=== PATIENT | female | born 1945 | race Caucasian/White ===

== ENCOUNTER → 2017-11-09 09:56 | Outpatient (CLI) | payer MEDICARE, OTHER, SELFPAY ==
[2017-11-09 10:23] LABS: Hematocrit 35.6 % (37-47); Hemoglobin 11.6 g/dl (12.0-15.0)
[2017-11-09 10:42] LABS: AST(SGOT) 20 U/L (15-37); Alanine Aminotransfer ALT/SGPT 20 U/L (13-56); Albumin, Serum 3.5 g/dL (3.2-5.0); Alkaline Phosphatase 76 U/L (45-117); Bilirubin, Direct 0.18 mg/dL (0.00-0.30); Cholesterol 160 mg/dL (200); Globulin 3.3 g/dL (2.2-4.2); High Density Lipoprotein 78 mg/dL; Protein, Total 6.8 g/dL (6.4-8.2); Triglycerides 134 mg/dL; Very Low Density Lipoprotein 27 mg/dL (5-40)
== END ==
PROVIDERS: Family Provider Family Medicine; PCP Family Medicine; Visit Provider Nurse Practitioner Family
DX: E78.00 Pure hypercholesterolemia, unspecified (principal); K52.9 Noninfective gastroenteritis and colitis, unspecified
CPT/HCPCS: 36415; 80061; 80076; 85014; 85018

== ENCOUNTER → 2018-05-07 11:03 | Outpatient (CLI) | payer MEDICARE, OTHER, SELFPAY ==
[2018-05-07 12:04] LABS: AST(SGOT) 15 U/L (15-37); Alanine Aminotransfer ALT/SGPT 20 U/L (13-56); Albumin, Serum 3.5 g/dL (3.2-5.0); Alkaline Phosphatase 75 U/L (45-117); Bilirubin, Direct 0.17 mg/dL (0.00-0.30); Cholesterol 165 mg/dL (200); Globulin 3.1 g/dL (2.2-4.2); High Density Lipoprotein 78 mg/dL; Protein, Total 6.6 g/dL (6.4-8.2); Triglycerides 85 mg/dL; Very Low Density Lipoprotein 17 mg/dL (5-40)
== END ==
PROVIDERS: Family Provider Family Medicine; PCP Family Medicine; Visit Provider Nurse Practitioner Family
DX: E78.5 Hyperlipidemia, unspecified (principal)
CPT/HCPCS: 36415; 80061; 80076

== ENCOUNTER → 2019-03-07 | Outpatient (CLI) | payer MEDICARE, OTHER, SELFPAY ==
[2018-11-05 11:21] VITALS: BMI 20.2
--- NOTE | 2019-03-07 12:10 | US_ITS ---
STUDY: RENAL ULTRASOUND - COMPLETE REASON FOR EXAM: Female, 73 years old. UTIs TECHNIQUE: Ultrasound evaluation of the kidneys was performed with real-time and static payne-scale imaging. COMPARISON: None. FINDINGS: RIGHT KIDNEY: Normal location of the right kidney, which is normal in size. The right kidney measures 10.5 x 4.8 x 3.8 cm. There is a normal cortex of the right kidney. The renal cortex measures 1.2 cm. There is no right renal mass or cyst. There are no right renal calculi. There is no right hydronephrosis. DISTAL RIGHT URETER: There is non-visualization of the distal right ureter. There is no demonstrated right ureterovesical junction calculus. There is a visualized right ureteral jet. LEFT KIDNEY: Normal location of the left kidney, which is normal in size. The left kidney measures 9.8 x 4.8 x 5.1 cm. There is a normal cortex of the left kidney. The renal cortex measures 1.2 cm. There is no left renal mass or cyst. There are no left renal calculi. There is no left hydronephrosis. DISTAL LEFT URETER: There is non-visualization of the distal left ureter. There is no demonstrated left ureterovesical junction calculus. There is a visualized left ureteral jet. AORTA: There is no elongation or tortuosity of the abdominal aorta. I.V.C.: The IVC is patent. BLADDER: The distended urinary bladder has a volume of 334.1 ml. The empty urinary bladder has a volume of 58.82 ml. There is a normal wall thickness of the distended urinary bladder. There is no demonstrated mass within the urinary bladder. There are no demonstrated bladder calculi. US/Kidney and Bladder IMPRESSION: Sonographically normal kidneys Bladder distends normally but there is a post void residual in the bladder above what is considered normal. This places the patient risk for urinary reflux and UTIs Electronically Signed: Magdy Luciano MD at 13:39 EDT , Service support ,
== END | disposition home or self-care (01) ==
LOC: US 12:09
PROVIDERS: Family Provider Family Medicine; PCP Family Medicine; Referring Provider Urology; Visit Provider Urology
DX: N39.0 Urinary tract infection, site not specified (principal)
CPT/HCPCS: 76770

== ENCOUNTER → 2020-10-14 08:16 | Outpatient (CLI) | payer MEDICARE, OTHER, SELFPAY ==
[2020-02-28 13:04] VITALS: BMI 20.6
[2020-10-14 09:52] LABS: AST(SGOT) 16 U/L (15-37); Alanine Aminotransfer ALT/SGPT 18 U/L (13-56); Albumin, Serum 3.7 g/dL (3.2-5.0); Alkaline Phosphatase 91 U/L (45-117); Bilirubin, Direct 0.18 mg/dL (0.00-0.30); Cholesterol 175 mg/dL (200); Globulin 3.2 g/dL (2.2-4.2); High Density Lipoprotein 63 mg/dL; Protein, Total 6.9 g/dL (6.4-8.2); Triglycerides 161 mg/dL; Very Low Density Lipoprotein 32 mg/dL (5-40)
== END ==
PROVIDERS: PCP Family Medicine; Visit Provider Internal Medicine Cardiovascular Disease
DX: E78.00 Pure hypercholesterolemia, unspecified (principal)
CPT/HCPCS: 36415; 80061; 80076

== ENCOUNTER → 2021-03-16 15:02 | Outpatient (CLI) | payer MEDICARE, OTHER, SELFPAY ==
[2020-10-19 15:17] VITALS: BMI 19.8
[2021-03-16 17:51] LABS: Absolute Neutrophil Count 4.9 X10^3/uL (2.0-7.7); Basophil# 0.04 X10^3/uL; Basophil% 0.6 % (0-1); Eosinophil# 0.03 X10^3/uL; Eosinophils% 0.4 % (0-5); Hematocrit 36.7 % (37-47); Hemoglobin 12.1 g/dL (12.0-15.0); Lymphocyte % 19.3 % (19-41); Mean Corpuscular Hgb 31.5 pg (27.0-32.0); Mean Corpuscular Volume 95.6 fL (81-99); Mean Platelet Vol. 10.9 fl (6.2-12.0); Monocyte# 0.46 X10^3/uL; Monocyte% 6.8 % (0-10); NRBC Flagged by Analyzer 0 % (0-5); Neutrophil # 4.88 X10^3/uL (2.7-7.7); Neutrophil % 72.6 % (47-70); Platelet Count 185 K/mm3 (150-450); RBC Distribution Width CV 12.7 % (11.6-14.6); RBC Distribution Width SD 44.8 fl (35.1-43.9); Red Blood Count 3.84 M/mm3 (4.2-5.4); White Blood Count 6.7 K/mm3 (4.4-11.0)
[2021-03-16 18:09] LABS: CRP < 2.90 mg/L (0.0-3.0)
[2021-03-18 14:09] LABS: Endomysial Antibody IgA Negative (Negative)
[2021-03-18 16:41] LABS: Immunoglobulin A 88 mg/dL (64-422); t-Transglutaminase IgA <2 U/mL (0-3)
== END ==
PROVIDERS: PCP Family Medicine; Referring Provider Internal Medicine Gastroenterology; Visit Provider Internal Medicine Gastroenterology
DX: R19.7 Diarrhea, unspecified (principal)
CPT/HCPCS: 36415; 82784; 83516; 85025; 86140; 86255

== ENCOUNTER → 2021-03-23 11:42 | Outpatient (CLI) | payer MEDICARE, OTHER, SELFPAY ==
[2020-10-19 15:17] VITALS: BMI 19.8
--- NOTE | 2021-03-23 10:31 | FLU_PTH ---
PATIENT: GRICELDA KRUGER LOC: [facility] U#:[id number] AGE/SX: 80/F ROOM: RE03/23/[address]: Dr. Demario Felix MD : 1945 BED: DIS: SPEC #: [id number] RECD: 03/23/21 11:28 STATUS: MARGOTH SHANICE #: [id number] WM: 03/23/21 10:[address]: Demario Felix DEPT: CYTOLOGY RECD BY: Naa Esparza ENTERED: 03/23/21 13:59 SP TYPE: Fluid OTHR DR: Dr. Jerod Au MD Tissues: A - Thyroid gland, NOS Procedures: Special Stain Group II Surgery Specimen Level IV Cytospin Fluid HEADER OPERATION: Fine needle aspiration thyroid PRE-OP DIAGNOSIS: Thyroid nodule TISSUE SUBMITTED: Thyroid nodule biopsy DIAGNOSIS CYTOLOGY Fine needle aspiration, thyroid nodule (cytospin and cell block): Consistent with benign follicular nodule with cystic change. AM:jaron 03/24/2021 COMMENT The specimen is adequate for evaluation. CYTOLOGY STUDY Slides are reviewed. CYTOLOGY GROSS Received is 35 ml of light clear pink fluid with particles labeled with the patient's name and and designated per the requisition as thyroid nodule. Submitted for cytology preparation including cell block. / jaron 03/23/2021 TC:5 CPT: 98107, 07830
== END ==
PROVIDERS: PCP Family Medicine; Visit Provider Otolaryngology
DX: E04.1 Nontoxic single thyroid nodule (principal)
CPT/HCPCS: 88108; 88305; 88313

== ENCOUNTER → 2021-04-05 15:20 | Outpatient (CLI) | payer MEDICARE, OTHER, SELFPAY ==
[2021-04-05 18:08] LABS: Thyroid Stim Hormone (TSH) 0.13 uIU/mL (0.358-3.74)
[2021-04-06 12:24] LABS: Free T3 2.4 pg/mL (2.18-3.98); T4 Free Direct 0.89 ng/dL (0.76-1.46)
== END ==
PROVIDERS: PCP Family Medicine; Referring Provider Otolaryngology; Visit Provider Otolaryngology
DX: E04.2 Nontoxic multinodular goiter (principal); E05.90 Thyrotoxicosis, unspecified without thyrotoxic crisis or storm
CPT/HCPCS: 36415; 84439; 84443; 84481

== ENCOUNTER → 2021-04-06 11:53 | Outpatient (CLI) | payer MEDICARE, OTHER, SELFPAY ==
[2021-04-09 13:52] LABS: Thyroglobulin Antibody < 1.0 IU/mL (0.0-0.9); Thyroid Peroxidase AB 8 IU/mL (0-34)
== END ==
PROVIDERS: PCP Family Medicine; Referring Provider Otolaryngology; Visit Provider Otolaryngology
DX: E05.90 Thyrotoxicosis, unspecified without thyrotoxic crisis or storm (principal)
CPT/HCPCS: 36415; 86376; 86800

== ENCOUNTER → 2021-04-22 09:34 | Outpatient (CLI) | payer MEDICARE, OTHER, SELFPAY ==
[2021-04-22 10:47] LABS: AST(SGOT) 10 U/L (15-37); Alanine Aminotransfer ALT/SGPT 19 U/L (13-56); Albumin, Serum 3.2 g/dL (3.2-5.0); Alkaline Phosphatase 64 U/L (45-117); Bilirubin, Direct 0.19 mg/dL (0.00-0.30); Cholesterol 176 mg/dL (200); High Density Lipoprotein 83 mg/dL; Protein, Total 6.2 g/dL (6.4-8.2); Triglycerides 156 mg/dL; Very Low Density Lipoprotein 31 mg/dL (5-40)
== END ==
PROVIDERS: PCP Family Medicine; Referring Provider Internal Medicine Cardiovascular Disease; Visit Provider Internal Medicine Cardiovascular Disease
DX: E78.00 Pure hypercholesterolemia, unspecified (principal)
CPT/HCPCS: 36415; 80061; 80076

== ENCOUNTER → 2021-04-28 09:02 | Outpatient (CLI) | payer MEDICARE, OTHER, SELFPAY ==
--- NOTE | 2021-04-28 09:05 | NM_ITS ---
CLINICAL: 75-year-old female with reported history of clinical thyrotoxicosis an abnormal in vitro thyroid function studies. I-123 THYROID UPTAKE and SCAN COMPARISON: None available FINDINGS: The patient was administered a 313 uCi I-123 capsule by mouth. The 4-hour I-123 radioactive iodine thyroidal uptake was calculated to be 8.1 % (normal 5 to 25 %). The 24-hour I-123 radioactive iodine thyroidal uptake was calculated to be 22.4 % (normal 5 to 40 %). The I-123 thyroid scan demonstrates heterogeneous radiopharmaceutical concentration throughout the visualized right lobe and decreased uptake manifest in the superior-midpole of the left lobe thyroid colloid. NM/Thyroid Uptake Single or Mult IMPRESSION: 1. NORMAL 4- and 24-hour I-123 radioactive iodine thyroidal uptakes. 2. The I-123 thyroid scan in conjunction with the calculated normal IODINE uptake values and clinical presentation of thyrotoxicosis may represent the presence of the recovery phase of subacute thyroiditis or potentially a low-grade right lobe toxic adenoma with incomplete suppression of the left lobe thyroid colloid. Electronically Signed: Paramjit Ojeda DO at 22:35 EDT Tel , Service support ,
== END ==
PROVIDERS: PCP Family Medicine; Referring Provider Otolaryngology; Visit Provider Otolaryngology
DX: E05.90 Thyrotoxicosis, unspecified without thyrotoxic crisis or storm (principal)
CPT/HCPCS: 78012; A9516

== ENCOUNTER → 2021-05-07 13:41 | Outpatient (CLI) | payer MEDICARE, OTHER, SELFPAY ==
--- NOTE | 2021-05-07 13:43 | ECHOD_ITS ---
Reason For Study: CM Procedure This was a 2D Doppler, Color Flow transthoracic echocardiogram. Myocardial strain analysis was performed in this exam to aid in the assessment of cardiac function. The exam was of adequate technical quality. Exam performed in department. Left Ventricle Normal LV size. Segmental dysfunction with preserved ejection fraction (see wall motion). The estimated ejection fraction is 60 %. The global longitudinal strain = -16% (borderline). Septal motion consistent with IVCD. Diastolic function is indeterminate. Mid-inferoseptal : Hypokinetic. Mid-anteroseptal : Hypokinetic. Right Ventricle Normal RV size. Normal systolic function. Atria The left atrium is mildly enlarged. Normal right atrium. No doppler evidence for ASD. Mitral Valve There is mild to moderate mitral annular calcification. Extension of the mitral annular calcification onto the base of the posterior mitral valve leaflet. Mild (1+) mitral valve insufficiency. Tricuspid Valve Normal tricuspid valve. Mild tricuspid valve insufficiency. Right ventricular systolic pressure estimated to be 22 mmHg. Aortic Valve Trisinus/trileaflet aortic valve. Mild diffuse aortic valve thickening. Pulmonic Valve The pulmonic valve is not well visualized. Trivial pulmonic valve insufficiency. Great Vessels Normal sized aortic root. Pericardium/Pleural No pericardial effusion. MMode/2D Measurements & Calculations LVIDd: 4.3 cm IVSd: 1.0 cm Ao root diam: 2.6 cm LVIDs: 2.8 cm LVPWd: 0.98 cm RVDd: 3.8 cm FS: 33.9 % LAV(MOD-bp): 32.8 ml LVAd ap4: 17.8 cm2 SV(MOD-sp4): 25.0 ml LAV(MOD-bp) Indexed: 20.9 ml/m2 LVLd ap4: 6.4 cm LAV(MOD-sp2): 36.7 ml EDV(MOD-sp4): 40.3 ml LAV(MOD-sp4): 29.7 ml EDV(sp4-el): 41.8 ml LVAs ap4: 9.9 cm2 LVLs ap4: 5.4 cm ESV(MOD-sp4): 15.3 ml ESV(sp4-el): 15.5 ml EF(MOD-sp4): 62.2 % EF(sp4-el): 62.9 % SV(sp4-el): 26.3 ml LA A4 area: 13.4 cm2 LA dimension(2D): 3.4 cm RA A4 area: 13.0 cm2 Doppler Measurements & Calculations MV E max damien: 67.2 cm/sec Lat Peak E' Damien: 5.6 cm/sec Med Peak E' Damien: 4.3 cm/sec MV A max damien: 109.5 cm/sec E/E' lat: 12.1 E/E' med: 15.8 MV E/A: 0.61 Ao V2 max: 122.9 cm/sec LV V1 max: 100.0 cm/sec PA V2 max: 88.6 cm/sec Ao max P.0 mmHg LV V1 max P.0 mmHg Ao V2 mean: 87.8 cm/sec Ao mean P.3 mmHg Ao V2 VTI: 24.7 cm TR max damien: 220.0 cm/sec TR max P.4 mmHg ECHO/Echo Complete Interpretation Summary Segmental dysfunction with preserved ejection fraction (see wall motion). The estimated ejection fraction is 60 %. The global longitudinal strain = -16% (borderline). Septal motion consistent with IVCD. The left atrium is mildly enlarged. There is mild to moderate mitral annular calcification. Extension of the mitral annular calcification onto the base of the posterior mi tral valve leaflet. Mild (1+) mitral valve insufficiency. Mild tricuspid valve insufficiency. Mild diffuse aortic valve thickening. Trivial pulmonic valve insufficiency. Right ventricular systolic pressure estimated to be 22 mmHg. Diastolic function is indeterminate. Ordering Physician: Kwame Nava Referring Physician: Jerod Au Performed By: Rhea Mcneil, GAMAL, RVT
== END ==
PROVIDERS: PCP Family Medicine; Referring Provider Internal Medicine Cardiovascular Disease; Visit Provider Internal Medicine Cardiovascular Disease
DX: Z79.899 Other long term (current) drug therapy (principal)
CPT/HCPCS: 93306

== ENCOUNTER 2021-06-11 09:57 | Observation (INO) | payer MEDICARE, OTHER, SELFPAY ==
--- NOTE | 2021-06-08 10:29 | EKG12_ITS ---
Test Reason : PREOP Blood Pressure : / mmHG Vent. Rate : 059 BPM Atrial Rate : 059 BPM P-R Int : 154 ms QRS Dur : 144 ms QT Int : 478 ms P-R-T Axes : 038 -43 105 degrees QTc Int : 473 ms Sinus bradycardia Left axis deviation Left bundle branch block Abnormal ECG Confirmed by FRANCE SOLORIO, VIRGIL ([id number]), supervising editor trailer JOSE MIGUEL MUÑOZ ([id number]) on 06/09/2021 9:29:28 AM Referred By: Demario Felix Confirmed By:VIRGIL HOUGH MD
[2021-06-08 12:18] LABS: Absolute Lymphocyte Count 1.98 X10^3/uL (0.83-4.51); Basophil# 0.04 X10^3/uL; Basophil% 0.6 % (0-1); Eosinophil# 0.06 X10^3/uL; Eosinophils% 0.9 % (0-5); Hematocrit 38.1 % (37-47); Hemoglobin 12.8 g/dL (12.0-15.0); Lymphocyte # 1.98 X10^3/ul (0.83-4.51); Lymphocyte % 29.7 % (19-41); Mean Corp Hgb Conc 33.6 g/dL (32-36); Mean Corpuscular Hgb 32.2 pg (27.0-32.0); Mean Platelet Vol. 9.9 fl (6.2-12.0); Monocyte# 0.61 X10^3/uL; Monocyte% 9.1 % (0-10); NRBC Flagged by Analyzer 0 % (0-5); Neutrophil # 3.96 X10^3/uL (2.7-7.7); Neutrophil % 59.4 % (47-70); Platelet Count 192 K/mm3 (150-450); RBC Distribution Width CV 12.9 % (11.6-14.6); RBC Distribution Width SD 45.7 fl (35.1-43.9); Red Blood Count 3.97 M/mm3 (4.2-5.4); White Blood Count 6.7 K/mm3 (4.4-11.0)
[2021-06-08 12:25] LABS: Partial Thromboplast Time 28.3 Seconds (24.1-36.2)
[2021-06-08 12:43] LABS: Anion Gap 8 (5-15); BUN 15 mg/dL (7-18); BUN/Creat Ratio 22.8 RATIO (10-20); Calcium,Total 9.5 mg/dL (8.5-10.1); Chloride 105 mmol/L (98-107); Creatinine, Serum 0.66 mg/dL (0.55-1.02); EST Glomerular Filtration Rate 92 mL/min (>60); Est Glom Filt Rate - Afr Amer 112 mL/min (>60); Glucose 89 mg/dL (74-106); Potassium 3.3 mmol/L (3.5-5.1); Sodium Level 143 mmol/L (136-145)
[2021-06-11] VITALS (13 sets, daily range): BP systolic 132–180; BP diastolic 64–91; PULSE 64–79; RESP 12–18; TEMP 35.8–36.9; O2SAT 94–100; BMI 20.5
--- NOTE | 2021-06-11 | THYROID_PTH ---
PATIENT: GRICELDA KRUGER LOC: [facility] U#:[id number] AGE/SX: 75/F ROOM: [facility] RE06/11/[address]: Dr. Demario Fleix MD : 1945 BED: 1 DIS: 06/12/2021 SPEC #: [id number] RECD: 06/11/21 09:16 STATUS: MARGOTH SHANICE #: [id number] WM: 06/11/21 00:[address]: Demario Felix DEPT: SURGICAL PATHOLOGY RECD BY: Kristine Corado ENTERED: 06/11/21 09:41 SP TYPE: THYROID OTHR DR: Dr. 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 SJ:jaron 06/11/2021 MICROSCOPIC DIAGNOSIS Right thyroid lobe, lobectomy: Multinodular goiter. Unremarkable parathyroid tissue. One benign perithyroidal lymph node. See comment. ANDIE:jaron 06/14/2021 COMMENT The largest nodule shows extensive cystic changes. Please make reference to previous specimen ([id number]) fine needle aspiration, thyroid nodule with diagnosis of ?consistent with benign follicular nodule with cystic change.? MICROSCOPIC DESCRIPTION Slides are reviewed. GROSS DESCRIPTION Received fresh for frozen section consultation/diagnosis labeled with the patient's name is a specimen designated right thyroid lobe. The specimen consists of a thyroid lobectomy specimen weighing 9 gm and measuring 5.5 x 2.5 x 1.5 cm. The specimen is inked as follows: anterior surface - black, posterior surface - blue. No external parathyroid tissue is identified. The specimen is serially sectioned and reveal a colloid nodule with extensive cystic changes in the middle to lower portion of the thyroid lobe measuring 3 x 2 x 1.5 cm. Smaller colloid nodules are also noted. A section of the largest nodule is submitted for frozen section diagnosis. The entire specimen is submitted in six cassettes as follows: 1 - frozen section, 2-6 - rest of the specimen (2 containing the most superior and 6 containing the most inferior portion). / SJ:jaron 06/11/21 TC:5 CPT: 33862, 49770
[2021-06-11] MEDS: Lactated Ringers 1,000 ML 100 ML IV ×3 (06:43→18:16)
[2021-06-11] MEDS: Lidocaine 1% /Epi 1:100 (20ml) 20 ML Vial (07:50)
--- NOTE | 2021-06-11 09:50 | PCM.OPRPT ---
Problems Associated Problem List Diagnoses (1) Multinodular goiter: (2) Toxic goiter with no crisis: (3) Hyperthyroidism: Report of Operation Date of Procedure: 06/11/21 Pre-Operative Diagnosis: Hyperthyroidism with toxin nodule Post-Operative Diagnosis: Same Surgery/Procedure Performed:: Right hemithyroidectomy Description of Surgical Findings:: Kassie is a 75-year-old female with persistent hyperthyroidism in the setting of multinodular goiter. Nuclear medicine scanning showed the largest nodule was a dominant nodule with increased uptake which is suspected as the primary cause of her hyperthyroidism and hemithyroidectomy for full evaluation and possible posterior was offered and she was agreeable to proceed. The risks, alternatives, potential complications, and benefits were discussed at length and any questions answered to the patient and/or caregiver's satisfaction. Witnessed informed consent was obtained in the office, and the patient and/or caregiver was agreeable to proceed. Procedure went as follows: The patient was identified in the preoperative holding and brought to the operating room, placed under general anesthesia and intubated with a neuromonitoring tube. The grounding electrodes were then placed on the chest and confirmed to be operational in accordance with the food server's directions to allow for recurrent laryngeal nerve monitoring. The neck was then prepped and draped in usual sterile fashion and the planned skin incision was marked 2 finger breadths above the sternal notch with a marking pen. The incisional line was then injected with 1% lidocaine with 100,000 epinephrine for a total of 6 mL. After allowing for vasoconstriction, a 15 blade scalpel was used to make an incision 6 cm in length through the skin and subcutaneous tissues and platysma. A subplatysmal flap was then elevated superiorly and inferiorly to allow for placement of a small retractor. The strap muscles were then divided in the midline and beginning on the right side the thyroid lobe dissected in a sub-capsular fashion. The inferior, middle, and superior thyroid vessels were individually clamped and ligated with a combination of 3-0 silk sutures and vascular clips. The parathyroid glands were identified along the inferior vascular pedicle and preserved. The recurrent laryngeal nerve was also identified and followed to its nerve entry point and the thyroid gland dissected free of its attachments to the trachea at Broyle's ligament. This was then transected at the isthmus and sent for pathologic evaluation. No significant bleeding was encountered and #7 flat drains were then placed into each tracheoesophageal groove and brought out through a separate stab incision in the neck and secured with 3-0 silk suture. The strap muscles were then re-approximated in the midline with a running 3-0 Vicryl suture followed by interrupted 3-0 Vicryl sutures to close the platysma and subcutaneous tissues. A 5-0 Monocryl was then used to close the skin followed by Steri-Strips completing the procedure. The patient was then returned to anesthesia, revived and extubated having tolerated the procedure well. Surgeon: Demario Felix Type of Anesthesia: General Anesthesiologist: Demario Rdz Specimen's removed: right hemithyroid Drains: 1 #7 flat KG Estimated Blood Loss (mL): 0 mL Fluids Replaced: 400 mL Grafts/Implants Used: none Complications none Admit VTE Documentation VTE Present on Admission: No VTE Mechan Device Prophylaxis: SCD's VTE Pharm Prophylaxis ordered?: No
[2021-06-11] MEDS: Acetaminophen 325 MG Tablet 650 MG PO ×2 (12:32→18:28)
[2021-06-11] MEDS: Calcium Carbonate 500 MG Tablet 1000 MG PO ×2 (14:31→20:38)
--- NOTE | 2021-06-11 16:10 | CASEMGMT ---
RN CM NOTE: RN CM to room. Introduced self and role of RN CM. Pt resting in bed. Awake/alert/oriented. Pt states she lives w/her and is independent. She denies having any discharge/home-going concerns/needs or questions. Her PCP is Dr Au. She also sees: Dr Felix--surg, Dr Nava--cardiology, Dr Miller-GI, and Mirki-side seam machine operator. Pharmacy is [facility] in [place]. Jorje DELANEYN RN CM
[2021-06-11] MEDS: Pantoprazole Sodium 20 MG Tablet PO (20:38)
[2021-06-11] MEDS: Carvedilol 12.5 MG Tablet PO (20:39)
[2021-06-11] MEDS: levETIRAcetam 500 MG Tablet PO (20:39)
[2021-06-11] MEDS: Sertraline 50 MG Tablet PO (22:20)
[2021-06-11] MEDS: Atorvastatin Calcium 10 MG Tablet PO (22:20)
[2021-06-11] MEDS: clonazePAM 0.5 MG Tablet 0.75 MG PO (22:21)
[2021-06-12 02:46] VITALS: BP 145/52; PULSE 61; RESP 16; TEMP 37.1; O2SAT 92
[2021-06-12] MEDS: Acetaminophen 325 MG Tablet 650 MG PO (02:52)
--- NOTE | 2021-06-12 05:32 | PCS.PANDOC ---
PANDEMIC DOCUMENTATION INITIATED: Date: 03/29/2021 Time: 190
[2021-06-12 06:21] VITALS: BP 131/58; PULSE 59; RESP 16; TEMP 37.2; O2SAT 96
[2021-06-12] MEDS: Carvedilol 12.5 MG Tablet PO (06:26)
[2021-06-12] MEDS: Calcium Carbonate 500 MG Tablet 1000 MG PO (06:26)
[2021-06-12] MEDS: levETIRAcetam 500 MG Tablet PO (06:26)
--- NOTE | 2021-06-12 09:26 | PCM.PN.SRG ---
Subjective Subjective The patient reports that she is done well overnight with no significant pain other than some mild pulling at the drain site. She denies any hoarseness or difficulty breathing. She denies any chills sweats or malaise. Objective Data Objective Data Patient is well-appearing at the bedside. Neck incision is clean dry and intact without erythema. Drain output was less than 10 mL and serosanguineous in nature without purulence. Voicing is normal. Vital Signs: Vital Signs Temp Pulse Resp BP Pulse Ox 99.0 F 59 L 16 131/58 H 96 06/12/21 06:21 06/12/21 06:21 06/12/21 06:21 06/12/21 06:21 06/12/21 06:21 Oxygen Flow Rate (L/min) 2 Oxygen Delivery Method Room Air Weight: 54.1 kg Body Mass Index (BMI) 20.5 Intake & Output: Intake and Output for Last 24 Hours 06/10/21 06/11/21 06/12/21 23:59 23:59 23:59 Intake Total 2113.34 / 2613.34 600 / 600 Output Total 190 / 190 Balance 1923.34 / 2423.34 590 / 590 Lab / Micro Data Result Diagrams: 06/08/21 10:44 06/08/21 10:44 Physical Exam Const alert and oriented x3 General Appearance: cooperative and comfortable HEENT normocephalic and head/scalp atraumatic Eyes PERRL and EOMs intact bilaterally Neck supple Neck Narrative: Incision is clean dry and intact Lymph Lymphatic: no lymphadenopathy noted Cardio regular rate and regular rhythm Skin no rashes or lesions noted and skin turgor normal Neuro oriented x3 Assessment & Plan Assessment/Plan (1) Toxic goiter with no crisis: PLAN: Patient is doing well status post right hemithyroidectomy for dominant toxic nodular goiter. Her drain was removed at the bedside. She is noted to have a temperature of 99 today but no signs of infection at the wound site and she denies any symptoms suggestive of infection. I advised her to check her temperature at home and notify me if this trends upward or if she has any signs of infection such as increasing pain redness or discharge. She is agreeable to do so. She is otherwise well and drain output is minimal this is removed at the bedside they feel she is appropriate for discharge to home at this time. (2) Multinodular goiter:
[2021-06-12] MEDS: Multivitamins,Therapeutic Tablet 1 TABLET PO (09:30)
[2021-06-12] MEDS: Acetaminophen 500 MG Tablet 1000 MG PO (09:30)
[2021-06-12] MEDS: Pantoprazole Sodium 20 MG Tablet PO (09:30)
[2021-06-12 09:31] VITALS: BP 94/58; PULSE 63; RESP 16; TEMP 36.6; O2SAT 98
--- NOTE | 2021-06-12 09:31 | PCM.DC ---
Discharge Instructions Diet Discharge Diet: No restrictions Activity Discharge Activity: Return to Normal Activity May shower in (days): 1 Dressing / Incision Call your doctor if your incision/area has: Sudden Increased Bleeding, Increased Pain/ Swelling, Increased Redness, Foul Smelling Discharge and Swelling at the incision site Call your doctor if you observe: Fever of 101 or Higher and Uncontrolled pain Suture Line Care: Avoid Pulling/Pushing Follow Up Care Please Follow Up With: Demario Felix MD When: 1 week Test Results: Test results from this visit will be discussed in further detail at your follow-up appointment, if applicable. Discharge Plan Admission Admit Date/Time: 06/11/21 09:57 Primary Reason for Your Visit: Toxin nodular goiter Attending Provider: Demario Felix Primary Care Provider: Jerod Au Discharge Orders/Prescriptions Prescriptions: Continued clonazepam 0.5 mg tablet 0.75 mg PO QHS RF: 0 rosuvastatin 5 mg tablet 5 mg PO QDAY RF: 0 levetiracetam 500 mg tablet 500 mg PO BID RF: 0 esomeprazole magnesium 20 mg capsule,delayed release(DR/EC) 20 mg PO BID RF: 0 multivitamin tablet 1 tab PO DAILY RF: 0 clobetasol 0.05 % cream 1 applic TOPICAL QWEEK RF: 0 flnneaeuji-bzjmppvgzbjzm-glql 50-325-40 mg tablet 1 tab PO Q6H PRN (Reason: MIGRAINES) RF: 0 calcium carbonate [Calcium 500] 500 mg calcium (1,250 mg) tablet,chewable 1,000 mg PO TID RF: 0 Azo Cranberry 250 mg tablet,chewable 250 mg PO TID RF: 0 sertraline 25 mg tablet 50 mg PO QHS RF: 0 estradiol 0.01 % (0.1 mg/gram) cream 0.1 g VAGINAL MOWEFR RF: 0 glucosamine-chondroitin [Osteo Bi-Flex] 250-200 mg tablet 2 tab PO DAILY RF: 0 acetaminophen [Tylenol Extra Strength] 500 mg tablet 1,000 mg PO DAILY RF: 0 budesonide 3 mg capsule,delayed,extend.release 3 mg PO DAILY PRN (Reason: COLITIS) RF: 0 carvedilol 12.5 mg tablet 12.5 mg PO BID Qty: 180 RF: 4 Other Ambulatory Orders: 12 Lead EKG (Routine) Timeframe: [id number] Location: None Selected Ordered By: Dr. Demario Felix Referrals / Follow Up: Jerod Au MD [Primary Care Provider] - Disposition Disposition (needs filled in before D/C Order can be placed): Home, Self Care
[2021-06-12 09:50] VITALS: RESP 18
[2021-06-12 10:57] VITALS: BP 110/70; PULSE 60; RESP 18; TEMP 37.2; O2SAT 99
== END 2021-06-12 11:02 | disposition home or self-care (01) ==
LOC: SDC 11:23 → MS3 11:23
PROVIDERS: Anesthesiology; Admitting Provider Otolaryngology; PCP Family Medicine; Referring Provider Otolaryngology; Visit Provider Otolaryngology
PROC: (CPT 60220; principal; 2021-06-11 07:10)
DX: E04.2 Nontoxic multinodular goiter (principal); E05.20 Thyrotoxicosis with toxic multinodular goiter without thyrotoxic crisis or storm; I42.0 Dilated cardiomyopathy; E78.00 Pure hypercholesterolemia, unspecified; Z79.899 Other long term (current) drug therapy; M19.90 Unspecified osteoarthritis, unspecified site; F32.A Depression, unspecified; K21.9 Gastro-esophageal reflux disease without esophagitis; I44.7 Left bundle-branch block, unspecified; R00.1 Bradycardia, unspecified; R94.31 Abnormal electrocardiogram [ECG] [EKG]; G25.81 Restless legs syndrome; R56.9 Unspecified convulsions; Z86.011 Personal history of benign neoplasm of the brain; Z85.3 Personal history of malignant neoplasm of breast
CPT/HCPCS: 00320; 60220; 36415; 80048; 85025; 85730; 88307; 88331; 93005; 96360; 96361; 99218; J7120; G0378; J2405

== ENCOUNTER 2021-09-06 14:45 | Outpatient (CLI) | payer MEDICARE, OTHER, SELFPAY ==
[2021-09-06 18:25] LABS: Hematocrit 35.7 % (37-47); Hemoglobin 12.4 g/dL (12.0-15.0); Mean Corp Hgb Conc 34.7 g/dL (32-36); Mean Corpuscular Hgb 32.6 pg (27.0-32.0); Mean Corpuscular Volume 93.9 fL (81-99); Mean Platelet Vol. 10.6 fl (6.2-12.0); Platelet Count 205 K/mm3 (150-450); RBC Distribution Width CV 12.3 % (11.6-14.6); RBC Distribution Width SD 42.5 fl (35.1-43.9); White Blood Count 6.4 K/mm3 (4.4-11.0)
[2021-09-06 18:35] LABS: CRP < 2.90 mg/L (0.0-3.0); Erythrocyte Sedimentation Rate 5 mm/hr (0-30)
== END 2021-09-06 23:59 | disposition short-term general hospital (02) ==
LOC: MTLAB 14:47
PROVIDERS: PCP Family Medicine; Referring Provider Internal Medicine Gastroenterology; Visit Provider Internal Medicine Gastroenterology
DX: K51.90 Ulcerative colitis, unspecified, without complications (principal); R19.7 Diarrhea, unspecified
CPT/HCPCS: 36415; 85027; 85652; 86140

== ENCOUNTER 2021-09-07 09:30 | Outpatient (CLI) | payer MEDICARE, OTHER, SELFPAY ==
[2021-09-09 21:47] LABS: Calprotectin, Stool 102 ug/g (0-120)
== END 2021-09-07 23:59 | disposition short-term general hospital (02) ==
LOC: MTLAB 09:31
PROVIDERS: PCP Family Medicine; Referring Provider Internal Medicine Gastroenterology; Visit Provider Internal Medicine Gastroenterology
DX: K51.90 Ulcerative colitis, unspecified, without complications (principal); R19.7 Diarrhea, unspecified
CPT/HCPCS: 83993

== ENCOUNTER 2021-11-09 14:18 | Outpatient (CLI) | payer MEDICARE, OTHER, SELFPAY | END 2021-11-09 23:59 | disposition home or self-care (01) | LOC: MTLAB 14:19 | PROVIDERS: PCP Family Medicine; Referring Provider Internal Medicine Gastroenterology; Visit Provider Internal Medicine Gastroenterology | DX: K51.90 Ulcerative colitis, unspecified, without complications (principal) | CPT/HCPCS: 36415 ==

== ENCOUNTER 2021-11-17 13:55 | Outpatient (CLI) | payer MEDICARE, OTHER, SELFPAY ==
[2021-11-23 12:51] LABS: Calprotectin, Stool 190 ug/g (0-120)
== END 2021-11-17 23:59 | disposition home or self-care (01) ==
LOC: MTLAB 13:57
PROVIDERS: PCP Family Medicine; Referring Provider Internal Medicine Gastroenterology; Visit Provider Internal Medicine Gastroenterology
DX: K52.9 Noninfective gastroenteritis and colitis, unspecified (principal)
CPT/HCPCS: 83993

== ENCOUNTER 2021-11-25 08:36 | Outpatient (CLI) | payer MEDICARE, OTHER, SELFPAY ==
[2021-11-25 09:46] LABS: AST(SGOT) 16 U/L (15-37); Alanine Aminotransfer ALT/SGPT 23 U/L (13-56); Albumin, Serum 3.7 g/dL (3.2-5.0); Alkaline Phosphatase 60 U/L (45-117); Bilirubin, Direct 0.17 mg/dL (0.00-0.30); Cholesterol 189 mg/dL (200); Globulin 2.8 g/dL (2.2-4.2); High Density Lipoprotein 78 mg/dL; Protein, Total 6.5 g/dL (6.4-8.2); Triglycerides 176 mg/dL; Very Low Density Lipoprotein 35 mg/dL (5-40)
== END 2021-11-25 23:59 | disposition home or self-care (01) ==
LOC: LAB 08:37
PROVIDERS: PCP Family Medicine; Referring Provider Internal Medicine Cardiovascular Disease; Visit Provider Internal Medicine Cardiovascular Disease
DX: E78.00 Pure hypercholesterolemia, unspecified (principal)
CPT/HCPCS: 36415; 80061; 80076

== ENCOUNTER → 2022-07-11 | Outpatient (CLI) | payer MEDICARE, OTHER, SELFPAY ==
[2022-07-13 20:14] LABS: Calprotectin, Stool 235 ug/g (0-120)
== END | disposition home or self-care (01) ==
PROVIDERS: PCP Family Medicine; Referring Provider Internal Medicine Gastroenterology; Visit Provider Internal Medicine Gastroenterology
DX: K52.831 Collagenous colitis (principal); R19.7 Diarrhea, unspecified
CPT/HCPCS: 83993

== ENCOUNTER → 2022-07-29 | Outpatient (CLI) | payer MEDICARE, OTHER, SELFPAY ==
[2022-07-29 17:46] LABS: Hematocrit 36.9 % (37-47); Hemoglobin 12.5 g/dL (12.0-15.0); Mean Corp Hgb Conc 33.9 g/dL (32-36); Mean Corpuscular Hgb 32.7 pg (27.0-32.0); Mean Corpuscular Volume 96.6 fL (81-99); Platelet Count 251 K/mm3 (150-450); RBC Distribution Width CV 12.9 % (11.6-14.6); RBC Distribution Width SD 45.9 fl (35.1-43.9); Red Blood Count 3.82 M/mm3 (4.2-5.4); White Blood Count 6.1 K/mm3 (4.4-11.0)
[2022-07-29 18:08] LABS: ALB/GLOB Ratio 1.1 RATIO (0.9-2.4); AST(SGOT) 19 U/L (15-37); Alanine Aminotransfer ALT/SGPT 24 U/L (13-56); Albumin, Serum 3.6 g/dL (3.2-5.0); Alkaline Phosphatase 63 U/L (45-117); Anion Gap 6 (5-15); BUN 12 mg/dL (7-18); BUN/Creat Ratio 17.5 RATIO (10-20); Calcium,Total 8.7 mg/dL (8.5-10.1); Chloride 108 mmol/L (98-107); Creatinine, Serum 0.69 mg/dL (0.55-1.02); EST Glomerular Filtration Rate 88 mL/min (>60); Est Glom Filt Rate - Afr Amer 106 mL/min (>60); Globulin 3.2 g/dL (2.2-4.2); Glucose 81 mg/dL (74-106); Potassium 3.1 mmol/L (3.5-5.1); Protein, Total 6.8 g/dL (6.4-8.2); Sodium Level 142 mmol/L (136-145)
== END | disposition home or self-care (01) ==
LOC: MTLAB 15:25
PROVIDERS: PCP Family Medicine; Referring Provider Internal Medicine Gastroenterology; Visit Provider Internal Medicine Gastroenterology
DX: K52.9 Noninfective gastroenteritis and colitis, unspecified (principal)
CPT/HCPCS: 36415; 80053; 85027

== ENCOUNTER → 2022-09-12 | Outpatient (CLI) | payer MEDICARE, OTHER, SELFPAY | END | disposition home or self-care (01) | PROVIDERS: PCP Family Medicine; Referring Provider Internal Medicine Gastroenterology; Visit Provider Internal Medicine Gastroenterology | DX: K51.90 Ulcerative colitis, unspecified, without complications (principal) | CPT/HCPCS: 36415 ==

== ENCOUNTER → 2023-02-22 | Outpatient (CLI) | payer MEDICARE, OTHER, SELFPAY ==
[2023-02-22 12:42] LABS: Absolute Lymphocyte Count 1.67 X10^3/uL (0.83-4.51); Absolute Neutrophil Count 2.9 X10^3/uL (2.0-7.7); Basophil# 0.03 X10^3/uL; Basophil% 0.6 % (0-1); Eosinophil# 0.02 X10^3/uL; Eosinophils% 0.4 % (0-5); Hematocrit 35.3 % (37-47); Hemoglobin 11.9 g/dL (12.0-15.0); Lymphocyte # 1.67 X10^3/ul (0.83-4.51); Lymphocyte % 32.9 % (19-41); Mean Corp Hgb Conc 33.7 g/dL (32-36); Mean Corpuscular Hgb 32.2 pg (27.0-32.0); Mean Corpuscular Volume 95.4 fL (81-99); Mean Platelet Vol. 10.8 fl (6.2-12.0); Monocyte# 0.42 X10^3/uL; Monocyte% 8.3 % (0-10); NRBC Flagged by Analyzer 0 % (0-5); Neutrophil # 2.89 X10^3/uL (2.7-7.7); Neutrophil % 56.8 % (47-70); Platelet Count 184 K/mm3 (150-450); RBC Distribution Width CV 11.9 % (11.6-14.6); RBC Distribution Width SD 41.4 fl (35.1-43.9); White Blood Count 5.1 K/mm3 (4.4-11.0)
[2023-02-22 13:37] LABS: ALB/GLOB Ratio 0.9 RATIO (0.9-2.4); AST(SGOT) 21 U/L (15-37); Alanine Aminotransfer ALT/SGPT 13 U/L (13-56); Albumin, Serum 3.2 g/dL (3.2-5.0); Alkaline Phosphatase 68 U/L (45-117); Anion Gap 7 (5-15); BUN 13 mg/dL (7-18); BUN/Creat Ratio 16.1 RATIO (10-20); Calcium,Total 8.6 mg/dL (8.5-10.1); Chloride 110 mmol/L (98-107); Creatinine, Serum 0.81 mg/dL (0.55-1.02); EST Glomerular Filtration Rate 73 mL/min (>60); Est Glom Filt Rate - Afr Amer 88 mL/min (>60); Globulin 3.6 g/dL (2.2-4.2); Glucose 117 mg/dL (74-106); Potassium 3.1 mmol/L (3.5-5.1); Protein, Total 6.8 g/dL (6.4-8.2); Sodium Level 141 mmol/L (136-145)
== END | disposition home or self-care (01) ==
LOC: MTLAB 10:47
PROVIDERS: PCP Family Medicine; Referring Provider Internal Medicine Gastroenterology; Visit Provider Internal Medicine Gastroenterology
DX: K51.80 Other ulcerative colitis without complications (principal)
CPT/HCPCS: 36415; 80053; 85025; 86140

== ENCOUNTER → 2023-03-16 | Outpatient (CLI) | payer MEDICARE, OTHER, SELFPAY ==
--- NOTE | 2023-03-16 16:21 | US_ITS ---
INDICATION: AUB EXAMINATION: Ultrasound US Pelvis Non-OB Complete TECHNIQUE: Transabdominal and transvaginal pelvic ultrasound was performed. Grayscale, spectral waveform, and color flow Doppler evaluation of the adnexa. COMPARISON: FINDINGS: UTERUS: Anteverted. The uterus measures 8.0 x 4.8 x 3.8 cm. There is no uterine mass. The endometrial stripe measures 8 mm in AP diameter which is within normal limits. Nabothian cysts. RIGHT OVARY: Nonvisualization. LEFT OVARY: Nonvisualization. FREE FLUID: Trace. US/Pelvic (Non ) IMPRESSION: Trace pelvic fluid. Nabothian cysts. Electronically Signed: Alan Smith DO at 20:23 EDT Reading Location ID and State: [facility] / [place] Tel [phone], Service support ,
== END | disposition home or self-care (01) ==
LOC: US 16:19
PROVIDERS: PCP Family Medicine; Referring Provider Urology; Visit Provider Urology
DX: N93.9 Abnormal uterine and vaginal bleeding, unspecified (principal)
CPT/HCPCS: 76856

== ENCOUNTER → 2023-04-11 | Outpatient (CLI) | payer MEDICARE, OTHER, SELFPAY ==
--- NOTE | 2023-04-11 14:10 | EMB_PTH ---
PATIENT: GRICELDA KRUGER LOC: [facility] U#:[id number] AGE/SX: 77/F ROOM: RE04/11/[address]: DIDIER Del Angel : 1945 BED: DIS: 04/11/2023 SPEC #: [id number] RECD: 04/11/23 15:53 STATUS: MARGOTH REIliana #: [id number] WM: 04/11/23 14:[address]: Marzena Salazar NP DEPT: SURGICAL PATHOLOGY RECD BY: Naa Esparza ENTERED: 04/12/23 10:50 SP TYPE: ENDOM BX/C NORMAN DR: Dr. Jerod Au MD Tissues: Endometrium, NOS Procedures: Surgery Specimen Level IV HEADER OPERATION: Endometrial biopsy PRE-OP DIAGNOSIS: Abnormal uterine bleeding TISSUE SUBMITTED: Endometrial tissue MICROSCOPIC DIAGNOSIS Endometrial biopsy: Strips of benign endometrial epithelium and superficial fragments of benign endometrial tissue and mucous. SJ:jaron 04/13/2023 MICROSCOPIC DESCRIPTION Slides are reviewed. GROSS DESCRIPTION Received is one container labeled with the patient's name and not further designated. The specimen consists of multiple irregular fragments of crenshaw-pink soft tissue that in aggregate measure 2.0 x 0.5 x 0.1 cm. The specimen is totally submitted in one cassette. / SJ:jaron 04/12/2023 TC:4 CPT: 20922
== END | disposition home or self-care (01) ==
PROVIDERS: PCP Family Medicine; Referring Provider Nurse Practitioner Women's Health; Visit Provider Nurse Practitioner Women's Health
DX: N93.9 Abnormal uterine and vaginal bleeding, unspecified (principal)
CPT/HCPCS: 88305

== ENCOUNTER → 2024-07-04 | Outpatient (CLI) | payer MEDICARE, OTHER, SELFPAY ==
--- NOTE | 2024-07-04 13:05 | US_ITS ---
STUDY: RENAL ULTRASOUND - COMPLETE REASON FOR EXAM: Female, 79 years old. UTI/MICROHEMATURIA TECHNIQUE: Ultrasound evaluation of the kidneys was performed with real-time and static payne-scale imaging. COMPARISON: None. FINDINGS: RIGHT KIDNEY: Normal location of the right kidney, which is normal in size. The right kidney measures 10.3 cm x 5.5 cm x 4.5 cm. There is a normal cortex of the right kidney. The renal cortex measures 0.8 cm. There is a 1.5 cm x 1.3 cm x 1.2 cm cyst in the inferior pole of the right kidney. There are no right renal calculi. There is mild hydronephrosis of the right kidney. DISTAL RIGHT URETER: There is non-visualization of the distal right ureter. There is no demonstrated right ureterovesical junction calculus. There is a visualized right ureteral jet. LEFT KIDNEY: Normal location of the left kidney, which is normal in size. The left kidney measures 10 cm x 4.6 cm x 5.6 cm. There is a normal cortex of the left kidney. The renal cortex measures 0.8 cm. There is a 1.3 cm x 1.1 cm x 1 cm cyst in the inferior pole. There are no left renal calculi. There is an extra-renal pelvis of the left kidney. There is no distention of the renal calyces. DISTAL LEFT URETER: There is non-visualization of the distal left ureter. There is no demonstrated left ureterovesical junction calculus. There is a visualized left ureteral jet. BLADDER: The distended urinary bladder has a volume of 398 ml. The empty urinary bladder has a volume of 238 ml. There is a normal wall thickness of the distended urinary bladder. There is no demonstrated mass within the urinary bladder. There are no demonstrated bladder calculi. US/Kidney and Bladder IMPRESSION: Small bilateral renal cysts. Moderate postvoid residual. Electronically Signed: Doroteo Corrales MD at 14:26 EST ,
== END | disposition home or self-care (01) ==
LOC: US 13:04
PROVIDERS: PCP Family Medicine; Referring Provider Urology; Visit Provider Urology
DX: N39.0 Urinary tract infection, site not specified (principal); R31.29 Other microscopic hematuria
CPT/HCPCS: 76770

== ENCOUNTER → 2024-08-13 | Outpatient (CLI) | payer MEDICARE, OTHER, SELFPAY ==
--- NOTE | 2024-08-13 12:54 | ECHOD_ITS ---
Reason For Study: CARDIOMYOPATHY Procedure This was a 2D Doppler, Color Flow transthoracic echocardiogram. Myocardial strain analysis was performed in this exam to aid in the assessment of cardiac function. Exam performed in department. Left Ventricle Normal LV size. Mild left ventricular concentric hypertrophy. Estimated LVEF 45 to 50%. Inferior and anterior septal hypokinesis. Stage I diastolic dysfunction. The global longitudinal strain = -12.7% (abnormal). Right Ventricle Normal right ventricle. Atria The left atrium is mildly enlarged. Normal right atrium. Mitral Valve Mild mitral annular calcification. Moderate to severe mitral valve regurgitation. Tricuspid Valve Mild tricuspid valve insufficiency. Normal pulmonary artery pressure. Aortic Valve Trisinus/trileaflet aortic valve. Pulmonic Valve Trivial pulmonic valve insufficiency. Great Vessels Normal sized aortic root. Pericardium/Pleural No pericardial effusion. MMode/2D Measurements & Calculations LVIDd: 4.4 cm IVSd: 1.5 cm LVOT diam: 1.8 cm LVIDs: 3.3 cm LVPWd: 1.1 cm LVOT area: 2.6 cm2 RVDd: 3.4 cm FS: 25.5 % asc Aorta Diam: 3.1 cm LAV(MOD-bp): 49.5 ml LVAd ap4: 19.7 cm2 LAV(MOD-bp) Indexed: 31.1 ml/m2 LVLd ap4: 6.6 cm LAV(MOD-sp2): 48.5 ml EDV(MOD-sp4): 48.2 ml LAV(MOD-sp4): 50.7 ml EDV(sp4-el): 49.7 ml LVAs ap4: 13.5 cm2 LVLs ap4: 6.4 cm ESV(MOD-sp4): 23.6 ml ESV(sp4-el): 24.4 ml EF(MOD-sp4): 51.0 % EF(sp4-el): 50.8 % LVAd ap2: 22.4 cm2 SV(MOD-sp4): 24.6 ml SV(MOD-sp2): 27.7 ml LVLd ap2: 7.2 cm SI(MOD-sp4): 15.4 ml/m2 SI(MOD-sp2): 17.4 ml/m2 EDV(MOD-sp2): 55.1 ml EDV(sp2-el): 58.9 ml LVAs ap2: 15.0 cm2 LVLs ap2: 6.7 cm ESV(MOD-sp2): 27.4 ml ESV(sp2-el): 28.7 ml EF(MOD-sp2): 50.3 % SV(sp4-el): 25.2 ml Ao sinus diam: 3.[address] Junction: 2.6 cm LA dimension(2D): 3.4 cm LA A4 area: 18.0 cm2 RA A4 area: 14.0 cm2 TAPSE: 1.9 cm Time Measurements MV dec time: 0.17 sec Doppler Measurements & Calculations MV E max damien: 102.1 cm/sec Lat Peak E' Damien: 6.3 cm/sec Med Peak E' Damien: 4.6 cm/sec MV A max damien: 129.9 cm/sec E/E' lat: 16.2 E/E' med: 22.1 MV E/A: 0.79 MV dec slope: 609.0 cm/sec2 Ao V2 max: 110.1 cm/sec LV V1 max: 87.0 cm/sec Ao max P.9 mmHg LV V1 max P.0 mmHg Ao V2 mean: 76.7 cm/sec LV V1 mean P.9 mmHg Ao mean P.7 mmHg LV V1 mean: 65.3 cm/sec Ao V2 VTI: 26.3 cm LV V1 VTI: 17.7 cm AV (velocity ratio): 0.67 ABBY(I,D): 1.8 cm2 ABBY(V,D): 2.1 cm2 SV(LVOT): 46.9 ml PA V2 max: 77.5 cm/sec TR max damien: 260.8 cm/sec TR max P.2 mmHg ECHO/Echo Complete Interpretation Summary Normal LV size. Mild left ventricular concentric hypertrophy. Estimated LVEF 45 to 50%. Inferior and anterior septal hypokinesis. Stage I diastolic dysfunction. The global longitudinal strain = -12.7% (abnormal). Mild mitral annular calcification. Moderate to severe mitral valve regurgitation. Mild tricuspid valve insufficiency. Ordering Physician: Pam Whipple Referring Physician: Pam Whipple MD Performed By: Kenna Stuart RDCS
== END | disposition home or self-care (01) ==
LOC: CVS 12:53
PROVIDERS: PCP Family Medicine; Referring Provider Internal Medicine Cardiovascular Disease; Visit Provider Internal Medicine Cardiovascular Disease
DX: I42.8 Other cardiomyopathies (principal)
CPT/HCPCS: 93306

== ENCOUNTER → 2024-08-30 | Outpatient (CLI) | payer MEDICARE, OTHER, SELFPAY ==
[2024-08-30 15:58] LABS: Anion Gap 6 (5-15); BUN 11 mg/dL (7-18); BUN/Creat Ratio 17.3 RATIO (10-20); Calcium,Total 9.2 mg/dL (8.5-10.1); Chloride 110 mmol/L (98-107); Creatinine, Serum 0.64 mg/dL (0.55-1.02); EST Glomerular Filtration Rate 96 mL/min (>60); Est Glom Filt Rate - Afr Amer 116 mL/min (>60); Glucose 96 mg/dL (74-106); Potassium 3.7 mmol/L (3.5-5.1); Sodium Level 142 mmol/L (136-145)
== END | disposition home or self-care (01) ==
PROVIDERS: PCP Family Medicine; Referring Provider Physician Assistant Medical; Visit Provider Physician Assistant Medical
DX: I42.8 Other cardiomyopathies (principal)
CPT/HCPCS: 36415; 80048

== ENCOUNTER → 2025-01-04 | Outpatient (CLI) | payer MEDICARE, OTHER, SELFPAY ==
[2025-01-04 10:44] LABS: Cholesterol 204 mg/dL (<=200); High Density Lipoprotein 80 mg/dL; Low Density Lipoprotein Calc. 90 mg/dL; Triglycerides 169 mg/dL; Very Low Density Lipoprotein 34 mg/dL (5-40); cholesterol:hdl ratio screen 2.54
[2025-01-04 10:45] LABS: AST(SGOT) 21 U/L (<=31); Alanine Aminotransfer ALT/SGPT 14 U/L (<=34); Albumin, Serum 4.1 g/dL (3.4-4.8); Alkaline Phosphatase 47 U/L (35-104); Anion Gap 10 (5-15); BUN 15 mg/dL (4-19); BUN/Creat Ratio 17.9 RATIO (10-20); Calcium,Total 9.6 mg/dL (7.6-11.0); Carbon Dioxide 25.9 mmol/L (21.0-32.0); Chloride 107 mmol/L (98-108); Creatinine, Serum 0.84 mg/dL (0.70-1.20); EST Glomerular Filtration Rate 70 (>60); Glucose 89 mg/dL (70-99); Potassium 3.8 mmol/L (3.3-5.1); Protein, Total 6.1 g/dL (5.9-8.4); Sodium Level 142 mmol/L (133-145); Total Bilirubin 0.96 mg/dL (0.00-1.30)
== END | disposition home or self-care (01) ==
LOC: LAB 09:49
PROVIDERS: PCP Family Medicine; Referring Provider Internal Medicine Cardiovascular Disease; Visit Provider Internal Medicine Cardiovascular Disease
DX: I10 Essential (primary) hypertension (principal); I42.8 Other cardiomyopathies; I42.0 Dilated cardiomyopathy; E78.00 Pure hypercholesterolemia, unspecified
CPT/HCPCS: 36415; 80053; 80061

== ENCOUNTER → 2025-01-21 | Outpatient (CLI) | payer MEDICARE, OTHER, SELFPAY ==
[2025-01-21 13:13] LABS: Anion Gap 10 (5-15); BUN 16 mg/dL (4-19); BUN/Creat Ratio 16.2 RATIO (10-20); Calcium,Total 9.3 mg/dL (7.6-11.0); Chloride 107 mmol/L (98-108); Creatinine, Serum 0.97 mg/dL (0.70-1.20); EST Glomerular Filtration Rate 59 (>60); Glucose 86 mg/dL (70-99); Potassium 3.8 mmol/L (3.3-5.1); Sodium Level 141 mmol/L (133-145)
== END | disposition home or self-care (01) ==
LOC: LAB 11:48
PROVIDERS: PCP Family Medicine; Referring Provider Internal Medicine Cardiovascular Disease; Visit Provider Internal Medicine Cardiovascular Disease
DX: I10 Essential (primary) hypertension (principal)
CPT/HCPCS: 36415; 80048

== ENCOUNTER → 2025-02-25 | Outpatient (CLI) | payer MEDICARE, OTHER, SELFPAY ==
--- OUTSIDE RECORDS SUMMARY | 2025-02-25 06:39 | XMS RPT_ITS | CCD ---
Author Organization [facility] Care Team Providers Care Street Supervisor Name Role Phone RUTH AU MD Primary Care Physician Savita PT, Alesia Unavailable Unavailable Dr. Ruth Au Primary Care Provider Dr. Ruth Au Referring Provider Dr. Kwame Nava Attending Provider Ruth Au MD Primary Care Provider [phone] Kwame Nava MD Unavailable [phone] [address] [place], [place] Unavailable Unavailab chelsea Bhardwaj MD, Ubaldo Decker Unavailable RUTH AU Referring Unavailable RUTH AU Primary Care Unavailable PILLAINAYAEARL, CLEMENT P Attending Unavail able RUTH AU Primary Care Unavailable DESIRE JIMENEZ Referring Unavailable DESIRE JIMENEZ Attending Unavailable RUTH AU Primary Care Unavailable PILLAINAYAGAM, CLEMENT P Referring Unavail able PILLAINQUINTIN, CLEMENT P Attending Unavail able JOSE OCAMPO Attending Unavailable Dr. Ruth Au Primary Care Provider [phone] Dr. Ruth Au Referring Provider Dr. Kwame Nava Attending Provider [phone] Dr. Ruth Au Primary Care Provider [phone] Cindy Barney Attending Provider Unavailable Dr. Ruth Au Referring Provider Dr. Pam Whipple Attending Provider Dr. Ruth Au Primary Care Provider Dr. Ruth Au Referring Provider Marie PASTOR, DIDIER Ivan Attending Provider [phone] RUTH AU MD Attending Unavailable RUTH AU MD Primary Care Unavailable RUTH AU MD Attending Unavailable RUTH AU MD Primary Care Unavailable RUTH AU MD Attending Unavailable RUTH AU MD Primary Care Unavailable NYA ROBLES Attending UnavailRUTH Aguiar MD Primary Care Unavailable MOLLY CALVO DO Attending Unavailable RUTH AU MD Primary Care Unavailable RUTH AU MD Attending Unavailable RUTH AU MD Primary Care Unavailable RUTH AU MD Attending Unavailable RUTH AU MD Primary Care Unavailable DR MEHRDAD SANTILLAN DO Attending Unavailable RUTH AU MD Primary Care Unavailable BANDAR LOMELI MD Attending Unavailable RUTH AU MD Primary Care Unavailable RUTH AU MD Attending Unavailable RUTH AU MD Primary Care Unavailable CARMEN CANDELARIO DO Attending Unavailable RUTH AU MD Primary Care Unavailable Roe SOLORIO, Dr. Newsome Primary Care Provider [phone] Dr. Pam Whipple MD Attending Provider Dr. Pam Whipple MD Referring Provider Dr. Ruth Au MD Referring Provider NELI TIM Attending UnavailRUTH Wooten MD Primary Care Unavailable ELLA DALEY Attending Unavail able RUTH AU MD Primary Care Unavailable RUTH AU MD Primary Care Unavailable ALESIA CHEW Attending Unavailable RUTH AU MD Attending Unavailable RUTH AU MD Primary Care Unavailable RUTH AU MD Attending Unavailable RUTH AU MD Primary Care Unavailable RUTH AU MD Attending Unavailable RUTH AU MD Primary Care Unavailable ASIF BUI, AIDA Attending RUTH Singleton MD Primary Care Unavailable ASIF BUI, AIDA Attending RUTH Singleton MD Primary Care Unavailable RUTH AU MD Primary Care Unavailable RUTH AU MD Attending Unavailable RUTH AU MD Primary Care Unavailable RUTH AU MD Attending Unavailable Angela Gold Attending Unavailable Angela Gold Referring Unavailable Ruth Au Primary Care Unavailable Ruth Au Primary Care Unavailable Sarabjit, Pam Attending Unavailable Ruth Au Referring Unavailable Sarabjit, Pam Referring Unavailable Ruth Au Primary Care Unavailable Sarabjit, Pam Attending Unavailable Holly LORA, Cindy Armenta Attending Unavail able Cindy Knight Referring Unavail able Ruth Au Primary Care Unavailable Au Ruth Primary Care Unavailable Au, Ruth Referring Unavailable Sarabjit, Pam Attending Unavailable Ruth Au Primary Care Unavailable Sarabjit, Pam Attending Unavailable Sarabjit, Pam Referring Unavailable Sarabjit, Pam Attending Unavailable Ruth Au Primary Care Unavailable Sarabjit, Pam Referring Unavailable Sarabjit, Pam Attending Unavailable Ruth Au Primary Care Unavailable Sarabjit, Pam Attending Unavailable Ruth Au Primary Care Unavailable Sarabjit, Pam Referring Unavailable Allergies Allergy Classification Reported Allergen(s) Allergy Type Date of Onset Reaction(s) Facility (20 sources) Adhesive Tape Allergy to substance [facility] Work Phone: (20 sources) Codeine; Translations: [codeine] Drug Allergy 021 Prochlorperazine (product) [facility] Work Phone: (20 sources) NITROFURANTOIN, MACROCRYSTALS / Nitrofurantoin, Monohydrate; Translations: [nitrofurantoin] Drug Allergy unknown [facility] Work Phone: (20 sources) Prochlorperazine; Translations: [prochlorperazine] Drug Allergy 021 Hyper [facility] Work Phone: (20 sources) Sulfamethoxazole / Trimethoprim; Translations: [sulfamethoxazole-t rimethoprim] Drug Allergy 013 Dyspepsia [facility] Work Phone: (11 sources) Nitrofurantoin Drug Allergy unknown [facility] (11 sources) Simvastatin Drug Allergy Intolerance, Myalgias [facility] (11 sources) Sulfamethoxazole Drug Allergy unknown [facility] (11 sources) Trimethoprim Drug Allergy unknown [facility] (1 source) metroNIDAZOLE Drug Allergy [facility] (1 source) Codeine And Related Propensity to adverse reactions to drug Rash [facility] (1 source) Prochlorperazine Edisylate Propensity to adverse reactions to drug Anxiety [facility] (1 source) *Adhesive Tape Propensity to adverse reactions Rash [facility] (1 source) Codeine Drug Allergy [facility] (1 source) Nitrofurantoin Drug Allergy [facility] (1 source) Prochlorperazine Drug Allergy [facility] (1 source) Simvastatin Drug Allergy [facility] (1 source) Sulfamethoxazole Drug Allergy [facility] (1 source) Trimethoprim Drug Allergy [facility] Medications Current Medications Medication Drug Class(es) Dates Sig (Normalized) Sig (Original) acetaminophen 500 mg oral tablet (20 sources) Start: 04-29-2021 take 2 tablets by mouth once daily Acetaminophen (Tylenol Extra Strength) 500 mg tablet Active 1000 mg PO DAILY April 29, 2021 12:00am Start: 06-10-2019 Tylenol Extra Strength 500 mg oral tablet Dose : 1,000 mg = 2 tab(s), Oral, q4h, PRN as needed for fever, # 24 tab(s), 0 Refill(s) Start Date: 06/10/19 Status: Ordered Quantity: 24.0 Unit: tab(s) Repeat number: 1 acetaminophen 325 mg / butalbital 50 mg / caffeine 40 mg oral tablet (20 sources) Barbiturate, Central Nervous System Stimulant, Methylxanthine Start: 12-07-2020 take 1 tablet by mouth every four hours as needed APAP/butalbital/caffeine 325-50-40 mg oral tablet (Fioricet) Dose = 1 tab(s), Oral, q4h, PRN as needed, # 30 tab(s), 0 Refill(s) Start Date: 12/07/20 Status: Ordered Start: 11-05-2018 End: 07-12-2023 Gmmmzbegwe-Hiijatugnyucl-Gsw f 50-325-40 mg tablet Discontinued 1 {tbl} PO EVERY 6 HOURS as needed for MIGRAINES November 05, 2018 12:00am July 12, 2023 3:31pm Start: 11-05-2018 take 1 tablet by eugene th every six hours Nrnjaeoule-Dykicegxpgmhh-Uurs Active 1 TABLET PO EVERY 6 HOURS November 05, 2018 12:00am Start: 03-17-2015 take 1 capsule by mo uth every four hours as needed for headache acetaminophen/butalbital/caffeine 300 mg -50 mg-40 mg oral capsule Dose = 1 cap(s), Oral, q4h, PRN for headache, 0 Refill(s) Start Date: 03/17/15 Status: Ordered Repeat number: 1 acetaminophen 325 mg / HYDROcodone bitartrate 5 mg oral tablet (1 source) Opioid Agonist Start: 05-13-2023 End: 05-15-2023 take 1 tablet by mouth every six hours as needed for pain [place] 325- 5 mg oral tablet Dose = 1 tab(s), Oral, q6hr, PRN as needed for pain, X 2 day(s), # 8 tab(s), 0 Refill(s), Proximal humeral fracture, 56.5 Start Date: 05/13/23 Stop Date: 05/15/23 Status: Ordered amoxicillin 875 mg / clavulanate 125 mg oral tablet (5 sources) Penicillin-class Antibacterial Start: 07-12-2024 End: 07-22-2024 take 1 tablet by mouth every twelve hours amoxicillin-clav ulanate 875 mg-125 mg oral tablet 1 tab(s), Oral, q12h, X 10 day(s), # 20 tab(s), 0 Refill(s), 07/22/24 2:07:00 PM EST, Pharmacy: [facility] #[id number], UTI (urinary tract infection) Urinary frequency, 160.8, cm, 07/12/24 13:28:00 EST, Height, 57.4, kg, 07/12/24 13:28:00 EST, Dosing Weight Start Date: 07/12/24 Stop Date: 07/22/24 Status: Ordered Start: 04-11-2024 End: 04-21-2024 take 1 tablet by mouth every twelve hours amoxicillin-clavulanate 875 mg-125 mg or al tablet 1 tab(s), Oral, q12h, X 10 day(s), # 20 tab(s), 0 Refill(s), 04/21/24 10:35:00 AM EDT, Pharmacy: [facility] #[id number], Wound, open, leg Cellulitis of leg, 160.8, cm, 04/11/24 10:03:00 EDT, Height, 55.5, kg, 04/11/24 10:03:00 EDT, Dosing Weight Start Date: 04/11/24 Stop Date: 04/21/24 Status: Ordered Start: 02-08-2024 End: 02-15-2024 take 1 tablet by mouth every twelve hours amoxicillin-clavulanate 875 mg-125 mg or al tablet 1 tab(s), Oral, q12h, X 7 day(s), # 14 tab(s), 0 Refill(s), 02/15/24 8:46:00 AM EDT, [facility]: [facility] #[id number], 160.8, cm, 02/05/24 16:40:00 EDT, Height, 53, kg, 02/05/24 16:40:00 EDT, Dosing Weight Start Date: 02/08/24 Stop Date: 02/15/24 Status: Ordered Start: 05-09-2023 End: 05-16-2023 take 1 tablet by mouth every twelve hours amoxicillin-clavulanate 875 mg-125 mg or al tablet 1 tab(s), Oral, q12h, X 7 day(s), # 14 tab(s), 0 Refill(s), 05/16/23 2:50:00 PM EDT, [facility]acy: [facility] #[id number], Left-sided face pain, 162.5, cm, 05/09/23 14:24:00 EDT, Height, 56.5, kg, 05/09/23 14:24:00 EDT, Dosing Weight Start Date: 05/09/23 Stop Date: 05/16/23 Status: Ordered Start: 10-14-2022 End: 10-21-2022 take 1 tablet by mouth every twelve hours amoxicillin-clavulanate 875 mg-125 mg or al tablet 1 tab(s), Oral, q12h, X 7 day(s), # 14 tab(s), 0 Refill(s), 10/21/22 11:26:00 EST, [facility]acy: [facility] #[id number], 162.5, cm, 10/12/22 15:41:00 EST, Height, 58 Start Date: 10/14/22 Stop Date: 10/21/22 Status: Ordered Aspirin (3 sources) Platelet Aggregation Inhibitor, Nonsteroidal Anti-inflammatory Drug Start: 03-17-2015 aspirin 81 mg ora l delayed release tablet Dose : 81 mg = 1 tab(s), Oral, Daily, 0 Refill(s) Start Date: 03/17/15 Status: Ordered take 1 tablet by mouth once miguel angel y aspirin 81 MG Chew Tab take 81 mg by mouth daily. 0 Active budesonide 3 mg delayed release oral capsule (20 sources) Corticosteroid Start: 09-14-2023 take 3 capsules by mouth once daily Budesonide 3 mg capsule,delayed,extend.release Active 9 mg PO daily July 02, 2024 1:00am Start: 03-31-2021 End: 07-12-2023 take 1 capsule by mouth once daily Budesonide 3 mg capsule,delayed,extend.release Discontinued 3 mg PO DAILY April 11, 2023 12:00am July 12, 2023 3:31pm Start: 11-05-2018 End: 10-19-2020 take 3 capsules by mouth once daily as needed Budesonide 3 mg capsule,delayed,extend.release Discontinued 9 mg PO DAILY as needed November 05, 2018 12:00am October 19, 2020 4:20pm Start: 11-05-2018 End: 10-19-2020 take 9 mg by mouth once daily Budesonide Discontinued 9 MG PO DAILY [facility] 2018 12:00am October 19, 2020 4:20pm budesonide 3 mg oral delayed release capsule (2 sources) Start: 03-31-2021 take 3 capsules by mouth once daily in the morning budesonide 3 mg oral delayed release capsule See Instructions, take 3 capsules by mouth every morning if needed, # 90 cap(s), 0 Refill(s), [facility]acy: [facility] 161.9, cm, 02/26/21 11:11:00 EDT, Height, kg, 02/26/21 11:11:00 EDT, Dosing Weight Start Date: 03/31/21 Status: Ordered Lobslwudqn-DKRJ-Dvxvp ine (FIORICET PO) (1 source) Butalbital-APAP- Caffeine (FIORICET PO) Indications: Cerebral edema , Cerebral venous infarction, acute , Brain compression , Cardiomyopathy , Meningioma Take 1-2 tablets by mouth as needed for Pain. 0 Active calcium carbonate 1000 mg chewable tablet (20 sources) Start: 07-02-2024 take 1 tablet by mouth three times daily Calcium Carbonate (Tums Ultra) 400 mg calcium (1,000 mg) tablet,chewable Active 400 mg PO THREE TIMES A DAY July 02, 2024 1:00am Start: 02-28-2020 End: 01-29-2024 Calcium Carbonate (Calcium 5 00) 500 mg calcium (1,250 mg) tablet,chewable Discontinued 1000 mg PO THREE TIMES A DAY February 28, 2020 12:00am January 29, 2024 1:23pm Start: 08-30-2017 Tums Ultra 100 0 mg oral tablet, chewable Dose : 1,000 mg = 1 tab(s), Chewed, TID, PRN as needed for dyspepsia, # 35 tab(s) Start Date: 08/30/17 Status: Ordered Quantity: 35.0 Unit: tab(s) Repeat number: 1 cephalexin 500 mg oral capsule (2 sources) Cephalosporin Antibacterial Start: 05-11-2022 End: 05-18-2022 cephalexin 500 mg oral capsule Dose : 500 mg = 1 cap(s), Oral, QID, X 7 day(s), # 28 cap(s), 0 Refill(s), 05/18/22 16:24:00 EDT, [facility]: [facility] #[id number], 161, cm, 05/11/22 15:50:00 EDT, Height, 56.1 Start Date: 05/11/22 Stop Date: 05/18/22 Status: Ordered Start: 12-23-2021 End: 12-30-2021 cephalexin 500 mg oral capsu le Dose : 500 mg = 1 cap(s), Oral, QID, X 7 day(s), # 28 cap(s), 0 Refill(s), 12/30/21 8:58:00 EDT, [facility] 160.3, cm, 12/20/21 15:35:00 EDT, Height, 53.3 Start Date: 12/23/21 Stop Date: 12/30/21 Status: Ordered cholecalciferol 0.05 mg oral tablet (20 sources) Vitamin D Start: 01-07-2025 take 1 tablet by mouth once daily Cholecalciferol (Vitamin D3) 50 mcg (2,000 unit) tablet Active 50 ug PO daily January 07, 2025 12:00am Start: 11-05-2018 End: 11-13-2019 take 1 capsule by mouth once daily Cholecalciferol (Vitamin D3) 400 unit capsule Discontinued 400 U PO DAILY November 05, 2018 12:00am November 13, 2019 1:09pm Start: 11-02-2017 End: 11-05-2018 take 1 tablet by mouth once daily Cholecalciferol (Vitamin D3) 1,000 unit tablet Discontinued 1000 U PO daily November 02, 2017 12:00am November 05, 2018 11:27am Vitamin D3 1000 UNITS Tab take 400 Units by mouth daily. 0 Active sugar-free cholestyramine resin 4000 mg powder for oral suspension (20 sources) Bile Acid Sequestrant Start: 05-09-2023 Prevalite 4 g/5.5 g oral powder for reconstitution Dose : 4 gram(s) =, take 4 grams orally as directed daily --DO NOT TAKE WITH OTHER MEDICATIONS Start Date: 05/09/23 Status: Ordered Repeat number: 1 Start: 05-09-2023 Prevalite 4 g/ 5.5 g oral powder for reconstitution Dose : 4 gram(s) =, take 4 grams orally as directed daily --DO NOT TAKE WITH OTHER MEDICATIONS Start Date: 05/09/23 Status: Ordered Start: 04-11-2023 End: 07-12-2023 Cholestyramine-Aspartame (Pr evalite) 4 gram powder Active 1 NMA PO DAILY July 12, 2023 3:30pm Chondroitin Sulfates / Glucosamine (20 sources) Start: 06-23-2023 Osteo Bi-Flex 250 mg-200 mg oral tablet See Instructions, 0 Refill(s) Start Date: 06/23/23 Status: Ordered Repeat number: 1 Start: 06-23-2023 Osteo Bi-Flex 250 mg-200 mg oral tablet See Instructions, 0 Refill(s) Start Date: 06/23/23 Status: Ordered Start: 04-29-2021 Glucosamine-Ch ondroitin (Osteo Bi-Flex) 250-200 mg tablet Active 2 {tbl} PO DAILY April 29, 2021 12:00am ciprofloxacin 750 mg oral tablet (5 sources) Quinolone Antimicrobial Start: 12-31-2024 End: 01-14-2025 ciprofloxacin 750 mg oral tablet Dose : 750 mg = 1 tab(s), Oral, q12h, X 14 day(s), # 28 tab(s), 0 Refill(s), 01/14/25 4:37:00 PM EDT, Pharmacy: [facility] #[id number], Back pain Dysuria, 162.5, cm, 12/31/24 15:58:00 EDT, Height, 56.2, kg, 12/31/24 15:58:00 EDT, Dosing Weight Start Date: 12/31/24 Stop Date: 01/14/25 Status: Ordered Quantity: 28.0 Unit: tab(s) Repeat number: 1 Indications: Dysuria; Dorsalgia, unspecified; Start: 05-15-2024 End: 05-22-2024 ciprofloxacin 500 mg oral ta blet Dose : 500 mg = 1 tab(s), Oral, q12h, X 7 day(s), # 14 tab(s), 0 Refill(s), 05/22/24 10:03:00 AM EDT, Pharmacy: [facility] #[id number], Hematuria, 160.8, cm, 05/15/24 9:32:00 EDT, Height, 57.2, kg, 05/15/24 9:32:00 EDT, Dosing Weight Start Date: 05/15/24 Stop Date: 05/22/24 Status: Ordered Start: 10-26-2023 End: 11-05-2023 Cipro 500 mg oral tablet Dos e : 500 mg = 1 tab(s), Oral, q12h, X 10 day(s), # 20 tab(s), 0 Refill(s), 11/05/23 8:12:00 AM EDT, Pharmacy: [facility] #[id number], UTI (urinary tract infection) UTI symptoms, 161, cm, 10/26/23 7:33:00 EDT, Height, 54.2, kg, 10/26/23 7:33:00 EDT, Dosing Weight Start Date: 10/26/23 Stop Date: 11/05/23 Status: Ordered Start: 10-12-2022 End: 10-19-2022 Cipro 500 mg oral tablet Dos e : 500 mg = 1 tab(s), Oral, q12h, X 7 day(s), # 14 tab(s), 0 Refill(s), 10/19/22 16:18:00 EST, Pharmacy: [facility] #[id number], UTI (urinary tract infection) Edema, 162.5, cm, 10/12/22 15:41:00 EST, Height, 58, kg, 10/12/22 15:41:00 EST, Dosing Weight Start Date: 10/12/22 Stop Date: 10/19/22 Status: Ordered Start: 05-30-2022 End: 06-06-2022 Cipro 250 mg oral tablet Dos e : 250 mg = 1 tab(s), Oral, q12h, X 7 day(s), # 14 tab(s), 0 Refill(s), 06/06/22 10:06:00 EDT, Pharmacy: [facility] #[id number], 173, cm, 05/30/22 9:38:00 EDT, Height, 57.6 Start Date: 05/30/22 Stop Date: 06/06/22 Status: Ordered clobetasol propionate 0.5 mg/ml topical cream (20 sources) Corticosteroid Start: 11-05-2018 Clobetasol 0.0 5 % cream Active 1 NMA TOPICAL EVERY WEEK November 05, 2018 12:00am Start: 03-17-2015 clobetasol 0.0 5% topical cream Apply 1 kory, Topical, every other week, 0 Refill(s) Start Date: 03/17/15 Status: Ordered Repeat number: 1 Start: 03-17-2015 clobetasol 0.0 5% topical cream Apply 1 kory, Topical, every other week, 0 Refill(s) Start Date: 03/17/15 Status: Ordered clobetasol 0.05 % EX CREA once a week. Uses once or twice a week on vulva PRN 0 Active clonazePAM 0.5 mg oral tablet (20 sources) Benzodiazepine Start: 07-12-2023 take 2 tablets by mouth at bedtime Clonazepam 0.5 mg tablet Active 1 mg PO AT BEDTIME July 12, 2023 3:28pm Start: 03-16-2022 End: 03-05-2025 take 1 tablet by mouth at bedtime Clonazepam 0.5 mg tablet Discontinued 0.5 mg PO AT BEDTIME June 13, 2022 2:49pm July 12, 2023 3:31pm Start: 10-08-2021 End: 01-06-2022 clonazePAM 0.5 mg oral table t Dose : 1 mg = 2 tab(s), Oral, qHS, # 180 tab(s), 0 Refill(s), Pharmacy: [id number] Restless leg Anxiety, 163, cm, 10/08/21 13:54:00 EST, Height, 54.2, kg, 10/08/21 13:54:00 EST, Dosing Weight Start Date: 10/08/21 Stop Date: 01/06/22 Status: Ordered Start: 06-18-2021 End: 09-16-2021 clonazePAM 0.5 mg oral table t Dose : 1 mg = 2 tab(s), Oral, qHS, # 180 tab(s), 0 Refill(s), [facility] Restless leg Anxiety, 161.9, cm, 02/26/21 11:11:00 EDT, Height, 53, kg, 02/26/21 11:11:00 EDT, Dosing Weight Start Date: 06/18/21 Stop Date: 09/16/21 Status: Ordered Start: 11-02-2017 End: 06-13-2022 take 0.75 mg by mouth at bedtime Clonazepam 0.5 mg tablet Discontinued 0.75 mg PO AT BEDTIME November 02, 2017 12:00am June 13, 2022 2:53pm Start: 11-02-2017 End: 06-13-2022 take 0.75 mg by mouth at bedtime Clonazepam Discontinued 0.75 MG PO AT BEDTIME November 02, 2017 12:00am June 13, 2022 2:53pm colesevelam hydrochloride 625 mg oral tablet (1 source) Bile Acid Sequestrant Start: 12-20-2021 End: 01-19-2022 Welchol 625 mg oral tablet Dose : 1,875 mg = 3 tab(s), Oral, BID, with meals, # 180 tab(s), 0 Refill(s), Pharmacy: [facility] 160.3, cm, 12/20/21 15:35:00 EDT, Height Start Date: 12/20/21 Stop Date: 01/19/22 Status: Ordered Cranberry Fruit Concentrate (20 sources) Non-Standardized Food Allergenic Extract, Non-Standardized Plant Allergenic Extract Start: 01-29-2024 take 1 tablet by mouth twice daily Cranberry Fruit Concentrate (Azo Cranberry) 250 mg tablet,chewable Active 250 mg PO TWICE A DAY January 29, 2024 1:22pm Start: 09-24-2021 cranberry oral capsule See Instructions, 0 Refill(s) Start Date: 09/24/21 Status: Ordered Repeat number: 1 Start: 09-24-2021 cranberry oral capsule See Instructions, 0 Refill(s) Start Date: 09/24/21 Status: Ordered Start: 09-24-2021 cranberry oral capsule 0 Refill(s) Start Date: 09/24/21 Status: Ordered Start: 11-13-2019 take 1 tablet by eugene th three times daily Cranberry Fruit Concentrate (Azo Cranberry) 250 mg tablet,chewable Active 250 MG PO THREE TIMES A DAY November 13, 2019 1:11pm Start: 11-13-2019 End: 01-29-2024 take 1 tablet by mouth three times daily Cranberry Fruit Concentrate (Azo Cranberry) 250 mg tablet,chewable Discontinued 250 mg PO THREE TIMES A DAY November 13, 2019 12:00am January 29, 2024 1:23pm Start: 11-13-2019 take 1 tablet by eugene th three times daily Cranberry Fruit Concentrate (Azo Cranberry) 250 mg tablet,chewable Active 250 MG PO THREE TIMES A DAY November 13, 2019 12:00am Start: 11-13-2019 take 1 tablet by eugene th three times daily Cranberry Fruit Concentrate (Azo Cranberry) 250 mg tablet,chewable Active 250 MG PO THREE TIMES A DAY November 12, 2019 11:00pm dapagliflozin 10 mg oral tablet (2 sources) Sodium-Glucose Cotransporter 2 Inhibitor Start: 01-07-2025 take 1 tablet by mouth once daily Dapagliflozin Propanediol (Farxiga) 10 mg tablet Active 10 mg PO daily 90 January 07, 2025 12:00am esomeprazole 20 mg delayed release oral capsule (20 sources) Proton Pump Inhibitor Start: 02-28-2020 take 1 capsule by mouth twice daily Esomeprazole Magnesium 20 mg capsule,delayed release(DR/EC) Active 20 mg PO TWICE A DAY February 28, 2020 1:09pm Start: 11-05-2018 End: 02-28-2020 take 1 capsule by mouth once daily Esomeprazole Magnesium 20 mg capsule,delayed release(DR/EC) Discontinued 20 mg PO DAILY November 05, 2018 11:26am February 28, 2020 1:10pm Start: 12-12-2017 take 1 dose by mouth twice daily NexIUM Dose : 20 mg =, Oral, BID, 0 Refill(s) Start Date: 12/12/17 Status: Ordered Repeat number: 1 Start: 12-12-2017 NexIUM Oral, q Day, 0 Refill(s) Start Date: 12/12/17 Status: Ordered Start: 11-02-2017 End: 11-05-2018 take 1 capsule by mouth twice daily Esomeprazole Magnesium 20 mg capsule,delayed release(DR/EC) Discontinued 20 mg PO TWICE A DAY November 02, 2017 12:00am November 05, 2018 11:29am esomeprazole (NE XIUM) [address] 20 mg 2 times daily. 0 Active estradiol 0.1 mg/ml vaginal cream (20 sources) Estrogen Start: 08-12-2024 estradiol 0.1 mg/g vaginal cream INSERT 1 GRAM VAGINALLY 3 TIMES A WEEK AT BEDTIME Start Date: 08/12/24 Status: Ordered Repeat number: 1 Start: 05-11-2022 estradiol 0.1 mg/g vaginal cream 0 Refill(s) Start Date: 05/11/22 Status: Ordered Repeat number: 1 Start: 10-19-2020 Estradiol 0.01 % (0.1 mg/gram) cream Active 0.1 g VAGINAL MOWEFR October 19, 2020 1:00am estradiol 0.1 MG /GM cream Insert 1 g vaginally twice a week. 0 Active Famotidine-Ca Carb-Mag Hydrox (TUMS DUAL ACTION PO) (1 source) Famotidine-Ca Ca rb-Mag Hydrox (TUMS DUAL ACTION PO) take by mouth 3 times daily as needed. 0 Active Remicade (14 sources) Tumor Necrosis Factor Victor Manuel Start: 05-11-2022 Remicade mg/kg =, Intravenous, 0 Refill(s) Start Date: 05/11/22 Status: Ordered Start: 05-11-2022 Remicade Dose : 5 mg/kg =, Intravenous, q8wk, as an infusion, # 4 EA, 0 Refill(s) Start Date: 05/11/22 Status: Ordered levETIRAcetam 500 mg oral ta blet (20 sources) Start: 12-05-2024 End: 11-30-2025 Keppra 500 mg oral tablet Do se : 500 mg = 1 tab(s), Oral, BID, # 180 tab(s), 3 Refill(s), Pharmacy: [facility] #[id number], 162.5, cm, 12/05/24 13:01:00 EDT, Height, kg, 12/05/24 13:01:00 EDT, Dosing Weight Start Date: 12/05/24 Stop Date: 11/30/25 Status: Ordered Quantity: 180.0 Unit: tab(s) Repeat number: 4 Start: 06-14-2024 Keppra 500 mg oral tablet Dose : 500 mg = 1 tab(s), Oral, BID, # 180 tab(s), 0 Refill(s), Pharmacy: [facility] #[id number], 160.8, cm, 05/15/24 9:32:00 EDT, Height, kg, 05/15/24 9:32:00 EDT, Dosing Weight Start Date: 06/14/24 Status: Ordered Start: 03-14-2024 Keppra 500 mg oral tablet Dose : 500 mg = 1 tab(s), Oral, BID, # 180 tab(s), 0 Refill(s), Pharmacy: [facility] #[id number], 160.8, cm, 02/05/24 16:40:00 EDT, Height, kg, 02/05/24 16:40:00 EDT, Dosing Weight Start Date: 03/14/24 Status: Ordered Start: 08-30-2017 Keppra 500 mg oral tablet Dose : 500 mg = 1 tab(s), Oral, BID, # 180 tab(s), 0 Refill(s), Pharmacy: [facility] #[id number], 161, cm, 11/22/23 14:56:00 EDT, Height, kg, 11/22/23 14:56:00 EDT, Dosing Weight Start Date: 12/13/23 Status: Ordered levothyroxine sodium 0.05 mg oral tablet (20 sources) l-Thyroxine Start: 12-05-2024 levothyroxine 50 mcg (0.05 mg) oral tablet Dose : 50 mcg = 1 tab(s), Oral, qDay, # 90 tab(s), 3 Refill(s), [id number], 162.5, cm, 12/05/24 13:01:00 EDT, Height, kg, 12/05/24 13:01:00 EDT, Dosing Weight Start Date: 12/05/24 Status: Ordered Quantity: 90.0 Unit: tab(s) Repeat number: 4 Start: 07-12-2024 levothyroxine 75 mcg (0.075 mg) oral tablet Dose : 75 mcg = 1 tab(s), Oral, qDay, # 90 tab(s), 3 Refill(s), Pharmacy: [facility] #[id number], 160.8, cm, 07/12/24 13:28:00 EST, Height, kg, 07/12/24 13:28:00 EST, Dosing Weight Start Date: 07/12/24 Status: Ordered Start: 06-14-2024 levothyroxine 50 mcg (0.05 mg) oral tablet Dose : 50 mcg = 1 tab(s), Oral, qDay, # 90 tab(s), 0 Refill(s), Pharmacy: [facility] #[id number], 160.8, cm, 05/15/24 9:32:00 EDT, Height, kg, 05/15/24 9:32:00 EDT, Dosing Weight Start Date: 06/14/24 Status: Ordered Start: 12-19-2023 levothyroxine 50 mcg (0.05 mg) oral tablet Dose : 50 mcg = 1 tab(s), Oral, qDay, # 90 tab(s), 1 Refill(s), [facility][id number], 161, cm, 11/22/23 14:56:00 EDT, Height, kg, 11/22/23 14:56:00 EDT, Dosing Weight Start Date: 12/19/23 Status: Ordered Start: 06-13-2023 levothyroxine 50 mcg (0.05 mg) oral tablet Dose : 50 mcg = 1 tab(s), Oral, qDay, # 90 tab(s), 1 Refill(s), [facility] #[id number], 162.5, cm, 05/09/23 14:24:00 EDT, Height, kg, 05/09/23 14:24:00 EDT, Dosing Weight Start Date: 06/13/23 Status: Ordered Start: 12-21-2022 levothyroxine 50 mcg (0.05 mg) oral tablet Dose : 50 mcg = 1 tab(s), Oral, qDay, # 90 tab(s), 1 Refill(s), [facility]: [facility] #[id number], 162.5, cm, 12/21/22 13:56:00 EDT, Height, kg, 12/21/22 13:56:00 EDT, Dosing Weight Start Date: 12/21/22 Status: Ordered Start: 09-20-2022 levothyroxine 50 mcg (0.05 mg) oral tablet Dose : 50 mcg = 1 tab(s), Oral, qDay, # 90 tab(s), 1 Refill(s), [facility]: [facility] #[id number], 162.5, cm, 09/20/22 13:29:00 EST, Height, kg, 09/20/22 13:29:00 EST, Dosing Weight Start Date: 09/20/22 Status: Ordered Start: 03-29-2022 levothyroxine 50 mcg (0.05 mg) oral tablet Dose : 50 mcg = 1 tab(s), Oral, qDay, # 90 tab(s), 1 Refill(s), [facility]: [facility] #[id number], 163.5, cm, 12/31/21 14:46:00 EDT, Height, kg, 12/31/21 14:46:00 EDT, Dosing Weight Start Date: 03/29/22 Status: Ordered Start: 12-02-2021 take 1 tablet by eugene th once daily Levothyroxine 50 mcg tablet Active 50 ug PO DAILY December 02, 2021 12:00am Start: 09-24-2021 levothyroxine 50 mcg (0.05 mg) oral tablet Dose : 50 mcg = 1 tab(s), Oral, qDay, 0 Refill(s) Start Date: 09/24/21 Status: Ordered Start: 08-03-2021 take 1 tablet by eugene th once daily levothyroxine 25 mcg (0.025 mg) oral tablet take 1 tablet by mouth once daily Start Date: 08/03/21 Status: Ordered loperamide hydrochloride 2 mg oral capsule (19 sources) Opioid Agonist Start: 04-11-2023 take 1 capsule by mouth every six hours as needed Loperamide (Anti-Diarrheal (Loperamide)) 2 mg capsule Active 2 mg PO EVERY 6 HOURS as needed April 11, 2023 12:00am Start: 12-21-2022 take 1 mg by mouth e very four hours loperamide 2 mg oral tablet mg = tab(s), Oral, q4h, 0 Refill(s) Start Date: 12/21/22 Status: Ordered Repeat number: 1 losartan potassium 25 mg oral tablet (2 sources) Angiotensin 2 Receptor Victor Manuel Start: 01-07-2025 take 1 tablet by mouth once daily Losartan 25 mg tablet Active 25 mg PO daily 90 January 07, 2025 12:00am magnesium gluconate 250 mg oral tablet (5 sources) Start: 06-23-2023 take 1 tablet by mouth once daily magnesium gluconate 250 mg oral tablet 250 mg Dose = 1 tab(s), Oral, qDay, 0 Refill(s) Start Date: 06/23/23 Status: Ordered magnesium oxide 250 mg oral tablet (2 sources) Start: 12-15-2021 End: 12-29-2021 Magnesium 250 mg tablet Dose : 500 mg = 2 tab(s), Oral, qDay, X 14 day(s), # 28 tab(s), 0 Refill(s), 12/29/21 14:34:00 EDT, Pharmacy: [facility] 163, cm, 10/08/21 13:54:00 EST, Height Start Date: 12/15/21 Stop Date: 12/29/21 Status: Ordered mesalamine 1.2 g oral delayed release tablet (1 source) Start: 09-24-2021 mesalamine 1.2 g oral delayed release tablet Dose : 2.4 gram(s) = 2 tab(s), Oral, qDay, 0 Refill(s) Start Date: 09/24/21 Status: Ordered Misc Natural Products (OSTEO BI-FLEX JOINT SHIELD PO) (1 source) take 2 tablets by mouth once daily Misc Natural Products (OSTEO BI-FLEX JOINT SHIELD PO) Take 2 tablets by mouth daily. 0 Active Multiple Vitamin (MULTIVITAMIN) Tab (1 source) Start: 12-24-2013 take 1 tablet by mouth once daily Multiple Vitamin (MULTIVITAMIN) Tab take 1 Tab by mouth daily. 30 Tab 1 12/24/2013 Active Multivitamin preparation (20 sources) Start: 11-05-2018 take 1 tablet by mouth once daily Multivitamin Active 1 TABLET PO DAILY November 05, 2018 11:26am Start: 11-05-2018 take 1 tablet by eugene th once daily Multivitamin Active 1 TABLET PO DAILY November 05, 2018 12:00am Start: 11-05-2018 take 1 tablet by eugene th once daily Multivitamin Active 1 TABLET PO DAILY November 04, 2018 11:00pm Start: 03-17-2015 take 1 tablet by eugene th once daily Multivitamin Dose = 1 tab(s), Oral, Daily, 0 Refill(s) Start Date: 03/17/15 Status: Ordered Repeat number: 1 Start: 03-17-2015 take 1 tablet by eugene th once daily Multivitamin Dose = 1 tab(s), Oral, Daily, 0 Refill(s) Start Date: 03/17/15 Status: Ordered Multivitamin tablet (3 sources) Start: 11-05-2018 Multivitamin t ablet Active 1 {tbl} PO DAILY November 05, 2018 12:00am ondansetron 4 mg oral tablet (1 source) Serotonin-3 Receptor Antagonist Start: 05-13-2023 End: 05-18-2023 Zofran 4 mg oral tablet Dose : 4 mg = 1 tab(s), Oral, q6h, X 5 day(s), # 8 tab(s), 0 Refill(s), 05/18/23 10:36:00 PM EDT Start Date: 05/13/23 Stop Date: 05/18/23 Status: Ordered Osteo Bi-Flex Advanced oral tablet (20 sources) Start: 09-24-2021 Osteo Bi-Flex Advanced oral tablet 0 Refill(s) Start Date: 09/24/21 Status: Ordered pantoprazole 40 mg delayed release oral tablet (1 source) Proton Pump Inhibitor Start: 05-09-2023 take 1 tablet by mouth once daily pantoprazole 40 mg oral enteric coated tablet take 1 tablet by mouth daily as directed Start Date: 05/09/23 Status: Ordered potassium chloride 1.33 meq oral tablet (20 sources) Start: 12-21-2022 potassium chlo ride 99 mg oral tablet Dose : 198 mg = 2 tab(s), Oral, qDay, Take with food, # 100 tab(s), 0 Refill(s) Start Date: 12/21/22 Status: Ordered Quantity: 100.0 Unit: tab(s) Repeat number: 1 Start: 05-11-2022 Potassium Chlo ride (Jkg-Hstl-Mnr M20) 20 mEq oral tablet, extended release 0 Refill(s) Start Date: 05/11/22 Status: Ordered Start: 12-14-2021 End: 12-24-2021 Potassium Chloride (Eqv-Klor -Con M20) 20 mEq oral tablet, extended release Dose : 40 mEq = 2 tab(s), Oral, BID, # 40 tab(s), 0 Refill(s), [facility]acy: [facility], 163, cm, 10/08/21 13:54:00 EST, Height Start Date: 12/14/21 Stop Date: 12/24/21 Status: Ordered rosuvastatin calcium 5 mg oral tablet (20 sources) HMG-CoA Reductase Inhibitor Start: 11-02-2017 take 1 tablet by mouth once daily Rosuvastatin 5 mg tablet Active 5 mg PO daily November 02, 2017 12:00am spironolactone 25 mg oral tablet (5 sources) Aldosterone Antagonist Start: 08-16-2024 take 1 tablet by mouth once daily Spironolactone 25 mg tablet Active 25 mg PO DAILY August 16, 2024 1:00am Vitamin D with Minerals oral tablet (2 sources) Start: 08-12-2024 take 1 tablet by mouth once daily Vitamin D with Minerals oral tablet Dose = 1 tab(s), Oral, qDay, # 30 tab(s), 0 Refill(s) Start Date: 08/12/24 Status: Ordered Quantity: 30.0 Unit: tab(s) Repeat number: 1 Vitamin D3 25 mcg (1000 intl units) oral capsule (2 sources) Start: 07-31-2024 Vitamin D3 25 mcg (1000 intl units) oral capsule Dose : 25 mcg = 1 cap(s), Oral, Daily, 0 Refill(s) Start Date: 07/31/24 Status: Ordered Repeat number: 1 Completed/Discontinued Medications Medication Drug Class(es) Dates Sig (Normalized) Sig (Original) amLODIPine 2.5 mg oral tablet (20 sources) Dihydropyridine Calcium Channel Victor Manuel Start: 12-05-2022 End: 07-12-2023 take 1 tablet by mouth once daily Amlodipine 2.5 mg tablet Discontinued 2.5 mg PO DAILY December 05, 2022 12:00am July 12, 2023 3:31pm Start: 10-12-2022 End: 02-09-2023 take 0.5 tablet by mouth once daily amLODIPine 5 mg oral tablet 0.5 tab, Oral, qDay, # 30 tab(s), 3 Refill(s), other reason (Rx) Start Date: 10/12/22 Stop Date: 02/09/23 Status: Ordered Start: 06-13-2022 End: 12-05-2022 take 1 tablet by mouth once daily Amlodipine 10 mg tablet Discontinued 10 mg PO DAILY June 13, 2022 12:00am December 05, 2022 2:06pm Start: 12-02-2021 End: 06-13-2022 take 1 tablet by mouth once daily Amlodipine 5 mg tablet Discontinued 5 mg PO DAILY December 02, 2021 12:00am June 13, 2022 2:51pm Start: 10-08-2021 amLODIPine 10 mg oral tablet Dose : 10 mg = 1 tab(s), Oral, qDay, # 90 tab(s), 2 Refill(s), [facility]: [facility] 163, cm, 10/08/21 13:54:00 EST, Height, kg, 10/08/21 13:54:00 EST, Dosing Weight Start Date: 10/08/21 Status: Ordered Start: 09-24-2021 amLODIPine 5 m g oral tablet Dose : 5 mg = 1 tab(s), Oral, qDay, # 30 tab(s), 11 Refill(s), Pharmacy: [address] 162, cm, 09/24/21 9:06:00 EST, Height, kg, 09/24/21 9:06:00 EST, Dosing Weight Start Date: 09/24/21 Status: Ordered carvedilol 12.5 mg oral tablet (20 sources) alpha-Adrenergic Victor Manuel, beta-Adrenergic Victor Manuel Start: 02-26-2021 End: 12-05-2024 take 1 tablet by mouth twice daily Carvedilol 12.5 mg tablet Discontinued 12.5 mg PO TWICE A DAY 180 September 11, 2023 6:16pm December 05, 2024 9:38am Start: 10-19-2020 End: 04-29-2021 Carvedilol 12.5 mg tablet Discontinued 18.75 mg PO TWICE A DAY October 19, 2020 4:18pm April 29, 2021 1:26pm Start: 10-19-2020 End: 04-29-2021 take 18.75 mg by mouth twice daily Carvedilol Discontinued 18.75 MG PO TWICE A DAY October 19, 2020 4:18pm April 29, 2021 1:26pm Start: 07-02-2020 End: 10-19-2020 take 1 tablet by mouth twice daily Carvedilol 12.5 mg tablet Discontinued 12.5 mg PO TWICE A DAY 180 July 02, 2020 12:52pm October 19, 2020 4:21pm Start: 11-06-2017 End: 07-02-2020 Carvedilol 25 mg tablet Disc ontinued 12.5 mg PO TWICE A DAY 90 July 16, 2019 3:14pm July 02, 2020 12:52pm Start: 11-06-2017 End: 07-02-2020 take 12.5 mg by mouth twice daily Carvedilol Discontinued 12.5 MG PO TWICE A DAY July 16, 2019 3:14pm July 02, 2020 12:52pm Start: 11-02-2017 End: 11-06-2017 take 1 tablet by mouth twice daily Carvedilol 25 mg tablet Discontinued 0 PO TWICE A DAY November 02, 2017 12:00am November 06, 2017 12:54pm 25MG, 1/2 Tablet PO BID Start: 07-29-2015 take 2 tablets by mo [facility] every twelve hours carveDILOL 12.5 MG Tab Indications: S/P resection of meningioma , Nontraumatic brain injury, without loss of consciousness, subsequent encounter , Meningioma take 2 tablets by mouth every 12 hours. 60 tablet 0 07/29/2015 Active estrogens, conjugated (longterm) 0.625 mg/ml vaginal cream (20 sources) Estrogen Start: 11-13-2019 End: 10-19-2020 Conjugated Estrogens (Premarin) 0.625 mg/gram cream Discontinued 0.625 mg VAGINAL TWICE A WEEK November 13, 2019 12:00am October 19, 2020 4:20pm off 5 days; repeat cycle Start: 06-10-2019 Premarin See I nstructions, vaginal cream twice weekly, 0 Refill(s) Start Date: 06/10/19 Status: Ordered Repeat number: 1 Start: 06-10-2019 Premarin See I nstructions, vaginal cream twice weekly, 0 Refill(s) Start Date: 06/10/19 Status: Ordered ibuprofen 200 mg oral tablet (12 sources) Nonsteroidal Anti-inflammatory Drug Start: 11-05-2018 End: 10-19-2020 take 1 tablet by mouth three to four times daily as needed Ibuprofen (Advil) 200 mg tablet Discontinued 200 mg PO 3 to 4 times per day as needed November 05, 2018 12:00am October 19, 2020 4:21pm take 600 mg by mouth every six hours as needed ibuprofen 100 MG/5ML oral suspension irene e 600 mg by mouth every 6 hours as needed. 0 Active Magnesium (3 sources) Start: 07-12-2023 End: 01-29-2024 take 1 tablet by mouth once daily Magnesium 250 mg tablet Discontinued 250 mg PO DAILY July 12, 2023 1:00am January 29, 2024 1:23pm mesalamine 1200 mg delayed release oral tablet (20 sources) Aminosalicylate Start: 12-02-2021 End: 06-13-2022 take 2 tablets by mouth once daily Mesalamine 1.2 gram tablet,delayed release (DR/EC) Discontinued 2.4 g PO DAILY December 02, 2021 12:00am June 13, 2022 2:52pm Start: 12-02-2021 End: 06-13-2022 take 2.4 g by mouth once daily Mesalamine Discontinued 2.4 GM PO DAILY December 02, 2021 12:00am June 13, 2022 2:52pm Start: 09-24-2021 mesalamine 1.2 g oral delayed release tablet Dose : 2.4 gram(s) = 2 tab(s), Oral, qDay, 0 Refill(s) Start Date: 09/24/21 Status: Ordered Rosebush-3 Fatty Acids (Fish Oil Concentrate) 1,000 mg capsule (11 sources) Start: 11-05-2018 End: 11-13-2019 take 1 capsule by mouth twice daily Rosebush-3 Fatty Acids (Fish Oil Concentrate) 1,000 mg capsule Discontinued 1000 MG PO TWICE A DAY November 05, 2018 11:28am November 13, 2019 1:09pm Start: 11-05-2018 End: 11-13-2019 take 1 capsule by mouth twice daily Rosebush-3 Fatty Acids (Fish Oil Concentrate) 1,000 mg capsule Discontinued 1000 mg PO TWICE A DAY November 05, 2018 12:00am November 13, 2019 1:09pm Start: 11-05-2018 End: 11-13-2019 take 1 capsule by mouth twice daily Rosebush-3 Fatty Acids (Fish Oil Concentrate) 1,000 mg capsule Discontinued 1000 MG PO TWICE A DAY November 05, 2018 12:00am November 13, 2019 1:09pm Start: 11-05-2018 End: 11-13-2019 take 1 capsule by mouth twice daily Rosebush-3 Fatty Acids (Fish Oil Concentrate) 1,000 mg capsule Discontinued 1000 MG PO TWICE A DAY November 04, 2018 11:00pm November 13, 2019 12:09pm potassium gluconate 2.5 meq oral tablet (13 sources) Start: 01-29-2024 End: 08-16-2024 take 1 tablet by mouth once daily Potassium Gluconate 595 mg (99 mg) tablet Discontinued 595 mg PO DAILY January 29, 2024 1:21pm August 16, 2024 5:11pm Start: 06-13-2022 End: 01-29-2024 take 1 tablet by mouth once daily Potassium Gluconate 595 mg (99 mg) tablet Discontinued 1190 mg PO DAILY June 13, 2022 12:00am January 29, 2024 1:23pm Start: 06-02-2022 potassium gluc miley 595 mg (99 mg K+) oral tablet Dose : 595 mg = 1 tab(s), Oral, qDayM, 0 Refill(s) Start Date: 06/02/22 Status: Ordered sertraline 50 mg oral tablet (20 sources) Serotonin Reuptake Inhibitor Start: 12-02-2021 End: 06-13-2022 take 1 tablet by mouth once daily Sertraline 50 mg tablet Discontinued 50 mg PO DAILY December 02, 2021 12:00am June 13, 2022 2:52pm Start: 03-19-2021 End: 09-15-2021 sertraline 50 mg oral tablet Dose : 50 mg = 1 tab(s), Oral, qDay, # 90 tab(s), 3 Refill(s), [facility], 162.4, cm, 08/03/21 9:09:00 EST, Height, kg, 08/03/21 9:09:00 EST, Dosing Weight Start Date: 09/14/21 Status: Ordered Start: 10-19-2020 End: 12-02-2021 take 2 tablets by mouth at bedtime Sertraline 25 mg tablet Discontinued 50 mg PO AT BEDTIME October 19, 2020 4:19pm December 02, 2021 3:04pm Start: 10-19-2020 End: 12-02-2021 take 50 mg by mouth at bedtime Sertraline Discontinued 50 MG PO AT BEDTIME October 19, 2020 4:19pm December 02, 2021 3:04pm Start: 11-13-2019 End: 10-19-2020 take 1 tablet by mouth at bedtime Sertraline 25 mg tablet Discontinued 25 mg PO AT BEDTIME November 13, 2019 12:00am October 19, 2020 4:21pm Start: 06-01-2015 End: 11-05-2018 take 1 tablet by mouth once daily Sertraline 25 mg tablet Discontinued 25 mg PO daily November 02, 2017 12:00am November 05, 2018 11:27am Problems Active Problems Problem Classification Problem Date Documented Date Episodic/Chronic Acute cerebrovascular disease (20 sources) Hemorrhagic cerebral infarction; Translations: [Cerebral hemorrhage] Onset: 4 06-10-2019 Chronic Anxiety disorders (20 sources) Anxiety; Translations: [Anxiety disorder, unspecified] Onset: 4 03-17-2015 Chronic Cancer of breast (5 sources) Malignant tumor of breast ; Translations: [Malignant neoplasm of unspecified site of unspecified female breast] 04-11-2023 Chronic Comment on above: With Adriamycinbilat eral mastectomy, chemo. 1991 Cardiac dysrhythmias (20 sources) Cardiac arrhythmia 06-10-2019 Chronic Cataract (20 sources) Cataract 03-17-2015 Chronic Comment on above: R> L Conduction disorders (20 sources) Left bundle branch block; Translations: [Left bundle-branch block, unspecified] Onset: 4 03-20-2015 Chronic Comment on above: Cath 2009 states EF of 50%.Normal coronaries.Mild hypokinesis of apex and inferior apex. Medical note from [facility] stress test from 2008 showed left BBB ,moderate sized apical septal scar.Echo 2008 minimal to mild TR. Deficiency and other anemia (20 sources) Anemia 03-20-2015 Episodic Disorders of lipid metabolism (20 sources) Hypercholesterolemia; Translations: [Hyperlipidemia] Onset: 3 03-17-2015 Chronic E Codes: Fall (1 source) Fall; Translations: [Unspecified fall, subsequent encounter] Episodic Epilepsy; convulsions (16 sources) Epilepsy; Translations: [Epilepsy, unspecified, not intractable, without status epilepticus] 06-10-2019 Chronic Epilepsy; convulsions (20 sources) Seizure disorder; Translations: [Seizure] Onset: 1 12-12-2017 Episodic Esophageal disorders (20 sources) Acid reflux; Translations: [Gastroesophageal reflux disease] 03-17-2015 Chronic Essential hypertension (20 sources) Hypertensive disorder; Translations: [Essential (primary) hypertension] Onset: 3 03-17-2015 Chronic Fluid and electrolyte disorders (20 sources) Hyponatremia; Translations: [Hypo-osmolality and hyponatremia] Onset: 4 Resolved: 5 12-25-2014 Episodic Fracture of upper limb (20 sources) Closed fracture of upper end of humerus; Translations: [Unspecified fracture of upper end of unspecified humerus, initial encounter for closed fracture] Onset: 3 Episodic Genitourinary symptoms and ill-defined conditions (20 sources) Urgent desire to urinate; Translations: [Blood in urine] Onset: 4 03-17-2015 Episodic Headache; including migraine (20 sources) Headache 03-17-2015 Episodic Heart valve disorders (8 sources) Mitral valve regurgitation; Translations: [Nonrheumatic mitral (valve) insufficiency] Onset: 5 01-07-2025 Chronic Joint disorders and dislocations; trauma-related (20 sources) Dislocation of temporomandibular joint 03-17-2015 Episodic Menopausal disorders (9 sources) Postmenopausal bleeding; Translations: [Postmenopausal bleeding] Onset: 4 04-11-2023 Chronic Comment on above: Lining 8mm. EMB pend ing Mood disorders (20 sources) Recurrent major depression in full remission 06-10-2019 Chronic Mycoses (14 sources) Candidiasis of vagina 09-28-2023 Episodic Noninfectious gastroenteritis (20 sources) Collagenous colitis 12-23-2021 Chronic Noninfectious gastroenteritis (20 sources) Colitis; Translations: [Noninfective gastroenteritis and colitis, unspecified] Onset: 5 12-31-2021 Episodic Nutritional deficiencies (5 sources) Vitamin D deficiency 07-12-2024 Chronic Open wounds of extremities (11 sources) Open wound of lower limb; Translations: [Unspecified open wound, unspecified lower leg, initial encounter] Onset: 4 04-11-2024 Episodic Osteoarthritis (20 sources) Arthritis 03-17-2015 Chronic Other acquired deformities (20 sources) Acquired scoliosis 03-17-2015 Chronic Other aftercare (11 sources) Long-term current use of drug therapy; Translations: [Other rnp (current) drug therapy] 05-07-2018 Episodic Other and unspecified benign neoplasm (20 sources) Benign neoplasm of meninges 03-20-2015 Chronic Comment on above: Had surgery at [facility] Other and unspecified benign neoplasm (1 source) Neoplasm of meninges; Translations: [Benign neoplasm of meninges, unspecified] Onset: 4 10-17-2021 Chronic Other and unspecified benign neoplasm (2 sources) Benign neoplasm of meninges, unspecified; Translations: [Benign neoplasm of meninges, unspecified] Onset: 2 Chronic Other connective tissue disease (3 sources) Swelling of lower limb 08-12-2024 Episodic Other female genital disorders (3 sources) Vaginal discharge 08-12-2024 Episodic Other hereditary and degenerative nervous system conditions (20 sources) Restless legs 03-17-2015 Chronic Other nervous system disorders (1 source) Encephalomalacia; Translations: [Other specified disorders of brain] Onset: 4 01-20-2020 Chronic Other nutritional; endocrine; and metabolic disorders (20 sources) Hypomagnesemia; Translations: [Hypomagnesemia] 06-02-2022 Chronic Other nutritional; endocrine; and metabolic disorders (2 sources) Hypomagnesemia; Translations: [Hypomagnesemia] Onset: 3 Chronic Other screening for suspected conditions (not mental disorders or infectious disease) (1 source) Cardiovascular finding; Translations: [Abnormal findings on diagnostic imaging of other specified body structures] 01-10-2025 Chronic Other screening for suspected conditions (not mental disorders or infectious disease) (11 sources) Decreased thyroid stimulating hormone level; Translations: [Other specified abnormal findings of blood chemistry] 04-29-2021 Episodic Other skin disorders (6 sources) Lichen sclerosus et atrophicus; Translations: [Circumscribed scleroderma] Onset: 3 05-22-2013 Chronic Other skin disorders (20 sources) Alopecia 06-10-2019 Episodic Other upper respiratory disease (20 sources) Seasonal allergy 03-17-2015 Chronic Andreia-; endo-; and myocarditis; cardiomyopathy (except that caused by tuberculosis or sexually transmitted disease) (20 sources) Dilated cardiomyopathy; Translations: [Dilated cardiomyopathy] Onset: 5 Chronic Prolapse of female genital organs (20 sources) Cystocele; Translations: [Prolapse of female genital organs] Onset: 3 03-17-2015 Chronic Regional enteritis and ulcerative colitis (20 sources) Ulcerative colitis; Translations: [Ulcerative colitis, unspecified, without complications] 06-10-2019 Chronic Residual codes; unclassified (20 sources) Insomnia 03-17-2015 Episodic Residual codes; unclassified (20 sources) Edema 10-12-2022 Episodic Residual codes; unclassified (20 sources) Edema of extremity 09-20-2022 Episodic Residual codes; unclassified (1 source) Localized edema; Translations: [Localized edema] Episodic Residual codes; unclassified (14 sources) Peripheral edema 10-21-2023 Episodic Skin and subcutaneous tissue infections (11 sources) Cellulitis of lower limb; Translations: [Cellulitis of unspecified part of limb] Onset: 4 04-11-2024 Episodic Spondylosis; intervertebral disc disorders; other back problems (20 sources) Degeneration of intervertebral disc 03-17-2015 Chronic Spondylosis; intervertebral disc disorders; other back problems (20 sources) Backache 03-17-2015 Episodic Thyroid disorders (20 sources) Multinodular goiter; Translations: [Nontoxic multinodular goiter] Onset: 3 06-02-2022 Chronic Unclassified (20 sources) Eye glasses, device (physical object) 03-17-2015 Past or Other Problems Problem Classification Problem Date Documented Da te Episodic/Chronic Deficiency and other anemia (2 sources) Anemia, unspecified; Translations: [Anemia, unspecified] Onset: 06-23-2023 Episodic Malaise and fatigue (1 source) Lethargy; Translations: [Other fatigue] Onset: 11-27-2013 Resolved: 12-25-2014 12-25-2014 Episodic Other diseases of bladder and urethra (1 source) Urethral caruncle; Translations: [Urethral caruncle] Onset: 05-22-2013 05-22-2013 Episodic Other female genital disorders (2 sources) Other specified noninflammatory disorders of vagina; Translations: [Other specified noninflammatory disorders of vagina] Onset: 08-12-2024 Episodic Other gastrointestinal disorders (1 source) Dysphagia; Translations: [Dysphagia, unspecified] Onset: 12-03-2013 Resolved: 12-25-2014 12-25-2014 Episodic Other nervous system disorders (1 source) Cerebral edema; Translations: [Cerebral edema] Onset: 11-23-2013 Resolved: 12-25-2014 12-25-2014 Chronic Other nervous system disorders (1 source) Compression of brain; Translations: [Compression of brain] Onset: 11-23-2013 Resolved: 12-25-2014 12-25-2014 Chronic Urinary tract infections (20 sources) Urinary tract infectious disease; Translations: [Urinary tract infection, site not specified] Onset: 05-22-2013 Resolved: 12-25-2013 12-25-2013 Episodic Results Test Name Value Interpretation Reference Range Facility Anion gap in Serum or Plasma Ordered By: Pam Whipple on 01-21-2025 Anion gap [Moles/Vol] 10 mmol/L 12-[address] [facility] BUN/creatinine ratioOrdered By: Pam Whipple on 01-21-2025 Urea nitrogen/Creatinine [Mass ratio] 16.2 mg/mg - [facility] Basic Metabolic Profile (BMP )on 01-21-2025 BUN/CRE 16.2 RATIO Normal 06-[address] [facility] Comment on above: Performed By: #### L 500.2500 #### [facility] [address] [place], [address] Calcium [Mass/Vol] 9.3 mg/dL Normal 7.6-11.0 [facility] Comment on above: Performed By: #### L 500.2500 #### [facility] [address] [place], [address] Chloride [Moles/Vol] 107 mmol/L Normal 98-108 [facility] Comment on above: Performed By: #### L 500.2500 #### [facility] [address] [place], [address] CO2 [Moles/Vol] 24.0 mmol/L Normal 21.0-32.[address] [facility] Comment on above: Performed By: #### L 500.2500 #### [facility] [address] [place], [address] Creatinine [Mass/Vol] 0.97 mg/dL Normal 0.70-1.[address] [facility] Comment on above: Performed By: #### L 500.2500 #### [facility] [address] [place], [address] GAP 10 Normal 12-[address] [facility] Comment on above: Performed By: #### L 500.2500 #### [facility] [address] [place], [address] GFR/1.73 sq M.predicted among non-blacks MDRD (S/P/Bld) [Vol rate/Area] 59 mL/min/{1.73_m2} Low >[address] [facility] Comment on above: Result Comment: mL/m in/1.73m2 CKD-EPI Creatinine Equation (2020) Performed By: #### L 500.2500 #### [facility] [address] [place], [address] Glucose [Mass/Vol] 86 mg/dL Normal 70-99 [facility] Comment on above: Performed By: #### L 500.2500 #### [facility] [address] [place], [address] Potassium [Moles/Vol] 3.8 mmol/L Normal 3.3-5.[address] [facility] Comment on above: Performed By: #### L 500.2500 #### [facility] [address] [place], [address] Sodium [Moles/Vol] 141 mmol/L Normal 133-145 [facility] Comment on above: Performed By: #### L 500.2500 #### [facility] [address] [place], [address] Urea nitrogen [Mass/Vol] 16 mg/dL Normal 4-[address] [facility] Comment on above: Performed By: #### L 500.2500 #### [facility] [address] [place], [address] Carbon dioxide, total [Moles /volume] in Central venous bloodOrdered By: Pam Whipple on 01-21-2025 CO2 [Moles/Vol] 24.0 mmol/L 21.0-32.[address] [facility] Chloride assayOrdered By: Markie Whipple on 01-21-2025 Chloride [Moles/Vol] 107 mmol/L 98-108 [facility] Glomerular filtration rate ( GFR) estimation/1.73 sq m using serum, plasma, or whole bOrdered By: Pam Whipple on 01-21-2025 GFR/1.73 sq M.predicted among non-blacks MDRD (S/P/Bld) [Vol rate/Area] 59 mL/min/{1.73_m2} Low >[address] [facility] Comment on above: mL/min/1.73m2 CKD-EP I Creatinine Equation (2020) Potassium measurement (mass/ volume)Ordered By: Pam Whipple on 01-21-2025 Potassium (Unsp spec) [Mass/Vol] 3.8 mmol/L 3.3-5.[address] [facility] Serum creatinine measurement (mass/volume)Ordered By: Pam Whipple on 01-21-2025 Creatinine [Mass/Vol] 0.97 mg/dL 0.70-1.[address] [facility] Serum glucose measurement (m ass/volume)Ordered By: Pam Whipple on 01-21-2025 Glucose [Mass/Vol] 86 mg/dL 70-99 [facility] Serum or plasma calcium omid urement (mass/volume)Ordered By: Pam Whipple on 01-21-2025 Calcium [Mass/Vol] 9.3 mg/dL 7.6-11.0 [facility] Serum or plasma urea nitroge n measurement (mass/volume)Ordered By: Pam Whipple on 01-21-2025 Urea nitrogen [Mass/Vol] 16 mg/dL 4-[address] [facility] Sodium levelOrdered By: Chaz Whipple on 01-21-2025 Sodium [Moles/Vol] 141 mmol/L 133-145 [facility] Cardiology Visit Reporton Cardiology Visit Report [facility] [place] [address] OFFICE VISIT Date of Service: 01/07/25 MR#: [id number] Acct: [id number] Name: GRICELDA KRUGER Rep #: [id number] : 1945 Provider: Dr. Pam Whipple MD Age/Sex: 79/F [place] [facility] [place]: Signed HPI HPI History of Present Illness Details: This lady with past history significant for nonischemic cardiomyopathy was noted to have her EF 45 to 50% on her recent echocardiogram. Moderate to severe mitral valve regurgitation was noted. Clinically she is doing good. Denies any chest pains or shortness of breath. Denies orthopnea or PND. No ankle edema. No palpitations. Intake Vital Signs 07/02/24 08:40 01/07/25 08:36 Height 5 ft 5 in 5 ft 5 in Weight: 124 lb BMI 20.6 BP 125/68 H Blood Pressure Location Lt brachial Position Sitting Respiration 18 Pulse 60 Pulse Source NIBP Intake Visit Reasons: 6 M FU Paver Layer Required: No Accompanied by: Is patient in pain?: No Allergies nitrofurantoin (From Macrobid) Allergy (Unknown, Verified 01/07/25 13:00) unknown sulfamethoxazole (From Bactrim) Allergy (Unknown, Verified 01/07/25 13:00) unknown trimethoprim (From Bactrim) Allergy (Unknown, Verified 01/07/25 13:00) unknown codeine Adverse Reaction (Severe, Verified 01/07/25 13:00) Rash prochlorperazine (From Compazine) Adverse Reaction (Severe, Verified 01/07/25 13:00) Hyper simvastatin (From Zocor) Adverse Reaction (Severe, Verified 01/07/25 13:00) Intolerance, Myalgias Medications ???Medication ???Instructions ???Recorded ???Confirmed ???Type levetiracetam 500 mg tablet 500 mg PO BID 11/02/17 01/07/25 Hi story rosuvastatin 5 mg tablet 5 mg PO QDAY 11/02/17 01/07/25 His tory clobetasol 0.05 % topical cream 1 applic topical QWEEK 11/05/18 History multivitamin 1 tab PO DAILY 11/05/18 01/07/25 H istory esomeprazole magnesium 20 mg 20 mg PO BID 02/28/20 01/07/25 His tory capsule,delayed release estradiol 0.01% (0.1 mg/gram) 0.1 g vaginal MOWEFR 10/19/2012/13 History vaginal cream acetaminophen 500 mg tablet 1,000 mg PO DAILY 04/29/21 5 History (Tylenol Extra Strength) glucosamine-chondroitin 250 mg-200 2 tab PO DAILY 04/29/21 01/07/25 History mg tablet (Osteo Bi-Flex) levothyroxine 50 mcg tablet 50 mcg PO DAILY 12/02/21 01/07/25 History loperamide 2 mg capsule 2 mg PO Q6H PRN 04/11/23 01/07/25 History (Anti-Diarrheal (loperamide)) cholestyramine-aspartame 4 gram 1 ea PO DAILY 07/12/23 01/07/25 Hi story oral powder (Prevalite) clonazepam 0.5 mg tablet 1 mg PO QHS 07/12/23 01/07/25 Hist ory cranberry fruit concentrate 250 mg 250 mg PO BID 01/29/24 01/07/25 History chewable tablet (Azo Cranberry) budesonide 3 mg 9 mg PO QDAY 07/02/24 01/07/25 His tory capsule,delayed,extended release calcium carbonate (Tums Ultra) 400 mg PO TID 07/02/24 01/07/25 Hi story spironolactone 25 mg tablet 25 mg PO DAILY #90 tabs 08/16/24 0 01/07/25 Rx carvedilol 12.5 mg tablet 12.5 mg PO BID #180 tabs 12/05/24 01/07/25 Rx cholecalciferol (vitamin D3) 50 50 mcg PO QDAY 01/07/25 01/07/25 H istory mcg (2,000 unit) tablet Ejection fraction %: 45 Have you fallen in the past year?: Yes (October, , no major injuries) PFSH Medical History Acquired adolescent scoliosis Arthritis Back pain Bladder disease Breast cancer Cancer Cardiology follow-up encounter Cold sore Colitis COVID Depression Dilated cardiomyopathy Dyslipidemia Fatigue Fracture of right upper limb Gastric reflux High cholesterol History of echocardiogram History of hiatal hernia History of irregular heartbeat History of stress test Hx of fracture of wrist Hyperlipidemia Hypertension Intraparenchymal hematoma of brain Left bundle branch block Low TSH level Meningioma Multinodular goiter Non-ischemic cardiomyopathy Non-smoker Other halfway (current) drug therapy Postmenopausal bleeding Pure hypercholesterolemia Restless legs Seizure Thyroid disease Wears glasses Surgical History Benign meningioma of brain History of cardiac catheterization History of esophagogastroduodenoscopy (EGD) History of tonsillectomy and adenoidectomy Hx of breast implants, bilateral Hx of colonoscopy Hx of left cataract extraction Hx of mastectomy Hx of repair of ear bone Hx of right cataract extraction Status post partial thyroidectomy ( 06/11/21) Family History Father CAD (coronary artery disease) COPD (chronic obstructive pulmonary disease) Cancer lung cancer Mother Cancer b (more content not included)... Normal [facility] Anion gap in Serum or Plasma Ordered By: Pam Whipple on 01-04-2025 Anion gap [Moles/Vol] 10 mmol/L 5- [facility] BUN/creatinine ratioOrdered By: Pam Whipple on 01-04-2025 Urea nitrogen/Creatinine [Mass ratio] 17.9 mg/mg 10- [facility] Bilirubin, totalOrdered By: Pam Whipple on 01-04-2025 Bilirubin [Mass/Vol] 0.96 mg/dL Normal 0.00-1.30 [facility] Comment on above: Performed By: #### L 500.4050, L500.4100 #### [facility] [address] [place], [place], [id number] Calculated very low density lipoprotein (VLDL) cholesterol measurementOrdered By: Pam Whipple on 01-04-2025 Calculated very low density lipoprotein (VLDL) cholesterol measurement 34 mg/dL - [facility] Carbon dioxide, total [Moles /volume] in Central venous bloodOrdered By: Pam Whipple on 01-04-2025 CO2 [Moles/Vol] 25.9 mmol/L Normal 21.0-32.[address] [facility] Comment on above: Performed By: #### L 500.4050, L500.4100 #### [facility] [address] [place], [place], [id number] Chloride assayOrdered By: Markie Whipple on 01-04-2025 Chloride [Moles/Vol] 107 mmol/L Normal 98-108 [facility] Comment on above: Performed By: #### L 500.4050, L500.4100 #### [facility] [address] [place], [address] Comprehensive Metabolic Prof ilon 01-04-2025 ALK PHOS 47 U/L Normal 35-[address] [facility] Comment on above: Performed By: #### L 500.4050, L500.4100 #### [facility] [address] [place], [address] BUN/CRE 17.9 RATIO Normal 10-[address] [facility] Comment on above: Performed By: #### L 500.4050, L500.4100 #### [facility] [address] [place], [address] GAP 10 Normal 5-[address] [facility] Comment on above: Performed By: #### L 500.4050, L500.4100 #### [facility] [address] [place], [address] Potassium [Moles/Vol] 3.8 mmol/L Normal 3.3-5.[address] [facility] Comment on above: Result Comment: Hemo lysis present, Results??could be affected. ?? Performed By: #### L 500.4050, L500.4100 #### [facility] [address] [place], [address] T PROT 6.1 g/dL Normal 5.9-8.[address] [facility] Comment on above: Performed By: #### L 500.4050, L500.4100 #### [facility] [address] [place], [address] Comprehensive Metabolic Prof ilOrdered By: Pam Whipple on 01-04-2025 AST [Catalytic activity/Vol] 21 U/L Normal <=[address] [facility] Comment on above: Hemolysis present, R esults could be affected. Result Comment: Hemo lysis present, Results??could be affected. ?? Performed By: #### L 500.4050, L500.4100 #### [facility] [address] [place], [address] Glomerular filtration rate ( GFR) estimation/1.73 sq m using serum, plasma, or whole bOrdered By: Pam Whipple on 01-04-2025 GFR/1.73 sq M.predicted among non-blacks MDRD (S/P/Bld) [Vol rate/Area] 70 mL/min/{1.73_m2} Normal >[address] [facility] Comment on above: mL/min/1.73m2 CKD-EP I Creatinine Equation (2020) Result Comment: mL/m in/1.73m2 CKD-EPI Creatinine Equation (2020) Performed By: #### L 500.4050, L500.4100 #### [facility] [address] [place], [address] LDL calc ser/plasOrdered By: Pam Whipple on 01-04-2025 Cholesterol in LDL [Mass/Vol] 90 mg/dL Normal [facility] Comment on above: Myxwjzleec=795-493 m g/dL & Higher Dyne=929 mg/dL or greater Result Comment: Bord gfysxe=228-964 mg/dL Higher Uvyk=009 mg/dL or greater Performed By: #### L 500.4050, L500.4100 #### [facility] [address] [place], [address] Lipid Profileon 01-04-2025 CHOL:HDL 2.[address] [facility] Comment on above: Performed By: #### L 500.4050, L500.4100 #### [facility] [address] [place], [address] Cholesterol in VLDL [Mass/Vol] 34 mg/dL Normal 5-[address] [facility] Comment on above: Performed By: #### L 500.4050, L500.4100 #### [facility] [address] [place], [address] Potassium measurement (mass/ volume)Ordered By: Pam Whipple on 01-04-2025 Potassium (Unsp spec) [Mass/Vol] 3.8 mmol/L 3.3-5.[address] [facility] Comment on above: Hemolysis present, R esults could be affected. Screening total cholesterol/ high density lipoprotein (HDL) cholesterol ratioOrdered By: Pam Whipple on 01-04-2025 Cholesterol.total/Ch olesterol in HDL [Mass ratio] 2.54 {ratio} [facility] Serum creatinine measurement (mass/volume)Ordered By: Pam Whipple on 01-04-2025 Creatinine [Mass/Vol] 0.84 mg/dL Normal 0.70-1.[address] [facility] Comment on above: Performed By: #### L 500.4050, L500.4100 #### [facility] [address] [place], [address] Serum globulin measurementOr dered By: Pam Whipple on 01-04-2025 Globulin (S) [Mass/Vol] 2.0 g/dL Low 2.2-4.[address] [facility] Comment on above: Performed By: #### L 500.4050, L500.4100 #### [facility] [address] [place], [address] Serum glucose measurement (m ass/volume)Ordered By: Pam Whipple on 01-04-2025 Glucose [Mass/Vol] 89 mg/dL Normal 70-99 [facility] Comment on above: Performed By: #### L 500.4050, L500.4100 #### [facility] [address] [place], [address] Serum or plasma alanine garnica otransferase (ALT) measurementOrdered By: Pam Whipple on 01-04-2025 ALT [Catalytic activity/Vol] 14 U/L Normal <=[address] [facility] Comment on above: Performed By: #### L 500.4050, L500.4100 #### [facility] [address] [place], [address] Serum or plasma albumin omid urement (mass/volume)Ordered By: Pam Whipple on 01-04-2025 Albumin [Mass/Vol] 4.1 g/dL Normal 3.4-4.8 [facility] Comment on above: Performed By: #### L 500.4050, L500.4100 #### [facility] [address] [place], [place], [id number] Serum or plasma albumin/glob ulin mass ratioOrdered By: Pam Whipple on 01-04-2025 Albumin/Globulin [Mass ratio] 2.0 {ratio} Normal 0.9-2.[address] [facility] Comment on above: Performed By: #### L 500.4050, L500.4100 #### [facility] [address] [place], [address] Serum or plasma alkaline amalia sphatase measurementOrdered By: Pam Whipple on 01-04-2025 ALP [Catalytic activity/Vol] 47 U/L 35-[address] [facility] Serum or plasma calcium omid urement (mass/volume)Ordered By: Pam Whipple on 01-04-2025 Calcium [Mass/Vol] 9.6 mg/dL Normal 7.6-11.0 [facility] Comment on above: Performed By: #### L 500.4050, L500.4100 #### [facility] [address] [facility] [id number] Serum or plasma cholesterol in HDL measurement (mass/volume)Ordered By: Pam Whipple on 01-04-2025 Cholesterol in HDL [Mass/Vol] 80 mg/dL Normal [facility] Comment on above: National Cholesterol Education Program (NCEP) guidelines:<40 mg/dL: Low HDL-cholesterol (major risk factor for CHD)>= 60 mg/dL: High HDL-cholesterol (negative risk factor for CHD)HDL-cholesterol is affected by a number of factors, e.g. smoking, exercise, hormones, sex and age. Result Comment: Emily onal Cholesterol Education Program (NCEP) guidelines: <40 mg/dL: Low HDL-cholesterol (major risk factor for CHD) >= 60 mg/dL: High HDL-cholesterol (negative risk factor for CHD) HDL-cholesterol is affected by a number of factors, e.g. smoking, exercise, hormones, sex and age. Performed By: #### L 500.4050, L500.4100 #### [facility] [address] [place], [address] Serum or plasma cholesterol measurement (mass/volume)Ordered By: Pam Whipple on 01-04-2025 Cholesterol [Mass/Vol] 204 mg/dL High <=[address] [facility] Comment on above: Cholesterol level, D esirable <200 mg/dLBorderline high cholesterol 200-239 mg/dLHigh cholesterol >=240 mg/dLRecommendations of the NCEP Adult Treatment Panel for the following risk-cutoff thresholds for the [place] Citizen population. Result Comment: Chol esterol level, Desirable <200 mg/dL Borderline high cholesterol 200-239 mg/dL High cholesterol >=240 mg/dL Recommendations of the NCEP Adult Treatment Panel for the following risk-cutoff thresholds for the [place] Citizen population. Performed By: #### L 500.4050, L500.4100 #### [facility] [address] [place], [address] Serum or plasma urea nitroge n measurement (mass/volume)Ordered By: Pam Whipple on 01-04-2025 Urea nitrogen [Mass/Vol] 15 mg/dL Normal 4-[address] [facility] Comment on above: Performed By: #### L 500.4050, L500.4100 #### [facility] [address] [place], [address] Sodium levelOrdered By: Chaz Whipple on 01-04-2025 Sodium [Moles/Vol] 142 mmol/L Normal 133-145 [facility] Comment on above: Performed By: #### L 500.4050, L500.4100 #### [facility] [address] [place], [address] Total proteinOrdered By: Jv Whipple on 01-04-2025 Protein [Mass/Vol] 6.1 g/dL 5.9-8.4 [facility] Triglycerides measurementOrd ered By: Pam Sarabjit on 01-04-2025 Triglyceride [Mass/Vol] 169 mg/dL Normal [facility] Comment on above: The drugs N-Acetylcy steine and Metamizole may falsely depress this assay. Normal range: <150 mg/dLBorderline High: 150-199 mg/dLHigh: 200-499 mg/dLVery High: >500 mg/dL Result Comment: The drugs N-Acetylcysteine and Metamizole may falsely depress this assay. Normal range: <150 mg/dL Borderline High: 150-199 mg/dL High: 200-499 mg/dL Very High: >500 mg/dL Performed By: #### L 500.4050, L500.4100 #### [facility] [address] [place], [place], [id number] CEFAZOLIN:SUSC:PT:ISOLATE:OR DQN:MICon 01-01-2025 ceFAZolin RANDOLPH [Susc] >100,000 cfu/ml Kle bsiella pneumoniae [facility] Work Phone: ceFAZolin RANDOLPH [Susc]on 01-01 Klebsiella pneumoniae Klebsiella pneumoniae [facility] Work Phone: No Panel Informationon 12-04 Culture Urine >100,000 cfu/ml Mixe d growth consistent with normal urogenital artur. [facility] Work Phone: .Auto Diffon 11-27-2024 Basophil, Absolute 0.0 10 3/mcL Normal 0.0-0.3 [facility] Comment on above: Performed By: #### G FR, FT4, LIPID, VIDH, CMP, FT3, FERR, TSH #### [facility] [address] [place], [place] [address] Basophils/100 WBC (Bld) 0.5 % Normal 0.0-2.5 [facility] Comment on above: Performed By: #### G FR, FT4, LIPID, VIDH, CMP, FT3, FERR, TSH #### [address] [address] Eosinophil, Absolute 0.0 10 3/mcL Normal 0.0-0.7 [facility] Comment on above: Performed By: #### G FR, FT4, LIPID, VIDH, CMP, FT3, FERR, TSH #### [address] [address] Eosinophils/100 WBC (Bld) 0.4 % Normal 0.0-6.0 [facility] Comment on above: Performed By: #### G FR, FT4, LIPID, VIDH, CMP, FT3, FERR, TSH #### [address] [address] Lymphocyte, Absolute 2.1 10 3/mcL Normal 0.9-4.3 [facility] Comment on above: Performed By: #### G FR, FT4, LIPID, VIDH, CMP, FT3, FERR, TSH #### [address] [address] Lymphocytes/100 WBC (Bld) 27.3 % Normal 20.0-40.0 [facility] Comment on above: Performed By: #### G FR, FT4, LIPID, VIDH, CMP, FT3, FERR, TSH #### [address] [address] Monocyte, Absolute 0.7 10 3/mcL Normal 0.1-1.4 [facility] Comment on above: Performed By: #### G FR, FT4, LIPID, VIDH, CMP, FT3, FERR, TSH #### [address] [address] Monocytes/100 WBC (Bld) 9.1 % Normal 2.0-13.0 [facility] Comment on above: Performed By: #### G FR, FT4, LIPID, VIDH, CMP, FT3, FERR, TSH #### [address] [address] Neutrophils/100 WBC (Bld) 62.7 % Normal 50.0-75.0 [facility] Comment on above: Performed By: #### G FR, FT4, LIPID, VIDH, CMP, FT3, FERR, TSH #### [place] [address] [place], [place] [address] .GFRon 11-27-2024 Estimated Glomerular Filtration Rate 87 ml/min/1.73sqm Normal [facility] Comment on above: Result Comment: Stages of Chronic Kidney Disease (CKD) Stage Description eGFR(ml/min/1.73 sq.m.) CKD 1 Normal kidney function or >=90 normal kindney function with possible kidney damage (ex. Proteinuria) CKD 2 Kidney damage with mild loss 60-89 of kidney function CKD 3a Mild to moderate loss of kidney 45-59 function CKD 3b Moderate to severe loss of 30-44 of kindey function CKD 4 Severe loss of kidney function 15-29 CKD 5 Kidney failure <15 Note: (go live 2024) the eGFR calculation was updated to the 2020 CKD-EPI creatinine equation without a race factor to calculate the eGFR results. Performed By: #### G FR, FT4, LIPID, VIDH, CMP, FT3, FERR, TSH #### [address] [place], [place] [address] .NEUABSon 11-27-2024 Neutrophil, Absolute 4.8 10 3/mcL Normal 2.3-8.1 [facility] Comment on above: Performed By: #### G FR, FT4, LIPID, VIDH, CMP, FT3, FERR, TSH #### [place] [place], [place] [address] A1Con 11-27-2024 Glucose [Mass/Vol] 111 mg/dL Normal [facility] Comment on above: Result Comment: Linnette mated Average Glucose calculated by equation ((28.7xA1C)-46.7) Estimated average glucose (eAG) is a calculated value from Hemoglobin A1C and is visitor services representative of the average blood glucose level in the last 2-3 month period. Normal range: less than 114 mg/dL Performed By: #### G FR, FT4, LIPID, VIDH, CMP, FT3, FERR, TSH #### [place] [id number] HbA1c (Bld) [Mass fraction] 5.5 % Normal 4.3-6.4 [facility] Comment on above: Performed By: #### G FR, FT4, LIPID, VIDH, CMP, FT3, FERR, TSH #### [place] [address] CBCon 11-27-2024 Erythrocyte distribution width (RBC) [Ratio] 14.2 % Normal 11.5-15.5 [facility] Comment on above: Performed By: #### G FR, FT4, LIPID, VIDH, CMP, FT3, FERR, TSH #### [place] [address] Hematocrit (Bld) [Volume fraction] 38.5 % Normal 34.0-46.0 [facility] Comment on above: Performed By: #### G FR, FT4, LIPID, VIDH, CMP, FT3, FERR, TSH #### [place] [address] Hgb 13.1 G/dL Normal 12.0-16.0 [facility] Comment on above: Performed By: #### G FR, FT4, LIPID, VIDH, CMP, FT3, FERR, TSH #### [place] [address] MCH (RBC) [Entitic mass] 32.6 pg Normal 27.0-33.0 [facility] Comment on above: Performed By: #### G FR, FT4, LIPID, VIDH, CMP, FT3, FERR, TSH #### [place] [address] MCHC 34.1 G/dL Normal 32.0-36.0 [facility] Comment on above: Performed By: #### G FR, FT4, LIPID, VIDH, CMP, FT3, FERR, TSH #### [place] [address] MCV (RBC) [Entitic vol] 95.7 fL Normal 80.0-99.0 [facility] Comment on above: Performed By: #### G FR, FT4, LIPID, VIDH, CMP, FT3, FERR, TSH #### [address] [address] Platelet 186 10 3/mcL Normal 150-450 [facility] Comment on above: Performed By: #### G FR, FT4, LIPID, VIDH, CMP, FT3, FERR, TSH #### [address] [address] Platelet mean volume (Bld) [Entitic vol] 8.8 fL Normal 6.6-10.5 [facility] Comment on above: Performed By: #### G FR, FT4, LIPID, VIDH, CMP, FT3, FERR, TSH #### [address] [address] RBC 4.02 10 6/mcL Low 4.10-5.30 [facility] Comment on above: Performed By: #### G FR, FT4, LIPID, VIDH, CMP, FT3, FERR, TSH #### [address] [address] WBC 7.7 10 3/mcL Normal 4.5-10.8 [facility] Comment on above: Performed By: #### G FR, FT4, LIPID, VIDH, CMP, FT3, FERR, TSH #### [address] [address] CMPon 11-27-2024 Albumin Level 3.5 G/dL Normal 3.4-4.8 [facility] Comment on above: Performed By: #### G FR, FT4, LIPID, VIDH, CMP, FT3, FERR, TSH #### [address] [address] Albumin/Globulin [Mass ratio] 1.2 {ratio} Normal 1.1-2.5 [facility] Comment on above: Performed By: #### G FR, FT4, LIPID, VIDH, CMP, FT3, FERR, TSH #### [address] [address] ALP [Catalytic activity/Vol] 68 U/L Normal 40-135 [facility] Comment on above: Performed By: #### G FR, FT4, LIPID, VIDH, CMP, FT3, FERR, TSH #### [address] [address] ALT [Catalytic activity/Vol] 20 U/L Normal 14-59 [facility] Comment on above: Performed By: #### G FR, FT4, LIPID, VIDH, CMP, FT3, FERR, TSH #### [address] [address] AST [Catalytic activity/Vol] 18 U/L Normal 10-40 [facility] Comment on above: Performed By: #### G FR, FT4, LIPID, VIDH, CMP, FT3, FERR, TSH #### [address] [address] Bili Total 1.8 mg/dL High 0.2-1.0 [facility] Comment on above: Result Comment: Use of this assay is not recommended for patients undergoing treatment with eltrombopag due to the potential for falsely elevated results. Performed By: #### G FR, FT4, LIPID, VIDH, CMP, FT3, FERR, TSH #### [address] [address] BUN/Creatinine Ratio 20 ratio Normal 7-27 [facility] Comment on above: Performed By: #### G FR, FT4, LIPID, VIDH, CMP, FT3, FERR, TSH #### [address] [address] Calcium [Mass/Vol] 9.2 mg/dL Normal 8.4-10.2 [facility] Comment on above: Performed By: #### G FR, FT4, LIPID, VIDH, CMP, FT3, FERR, TSH #### [address] [address] Chloride [Moles/Vol] 106 mmol/L Normal 98-107 [facility] Comment on above: Performed By: #### G FR, FT4, LIPID, VIDH, CMP, FT3, FERR, TSH #### [place] [address] CO2 [Moles/Vol] 33 mmol/L High 23-31 [facility] Comment on above: Performed By: #### G FR, FT4, LIPID, VIDH, CMP, FT3, FERR, TSH #### [place] [address] Creatinine [Mass/Vol] 0.69 mg/dL Normal 0.55-1.02 [facility] Comment on above: Result Comment: Test ing performed on Siemens Dimension EXL analyzer using a modified kinetic Kailey technique. Performed By: #### G FR, FT4, LIPID, VIDH, CMP, FT3, FERR, TSH #### [place] [address] Electrolyte Balance 5.0 mEq/L Normal 4.0-15.0 [facility] Comment on above: Performed By: #### G FR, FT4, LIPID, VIDH, CMP, FT3, FERR, TSH #### [place] [address] Globulin 2.8 G/dL Normal 1.5-3.8 [facility] Comment on above: Performed By: #### G FR, FT4, LIPID, VIDH, CMP, FT3, FERR, TSH #### [place] [address] Glucose [Mass/Vol] 92 mg/dL Normal 83-110 [facility] Comment on above: Performed By: #### G FR, FT4, LIPID, VIDH, CMP, FT3, FERR, TSH #### [place] [address] Potassium [Moles/Vol] 3.6 mmol/L Normal 3.5-5.1 [facility] Comment on above: Performed By: #### G FR, FT4, LIPID, VIDH, CMP, FT3, FERR, TSH #### [address] [address] Sodium [Moles/Vol] 144 mmol/L Normal 136-145 [facility] Comment on above: Performed By: #### G FR, FT4, LIPID, VIDH, CMP, FT3, FERR, TSH #### [address] [address] Total Protein 6.3 G/dL Low 6.4-8.2 [facility] Comment on above: Performed By: #### G FR, FT4, LIPID, VIDH, CMP, FT3, FERR, TSH #### [address] [address] Urea nitrogen [Mass/Vol] 14 mg/dL Normal 7-18 [facility] Comment on above: Performed By: #### G FR, FT4, LIPID, VIDH, CMP, FT3, FERR, TSH #### [address] [address] FT4on 11-27-2024 Free T4 [Mass/Vol] 1.23 ng/dL Normal 0.76-1.46 [facility] Comment on above: Performed By: #### G FR, FT4, LIPID, VIDH, CMP, FT3, FERR, TSH #### [address] [address] LIPIDon 11-27-2024 Cholesterol [Mass/Vol] 156 mg/dL Normal 0-200 [facility] Comment on above: Result Comment: Chol esterol Reference Interval: Less than 200 Desirable 200-239 Borderline high risk 240 and above High risk Performed By: #### G FR, FT4, LIPID, VIDH, CMP, FT3, FERR, TSH #### [address] [address] Cholesterol in HDL [Mass/Vol] 81 mg/dL High 40-60 [facility] Comment on above: Performed By: #### G FR, FT4, LIPID, VIDH, CMP, FT3, FERR, TSH #### [address] [address] Cholesterol in LDL [Mass/Vol] 49 mg/dL Normal 0-130 [facility] Comment on above: Performed By: #### G FR, FT4, LIPID, VIDH, CMP, FT3, FERR, TSH #### [place] [address] [place], [place] [address] Triglyceride [Mass/Vol] 131 mg/dL Normal 0-150 [facility] Comment on above: Result Comment: Trig lyceride Reference Interval: Less than 150 Normal 150-199 Borderline high risk 200-499 High risk 500 or higher Very high risk Performed By: #### G FR, FT4, LIPID, VIDH, CMP, FT3, FERR, TSH #### [place] [address] [place], [place] [address] TSHon 11-27-2024 TSH Qn 0.18 m[IU]/L Low 0.36-3.74 [facility] Comment on above: Performed By: #### G FR, FT4, LIPID, VIDH, CMP, FT3, FERR, TSH #### [place] [address] [place], [place] [address] Basic Metabolic Profile (BMP )on 08-30-2024 BUN/CRE 17.3 RATIO Normal 10-[address] [facility] Comment on above: Performed By: #### L 500.2500 #### [facility] [address] [place], [address] CA,Total 9.2 mg/dL Normal 8.5-10.[address] [facility] Comment on above: Performed By: #### L 500.2500 #### [facility] [address] [place], [address] Chloride [Moles/Vol] 110 mmol/L High 98-107 [facility] Comment on above: Performed By: #### L 500.2500 #### [facility] [address] [place] [place], [address] CO2 [Moles/Vol] 25.0 mmol/L Normal 21.0-32.[address] [facility] Comment on above: Performed By: #### L 500.2500 #### [facility] [address] [place], [address] Creatinine [Mass/Vol] 0.64 mg/dL Normal 0.55-1.[address] [facility] Comment on above: Result Comment: The validity of the calculated GFR GFRAA in patients over 70 years has not been determined. Clinical correlation is essential. Performed By: #### L 500.2500 #### [facility] [address] [place], [address] EST GFR - AA 116 mL/min Normal >[address] [facility] Comment on above: Result Comment: Afri can [place] Citizen GFR Calc Performed By: #### L 500.2500 #### [facility] [address] [place], [address] GAP 6 Normal 5-[address] [facility] Comment on above: Performed By: #### L 500.2500 #### [facility] [address] [place], [address] GFR/1.73 sq M.predicted among non-blacks MDRD (S/P/Bld) [Vol rate/Area] 96 mL/min/{1.73_m2} Normal >[address] [facility] Comment on above: Result Comment: Non- GFR Calc Performed By: #### L 500.2500 #### [facility] [address] [place], [address] Glucose [Mass/Vol] 96 mg/dL Normal 74-106 [facility] Comment on above: Performed By: #### L 500.2500 #### [facility] [address] [place], [address] Potassium [Moles/Vol] 3.7 mmol/L Normal 3.5-5.[address] [facility] Comment on above: Performed By: #### L 500.2500 #### [facility] [address] [place], [address] Sodium [Moles/Vol] 142 mmol/L Normal 136-145 [facility] Comment on above: Performed By: #### L 500.2500 #### [facility] [address] [place], [address] Urea nitrogen [Mass/Vol] 11 mg/dL Normal 7-[address] [facility] Comment on above: Performed By: #### L 500.2500 #### [facility] [address] [place], [address] Echo Completeon 08-13-2024 Echo Complete [facility] [address] [place] [address] Echo Complete 08/13/24 1303 MR#: [id number] Acct: [id number] Name: GRICELDA KRUGER Rep #: [id number] : 1945 79 From: Pam Whipple MD Attending Dr: Dr. Pam Whipple MD [facility]: Pam Whipple MD Date: 08/13/24 Location: [facility] Sex: F C Admitted: Reason For Study: CARDIOMYOPATHY Procedure This was a 2D Doppler, Color Flow transthoracic echocardiogram. Myocardial strain analysis was performed in this exam to aid in the assessment of cardiac function. Exam performed in department. Left Ventricle Normal LV size. Mild left ventricular concentric hypertrophy. Estimated LVEF 45 to 50%. Inferior and anterior septal hypokinesis. Stage I diastolic dysfunction. The global longitudinal strain = -12.7% (abnormal). Right Ventricle Normal right ventricle. Atria The left atrium is mildly enlarged. Normal right atrium. Mitral Valve Mild mitral annular calcification. Moderate to severe mitral valve regurgitation. Tricuspid Valve Mild tricuspid valve insufficiency. Normal pulmonary artery pressure. Aortic Valve Trisinus/trileaflet aortic valve. Pulmonic Valve Trivial pulmonic valve insufficiency. Great Vessels Normal sized aortic root. Pericardium/Pleural No pericardial effusion. MMode/2D Measurements Calculations LVIDd: 4.4 cm IVSd: 1.5 cm LVOT diam: 1.8 cm LVIDs: 3.3 cm LVPWd: 1.1 cm LVOT area: 2.6 cm2 RVDd: 3.4 cm FS: 25.5 % asc Aorta Diam: 3.1 cm LAV(MOD-bp): 49.5 ml LVAd ap4: 19.7 cm2 LAV(MOD-bp) Indexed: 31.1 ml/m2 LVLd ap4: 6.6 cm LAV(MOD-sp2): 48.5 ml EDV(MOD-sp4): 48.2 ml LAV(MOD-sp4): 50.7 ml EDV(sp4-el): 49.7 ml LVAs ap4: 13.5 cm2 LVLs ap4: 6.4 cm ESV(MOD-sp4): 23.6 ml ESV(sp4-el): 24.4 ml EF(MOD-sp4): 51.0 % EF(sp4-el): 50.8 % LVAd ap2: 22.4 cm2 SV(MOD-sp4): 24.6 ml SV(MOD-sp2): 27.7 ml LVLd ap2: 7.2 cm SI(MOD-sp4): 15.4 ml/m2 SI(MOD-sp2): 17.4 ml/m2 EDV(MOD-sp2): 55.1 ml EDV(sp2-el): 58.9 ml LVAs ap2: 15.0 cm2 LVLs ap2: 6.7 cm ESV(MOD-sp2): 27.4 ml ESV(sp2-el): 28.7 ml EF(MOD-sp2): 50.3 % SV(sp4-el): 25.2 ml Ao sinus diam: 3.[address] Junction: 2.6 cm LA dimension(2D): 3.4 cm LA A4 area: 18.0 cm2 RA A4 area: 14.0 cm2 TAPSE: 1.9 cm Time Measurements MV dec time: 0.17 sec Doppler Measurements Calculations MV E max kory: 102.1 cm/sec Lat Peak E' Kory: 6.3 cm/sec Med Peak E' Kory: 4.6 cm/sec MV A max kory: 129.9 cm/sec E/E' lat: 16.2 E/E' med: 22.1 MV E/A: 0.79 MV dec slope: 609.0 cm/sec2 Ao V2 max: 110.1 cm/sec LV V1 max: 87.0 cm/sec Ao max P.9 mmHg LV V1 max P.0 mmHg Ao V2 mean: 76.7 cm/sec LV V1 mean P.9 mmHg Ao mean P.7 mmHg LV V1 mean: 65.3 cm/sec Ao V2 VTI: 26.3 cm LV V1 VTI: 17.7 cm AV (velocity ratio): 0.67 ABBY(I,D): 1.8 cm2 ABBY(V,D): 2.1 cm2 SV(LVOT): 46.9 ml PA V2 max: 77.5 cm/sec TR max kory: 260.8 cm/sec TR max P.2 mmHg ECHO/Echo Complete Interpretation Summary Normal LV size. Mild left ventricular concentric hypertrophy. Estimated LVEF 45 to 50%. Inferior and anterior septal hypokinesis. Stage I diastolic dysfunction. The global longitudinal strain = -12.7% (abnormal). Mild mitral annular calcification. Moderate to severe mitral valve regurgitation. Mild tricuspid valve insufficiency. Ordering Physician: Pam Whipple Referring Physician: Pam Whipple MD Performed By: Kenna Stuart RDCS 08/16/24 1258 Date Pam Whipple MD CC: Dr. Pam Whipple MD; Dr. Ruth Au MD Date Dictated: 08/13/24 1303 Date Transcribed: 08/16/24 1258 Treasury Manager: Signed Normal [facility] No Panel InformationOrdered By: Mary Dorsey on 08-12-2024 Affirm Pathogens DNA Direct Probe Gardnerella vaginalis DNA Probe Negative Trichomonas vaginalis DNA Probe Negative Marisa species DNA Probe Negative [facility] No Panel Informationon 08-12 Culture Urine <10,000 cfu/ml. No Significant growth. Sensitivity not indicated. [facility] Work Phone: Culture Wound Aerobe Normal Vaginal Ami a: Present Neisseria gonorrhoeae: Negative [facility] Work Phone: GS 1+ Epithelial cells Rare Yeast [facility] Work Phone: No Panel Informationon 07-31 Culture Urine >100,000 cfu/ml Mult iple bacterial morphotypes present. Probable Contamination. Suggest recollection if clinically indicated. [facility] Work Phone: AMOXICILLIN+CLAVULANATE:SUSC :PT:ISOLATE:ORDQN:MICon 07-12-2024 Amoxicillin+Clavulan ate RANDOLPH [Susc] >100,000 cfu/ml Klebsiella variicola [facility] Work Phone: Amoxicillin+Clavulanate RANDOLPH [Susc]on 07-12-2024 Klebsiella variicola Klebsiella variicola [facility] Work Phone: Kidney and Bladderon 024 Kidney and Bladder [facility] Imaging Services [address] [place] [address] Kidney and Bladder MR#: [id number] Acct: [id number] Name: GRICELDA KRUGER Rep #: [id number] : 1945 F 79 From: Doroteo meyer MD PCP: Dr. Ruth Au MD Status: [facility] Study: Kidney and Bladder Date of Exam: 07/04/24 Exam# [id number] Ordering Dr: Angela Gold MD :[id number] STUDY: RENAL ULTRASOUND - COMPLETE REASON FOR EXAM: Female, 79 years old. UTI/MICROHEMATURIA TECHNIQUE: Ultrasound evaluation of the kidneys was performed with real-time and static payne-scale imaging. COMPARISON: None. FINDINGS: RIGHT KIDNEY: Normal location of the right kidney, which is normal in size. The right kidney measures 10.3 cm x 5.5 cm x 4.5 cm. There is a normal cortex of the right kidney. The renal cortex measures 0.8 cm. There is a 1.5 cm x 1.3 cm x 1.2 cm cyst in the inferior pole of the right kidney. There are no right renal calculi. There is mild hydronephrosis of the right kidney. DISTAL RIGHT URETER: There is non-visualization of the distal right ureter. There is no demonstrated right ureterovesical junction calculus. There is a visualized right ureteral jet. LEFT KIDNEY: Normal location of the left kidney, which is normal in size. The left kidney measures 10 cm x 4.6 cm x 5.6 cm. There is a normal cortex of the left kidney. The renal cortex measures 0.8 cm. There is a 1.3 cm x 1.1 cm x 1 cm cyst in the inferior pole. There are no left renal calculi. There is an extra-renal pelvis of the left kidney. There is no distention of the renal calyces. DISTAL LEFT URETER: There is non-visualization of the distal left ureter. There is no demonstrated left ureterovesical junction calculus. There is a visualized left ureteral jet. BLADDER: The distended urinary bladder has a volume of 398 ml. The empty urinary bladder has a volume of 238 ml. There is a normal wall thickness of the distended urinary bladder. There is no demonstrated mass within the urinary bladder. There are no demonstrated bladder calculi. US/Kidney and Bladder IMPRESSION: Small bilateral renal cysts. Moderate postvoid residual. Electronically Signed: Doroteo Corrales MD at 14:26 EST Reading Location ID and State: [facility] / [place] , Service support , CC: Dr. Angela Gold MD; Dr. Ruth Au MD Treasury Manager: Signed Normal [facility] Cardiology Visit Reporton Cardiology Visit Report [facility] [place] [facility] [address] [place] [address] OFFICE VISIT Date of Service: 07/02/24 MR#: [id number] Acct: [id number] Name: GRICELDA KRUGER Rep #: [id number] : 1945 Provider: Dr. Pam Whipple MD Age/Sex: 79/F Location: [facility] Status: Signed HPI HPI History of Present Illness Details: This lady has history of nonischemic cardiomyopathy, her EF having since recovered, dyslipidemia, hypertension and colitis. She is here for regular follow-up visit. Denies any complaints. No chest pains or shortness of breath. No palpitations. No orthopnea or PND. No ankle edema. Intake Vital Signs 01/29/24 13:12 07/02/24 08:40 Height 5 ft 5 in 5 ft 5 in Weight: 118 lb 124 lb BMI 19.6 20.6 BP 150/84 H 134/75 H Blood Pressure Location Lt brachial Lt brachial Position Sitting Sitting Respiration 16 18 Pulse 66 73 Pulse Source Monitor NIBP Intake Visit Reasons: 6 M Paver Layer Required: No Accompanied by: Is patient in pain?: No Allergies nitrofurantoin (From Macrobid) Allergy (Unknown, Verified 07/02/24 14:37) unknown sulfamethoxazole (From Bactrim) Allergy (Unknown, Verified 07/02/24 14:37) unknown trimethoprim (From Bactrim) Allergy (Unknown, Verified 07/02/24 14:37) unknown codeine Adverse Reaction (Severe, Verified 07/02/24 14:37) Rash prochlorperazine (From Compazine) Adverse Reaction (Severe, Verified 07/02/24 14:37) Hyper simvastatin (From Zocor) Adverse Reaction (Severe, Verified 07/02/24 14:37) Intolerance, Myalgias Medications ???Medication ???Instructions ???Recorded ???Confirmed ???Type levetiracetam 500 mg tablet 500 mg PO BID 11/02/17 07/02/24 History rosuvastatin 5 mg tablet 5 mg PO QDAY 11/02/17 07/02/24 History clobetasol 0.05 % topical cream 1 applic topical QWEEK 11/05/18 07/02/24 History multivitamin 1 tab PO DAILY 11/05/18 07/02/24 History esomeprazole magnesium 20 mg 20 mg PO BID 02/28/20 07/02/24 History capsule,delayed release estradiol 0.01% (0.1 mg/gram) 0.1 g vaginal MOWEFR 10/19/20 07/02/24 History vaginal cream acetaminophen 500 mg tablet 1,000 mg PO DAILY 04/29/21 07/02/24 History (Tylenol Extra Strength) glucosamine-chondroitin 250 mg-200 2 tab PO DAILY 04/29/21 07/02/24 History mg tablet (Osteo Bi-Flex) levothyroxine 50 mcg tablet 50 mcg PO DAILY 12/02/21 07/02/24 History loperamide 2 mg capsule 2 mg PO Q6H PRN 04/11/23 07/02/24 History (Anti-Diarrheal (loperamide)) cholestyramine-aspartame 4 gram 1 ea PO DAILY 07/12/23 07/02/24 History oral powder (Prevalite) clonazepam 0.5 mg tablet 1 mg PO QHS 07/12/23 07/02/24 History carvedilol 12.5 mg tablet 12.5 mg PO BID #180 tabs 09/11/23 07/02/24 Rx cranberry fruit concentrate 250 mg 250 mg PO BID 01/29/24 07/02/24 History chewable tablet (Azo Cranberry) potassium gluconate 595 mg (99 mg) 595 mg PO DAILY 01/29/24 07/02/24 History tablet budesonide 3 mg 9 mg PO QDAY 07/02/24 07/02/24 History capsule,delayed,extended release calcium carbonate (Tums Ultra) 400 mg PO TID 07/02/24 07/02/24 History Ejection fraction %: 60 Have you fallen in the past year?: Yes (last year; Fx to RUE) [facility] Medical History Acquired adolescent scoliosis Arthritis Back pain Bladder disease Breast cancer Cancer Cardiology follow-up encounter Cold sore Colitis COVID Depression Dilated cardiomyopathy Dyslipidemia Fatigue Fracture of right upper limb Gastric reflux High cholesterol History of echocardiogram History of hiatal hernia History of irregular heartbeat History of stress test Hx of fracture of wrist Hyperlipidemia Hypertension Intraparenchymal hematoma of brain Left bundle branch block Low TSH level Meningioma Multinodular goiter Non-ischemic cardiomyopathy Non-smoker Other rnp (current) drug therapy Postmenopausal bleeding Pure hypercholesterolemia Restless legs Seizure Thyroid disease Wears glasses Surgical History Benign meningioma of brain History of cardiac catheterization History of esophagogastroduodenoscopy (EGD) History of tonsillectomy and adenoidectomy Hx of breast implants, bilateral Hx of colonoscopy Hx of left cataract extraction Hx of mastectomy Hx of repair of ear bone Hx of right cataract extraction Status post partial thyroidectomy ( 06/11/21) Family History Father CAD (coronary artery disease) COPD (chronic obstructive pulmonary disease) Cancer lung cancer Mother Cancer brain cancer, uterine cancer Sister , age 46 Myocardial infarction Diabetes Other Heart disease Social History (Reviewed 1 (more content not included)... Normal [facility] .Auto Diffon 06-28-2024 Basophil, Absolute 0.0 10 3/mcL Normal 0.0-0.2 [facility] Comment on above: Performed By: #### A DIFF, ANEU, CBC #### [address] [address] Basophils/100 WBC (Bld) 0.7 % Normal 0.0-2.5 [facility] Comment on above: Performed By: #### A DIFF, ANEU, CBC #### [address] [address] Eosinophil, Absolute 0.0 10 3/mcL Normal 0.0-0.7 [facility] Comment on above: Performed By: #### A DIFF, ANEU, CBC #### [address] [address] Eosinophils/100 WBC (Bld) 0.4 % Normal 0.0-7.0 [facility] Comment on above: Performed By: #### A DIFF, ANEU, CBC #### [address] [place], [place] [address] Lymphocyte, Absolute 1.3 10 3/mcL Normal 0.9-4.3 [facility] Comment on above: Performed By: #### A DIFF, ANEU, CBC #### [address] [address] Lymphocytes/100 WBC (Bld) 18.6 % Low 20.0-40.0 [facility] Comment on above: Performed By: #### A DIFF, ANEU, CBC #### [address] [address] Monocyte, Absolute 0.5 10 3/mcL Normal 0.1-1.4 [facility] Comment on above: Performed By: #### A DIFF, ANEU, CBC #### [address] [address] Monocytes/100 WBC (Bld) 7.0 % Normal 2.0-13.0 [facility] Comment on above: Performed By: #### A DIFF, ANEU, CBC #### [address] [address] Neutrophils/100 WBC (Bld) 73.3 % Normal 50.0-75.0 [facility] Comment on above: Performed By: #### A DIFF, ANEU, CBC #### [address] [address] .GFRon 06-28-2024 GFR Non- 81 ml/min/1.73sqm Normal [facility] Comment on above: Result Comment: GFR Population mean for , Non- Americans Ages 20-29 = 116 mL/min/1.73 sq.m. Ages 30-39 = 107 mL/min/1.73 sq.m. Ages 40-49 = 99 mL/min/1.73 sq.m. Ages 50-59 = 93 mL/min/1.73 sq.m. Ages 60-69 = 85 mL/min/1.73 sq.m. Ages 70+ = 75 mL/min/1.73 sq.m. Chronic Kidney Disease: Less than 60 mL/min/1.73 square meters End Stage Renal Disease: Less than 15 mL/min/1.73 square meters Performed By: #### G FR, FT4, LIPID, VIDH, CMP, FT3, FERR, TSH #### [address] [place], [place] [address] GFR 98 ml/min/1.73sqm Normal [facility] Comment on above: Result Comment: GFR Population mean for , Non- Americans Ages 20-29 = 116 mL/min/1.73 sq.m. Ages 30-39 = 107 mL/min/1.73 sq.m. Ages 40-49 = 99 mL/min/1.73 sq.m. Ages 50-59 = 93 mL/min/1.73 sq.m. Ages 60-69 = 85 mL/min/1.73 sq.m. Ages 70+ = 75 mL/min/1.73 sq.m. Chronic Kidney Disease: Less than 60 mL/min/1.73 square meters End Stage Renal Disease: Less than 15 mL/min/1.73 square meters Performed By: #### G FR, FT4, LIPID, VIDH, CMP, FT3, FERR, TSH #### [address] [address] .NEUABSon 06-28-2024 Neutrophil, Absolute 5.2 10 3/mcL Normal 2.3-8.1 [facility] Comment on above: Performed By: #### G FR, FT4, LIPID, VIDH, CMP, FT3, FERR, TSH #### [address] [address] .Urinalysis Microscopic (AO) on 06-28-2024 UA Bacteria 4+ /hpf Abnormal [facility] Comment on above: Performed By: #### G FR, FT4, LIPID, VIDH, CMP, FT3, FERR, TSH #### [address] [address] UA RBC None Seen Normal None Seen [facility] Comment on above: Performed By: #### G FR, FT4, LIPID, VIDH, CMP, FT3, FERR, TSH #### [address] [address] UA Squam Epithelial LOADED Abnormal None Seen [facility] Comment on above: Performed By: #### G FR, FT4, LIPID, VIDH, CMP, FT3, FERR, TSH #### [place] [address] UA WBC 0-5 Abnormal None Seen [facility] Comment on above: Performed By: #### G FR, FT4, LIPID, VIDH, CMP, FT3, FERR, TSH #### [place] [address] CBCon 06-28-2024 Erythrocyte distribution width (RBC) [Ratio] 13.1 % Normal 11.5-15.5 [facility] Comment on above: Performed By: #### A DIFF, ANEU, CBC #### [place] [address] Hematocrit (Bld) [Volume fraction] 39.9 % Normal 34.0-46.0 [facility] Comment on above: Performed By: #### A DIFF, ANEU, CBC #### [place] [address] Hgb 13.3 G/dL Normal 12.0-16.0 [facility] Comment on above: Performed By: #### A DIFF, ANEU, CBC #### [address] [address] MCH (RBC) [Entitic mass] 32.7 pg Normal 27.0-33.0 [facility] Comment on above: Performed By: #### A DIFF, ANEU, CBC #### [place] [address] MCHC 33.4 G/dL Normal 32.0-36.0 [facility] Comment on above: Performed By: #### A DIFF, ANEU, CBC #### [address] [address] MCV (RBC) [Entitic vol] 97.8 fL Normal 80.0-99.0 [facility] Comment on above: Performed By: #### A DIFF, ANEU, CBC #### [address] [address] Platelet 190 10 3/mcL Normal 150-450 [facility] Comment on above: Performed By: #### A DIFF ANEU, CBC #### [address] [address] Platelet mean volume (Bld) [Entitic vol] 8.3 fL Normal 6.6-10.5 [facility] Comment on above: Performed By: #### A DIFF ANEU, CBC #### [address] [address] RBC 4.08 10 6/mcL Low 4.10-5.30 [facility] Comment on above: Performed By: #### A DIFF ANEU, CBC #### [address] [address] WBC 7.1 10 3/mcL Normal 4.5-10.8 [facility] Comment on above: Performed By: #### A DIFF, ANEU, CBC #### [address] [address] CMPon 06-28-2024 Albumin Level 3.7 G/dL Normal 3.4-4.8 [facility] Comment on above: Performed By: #### G FR, FT4, LIPID, VIDH, CMP, FT3, FERR, TSH #### [address] [address] Albumin/Globulin [Mass ratio] 1.5 {ratio} Normal 1.1-2.5 [facility] Comment on above: Performed By: #### G FR, FT4, LIPID, VIDH, CMP, FT3, FERR, TSH #### [address] [address] ALP [Catalytic activity/Vol] 72 U/L Normal 40-135 [facility] Comment on above: Performed By: #### G FR, FT4, LIPID, VIDH, CMP, FT3, FERR, TSH #### [address] [address] ALT [Catalytic activity/Vol] 25 U/L Normal 14-59 [facility] Comment on above: Performed By: #### G FR, FT4, LIPID, VIDH, CMP, FT3, FERR, TSH #### [address] [address] AST [Catalytic activity/Vol] 14 U/L Normal 10-40 [facility] Comment on above: Performed By: #### G FR, FT4, LIPID, VIDH, CMP, FT3, FERR, TSH #### [address] [address] Bili Total 1.1 mg/dL High 0.2-1.0 [facility] Comment on above: Result Comment: Use of this assay is not recommended for patients undergoing treatment with eltrombopag due to the potential for falsely elevated results. Performed By: #### G FR, FT4, LIPID, VIDH, CMP, FT3, FERR, TSH #### [address] [address] BUN/Creatinine Ratio 17 ratio Normal 7-27 [facility] Comment on above: Performed By: #### G FR, FT4, LIPID, VIDH, CMP, FT3, FERR, TSH #### [address] [address] Calcium [Mass/Vol] 9.1 mg/dL Normal 8.4-10.2 [facility] Comment on above: Performed By: #### G FR, FT4, LIPID, VIDH, CMP, FT3, FERR, TSH #### [address] [address] Chloride [Moles/Vol] 104 mmol/L Normal 98-107 [facility] Comment on above: Performed By: #### G FR, FT4, LIPID, VIDH, CMP, FT3, FERR, TSH #### [address] [address] CO2 [Moles/Vol] 32 mmol/L High 23-31 [facility] Comment on above: Performed By: #### G FR, FT4, LIPID, VIDH, CMP, FT3, FERR, TSH #### [address] [address] Creatinine [Mass/Vol] 0.70 mg/dL Normal 0.55-1.02 [facility] Comment on above: Result Comment: Test ing performed on Siemens Dimension EXL analyzer using a modified kinetic Kailey technique. Performed By: #### G FR, FT4, LIPID, VIDH, CMP, FT3, FERR, TSH #### [address] [address] Electrolyte Balance 9.0 mEq/L Normal 4.0-15.0 [facility] Comment on above: Performed By: #### G FR, FT4, LIPID, VIDH, CMP, FT3, FERR, TSH #### [address] [address] Globulin 2.5 G/dL Normal [facility] Comment on above: Performed By: #### G FR, FT4, LIPID, VIDH, CMP, FT3, FERR, TSH #### [address] [address] Glucose [Mass/Vol] 88 mg/dL Normal 83-110 [facility] Comment on above: Performed By: #### G FR, FT4, LIPID, VIDH, CMP, FT3, FERR, TSH #### [address] [address] Potassium [Moles/Vol] 3.4 mmol/L Low 3.5-5.1 [facility] Comment on above: Performed By: #### G FR, FT4, LIPID, VIDH, CMP, FT3, FERR, TSH #### [address] [address] Sodium [Moles/Vol] 145 mmol/L Normal 136-145 [facility] Comment on above: Performed By: #### G FR, FT4, LIPID, VIDH, CMP, FT3, FERR, TSH #### [place] [address] Total Protein 6.2 G/dL Low 6.4-8.2 [facility] Comment on above: Performed By: #### G FR, FT4, LIPID, VIDH, CMP, FT3, FERR, TSH #### [place] [address] Urea nitrogen [Mass/Vol] 12 mg/dL Normal 7-18 [facility] Comment on above: Performed By: #### G FR, FT4, LIPID, VIDH, CMP, FT3, FERR, TSH #### [place] [address] Ester 06-28-2024 Ferritin [Mass/Vol] 64.0 ng/mL Normal 8.0-252.0 [facility] Comment on above: Performed By: #### G FR, FT4, LIPID, VIDH, CMP, FT3, FERR, TSH #### [place] [address] FT3on 06-28-2024 Free T3 [Mass/Vol] 1.89 pg/mL Low 2.30-4.00 [facility] Comment on above: Performed By: #### G FR, FT4, LIPID, VIDH, CMP, FT3, FERR, TSH #### [place] [address] FT4on 06-28-2024 Free T4 [Mass/Vol] 1.13 ng/dL Normal 0.76-1.46 [facility] Comment on above: Performed By: #### G FR, FT4, LIPID, VIDH, CMP, FT3, FERR, TSH #### [place] [address] LABORATORYOrdered By: Liana Lo on 06-28-2024 Appearance (U) Slightly Cloudy *ABN* (06/28/24 10:28 AM) Invalid Interpretation Code Clear AO Auto Urine SS Bacteria LM.HPF (Urine sed) [#/Area] 4 /[HPF] Invalid Interpretation Code AO Auto Urine SS Bilirubin Ql (U) Negative (06/28/24 10:28 AM) Normal Negative AO Auto Urine SS Color (U) Yellow (06/28/24 10:28 AM) Normal AO Auto Urine SS Glucose Test strip (U) [Mass/Vol] Negative Normal Negative AO Auto Urine SS Hemoglobin Auto test strip (U) [Mass/Vol] Negative (06/28/24 10:28 AM) Normal Negative AO Auto Urine SS Ketones Ql (U) Negative Normal Negative AO Auto Urine SS UA Leuk Est Negative (06/28/24 10:28 AM) Normal Negative AO Auto Urine SS UA Nitrite Positive *ABN* (06/28/24 10:28 AM) Invalid Interpretation Code Negative AO Auto Urine SS UA pH 6.5 (06/28/24 10:28 AM) Normal 5.0 - 8.0 AO Auto Urine SS UA Protein Negative Normal Negative AO Auto Urine SS UA RBC None Seen /HPF Normal None Seen AO Auto Urine SS UA Spec Grav 1.020 (06/28/24 10:28 AM) Normal 1.015-1.02 5 AO Auto Urine SS UA Specimen Type Not Given (06/28/24 10:28 AM) Normal AO Auto Urine SS UA Squam Epithelial LOADED /HPF Invalid Interpretation Code None Seen AO Auto Urine SS UA Urobilinogen 0.2 E.U./dL Normal 0.2-1.0 AO Auto Urine SS WBC LM.HPF (Urine sed) [#/Area] 0-5 /HPF Invalid Interpretation Code None Seen AO Auto Urine SS LABORATORYOrdered By: SYSTEM SYSTEM on 06-28-2024 Basophils (Bld) [#/Vol] 0.0 103/mcL Normal 0.0 - 0.2 10^3/mcL AO Workflow SS Basophils/100 WBC (Bld) 0.7 % Normal 0.0 - 2.5 % AO Workflow SS Eosinophil, Absolute 0.0 103/mcL Normal 0.0 - 0 .7 10^3/mcL AO Workflow SS Eosinophils/100 WBC (Bld) 0.4 % Normal 0.0 - 7.0 % AO Workflow SS Erythrocyte distribution width (RBC) [Ratio] 13.1 % Normal 11.5 - 15.5 % AO Workflow SS Hematocrit (Bld) [Volume fraction] 39.9 % Normal 34.0 - 46.0 % AO Workflow SS Hemoglobin (Bld) [Mass/Vol] 13.3 G/dL Normal 12.0 - 16.0 G/dL AO Workflow SS Lymphocytes (Bld) [#/Vol] 1.3 103/mcL Normal 0.9 - 4.3 10^3/mcL AO Workflow SS Lymphocytes/100 WBC (Bld) 18.6 % Low 20.0 - 40.0 % AO Workflow SS MCH (RBC) [Entitic mass] 32.7 pg Normal 27.0 - 33.0 pg AO Workflow SS MCHC 33.4 G/dL Normal 32.0 - 36.0 G/dL AO Workflow SS MCV (RBC) [Entitic vol] 97.8 fL Normal 80.0 - 99.0 fL AO Workflow SS Monocytes (Bld) [#/Vol] 0.5 103/mcL Normal 0.1 - 1.4 10^3/mcL AO Workflow SS Monocytes/100 WBC (Bld) 7.0 % Normal 2.0 - 13.0 % AO Workflow SS Neutrophils (Bld) [#/Vol] 5.2 103/mcL Normal 2.3 - 8.1 10^3/mcL AO Workflow SS Neutrophils/100 WBC (Bld) 73.3 % Normal 50.0 - 75.0 % AO Workflow SS Platelet mean volume (Bld) [Entitic vol] 8.3 fL Normal 6.6 - 10.5 fL AO Workflow SS Platelets (Bld) [#/Vol] 190 103/mcL Normal 150 - 450 10^3/mcL AO Workflow SS RBC (Bld) [#/Vol] 4.08 106/mcL Low 4.10 - 5.30 10^6/mcL AO Workflow SS WBC (Bld) [#/Vol] 7.1 103/mcL Normal 4.5 - 10.8 10^3/mcL AO Workflow SS 25-hydroxyvitamin D3 [Mass/Vol] 24.5 ng/mL Invalid Interpretation Code AO ADM SS Comment on above: Interpretive Data: I nterpretive Values Based on Total 25(OH) Vitamin D: Deficient <20 ng/mL Insufficient 20 - <30 ng/mL Sufficient 30-100 ng/mL Albumin BCP dye [Mass/Vol] 3.7 G/dL Normal 3.4 - 4.8 G/dL AO ADM SS Albumin/Globulin [Mass ratio] 1.5 {ratio} Normal 1.1 - 2.5 ratio AO ADM SS ALP [Catalytic activity/Vol] 72 U/L Normal 40 - 135 U/L AO ADM SS ALT With P-5'-P [Catalytic activity/Vol] 25 U/L Normal 14 - 59 U/L AO ADM SS AST With P-5'-P [Catalytic activity/Vol] 14 U/L Normal 10 - 40 U/L AO ADM SS Bilirubin [Mass/Vol] 1.1 mg/dL High 0.2 - 1 .0 mg/dL AO ADM SS Comment on above: Interpretive Data: U se of this assay is not recommended for patients undergoing treatment with eltrombopag due to the potential for falsely elevated results. Calcium [Mass/Vol] 9.1 mg/dL Normal 8.4 - 10. 2 mg/dL AO ADM SS Chloride [Moles/Vol] 104 mmol/L Normal 98 - 10 7 mmol/L AO ADM SS CO2 [Moles/Vol] 32 mmol/L High 23 - 31 mmol/L AO ADM SS Creatinine [Mass/Vol] 0.70 mg/dL Normal 0.55 - 1.02 mg/dL AO ADM SS Comment on above: Interpretive Data: T esting performed on Siemens Dimension EXL analyzer using a modified kinetic Kailey technique. Electrolyte Balance 9.0 mEq/L Normal 4.0 - 15 .0 mEq/L AO ADM SS Ferritin [Mass/Vol] 64.0 ng/mL Normal 8.0 - 252.0 ng/mL AO ADM SS Free T3 [Mass/Vol] 1.89 pg/mL Low 2.30 - 4.00 pg/mL AO ADM SS Free T4 [Mass/Vol] 1.13 ng/dL Normal 0.76 - 1.46 ng/dL AO ADM SS GFR/1.73 sq M.predicted among blacks MDRD (S/P/Bld) [Vol rate/Area] 98 ml/min/1.73sqm Invalid Interpretation Code AO Chemistry S Comment on above: Interpretive Data: GFR Population mean for , Non- Americans Ages 20-29 = 116 mL/min/1.73 sq.m. Ages 30-39 = 107 mL/min/1.73 sq.m. Ages 40-49 = 99 mL/min/1.73 sq.m. Ages 50-59 = 93 mL/min/1.73 sq.m. Ages 60-69 = 85 mL/min/1.73 sq.m. Ages 70+ = 75 mL/min/1.73 sq.m. Chronic Kidney Disease: Less than 60 mL/min/1.73 square meters End Stage Renal Disease: Less than 15 mL/min/1.73 square meters GFR/1.73 sq M.predicted among non-blacks MDRD (S/P/Bld) [Vol rate/Area] 81 ml/min/1.73sqm Invalid Interpretation Code AO Chemistry S Comment on above: Interpretive Data: GFR Population mean for , Non- Americans Ages 20-29 = 116 mL/min/1.73 sq.m. Ages 30-39 = 107 mL/min/1.73 sq.m. Ages 40-49 = 99 mL/min/1.73 sq.m. Ages 50-59 = 93 mL/min/1.73 sq.m. Ages 60-69 = 85 mL/min/1.73 sq.m. Ages 70+ = 75 mL/min/1.73 sq.m. Chronic Kidney Disease: Less than 60 mL/min/1.73 square meters End Stage Renal Disease: Less than 15 mL/min/1.73 square meters Globulin 2.5 G/dL Invalid Interpretation Code AO ADM SS Glucose [Mass/Vol] 88 mg/dL Normal 83 - 110 mg/dL AO ADM SS Potassium [Moles/Vol] 3.4 mmol/L Low 3.5 - 5.1 mmol/L AO ADM SS Protein [Mass/Vol] 6.2 G/dL Low 6.4 - 8.2 G/dL AO ADM SS Sodium [Moles/Vol] 145 mmol/L Normal 136 - 145 mmol/L AO ADM SS TSH Qn 1.97 m[IU]/L Normal 0.36 - 3.74 mcIU/mL AO ADM SS Urea nitrogen [Mass/Vol] 12 mg/dL Normal 7 - 18 mg/dL AO ADM SS Urea nitrogen/Creatinine [Mass ratio] 17 ratio Normal 7 - 27 ratio AO ADM SS LABORATORYOrdered By: Marcos Desir on 06-28-2024 Cholesterol [Mass/Vol] 188 mg/dL Normal 0 - 200 mg/dL AO ADM SS Comment on above: Interpretive Data: C holesterol Reference Interval: Less than 200 Desirable 200-239 Borderline high risk 240 and above High risk Cholesterol in HDL [Mass/Vol] 89 mg/dL High 40 - 60 mg/dL AO ADM SS Cholesterol in LDL [Mass/Vol] 65 mg/dL Normal 0 - 130 mg/dL AO ADM SS Triglyceride [Mass/Vol] 169 mg/dL High 0 - 150 mg/dL AO ADM SS Comment on above: Interpretive Data: T riglyceride Reference Interval: Less than 150 Normal 150-199 Borderline high risk 200-499 High risk 500 or higher Very high risk LIPIDon 06-28-2024 Cholesterol [Mass/Vol] 188 mg/dL Normal 0-200 [facility] Comment on above: Result Comment: Chol esterol Reference Interval: Less than 200 Desirable 200-239 Borderline high risk 240 and above High risk Performed By: #### G FR, FT4, LIPID, VIDH, CMP, FT3, FERR, TSH #### [address] [address] Cholesterol in HDL [Mass/Vol] 89 mg/dL High 40-60 [facility] Comment on above: Performed By: #### G FR, FT4, LIPID, VIDH, CMP, FT3, FERR, TSH #### [address] [address] Cholesterol in LDL [Mass/Vol] 65 mg/dL Normal 0-130 [facility] Comment on above: Performed By: #### G FR, FT4, LIPID, VIDH, CMP, FT3, FERR, TSH #### [address] [address] Triglyceride [Mass/Vol] 169 mg/dL High 0-150 [facility] Comment on above: Result Comment: Trig lyceride Reference Interval: Less than 150 Normal 150-199 Borderline high risk 200-499 High risk 500 or higher Very high risk Performed By: #### G FR, FT4, LIPID, VIDH, CMP, FT3, FERR, TSH #### [address] [address] TSHon 06-28-2024 TSH Qn 1.97 m[IU]/L Normal 0.36-3.74 [facility] Comment on above: Performed By: #### G FR, FT4, LIPID, VIDH, CMP, FT3, FERR, TSH #### [place] [address] UAon 06-28-2024 Color (U) Yellow Normal [facility] Comment on above: Performed By: #### G FR, FT4, LIPID, VIDH, CMP, FT3, FERR, TSH #### [place] [address] Glucose (U) [Mass/Vol] Negative Normal Negative [facility] Comment on above: Performed By: #### G FR, FT4, LIPID, VIDH, CMP, FT3, FERR, TSH #### [place] [address] Ketones Ql (U) Negative Normal Negative [facility] Comment on above: Performed By: #### G FR, FT4, LIPID, VIDH, CMP, FT3, FERR, TSH #### [place] [address] UA Appear Slightly Cloudy Abnormal Clear [facility] Comment on above: Performed By: #### G FR, FT4, LIPID, VIDH, CMP, FT3, FERR, TSH #### [place] [address] UA Blood Negative Normal Negative [facility] Comment on above: Performed By: #### G FR, FT4, LIPID, VIDH, CMP, FT3, FERR, TSH #### [address] [address] UA Leuk Est Negative Normal Negative [facility] Comment on above: Performed By: #### G FR, FT4, LIPID, VIDH, CMP, FT3, FERR, TSH #### [place] [address] UA Nitrite Positive Abnormal Negative [facility] Comment on above: Performed By: #### G FR, FT4, LIPID, VIDH, CMP, FT3, FERR, TSH #### [place] [address] UA pH 6.5 Normal 5.0 - 8.0 [facility] Comment on above: Performed By: #### G FR, FT4, LIPID, VIDH, CMP, FT3, FERR, TSH #### [place] [address] UA Protein Negative Normal Negative [facility] Comment on above: Performed By: #### G FR, FT4, LIPID, VIDH, CMP, FT3, FERR, TSH #### [place] [address] UA Spec Grav 1.020 Normal 1.015-1.02 5 [facility] Comment on above: Performed By: #### G FR, FT4, LIPID, VIDH, CMP, FT3, FERR, TSH #### [place] [address] UA Specimen Type Not Given Normal [facility] Comment on above: Performed By: #### G FR, FT4, LIPID, VIDH, CMP, FT3, FERR, TSH #### [place] [address] UA Urobilinogen 0.2 E.U./dL Normal 0.2-1.0 [facility] Comment on above: Performed By: #### G FR, FT4, LIPID, VIDH, CMP, FT3, FERR, TSH #### [place] [address] Urobilinogen (U) [Mass/Vol] Negative Normal Negative [facility] Comment on above: Performed By: #### G FR, FT4, LIPID, VIDH, CMP, FT3, FERR, TSH #### [place] [address] VIDHon 06-28-2024 Vit. D 25-Hydroxy 24.5 ng/mL Normal [facility] Comment on above: Result Comment: Inte rpretive Values Based on Total 25(OH) Vitamin D: Deficient <20 ng/mL Insufficient 20 - <30 ng/mL Sufficient 30-100 ng/mL Performed By: #### G FR, FT4, LIPID, VIDH, CMP, FT3, FERR, TSH #### [place] [id number] [place], [place] [address] .Urinalysis Microscopic (AO) on 05-24-2024 UA RBC 0-5 Abnormal None Seen [facility] Comment on above: Performed By: #### G FR, FT4, LIPID, VIDH, CMP, FT3, FERR, TSH #### [place] [id number] [place] [address] UA Squam Epithelial 0-5 Abnormal None Seen [facility] Comment on above: Performed By: #### G FR, FT4, LIPID, VIDH, CMP, FT3, FERR, TSH #### [place] [address] [place] [address] UA WBC 0-5 Abnormal None Seen [facility] Comment on above: Performed By: #### G FR, FT4, LIPID, VIDH, CMP, FT3, FERR, TSH #### [address] [address] LABORATORYOrdered By: Crista Vasquez on 05-24-2024 Appearance (U) Clear (05/24/24 1:40 PM) Normal Clear AO Auto Urine SS Bilirubin Ql (U) Negative (05/24/24 1:40 PM) Normal Negative AO Auto Urine SS Color (U) Yellow (05/24/24 1:40 PM) Normal AO Auto Urine SS Glucose Test strip (U) [Mass/Vol] Negative Normal Negative AO Auto Urine SS Hemoglobin Auto test strip (U) [Mass/Vol] Trace *ABN* (05/24/24 1:40 PM) Invalid Interpretation Code Negative AO Auto Urine SS Ketones Ql (U) Negative Normal Negative AO Auto Urine SS UA Leuk Est Negative (05/24/24 1:40 PM) Normal Negative AO Auto Urine SS UA Nitrite Negative (05/24/24 1:40 PM) Normal Negative AO Auto Urine SS UA pH 6.5 (05/24/24 1:40 PM) Normal 5.0 - 8.0 AO Auto Urine SS UA Protein Negative Normal Negative AO Auto Urine SS UA RBC 0-5 /HPF Invalid Interpretation Code None Seen AO Auto Urine SS UA Spec Grav 1.020 (05/24/24 1:40 PM) Normal 1.015-1.02 5 AO Auto Urine SS UA Specimen Type Clean Catch (05/24/24 1:40 PM) Normal AO Auto Urine SS UA Squam Epithelial 0-5 /HPF Invalid Interpretation Code None Seen AO Auto Urine SS UA Urobilinogen 0.2 E.U./dL Normal 0.2-1.0 AO Auto Urine SS WBC LM.HPF (Urine sed) [#/Area] 0-5 /HPF Invalid Interpretation Code None Seen AO Auto Urine SS UAon 05-24-2024 Color (U) Yellow Normal [facility] Comment on above: Performed By: #### G FR, FT4, LIPID, VIDH, CMP, FT3, FERR, TSH #### [address] [address] Glucose (U) [Mass/Vol] Negative Normal Negative [facility] Comment on above: Performed By: #### G FR, FT4, LIPID, VIDH, CMP, FT3, FERR, TSH #### [address] [address] Ketones Ql (U) Negative Normal Negative [facility] Comment on above: Performed By: #### G FR, FT4, LIPID, VIDH, CMP, FT3, FERR, TSH #### [address] [address] UA Appear Clear Normal Clear [facility] Comment on above: Performed By: #### G FR, FT4, LIPID, VIDH, CMP, FT3, FERR, TSH #### [address] [address] UA Blood Trace Abnormal Negative [facility] Comment on above: Performed By: #### G FR, FT4, LIPID, VIDH, CMP, FT3, FERR, TSH #### [address] [address] UA Leuk Est Negative Normal Negative [facility] Comment on above: Performed By: #### G FR, FT4, LIPID, VIDH, CMP, FT3, FERR, TSH #### [place] [address] UA Nitrite Negative Normal Negative [facility] Comment on above: Performed By: #### G FR, FT4, LIPID, VIDH, CMP, FT3, FERR, TSH #### [place] [address] UA pH 6.5 Normal 5.0 - 8.0 [facility] Comment on above: Performed By: #### G FR, FT4, LIPID, VIDH, CMP, FT3, FERR, TSH #### [place] [address] UA Protein Negative Normal Negative [facility] Comment on above: Performed By: #### G FR, FT4, LIPID, VIDH, CMP, FT3, FERR, TSH #### [place] [address] UA Spec Grav 1.020 Normal 1.015-1.[address] [place] [address] Comment on above: Performed By: #### G FR, FT4, LIPID, VIDH, CMP, FT3, FERR, TSH #### [place] [address] UA Specimen Type Clean Catch Normal [facility] Comment on above: Performed By: #### G FR, FT4, LIPID, VIDH, CMP, FT3, FERR, TSH #### [place] [address] UA Urobilinogen 0.2 E.U./dL Normal 0.2-1.0 [facility] Comment on above: Performed By: #### G FR, FT4, LIPID, VIDH, CMP, FT3, FERR, TSH #### [place] [address] Urobilinogen (U) [Mass/Vol] Negative Normal Negative [facility] Comment on above: Performed By: #### G FR, FT4, LIPID, VIDH, CMP, FT3, FERR, TSH #### [place] [id number] No Panel Informationon 05-15 Culture Urine <10,000 cfu/ml. No Significant growth. Sensitivity not indicated. [facility] Work Phone: No Panel Informationon 04-11 Culture Wound Aerobe No growth at 48 hours. [facility] Work Phone: GS No organisms seen. [facility] Work Phone: RIFAMPIN:SUSC:PT:ISOLATE:ORD QN:MICon 02-06-2024 rifAMPin RANDOLPH [Susc] 50,000 - 100,000 cfu /ml Enterococcus faecalis [facility] Work Phone: rifAMPin RANDOLPH [Susc]on 2023 Enterococcus faecalis Enterococcus faecalis [facility] Work Phone: .Auto Diffon 01-12-2024 Basophil, Absolute 0.0 10 3/mcL Normal 0.0-0.2 [facility] ([place]) Comment on above: Performed By: #### T SH, ANEU, ADIFF, CBC, MG, VIDH, FT3, FT4 #### [address] [address] Basophils/100 WBC (Bld) 0.7 % Normal 0.0-2.5 [facility] ([place]) Comment on above: Performed By: #### T SH, ANEU, ADIFF, CBC, MG, VIDH, FT3, FT4 #### [address] [address] Eosinophil, Absolute 0.0 10 3/mcL Normal 0.0-0.4 [facility] ([place]) Comment on above: Performed By: #### T SH, ANEU, ADIFF, CBC, MG, VIDH, FT3, FT4 #### [address] [address] Eosinophils/100 WBC (Bld) 0.1 % Normal 0.0-7.0 [facility] ([place]) Comment on above: Performed By: #### T SH, ANEU, ADIFF, CBC, MG, VIDH, FT3, FT4 #### [address] [address] Lymphocyte, Absolute 2.0 10 3/mcL Normal 0.8-3.9 [facility] ([place]) Comment on above: Performed By: #### T SH, ANEU, ADIFF, CBC, MG, VIDH, FT3, FT4 #### [address] [address] Lymphocytes/100 WBC (Bld) 34.7 % Normal 10.0-50.0 [facility] ([place]) Comment on above: Performed By: #### T SH, ANEU, ADIFF, CBC, MG, VIDH, FT3, FT4 #### [address] [address] Monocyte, Absolute 0.4 10 3/mcL Normal 0.2-1.0 [facility] ([place]) Comment on above: Performed By: #### T SH, ANEU, ADIFF, CBC, MG, VIDH, FT3, FT4 #### [address] [address] Monocytes/100 WBC (Bld) 7.1 % Normal 1.7-13.0 [facility] ([place]) Comment on above: Performed By: #### T SH, ANEU, ADIFF, CBC, MG, VIDH, FT3, FT4 #### [address] [address] Neutrophils/100 WBC (Bld) 57.4 % Normal 37.0-80.0 [facility] ([place]) Comment on above: Performed By: #### T SH, ANEU, ADIFF, CBC, MG, VIDH, FT3, FT4 #### [address] [address] .NEUABSon 01-12-2024 Neutrophil, Absolute 3.3 10 3/mcL Normal 2.9-6.2 [facility] ([place]) Comment on above: Performed By: #### T SH, ANEU, ADIFF, CBC, MG, VIDH, FT3, FT4 #### [address] [address] CBCon 01-12-2024 Erythrocyte distribution width (RBC) [Ratio] 12.8 % Normal 11.5-14.5 [facility] ([place]) Comment on above: Performed By: #### T SH, ANEU, ADIFF, CBC, MG, VIDH, FT3, FT4 #### [address] [address] Hematocrit (Bld) [Volume fraction] 36.7 % Low 37.0-47.0 [facility] ([place]) Comment on above: Performed By: #### T SH, ANEU, ADIFF, CBC, MG, VIDH, FT3, FT4 #### [address] [address] Hgb 12.6 G/dL Normal 12.0-16.0 [facility] ([place]) Comment on above: Performed By: #### T SH, ANEU, ADIFF, CBC, MG, VIDH, FT3, FT4 #### [address] [address] MCH (RBC) [Entitic mass] 32.9 pg High 27.0-31.2 [facility] ([place]) Comment on above: Performed By: #### T SH, ANEU, ADIFF, CBC, MG, VIDH, FT3, FT4 #### [address] [address] MCHC 34.3 G/dL Normal 33.0-37.0 [facility] ([place]) Comment on above: Performed By: #### T SH, ANEU, ADIFF, CBC, MG, VIDH, FT3, FT4 #### [address] [address] MCV (RBC) [Entitic vol] 96.1 fL High 80.0-94.0 [facility] ([place]) Comment on above: Performed By: #### T SH, ANEU, ADIFF, CBC, MG, VIDH, FT3, FT4 #### [address] [address] Platelet 194 10 3/mcL Normal 130-400 [facility] ([place]) Comment on above: Performed By: #### T SH, ANEU, ADIFF, CBC, MG, VIDH, FT3, FT4 #### [address] [address] Platelet mean volume (Bld) [Entitic vol] 8.9 fL Normal 7.4-10.4 [facility] ([place]) Comment on above: Performed By: #### T SH, ANEU, ADIFF, CBC, MG, VIDH, FT3, FT4 #### [place] [address] RBC 3.82 10 6/mcL Low 4.20-5.40 [facility] ([place]) Comment on above: Performed By: #### T SH, ANEU, ADIFF, CBC, MG, VIDH, FT3, FT4 #### [place] [address] WBC 5.7 10 3/mcL Normal 4.6-10.8 [facility] ([place]) Comment on above: Performed By: #### T SH, ANEU, ADIFF, CBC, MG, VIDH, FT3, FT4 #### [place] [address] FT3on 01-12-2024 Free T3 [Mass/Vol] 2.72 pg/mL Normal 2.30-4.00 [facility] ([place]) Comment on above: Performed By: #### T SH, ANEU, ADIFF, CBC, MG, VIDH, FT3, FT4 #### [place] [address] FT4on 01-12-2024 Free T4 [Mass/Vol] 1.03 ng/dL Normal 0.76-1.46 [facility] ([place]) Comment on above: Performed By: #### T SH, ANEU, ADIFF, CBC, MG, VIDH, FT3, FT4 #### [place] [address] LABORATORYOrdered By: SYSTEM SYSTEM on 01-12-2024 25-hydroxyvitamin D3 [Mass/Vol] 37.9 ng/mL Invalid Interpretation Code AO ADM SS Comment on above: Interpretive Data: I nterpretive Values Based on Total 25(OH) Vitamin D: Deficient <20 ng/mL Insufficient 20 - <30 ng/mL Sufficient 30-100 ng/mL Basophil, Absolute 0.0 103/mcL Normal 0.0 - 0.2 10^3/mcL AO Workflow SS Basophils/100 WBC (Bld) 0.7 % Normal 0.0 - 2.5 % AO Workflow SS Eosinophil, Absolute 0.0 103/mcL Normal 0.0 - 0 .4 10^3/mcL AO Workflow SS Eosinophils/100 WBC (Bld) 0.1 % Normal 0.0 - 7.0 % AO Workflow SS Erythrocyte distribution width (RBC) [Ratio] 12.8 % Normal 11.5 - 14.5 % AO Workflow SS Free T3 [Mass/Vol] 2.72 pg/mL Normal 2.30 - 4.00 pg/mL AO ADM SS Free T4 [Mass/Vol] 1.03 ng/dL Normal 0.76 - 1.46 ng/dL AO ADM SS Hematocrit (Bld) [Volume fraction] 36.7 % Low 37.0 - 47.0 % AO Workflow SS Hemoglobin (Bld) [Mass/Vol] 12.6 G/dL Normal 12.0 - 16.0 G/dL AO Workflow SS Lymphocyte, Absolute 2.0 103/mcL Normal 0.8 - 3 .9 10^3/mcL AO Workflow SS Lymphocytes/100 WBC (Bld) 34.7 % Normal 10.0 - 50.0 % AO Workflow SS Magnesium [Mass/Vol] 1.6 mg/dL Low 1.8 - 2 .4 mg/dL AO ADM SS MCH (RBC) [Entitic mass] 32.9 pg High 27.0 - 31.2 pg AO Workflow SS MCHC 34.3 G/dL Normal 33.0 - 37.0 G/dL AO Workflow SS MCV (RBC) [Entitic vol] 96.1 fL High 80.0 - 94.0 fL AO Workflow SS Monocyte, Absolute 0.4 103/mcL Normal 0.2 - 1.0 10^3/mcL AO Workflow SS Monocytes/100 WBC (Bld) 7.1 % Normal 1.7 - 13.0 % AO Workflow SS Neutrophil, Absolute 3.3 103/mcL Normal 2.9 - 6 .2 10^3/mcL AO Workflow SS Neutrophils/100 WBC (Bld) 57.4 % Normal 37.0 - 80.0 % AO Workflow SS Platelet mean volume (Bld) [Entitic vol] 8.9 fL Normal 7.4 - 10.4 fL AO Workflow SS Platelets (Bld) [#/Vol] 194 103/mcL Normal 130 - 400 10^3/mcL AO Workflow SS RBC (Bld) [#/Vol] 3.82 106/mcL Low 4.20 - 5.40 10^6/mcL AO Workflow SS TSH Qn 1.89 m[IU]/L Normal 0.36 - 3.74 mcIU/mL AO ADM SS WBC (Bld) [#/Vol] 5.7 103/mcL Normal 4.6 - 10.8 10^3/mcL AO Workflow SS MGon 01-12-2024 Magnesium [Mass/Vol] 1.6 mg/dL Low 1.8-2.4 [facility] ([place]) Comment on above: Performed By: #### T SH, ANEU, ADIFF, CBC, MG, VIDH, FT3, FT4 #### [place] [address] TSHon 01-12-2024 TSH Qn 1.89 m[IU]/L Normal 0.36-3.74 [facility] ([place]) Comment on above: Performed By: #### T SH, ANEU, ADIFF, CBC, MG, VIDH, FT3, FT4 #### [place] [address] VIDHon 01-12-2024 Vit. D 25-Hydroxy 37.9 ng/mL Normal [facility] ([place]) Comment on above: Result Comment: Inte rpretive Values Based on Total 25(OH) Vitamin D: Deficient <20 ng/mL Insufficient 20 - <30 ng/mL Sufficient 30-100 ng/mL Performed By: #### T SH, ANEU, ADIFF, CBC, MG, VIDH, FT3, FT4 #### [place] [address] .GFRon 01-05-2024 GFR Non- 78 ml/min/1.73sqm Normal [facility] ([place]) Comment on above: Result Comment: GFR Population mean for , Non- Americans Ages 20-29 = 116 mL/min/1.73 sq.m. Ages 30-39 = 107 mL/min/1.73 sq.m. Ages 40-49 = 99 mL/min/1.73 sq.m. Ages 50-59 = 93 mL/min/1.73 sq.m. Ages 60-69 = 85 mL/min/1.73 sq.m. Ages 70+ = 75 mL/min/1.73 sq.m. Chronic Kidney Disease: Less than 60 mL/min/1.73 square meters End Stage Renal Disease: Less than 15 mL/min/1.73 square meters Performed By: #### T SH, ANEU, ADIFF, CBC, MG, VIDH, FT3, FT4 #### [address] [address] GFR 94 ml/min/1.73sqm Normal [facility] ([place]) Comment on above: Result Comment: GFR Population mean for , Non- Americans Ages 20-29 = 116 mL/min/1.73 sq.m. Ages 30-39 = 107 mL/min/1.73 sq.m. Ages 40-49 = 99 mL/min/1.73 sq.m. Ages 50-59 = 93 mL/min/1.73 sq.m. Ages 60-69 = 85 mL/min/1.73 sq.m. Ages 70+ = 75 mL/min/1.73 sq.m. Chronic Kidney Disease: Less than 60 mL/min/1.73 square meters End Stage Renal Disease: Less than 15 mL/min/1.73 square meters Performed By: #### T SH, ANEU, ADIFF, CBC, MG, VIDH, FT3, FT4 #### [address] [address] A1Con 01-05-2024 HbA1c (Bld) [Mass fraction] 5.4 % Normal 4.3-6.4 [facility] ([place]) Comment on above: Performed By: #### T SH, ANEU, ADIFF, CBC, MG, VIDH, FT3, FT4 #### [address] [address] CMPon 01-05-2024 Albumin Level 3.3 G/dL Low 3.4-4.8 [facility] ([place]) Comment on above: Performed By: #### T SH, ANEU, ADIFF, CBC, MG, VIDH, FT3, FT4 #### [address] [address] Albumin/Globulin [Mass ratio] 1.3 {ratio} Normal 1.1-2.5 [facility] ([place]) Comment on above: Performed By: #### T SH, ANEU, ADIFF, CBC, MG, VIDH, FT3, FT4 #### [address] [address] ALP [Catalytic activity/Vol] 73 U/L Normal 40-135 [facility] ([place]) Comment on above: Performed By: #### T SH, ANEU, ADIFF, CBC, MG, VIDH, FT3, FT4 #### [address] [address] ALT [Catalytic activity/Vol] 17 U/L Normal 14-59 [facility] ([place]) Comment on above: Performed By: #### T SH, ANEU, ADIFF, CBC, MG, VIDH, FT3, FT4 #### [address] [address] AST [Catalytic activity/Vol] 19 U/L Normal 10-40 [facility] ([place]) Comment on above: Performed By: #### T SH, ANEU, ADIFF, CBC, MG, VIDH, FT3, FT4 #### [address] [address] Bili Total 0.9 mg/dL Normal 0.2-1.0 [facility] ([place]) Comment on above: Result Comment: Use of this assay is not recommended for patients undergoing treatment with eltrombopag due to the potential for falsely elevated results. Performed By: #### T SH, ANEU, ADIFF, CBC, MG, VIDH, FT3, FT4 #### [address] [address] BUN/Creatinine Ratio 18 ratio Normal 7-27 [facility] ([place]) Comment on above: Performed By: #### T SH, ANEU, ADIFF, CBC, MG, VIDH, FT3, FT4 #### [address] [address] Calcium [Mass/Vol] 8.6 mg/dL Normal 8.4-10.2 [facility] ([place]) Comment on above: Performed By: #### T SH, ANEU, ADIFF, CBC, MG, VIDH, FT3, FT4 #### [address] [address] Chloride [Moles/Vol] 107 mmol/L Normal 98-107 [facility] ([place]) Comment on above: Performed By: #### T SH, ANEU, ADIFF, CBC, MG, VIDH, FT3, FT4 #### [address] [address] CO2 [Moles/Vol] 29 mmol/L Normal 23-31 [facility] ([place]) Comment on above: Performed By: #### T SH, ANEU, ADIFF, CBC, MG, VIDH, FT3, FT4 #### [address] [address] Creatinine [Mass/Vol] 0.72 mg/dL Normal 0.55-1.02 [facility] ([place]) Comment on above: Performed By: #### T SH, ANEU, ADIFF, CBC, MG, VIDH, FT3, FT4 #### [address] [address] Electrolyte Balance 8.0 mEq/L Normal 4.0-15.0 [facility] ([place]) Comment on above: Performed By: #### T SH, ANEU, ADIFF, CBC, MG, VIDH, FT3, FT4 #### [address] [address] Globulin 2.6 G/dL Normal [facility] ([place]) Comment on above: Performed By: #### T SH, ANEU, ADIFF, CBC, MG, VIDH, FT3, FT4 #### [address] [address] Glucose [Mass/Vol] 83 mg/dL Normal 83-110 [facility] ([place]) Comment on above: Performed By: #### T SH, ANEU, ADIFF, CBC, MG, VIDH, FT3, FT4 #### [address] [address] Potassium [Moles/Vol] 4.3 mmol/L Normal 3.5-5.1 [facility] ([place]) Comment on above: Performed By: #### T SH, ANEU, ADIFF, CBC, MG, VIDH, FT3, FT4 #### [address] [address] Sodium [Moles/Vol] 144 mmol/L Normal 136-145 [facility] ([place]) Comment on above: Performed By: #### T SH, ANEU, ADIFF, CBC, MG, VIDH, FT3, FT4 #### [address] [address] Total Protein 5.9 G/dL Low 6.4-8.2 [facility] ([place]) Comment on above: Performed By: #### T SH, ANEU, ADIFF, CBC, MG, VIDH, FT3, FT4 #### [address] [address] Urea nitrogen [Mass/Vol] 13 mg/dL Normal 7-18 [facility] ([place]) Comment on above: Performed By: #### T SH, ANEU, ADIFF, CBC, MG, VIDH, FT3, FT4 #### [address] [address] LABORATORYOrdered By: SYSTEM SYSTEM on 01-05-2024 Albumin BCP dye [Mass/Vol] 3.3 G/dL Low 3.4 - 4.8 G/dL AO ADM SS Albumin/Globulin [Mass ratio] 1.3 {ratio} Normal 1.1 - 2.5 ratio AO ADM SS ALP [Catalytic activity/Vol] 73 U/L Normal 40 - 135 U/L AO ADM SS ALT With P-5'-P [Catalytic activity/Vol] 17 U/L Normal 14 - 59 U/L AO ADM SS AST With P-5'-P [Catalytic activity/Vol] 19 U/L Normal 10 - 40 U/L AO ADM SS Bilirubin [Mass/Vol] 0.9 mg/dL Normal 0.2 - 1 .0 mg/dL AO ADM SS Comment on above: Interpretive Data: U se of this assay is not recommended for patients undergoing treatment with eltrombopag due to the potential for falsely elevated results. Calcium [Mass/Vol] 8.6 mg/dL Normal 8.4 - 10. 2 mg/dL AO ADM SS Chloride [Moles/Vol] 107 mmol/L Normal 98 - 10 7 mmol/L AO ADM SS CO2 [Moles/Vol] 29 mmol/L Normal 23 - 31 mmol/L AO ADM SS Creatinine [Mass/Vol] 0.72 mg/dL Normal 0.55 - 1.02 mg/dL AO ADM SS Electrolyte Balance 8.0 mEq/L Normal 4.0 - 15 .0 mEq/L AO ADM SS GFR/1.73 sq M.predicted among blacks MDRD (S/P/Bld) [Vol rate/Area] 94 ml/min/1.73sqm Invalid Interpretation Code AO Chemistry S Comment on above: Interpretive Data: GFR Population mean for , Non- Americans Ages 20-29 = 116 mL/min/1.73 sq.m. Ages 30-39 = 107 mL/min/1.73 sq.m. Ages 40-49 = 99 mL/min/1.73 sq.m. Ages 50-59 = 93 mL/min/1.73 sq.m. Ages 60-69 = 85 mL/min/1.73 sq.m. Ages 70+ = 75 mL/min/1.73 sq.m. Chronic Kidney Disease: Less than 60 mL/min/1.73 square meters End Stage Renal Disease: Less than 15 mL/min/1.73 square meters GFR/1.73 sq M.predicted among non-blacks MDRD (S/P/Bld) [Vol rate/Area] 78 ml/min/1.73sqm Invalid Interpretation Code AO Chemistry S Comment on above: Interpretive Data: GFR Population mean for , Non- Americans Ages 20-29 = 116 mL/min/1.73 sq.m. Ages 30-39 = 107 mL/min/1.73 sq.m. Ages 40-49 = 99 mL/min/1.73 sq.m. Ages 50-59 = 93 mL/min/1.73 sq.m. Ages 60-69 = 85 mL/min/1.73 sq.m. Ages 70+ = 75 mL/min/1.73 sq.m. Chronic Kidney Disease: Less than 60 mL/min/1.73 square meters End Stage Renal Disease: Less than 15 mL/min/1.73 square meters Globulin 2.6 G/dL Invalid Interpretation Code AO ADM SS Glucose [Mass/Vol] 83 mg/dL Normal 83 - 110 mg/dL AO ADM SS HbA1c (Bld) [Mass fraction] 5.4 % Normal 4.3 - 6.4 % AO ADM SS Potassium [Moles/Vol] 4.3 mmol/L Normal 3.5 - 5.1 mmol/L AO ADM SS Protein [Mass/Vol] 5.9 G/dL Low 6.4 - 8.2 G/dL AO ADM SS Sodium [Moles/Vol] 144 mmol/L Normal 136 - 145 mmol/L AO ADM SS Urea nitrogen [Mass/Vol] 13 mg/dL Normal 7 - 18 mg/dL AO ADM SS Urea nitrogen/Creatinine [Mass ratio] 18 ratio Normal 7 - 27 ratio AO ADM SS LABORATORYOrdered By: Mg Gunderson on 01-05-2024 Cholesterol [Mass/Vol] 157 mg/dL Normal 0 - 200 mg/dL AO ADM SS Comment on above: Interpretive Data: C holesterol Reference Interval: Less than 200 Desirable 200-239 Borderline high risk 240 and above High risk Cholesterol in HDL [Mass/Vol] 64 mg/dL High 40 - 60 mg/dL AO ADM SS Cholesterol in LDL [Mass/Vol] 72 mg/dL Normal 0 - 130 mg/dL AO ADM SS Triglyceride [Mass/Vol] 104 mg/dL Normal 0 - 150 mg/dL AO ADM SS Comment on above: Interpretive Data: T riglyceride Reference Interval: Less than 150 Normal 150-199 Borderline high risk 200-499 High risk 500 or higher Very high risk LIPIDon 01-05-2024 Cholesterol [Mass/Vol] 157 mg/dL Normal 0-200 [facility] ([place]) Comment on above: Result Comment: Chol esterol Reference Interval: Less than 200 Desirable 200-239 Borderline high risk 240 and above High risk Performed By: #### T SH, ANEU, ADIFF, CBC, MG, VIDH, FT3, FT4 #### [address] [address] Cholesterol in HDL [Mass/Vol] 64 mg/dL High 40-60 [facility] ([place]) Comment on above: Performed By: #### T SH, ANEU, ADIFF, CBC, MG, VIDH, FT3, FT4 #### [place] [address] [place], [place] [address] Cholesterol in LDL [Mass/Vol] 72 mg/dL Normal 0-130 [facility] ([place]) Comment on above: Performed By: #### T SH, ANEU, ADIFF, CBC, MG, VIDH, FT3, FT4 #### [place] [address] [place], [place] [address] Triglyceride [Mass/Vol] 104 mg/dL Normal 0-150 [facility] ([place]) Comment on above: Result Comment: Trig lyceride Reference Interval: Less than 150 Normal 150-199 Borderline high risk 200-499 High risk 500 or higher Very high risk Performed By: #### T SH, ANEU, ADIFF, CBC, MG, VIDH, FT3, FT4 #### [address] [address] No Panel Informationon 11-22 Culture Urine <10,000 cfu/ml. No Significant growth. Sensitivity not indicated. [facility] Work Phone: Final Surgical Pathology Rep iheu 10-30-2023 Final Surgical Pathology Report . Pathology Reports Accession: Collected Date/Time: Received Date/Time: Pathologist: [id number] 10/25/2023 15:45 EDT 10/27/2023 09:00 EDT JAMES COY MD Final Surgical Pathology Report DIAGNOSIS: ENDOMETRIAL BIOPSY: - SUPERFICIAL FRAGMENTS OF ATROPHIC ENDOMETRIUM - NEGATIVE FOR HYPERPLASIA OR MALIGNANCY CLINICAL INFORMATION: ABNORMAL BLEEDING Procedure: ENDOMETRIAL BX Preoperative diagnosis: ABNORMAL BLEEDING Postoperative diagnosis: ABNORMAL BLEEDING SPECIMEN: A ENDOMETRIUM GROSS DESCRIPTION: All parts labelled with patient name and [id number] Received in formalin labeled undesignated are multiple crenshaw-pink hemorrhagic and mucinous tissue fragments aggregating 0.3 x 0.1 cm. TS-1 Ysabel Norris, Grossing Mapper/ Dr. Marco Zaldivar, Pathologist Dictated by Ysabel Norris MICROSCOPIC DESCRIPTION: The microscopic examination is performed, except in the case of Gross Only. Electronically Signed by Pathology Report verified by [facility] JAMES COY Sign out Date: 10/30/2023 10:58 Performing Lab: [facility], [address] [place] [address] Pathology Dept Disclaimer If ancillary studies were utilized, the following Laboratory Developed Test (LDT) disclaimer will apply: Under CLIA requirements, [facility] Pathology Laboratory is qualified to perform high complexity testing. For all ancillary stains, positive and negative controls stain appropriately. Performance characteristics of immunohistochemical and chromogenic in-situ hybridization tests have been determined by [facility] Pathology Laboratory. These tests are used for clinical purposes, They should not be regarded as investigational or for research. Normal [facility] ([place]) .GFRon 06-15-2023 GFR 88 ml/min/1.73sqm Normal [facility] ([place]) Comment on above: Result Comment: GFR Population mean for , Non- Americans Ages 20-29 = 116 mL/min/1.73 sq.m. Ages 30-39 = 107 mL/min/1.73 sq.m. Ages 40-49 = 99 mL/min/1.73 sq.m. Ages 50-59 = 93 mL/min/1.73 sq.m. Ages 60-69 = 85 mL/min/1.73 sq.m. Ages 70+ = 75 mL/min/1.73 sq.m. Chronic Kidney Disease: Less than 60 mL/min/1.73 square meters End Stage Renal Disease: Less than 15 mL/min/1.73 square meters Performed By: #### T SH, ANEU, ADIFF, CBC, MG, VIDH, FT3, FT4 #### [address] [address] GFR Non- 72 ml/min/1.73sqm Normal [facility] ([place]) Comment on above: Result Comment: GFR Population mean for , Non- Americans Ages 20-29 = 116 mL/min/1.73 sq.m. Ages 30-39 = 107 mL/min/1.73 sq.m. Ages 40-49 = 99 mL/min/1.73 sq.m. Ages 50-59 = 93 mL/min/1.73 sq.m. Ages 60-69 = 85 mL/min/1.73 sq.m. Ages 70+ = 75 mL/min/1.73 sq.m. Chronic Kidney Disease: Less than 60 mL/min/1.73 square meters End Stage Renal Disease: Less than 15 mL/min/1.73 square meters Performed By: #### T SH, ANEU, ADIFF, CBC, MG, VIDH, FT3, FT4 #### [address] [address] CMPon 06-15-2023 Albumin Level 3.6 G/dL Normal 3.4-4.8 [facility] ([place]) Comment on above: Performed By: #### T SH, ANEU, ADIFF, CBC, MG, VIDH, FT3, FT4 #### [address] [address] Albumin/Globulin [Mass ratio] 1.3 {ratio} Normal 1.1-2.5 [facility] ([place]) Comment on above: Performed By: #### T SH, ANEU, ADIFF, CBC, MG, VIDH, FT3, FT4 #### [address] [address] ALP [Catalytic activity/Vol] 79 U/L Normal 40-135 [facility] ([place]) Comment on above: Performed By: #### T SH, ANEU, ADIFF, CBC, MG, VIDH, FT3, FT4 #### [address] [address] ALT [Catalytic activity/Vol] 12 U/L Low 14-59 [facility] ([place]) Comment on above: Performed By: #### T SH, ANEU, ADIFF, CBC, MG, VIDH, FT3, FT4 #### [address] [address] AST [Catalytic activity/Vol] 9 U/L Low 10-40 [facility] ([place]) Comment on above: Performed By: #### T SH, ANEU, ADIFF, CBC, MG, VIDH, FT3, FT4 #### [address] [address] Bili Total 0.9 mg/dL Normal 0.2-1.0 [facility] ([place]) Comment on above: Result Comment: Use of this assay is not recommended for patients undergoing treatment with eltrombopag due to the potential for falsely elevated results. Performed By: #### T SH, ANEU, ADIFF, CBC, MG, VIDH, FT3, FT4 #### [address] [address] BUN/Creatinine Ratio 17 ratio Normal 7-27 [facility] ([place]) Comment on above: Performed By: #### T SH, ANEU, ADIFF, CBC, MG, VIDH, FT3, FT4 #### [address] [address] Calcium [Mass/Vol] 9.2 mg/dL Normal 8.4-10.2 [facility] ([place]) Comment on above: Performed By: #### T SH, ANEU, ADIFF, CBC, MG, VIDH, FT3, FT4 #### [address] [address] Chloride [Moles/Vol] 105 mmol/L Normal 98-107 [facility] ([place]) Comment on above: Performed By: #### T SH, ANEU, ADIFF, CBC, MG, VIDH, FT3, FT4 #### [address] [address] CO2 [Moles/Vol] 26 mmol/L Normal 23-31 [facility] ([place]) Comment on above: Performed By: #### T SH, ANEU, ADIFF, CBC, MG, VIDH, FT3, FT4 #### [address] [address] Creatinine [Mass/Vol] 0.77 mg/dL Normal 0.55-1.02 [facility] ([place]) Comment on above: Performed By: #### T SH, ANEU, ADIFF, CBC, MG, VIDH, FT3, FT4 #### [address] [address] Electrolyte Balance 13.0 mEq/L Normal 4.0-15.0 [facility] ([place]) Comment on above: Performed By: #### T SH, ANEU, ADIFF, CBC, MG, VIDH, FT3, FT4 #### [address] [address] Globulin 2.8 G/dL Normal [facility] ([place]) Comment on above: Performed By: #### T SH, ANEU, ADIFF, CBC, MG, VIDH, FT3, FT4 #### [address] [address] Glucose [Mass/Vol] 93 mg/dL Normal 83-110 [facility] ([place]) Comment on above: Performed By: #### T SH, ANEU, ADIFF, CBC, MG, VIDH, FT3, FT4 #### [address] [address] Potassium [Moles/Vol] 4.0 mmol/L Normal 3.5-5.1 [facility]) Comment on above: Performed By: #### T SH, ANEU, ADIFF, CBC, MG, VIDH, FT3, FT4 #### [address] [address] Sodium [Moles/Vol] 144 mmol/L Normal 136-145 [facility] ([place]) Comment on above: Performed By: #### T SH, ANEU, ADIFF, CBC, MG, VIDH, FT3, FT4 #### [address] [address] Total Protein 6.4 G/dL Normal 6.4-8.2 [facility] ([place]) Comment on above: Performed By: #### T SH, ANEU, ADIFF, CBC, MG, VIDH, FT3, FT4 #### [address] [address] Urea nitrogen [Mass/Vol] 13 mg/dL Normal 7-18 [facility] ([place]) Comment on above: Performed By: #### T SH, ANEU, ADIFF, CBC, MG, VIDH, FT3, FT4 #### [address] [address] FT4on 06-15-2023 Free T4 [Mass/Vol] 0.94 ng/dL Normal 0.76-1.46 [facility] ([place]) Comment on above: Performed By: #### T SH, ANEU, ADIFF, CBC, MG, VIDH, FT3, FT4 #### [address] [address] LIPIDon 06-15-2023 Cholesterol [Mass/Vol] 156 mg/dL Normal 0-200 [facility] ([place]) Comment on above: Result Comment: Chol esterol Reference Interval: Less than 200 Desirable 200-239 Borderline high risk 240 and above High risk Performed By: #### T SH, ANEU, ADIFF, CBC, MG, VIDH, FT3, FT4 #### [address] [address] Cholesterol in HDL [Mass/Vol] 64 mg/dL High 40-60 [facility] ([place]) Comment on above: Performed By: #### T SH, ANEU, ADIFF, CBC, MG, VIDH, FT3, FT4 #### [address] [address] Cholesterol in LDL [Mass/Vol] 55 mg/dL Normal 0-130 [facility] ([place]) Comment on above: Performed By: #### T SH, ANEU, ADIFF, CBC, MG, VIDH, FT3, FT4 #### [address] [address] Triglyceride [Mass/Vol] 187 mg/dL High 0-150 [facility] ([place]) Comment on above: Result Comment: Trig lyceride Reference Interval: Less than 150 Normal 150-199 Borderline high risk 200-499 High risk 500 or higher Very high risk Performed By: #### T SH, ANEU, ADIFF, CBC, MG, VIDH, FT3, FT4 #### [address] [address] MGon 06-15-2023 Magnesium [Mass/Vol] 1.5 mg/dL Low 1.8-2.4 [facility] ([place]) Comment on above: Performed By: #### T SH, ANEU, ADIFF, CBC, MG, VIDH, FT3, FT4 #### [address] [address] TSHon 06-15-2023 TSH Qn 4.83 m[IU]/L High 0.36-3.74 [facility] ([place]) Comment on above: Performed By: #### T SH, ANEU, ADIFF, CBC, MG, VIDH, FT3, FT4 #### [address] [address] XR HIP RIGHT W/PELVIS 4 VIEW Son 05-13-2023 XR HIP RIGHT W/PELVIS 4 VIEWS ORIGINAL EXAMINATION: ONE XRAY VIEW OF THE PELVIS AND TWO XRAY VIEWS RIGHT HIP 05/13/2023 9:08 pm COMPARISON: None. HISTORY: ORDERING SYSTEM PROVIDED HISTORY: Reason for Exam: fall FINDINGS: No fracture or dislocation. Degenerative changes of the lumbosacral spine and bilateral hips. IMPRESSION: No fracture or dislocation. Interpreted by: Irving Butler Preliminary Report By: Irving Butler Electronically signed By Irving Butler Dictated Date: 05/13/2023 9:15:45 PM Prelim Date: 05/13/2023 9:17:28 PM Sign Date: 05/13/2023 9:17:28 PM Ordering Provider: CARMEN Alvarez [facility] ([place]) XR HUMERUS MINIMUM 2 [facility]WS [facility] XR HUMERUS MINIMUM 2 VIEWS RIGHT ORIGINAL EXAMINATION: TWO XRAY VIEWS OF THE RIGHT HUMERUS 05/13/2023 9:08 pm COMPARISON: X-ray shoulder same date HISTORY: ORDERING SYSTEM PROVIDED HISTORY: Reason for Exam: fall FINDINGS: There is a mildly displaced impacted comminuted of the humeral surgical neck. There is about 7 mm of medial displacement the distal fracture fragment. No dislocation. There are surgical clips which project over the right axilla. The visualized right lung is clear. IMPRESSION: Acute traumatic fracture of the right humeral neck. I have personally reviewed the images of this examination and agree with the resident's findings and interpretation. Interpreted by: Irving Butler Preliminary Report By: Evelyn Kim Electronically signed By Irving Butler Dictated Date: 05/13/2023 9:09:36 PM Prelim Date: 05/13/2023 9:12:17 PM Sign Date: 05/13/2023 9:14:05 PM Ordering Provider: CARMEN CANDELARIO [facility] ([place]) XR SHOULDER MINIMUM 2 VIEWS RIGHTon 05-13-2023 XR SHOULDER MINIMUM 2 VIEWS RIGHT ORIGINAL EXAMINATION: 3 XRAY VIEWS OF THE RIGHT SHOULDER 05/13/2023 9:07 pm COMPARISON: X-ray right humerus same date HISTORY: ORDERING SYSTEM PROVIDED HISTORY: Reason for Exam: fall FINDINGS: Acute traumatic mildly displaced angulated impacted fracture of the right humeral neck. No dislocation. The visualized lungs are clear. The patient is status post vertebral augmentation. Large hiatal hernia. IMPRESSION: Acute traumatic fracture of the right humeral neck. I have personally reviewed the images of this examination and agree with the resident's findings and interpretation. Interpreted by: Irving Butler Preliminary Report By: Evelyn Kim Electronically signed By Irving Butler Dictated Date: 05/13/2023 9:12:25 PM Prelim Date: 05/13/2023 9:13:42 PM Sign Date: 05/13/2023 9:15:26 PM Ordering Provider: CARMEN CANDELARIO [facility] ([place]) Absolute lymphocyte countOrd ered By: Jose Tabor on 02-22-2023 Lymphocytes Auto (Unsp spec) [#/Vol] 1.67 10*3/uL 0.83-4.[address] [facility] Basophil percentageOrdered B y: Jose Tabor on 02-22-2023 Basophils/100 WBC (Bld) 0.6 % 0-[address] [facility] Bilirubin [Mass/Vol] 0.70 mg/dL 0.20-1.00 [facility] Comment on above: For patients on eltr ombopag therapy, use of Dimension [place] TBIL is not recommended. Chloride [Moles/Vol] 110 mmol/L 98-107 [facility] Eosinophils/100 WBC (Bld) 0.4 % 0-[address] [facility] Glucose [Mass/Vol] 117 mg/dL 74-106 [facility] Comment on above: Fasting Glucose resu lt from 100 to 125 mg/dL suggests IMPAIRED HOMEOSTASIS per A.D.A. criteria. Neutrophils (Bld) [#/Vol] 2.9 10*3/uL 2.0-7.[address] [facility] Neutrophils/100 WBC (Bld) 56.8 % 47-[address] [facility] Potassium [Moles/Vol] 3.1 mmol/L 3.5-5.[address] [facility] Comment on above: Slight Hemolysis, Re sult may be falsely increased. Protein [Mass/Vol] 6.8 g/dL 6.4-8.2 [facility] Sodium [Moles/Vol] 141 mmol/L 136-145 [facility] WBC (Bld) [#/Vol] 5.1 10*3/uL 4.4-11.0 [facility] Blood erythrocytes count (nu mber/volume)Ordered By: Jose Tabor on 02-22-2023 RBC (Bld) [#/Vol] 3.70 10*6/uL 4.2-5.4 [facility] Blood hemoglobin measurement (mass/volume)Ordered By: Jose Tabor on 02-22-2023 Hemoglobin (Bld) [Mass/Vol] 11.9 g/dL 12.0-15.[address] [facility] Blood lymphocytes/100 leukoc ytesOrdered By: Jose Tabor on 02-22-2023 Lymphocytes/100 WBC (Bld) 32.9 % 19-[address] [facility] Blood monocytes/100 leukocyt esOrdered By: Jose Tabor on 02-22-2023 Monocytes/100 WBC (Bld) 8.3 % 0-[address] [facility] Blood platelet mean volumeOr dered By: Jose Tabor on 02-22-2023 Platelet mean volume (Bld) [Entitic vol] 10.8 fL 6.2-12.[address] [facility] Determination of erythrocyte mean corpuscular volume (MCV)Ordered By: Jose Tabor on 02-22-2023 MCV (RBC) [Entitic vol] 95.4 fL 81-[address] [facility] Hematocrit Auto (Bld) [Volum e fraction]Ordered By: Jose Tabor on 02-22-2023 Hematocrit (Bld) [Volume fraction] 35.3 % 37-[address] [facility] Laboratory - Chemistry and C hemistry - challengeOrdered By: Jose Tabor on 02-22-2023 ALP [Catalytic activity/Vol] 68 U/L 45-[address] [facility] ALT [Catalytic activity/Vol] 13 U/L 13-[address] [facility] CO2 [Moles/Vol] 24.0 mmol/L 21.0-32.[address] [facility] Globulin (S) [Mass/Vol] 3.6 g/dL 2.2-4.[address] [facility] Urea nitrogen/Creatinine [Mass ratio] 16.1 mg/mg 10-[address] [facility] Laboratory - Hematology and Cell countsOrdered By: Jose Tabor on 02-22-2023 Erythrocyte distribution width (RBC) [Entitic vol] 41.4 fL 35.1-43.[address] [facility] Erythrocyte distribution width (RBC) [Ratio] 11.9 % 11.6-14.[address] [facility] Immature granulocytes/100 WBC (Bld) 1.000 % 0.0-0.[address] [facility] Comment on above: IG% - Immature Granu locytes (promyelocytes, myelocytes and metamyelocytes) > 1% indicates that a LEFT SHIFT is Present. MCH (RBC) [Entitic mass] 32.2 pg 27.0-32.[address] [facility] Nucleated RBC/100 WBC (Bld) [Ratio] 0 % 0-[address] [facility] MCHC Auto (RBC) [Mass/Vol]Or dered By: Jose Tabor on 02-22-2023 MCHC (RBC) [Mass/Vol] 33.7 g/dL 32-[address] [facility] No Panel InformationOrdered By: Jose Tabor on 02-22-2023 Miscellaneous Test See comment [facility] Comment on above: Scanned image report available in EMR Estimated GFR (MDRD) Amer 88 mL/min >[address] [facility] Comment on above: GFR Calc Estimated GFR (MDRD) Non-Af Amer 73 mL/min >[address] [facility] Comment on above: Non- GFR Calc Platelets bldOrdered By: David Tabor on 02-22-2023 Platelets (Bld) [#/Vol] 184 10*3/uL 150-[address] [facility] Serum or plasma C reactive p rotein measurement (mass/volume)Ordered By: Jose Tabor on 02-22-2023 CRP [Mass/Vol] 3.60 mg/L 0.0-3.[address] [facility] Comment on above: C-Reactive Protein ( CRP) provides useful information for thediagnosis, therapy and monitoring of inflammatory processesand associated diseases. For the evaluation of Relative Riskfor Cardiovascular Disease, a High Sensitivity CRP (HSCRP)should be ordered. Serum or plasma albumin omid urement (mass/volume)Ordered By: Jose Tabor on 02-22-2023 Albumin [Mass/Vol] 3.2 g/dL 3.2-5.0 [facility] Serum or plasma albumin/glob ulin mass ratioOrdered By: Jose Tabor on 02-22-2023 Albumin/Globulin [Mass ratio] 0.9 {ratio} 0.9-2.[address] [facility] Serum or plasma calcium omid urement (mass/volume)Ordered By: Jose Tabor on 02-22-2023 Calcium [Mass/Vol] 8.6 mg/dL 8.5-10.1 [facility] Serum or plasma creatinine m easurement (mass/volume)Ordered By: Jose Tabor on 02-22-2023 Creatinine [Mass/Vol] 0.81 mg/dL 0.55-1.[address] [facility] Comment on above: The validity of the calculated GFR & GFRAA in patients over 70 years has not been determined. Clinical correlation is essential. Serum or plasma urea nitroge n measurement (mass/volume)Ordered By: Jose Tabor on 02-22-2023 Urea nitrogen [Mass/Vol] 13 mg/dL 7-[address] [facility] Thin prep Papanicolaou smear with manual screeningOrdered By: Jose Tabor on 02-22-2023 Thin prep Papanicolaou smear with manual screening 21 U/L 15-[address] [facility] Comment on above: Slight Hemolysis, Re sult may be falsely increased. Thin prep Papanicolaou smear with manual screening 7 - [facility] LABORATORYOrdered By: Marcos Arambula on 12-21-2022 Albumin DL <= 20 mg/L (U) [Mass/Vol] 281 mcg/dL Invalid Interpretation Code AO ADM SS Albumin/Creatinine DL <= 20 mg/L (U) [Mass ratio] 10 mcg/mg Invalid Interpretation Code 0 - 30 mcg/mg AO ADM SS Creatinine (U) [Mass/Vol] 28.6 mg/dL Invalid Interpretation Code 28.0 - 117.0 mg/dL AO ADM SS No Panel Informationon 12-21 Culture Urine 10,000 - 50,000 cfu/ ml Mixed growth consistent with normal urogenital artur. [facility] Work Phone: LABORATORYOrdered By: Prong SYSTEM on 12-14-2022 Albumin BCP dye [Mass/Vol] 3.5 G/dL Invalid Interpretation Code 3.4 - 4.8 G/dL AO ADM SS Albumin/Globulin [Mass ratio] 1.2 {ratio} Invalid Interpretation Code 1.1 - 2.5 ratio AO ADM SS ALP [Catalytic activity/Vol] 72 U/L Invalid Interpretation Code 40 - 135 U/L AO ADM SS ALT With P-5'-P [Catalytic activity/Vol] 19 U/L Invalid Interpretation Code 14 - 59 U/L AO ADM SS AST With P-5'-P [Catalytic activity/Vol] 21 U/L Invalid Interpretation Code 10 - 40 U/L AO ADM SS Bilirubin [Mass/Vol] 0.9 mg/dL Invalid Interpretation Code 0.2 - 1.0 mg/dL AO ADM SS Calcium [Mass/Vol] 8.7 mg/dL Invalid Interpretation Code 8.4 - 10.2 mg/dL AO ADM SS Chloride [Moles/Vol] 107 mmol/L Invalid Interpretation Code 98 - 107 mmol/L AO ADM SS CO2 [Moles/Vol] 29 mmol/L Invalid Interpretation Code 23 - 31 mmol/L AO ADM SS Creatinine [Mass/Vol] 0.68 mg/dL Invalid Interpretation Code 0.55 - 1.02 mg/dL AO ADM SS Electrolyte Balance 7.0 mEq/L Invalid Interpretation Code 4.0 - 15.0 mEq/L AO ADM SS Free T4 [Mass/Vol] 0.89 ng/dL Invalid Interpretation Code 0.76 - 1.46 ng/dL AO ADM SS GFR/1.73 sq M.predicted among blacks MDRD (S/P/Bld) [Vol rate/Area] 101 ml/min/1.73sqm Invalid Interpretation Code AO Chemistry S GFR/1.73 sq M.predicted among non-blacks MDRD (S/P/Bld) [Vol rate/Area] 83 ml/min/1.73sqm Invalid Interpretation Code AO Chemistry S Globulin 2.9 G/dL Invalid Interpretation Code AO ADM SS Glucose [Mass/Vol] 81 mg/dL Invalid Interpretation Code 83 - 110 mg/dL AO ADM SS Magnesium [Mass/Vol] 1.4 mg/dL Invalid Interpretation Code 1.8 - 2.4 mg/dL AO ADM SS Potassium [Moles/Vol] 3.5 mmol/L Invalid Interpretation Code 3.5 - 5.1 mmol/L AO ADM SS Protein [Mass/Vol] 6.4 G/dL Invalid Interpretation Code 6.4 - 8.2 G/dL AO ADM SS Sodium [Moles/Vol] 143 mmol/L Invalid Interpretation Code 136 - 145 mmol/L AO ADM SS Urea nitrogen [Mass/Vol] 11 mg/dL Invalid Interpretation Code 7 - 18 mg/dL AO ADM SS Urea nitrogen/Creatinine [Mass ratio] 16 ratio Invalid Interpretation Code 7 - 27 ratio AO ADM SS LABORATORYOrdered By: Rose Lundy on 12-14-2022 Basophil, Absolute 0.1 103/mcL Invalid Interpretation Code 0.0 - 0.2 10^3/mcL AO Workflow SS Basophils/100 WBC (Bld) 1.3 % Invalid Interpretation Code 0.0 - 2.5 % AO Workflow SS Eosinophil, Absolute 0.1 103/mcL Invalid Interpretation Code 0.0 - 0.4 10^3/mcL AO Workflow SS Eosinophils/100 WBC (Bld) 1.2 % Invalid Interpretation Code 0.0 - 7.0 % AO Workflow SS Erythrocyte distribution width (RBC) [Ratio] 13.3 % Invalid Interpretation Code 11.5 - 14.5 % AO Workflow SS Hematocrit (Bld) [Volume fraction] 35.4 % Invalid Interpretation Code 37.0 - 47.0 % AO Workflow SS Hemoglobin (Bld) [Mass/Vol] 12.1 G/dL Invalid Interpretation Code 12.0 - 16.0 G/dL AO Workflow SS Lymphocyte, Absolute 1.7 103/mcL Invalid Interpretation Code 0.8 - 3.9 10^3/mcL AO Workflow SS Lymphocytes/100 WBC (Bld) 34.9 % Invalid Interpretation Code 10.0 - 50.0 % AO Workflow SS MCH (RBC) [Entitic mass] 31.8 pg Invalid Interpretation Code 27.0 - 31.2 pg AO Workflow SS MCHC 34.1 G/dL Invalid Interpretation Code 33.0 - 37.0 G/dL AO Workflow SS MCV (RBC) [Entitic vol] 93.3 fL Invalid Interpretation Code 80.0 - 94.0 fL AO Workflow SS Monocyte, Absolute 0.6 103/mcL Invalid Interpretation Code 0.2 - 1.0 10^3/mcL AO Workflow SS Monocytes/100 WBC (Bld) 12.0 % Invalid Interpretation Code 1.7 - 13.0 % AO Workflow SS Neutrophil, Absolute 2.4 103/mcL Invalid Interpretation Code 2.9 - 6.2 10^3/mcL AO Workflow SS Neutrophils/100 WBC (Bld) 50.6 % Invalid Interpretation Code 37.0 - 80.0 % AO Workflow SS Platelet mean volume (Bld) [Entitic vol] 8.7 fL Invalid Interpretation Code 7.4 - 10.4 fL AO Workflow SS Platelets (Bld) [#/Vol] 188 103/mcL Invalid Interpretation Code 130 - 400 10^3/mcL AO Workflow SS RBC (Bld) [#/Vol] 3.79 106/mcL Invalid Interpretation Code 4.20 - 5.40 10^6/mcL AO Workflow SS WBC (Bld) [#/Vol] 4.8 103/mcL Invalid Interpretation Code 4.6 - 10.8 10^3/mcL AO Workflow SS LABORATORYOrdered By: Priyanka Dyson on 12-14-2022 Cholesterol [Mass/Vol] 186 mg/dL Invalid Interpretation Code 0 - 200 mg/dL AO ADM SS Cholesterol in HDL [Mass/Vol] 63 mg/dL Invalid Interpretation Code 40 - 60 mg/dL AO ADM SS Cholesterol in LDL [Mass/Vol] 86 mg/dL Invalid Interpretation Code 0 - 130 mg/dL AO ADM SS Triglyceride [Mass/Vol] 183 mg/dL Invalid Interpretation Code 0 - 150 mg/dL AO ADM SS No Panel Informationon 11-28 Culture Urine 50,000 - 100,000 cfu /ml Gram Positive Rods Sensitivity testing is not recommended for one of the following reasons: 1. Established susceptibility patterns are available or 2. Interpretative criteria are not available. [facility] Work Phone: DAPTOMYCIN:SUSC:PT:ISOLATE:O RDQN:MICon 10-12-2022 DAPTOmycin RANDOLPH [Susc] >100,000 cfu/ml Enterococcus faecium [facility] Work Phone: DAPTOmycin RANDOLPH [Susc]on Enterococcus faecium Enterococcus faecium [facility] Work Phone: Basophil percentageOrdered B y: Dr. Tabor on 07-29-2022 Bilirubin [Mass/Vol] 0.80 mg/dL 0.20-1.00 [facility] Comment on above: For patients on eltr ombopag therapy, use of Dimension [place] TBIL is not recommended. Chloride [Moles/Vol] 108 mmol/L 98-107 [facility] Glucose [Mass/Vol] 81 mg/dL 74-106 [facility] Potassium [Moles/Vol] 3.1 mmol/L 3.5-5.[address] [facility] Protein [Mass/Vol] 6.8 g/dL 6.4-8.2 [facility] Sodium [Moles/Vol] 142 mmol/L 136-145 [facility] WBC (Bld) [#/Vol] 6.1 10*3/uL 4.4-11.0 [facility] Blood erythrocytes count (nu mber/volume)Ordered By: Dr. Tabor on 07-29-2022 RBC (Bld) [#/Vol] 3.82 10*6/uL 4.2-5.4 [facility] Blood hemoglobin measurement (mass/volume)Ordered By: Dr. Tabor on 07-29-2022 Hemoglobin (Bld) [Mass/Vol] 12.5 g/dL 12.0-15.[address] [facility] Blood platelet mean volumeOr dered By: Dr. Tabor on 07-29-2022 Platelet mean volume (Bld) [Entitic vol] 10.0 fL 6.2-12.[address] [facility] Determination of erythrocyte mean corpuscular volume (MCV)Ordered By: Dr. Tabor on 07-29-2022 MCV (RBC) [Entitic vol] 96.6 fL 81-[address] [facility] Hematocrit Auto (Bld) [Volum e fraction]Ordered By: Dr. Tabor on 07-29-2022 Hematocrit (Bld) [Volume fraction] 36.9 % 37-[address] [facility] Laboratory - Chemistry and C hemistry - challengeOrdered By: Dr. Tabor on 07-29-2022 ALP [Catalytic activity/Vol] 63 U/L 45-[address] [facility] ALT [Catalytic activity/Vol] 24 U/L 13-[address] [facility] CO2 [Moles/Vol] 28.0 mmol/L 21.0-32.[address] [facility] Globulin (S) [Mass/Vol] 3.2 g/dL 2.2-4.[address] [facility] Urea nitrogen/Creatinine [Mass ratio] 17.5 mg/mg 10-[address] [facility] Laboratory - Hematology and Cell countsOrdered By: Dr. Tabor on 07-29-2022 Erythrocyte distribution width (RBC) [Entitic vol] 45.9 fL 35.1-43.[address] [facility] Erythrocyte distribution width (RBC) [Ratio] 12.9 % 11.6-14.[address] [facility] MCH (RBC) [Entitic mass] 32.7 pg 27.0-32.[address] [facility] MCHC Auto (RBC) [Mass/Vol]Or dered By: Dr. Tabor on 07-29-2022 MCHC (RBC) [Mass/Vol] 33.9 g/dL 32-[address] [facility] No Panel InformationOrdered By: Dr. Tabor on 07-29-2022 Estimated GFR (MDRD) Amer 106 mL/min >[address] [facility] Comment on above: GFR Calc Estimated GFR (MDRD) Non-Af Amer 88 mL/min >[address] [facility] Comment on above: Non- GFR Calc Platelets bldOrdered By: Dr. Tabor on 07-29-2022 Platelets (Bld) [#/Vol] 251 10*3/uL 150-[address] [facility] Serum or plasma albumin omid urement (mass/volume)Ordered By: Dr. Tabor on 07-29-2022 Albumin [Mass/Vol] 3.6 g/dL 3.2-5.0 [facility] Serum or plasma albumin/glob ulin mass ratioOrdered By: Dr. Tabor on 07-29-2022 Albumin/Globulin [Mass ratio] 1.1 {ratio} 0.9-2.[address] [facility] Serum or plasma calcium omid urement (mass/volume)Ordered By: Dr. Tabor on 07-29-2022 Calcium [Mass/Vol] 8.7 mg/dL 8.5-10.1 [facility] Serum or plasma creatinine m easurement (mass/volume)Ordered By: Dr. Tabor on 07-29-2022 Creatinine [Mass/Vol] 0.69 mg/dL 0.55-1.[address] [facility] Comment on above: The validity of the calculated GFR & GFRAA in patients over 70 years has not been determined. Clinical correlation is essential. Serum or plasma urea nitroge n measurement (mass/volume)Ordered By: Dr. Tabor on 07-29-2022 Urea nitrogen [Mass/Vol] 12 mg/dL 7-[address] [facility] Thin prep Papanicolaou smear with manual screeningOrdered By: Dr. Tabor on 07-29-2022 Thin prep Papanicolaou smear with manual screening 19 U/L 15-[address] [facility] Thin prep Papanicolaou smear with manual screening 6 5-[address] [facility] No Panel InformationOrdered By: Dr. Tabor on 07-11-2022 Stool Calprotectin 235 ug/g 0-120 [facility] Comment on above: Concentration Interp retation Follow-Up<16 - 50 ug/g Normal None>50 -120 ug/g Borderline Re-evaluate in 4-6 weeks >120 ug/g Abnormal Repeat as clinically indicatedPerformed at: - [facility] [address] [id number] Director: Rodrigo Mota MD, Phone: [phone] LABORATORYOrdered By: Priyanka Dyson on 06-07-2022 Albumin BCP dye [Mass/Vol] 3.7 G/dL Invalid Interpretation Code 3.4 - 4.8 G/dL AO ADM SS Albumin/Globulin [Mass ratio] 1.4 {ratio} Invalid Interpretation Code 1.1 - 2.5 ratio AO ADM SS ALP [Catalytic activity/Vol] 55 U/L Invalid Interpretation Code 40 - 135 U/L AO ADM SS ALT With P-5'-P [Catalytic activity/Vol] 20 U/L Invalid Interpretation Code 14 - 59 U/L AO ADM SS AST With P-5'-P [Catalytic activity/Vol] 13 U/L Invalid Interpretation Code 10 - 40 U/L AO ADM SS Bilirubin [Mass/Vol] 1.0 mg/dL Invalid Interpretation Code 0.2 - 1.0 mg/dL AO ADM SS Calcium [Mass/Vol] 8.9 mg/dL Invalid Interpretation Code 8.4 - 10.2 mg/dL AO ADM SS Chloride [Moles/Vol] 105 mmol/L Invalid Interpretation Code 98 - 107 mmol/L AO ADM SS CO2 [Moles/Vol] 32 mmol/L Invalid Interpretation Code 23 - 31 mmol/L AO ADM SS Creatinine [Mass/Vol] 0.73 mg/dL Invalid Interpretation Code 0.55 - 1.02 mg/dL AO ADM SS Electrolyte Balance 8.0 mEq/L Invalid Interpretation Code 4.0 - 15.0 mEq/L AO ADM SS Free T3 [Mass/Vol] 1.55 pg/mL Invalid Interpretation Code 2.30 - 4.00 pg/mL AO ADM SS Free T4 [Mass/Vol] 1.09 ng/dL Invalid Interpretation Code 0.76 - 1.46 ng/dL AO ADM SS Globulin 2.6 G/dL Invalid Interpretation Code AO ADM SS Glucose [Mass/Vol] 88 mg/dL Invalid Interpretation Code 83 - 110 mg/dL AO ADM SS Magnesium [Mass/Vol] 1.4 mg/dL Invalid Interpretation Code 1.8 - 2.4 mg/dL AO ADM SS Potassium [Moles/Vol] 3.5 mmol/L Invalid Interpretation Code 3.5 - 5.1 mmol/L AO ADM SS Protein [Mass/Vol] 6.3 G/dL Invalid Interpretation Code 6.4 - 8.2 G/dL AO ADM SS Sodium [Moles/Vol] 145 mmol/L Invalid Interpretation Code 136 - 145 mmol/L AO ADM SS TSH Qn 1.34 m[IU]/L Invalid Interpretation Code 0.36 - 3.74 mcIU/mL AO ADM SS Urea nitrogen [Mass/Vol] 11 mg/dL Invalid Interpretation Code 7 - 18 mg/dL AO ADM SS Urea nitrogen/Creatinine [Mass ratio] 15 ratio Invalid Interpretation Code 7 - 27 ratio AO ADM SS LABORATORYOrdered By: SYSTEM SYSTEM on 06-07-2022 GFR 93 ml/min/1.73sqm Invalid Interpretation Code AO Chemistry S GFR Non- 77 ml/min/1.73sqm Invalid Interpretation Code AO Chemistry S No Panel Informationon 05-30 Culture Urine <10,000 cfu/ml. No Significant growth. Sensitivity not indicated. [facility] Work Phone: LABORATORYOrdered By: Griselda Mckinney on 05-28-2022 Albumin BCP dye [Mass/Vol] 3.7 G/dL Invalid Interpretation Code 3.4 - 4.8 G/dL AO ADM SS Albumin/Globulin [Mass ratio] 1.5 {ratio} Invalid Interpretation Code 1.1 - 2.5 ratio AO ADM SS ALP [Catalytic activity/Vol] 65 U/L Invalid Interpretation Code 40 - 135 U/L AO ADM SS ALT With P-5'-P [Catalytic activity/Vol] 23 U/L Invalid Interpretation Code 14 - 59 U/L AO ADM SS AST With P-5'-P [Catalytic activity/Vol] 13 U/L Invalid Interpretation Code 10 - 40 U/L AO ADM SS Bilirubin [Mass/Vol] 1.2 mg/dL Invalid Interpretation Code 0.2 - 1.0 mg/dL AO ADM SS Calcium [Mass/Vol] 8.9 mg/dL Invalid Interpretation Code 8.4 - 10.2 mg/dL AO ADM SS Chloride [Moles/Vol] 106 mmol/L Invalid Interpretation Code 98 - 107 mmol/L AO ADM SS Cholesterol [Mass/Vol] 215 mg/dL Invalid Interpretation Code 0 - 200 mg/dL AO ADM SS Cholesterol in HDL [Mass/Vol] 96 mg/dL Invalid Interpretation Code 40 - 60 mg/dL AO ADM SS Cholesterol in LDL [Mass/Vol] 86 mg/dL Invalid Interpretation Code 0 - 130 mg/dL AO ADM SS CO2 [Moles/Vol] 32 mmol/L Invalid Interpretation Code 23 - 31 mmol/L AO ADM SS Creatinine [Mass/Vol] 0.79 mg/dL Invalid Interpretation Code 0.55 - 1.02 mg/dL AO ADM SS Electrolyte Balance 8.0 mEq/L Invalid Interpretation Code 4.0 - 15.0 mEq/L AO ADM SS Globulin 2.5 G/dL Invalid Interpretation Code AO ADM SS Glucose [Mass/Vol] 93 mg/dL Invalid Interpretation Code 83 - 110 mg/dL AO ADM SS Potassium [Moles/Vol] 3.2 mmol/L Invalid Interpretation Code 3.5 - 5.1 mmol/L AO ADM SS Protein [Mass/Vol] 6.2 G/dL Invalid Interpretation Code 6.4 - 8.2 G/dL AO ADM SS Sodium [Moles/Vol] 146 mmol/L Invalid Interpretation Code 136 - 145 mmol/L AO ADM SS Triglyceride [Mass/Vol] 164 mg/dL Invalid Interpretation Code 0 - 150 mg/dL AO ADM SS Urea nitrogen [Mass/Vol] 12 mg/dL Invalid Interpretation Code 7 - 18 mg/dL AO ADM SS Urea nitrogen/Creatinine [Mass ratio] 15 ratio Invalid Interpretation Code 7 - 27 ratio AO ADM SS LABORATORYOrdered By: SYSTEM SYSTEM on 05-28-2022 GFR 85 ml/min/1.73sqm Invalid Interpretation Code AO Chemistry S GFR Non- 70 ml/min/1.73sqm Invalid Interpretation Code AO Chemistry S CEFEPIME:SUSC:PT:ISOLATE:ORD QN:MICon 05-11-2022 Cefepime RANDOLPH [Susc] >100,000 cfu/ml Kleb siella pneumoniae [facility] Work Phone: Cefepime RANDOLPH [Susc]on 2021 Klebsiella pneumoniae Klebsiella pneumoniae [facility] Work Phone: MRI BRAIN WITH AND WITHOUT C [facility] 04-30-2022 MRI BRAIN WITH AND WITHOUT CONTRAST EXAM: MRI BRAIN WITH AND WITHOUT CONTRAST, 04/25/2022 12:46 PM COMPARISON: MRI brain with and without contrast dated 01/13/2021 CLINICAL INDICATIONS: 76 years Female meningioma; RELEVANT CLINICAL HISTORY: D32.9:Meningioma TECHNIQUE: A series of multisequence, multiplanar images of the brain are obtained both before and after intravenous administration of gadolinium-based contrast using standard protocol. Study was performed at [address]. CONTRAST: gadoterate Meglumine (DOTAREM) 5 MMOL/10ML injection 3-60 mL; Route of Administration: Intravenous; Dose: 11 mL. FINDINGS: Postoperative changes from prior bifrontal craniotomy and mass resection. 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 Extensive FLAIR/T2 signal abnormalities again noted most prominent within the frontal lobes, but also scattered throughout the subcortical and periventricular white matter. Unchanged dural thickening deep to the craniotomy flap, likely reactive. No abnormal areas of enhancement. No areas of restricted diffusion. Relatively symmetric ex vacuo dilatation of the of the frontal horns of the lateral ventricles, superimposed on mild generalized ventricular enlargement. No midline shift. Partially empty sella. Bilateral cataract surgery. The sinuses and mastoid air cells are clear. IMPRESSION: 1. Stable examination in comparison to prior MRI from 01/13/2021. 2. Postoperative changes from prior bifrontal craniotomy and meningioma resection with stable encephalomalacia, and gliosis within the frontal lobes. 3. The above changes are superimposed on a baseline of moderate burden of white matter disease and volume loss likely related to chronic microvascular ischemia. I personally viewed and interpreted these images and I have reviewed and approved this report. Normal [facility] No Panel Informationon 12-20 Culture Urine >100,000 cfu/ml Esch erichia coli [facility] Work Phone: Escherichia coli Escherichia coli [facility] Work Phone: LABORATORYOrdered By: Jenelle Henley on 12-15-2021 Magnesium [Mass/Vol] 1.4 mg/dL Invalid Interpretation Code 1.8 - 2.4 mg/dL AO ADM SS Potassium [Moles/Vol] 3.1 mmol/L Invalid Interpretation Code 3.5 - 5.1 mmol/L AO ADM SS LABORATORYOrdered By: SYSTEM SYSTEM on 12-14-2021 Hep B Surf Ag Non-Reactive (12/14/21 12:30 PM) Invalid Interpretation Code Non-Reacti ve AH ADM SS GFR 74 ml/min/1.73sqm Invalid Interpretation Code AO Chemistry S GFR Non- 61 ml/min/1.73sqm Invalid Interpretation Code AO Chemistry S LABORATORYOrdered By: Marcos Desir on 12-14-2021 Albumin BCP dye [Mass/Vol] 3.7 G/dL Invalid Interpretation Code 3.4 - 4.8 G/dL AO ADM SS Albumin/Globulin [Mass ratio] 1.3 {ratio} Invalid Interpretation Code 1.1 - 2.5 ratio AO ADM SS ALP [Catalytic activity/Vol] 71 U/L Invalid Interpretation Code 40 - 135 U/L AO ADM SS ALT With P-5'-P [Catalytic activity/Vol] 23 U/L Invalid Interpretation Code 14 - 59 U/L AO ADM SS AST With P-5'-P [Catalytic activity/Vol] 20 U/L Invalid Interpretation Code 10 - 40 U/L AO ADM SS Bilirubin [Mass/Vol] 0.6 mg/dL Invalid Interpretation Code 0.2 - 1.0 mg/dL AO ADM SS Calcium [Mass/Vol] 9.2 mg/dL Invalid Interpretation Code 8.4 - 10.2 mg/dL AO ADM SS Chloride [Moles/Vol] 105 mmol/L Invalid Interpretation Code 98 - 107 mmol/L AO ADM SS Cholesterol [Mass/Vol] 197 mg/dL Invalid Interpretation Code 0 - 200 mg/dL AO ADM SS Cholesterol in HDL [Mass/Vol] 67 mg/dL Invalid Interpretation Code 40 - 60 mg/dL AO ADM SS Cholesterol in LDL [Mass/Vol] 95 mg/dL Invalid Interpretation Code 0 - 130 mg/dL AO ADM SS CO2 [Moles/Vol] 28 mmol/L Invalid Interpretation Code 23 - 31 mmol/L AO ADM SS Creatinine [Mass/Vol] 0.89 mg/dL Invalid Interpretation Code 0.55 - 1.02 mg/dL AO ADM SS Electrolyte Balance 11.0 mEq/L Invalid Interpretation Code 4.0 - 15.0 mEq/L AO ADM SS Free T4 [Mass/Vol] 1.08 ng/dL Invalid Interpretation Code 0.76 - 1.46 ng/dL AO ADM SS Globulin 2.9 G/dL Invalid Interpretation Code AO ADM SS Glucose [Mass/Vol] 93 mg/dL Invalid Interpretation Code 83 - 110 mg/dL AO ADM SS Potassium [Moles/Vol] 2.6 mmol/L Invalid Interpretation Code 3.5 - 5.1 mmol/L AO ADM SS Protein [Mass/Vol] 6.6 G/dL Invalid Interpretation Code 6.4 - 8.2 G/dL AO ADM SS Sodium [Moles/Vol] 144 mmol/L Invalid Interpretation Code 136 - 145 mmol/L AO ADM SS Triglyceride [Mass/Vol] 175 mg/dL Invalid Interpretation Code 0 - 150 mg/dL AO ADM SS TSH Qn 0.69 m[IU]/L Invalid Interpretation Code 0.36 - 3.74 mcIU/mL AO ADM SS Urea nitrogen [Mass/Vol] 15 mg/dL Invalid Interpretation Code 7 - 18 mg/dL AO ADM SS Urea nitrogen/Creatinine [Mass ratio] 17 ratio Invalid Interpretation Code 7 - 27 ratio AO ADM SS LABORATORYOrdered By: Tonny Sanders on 12-14-2021 Basophil, Absolute 0.00 103/mcL Invalid Interpretation Code 0.00 - 0.19 10^3/mcL AO Auto Heme SS Basophils/100 WBC (Bld) 0.3 % Invalid Interpretation Code 0.0 - 2.5 % AO Auto Heme SS Eosinophil, Absolute 0.00 103/mcL Invalid Interpretation Code 0.00 - 0.40 10^3/mcL AO Auto Heme SS Eosinophils/100 WBC (Bld) 0.0 % Invalid Interpretation Code 0.0 - 7.0 % AO Auto Heme SS Erythrocyte distribution width (RBC) [Ratio] 13.1 % Invalid Interpretation Code 11.5 - 14.5 % AO Auto Heme SS Hematocrit (Bld) [Volume fraction] 35.0 % Invalid Interpretation Code 37.0 - 47.0 % AO Auto Heme SS Hemoglobin (Bld) [Mass/Vol] 12.6 G/dL Invalid Interpretation Code 12.0 - 16.0 G/dL AO Auto Heme SS Lymphocyte, Absolute 1.60 103/mcL Invalid Interpretation Code 0.77 - 3.85 10^3/mcL AO Auto Heme SS Lymphocytes/100 WBC (Bld) 18.9 % Invalid Interpretation Code 10.0 - 50.0 % AO Auto Heme SS MCH (RBC) [Entitic mass] 32.8 pg Invalid Interpretation Code 27.0 - 31.2 pg AO Auto Heme SS MCHC (RBC) [Mass/Vol] 36.0 G/dL Invalid Interpretation Code 33.0 - 37.0 G/dL AO Auto Heme SS MCV (RBC) [Entitic vol] 91.3 fL Invalid Interpretation Code 80.0 - 94.0 fL AO Auto Heme SS Monocyte, Absolute 0.60 103/mcL Invalid Interpretation Code 0.15 - 1.00 10^3/mcL AO Auto Heme SS Monocytes/100 WBC (Bld) 7.7 % Invalid Interpretation Code 1.7 - 13.0 % AO Auto Heme SS Neutrophil, Absolute 6.10 103/mcL Invalid Interpretation Code 2.85 - 6.16 10^3/mcL AO Auto Heme SS Neutrophils/100 WBC (Bld) 73.1 % Invalid Interpretation Code 37.0 - 80.0 % AO Auto Heme SS Platelet mean volume (Bld) [Entitic vol] 8.3 fL Invalid Interpretation Code 7.4 - 10.4 fL AO Auto Heme SS Platelets (Bld) [#/Vol] 258 103/mcL Invalid Interpretation Code 130 - 400 10^3/mcL AO Auto Heme SS RBC (Bld) [#/Vol] 3.84 106/mcL Invalid Interpretation Code 4.20 - 5.40 10^6/mcL AO Auto Heme SS WBC (Bld) [#/Vol] 8.40 103/mcL Invalid Interpretation Code 4.60 - 10.80 10^3/mcL AO Auto Heme SS Basophil percentageon 2021 Bilirubin [Mass/Vol] 0.70 mg/dL 0.20-1.00 [facility] Work Phone: Comment on above: For patients on eltr ombopag therapy, use of Dimension [place] TBIL is not recommended. Cholesterol [Mass/Vol] 189 mg/dL <[address] [facility] Work Phone: Comment on above: <200 mg/dL Desirable 200-240 mg/dL Borderline >240 mg/dL High Risk Protein [Mass/Vol] 6.5 g/dL 6.4-8.2 [facility] Work Phone: Triglyceride [Mass/Vol] 176 mg/dL [facility] Work Phone: Comment on above: The drugs N-Acetylcy steine and Metamizole may falsely depress this assay.Serum Triglycerides Reference Interval Normal <150 mg/dL Borderline high 150 - 199 mg/dL High 200 - 499 mg/dL Very High > or = 500 mg/dL Direct bilirubinon Bilirubin.direct [Mass/Vol] 0.17 mg/dL 0.00-0.[address] [facility] Work Phone: Laboratory - Chemistry and C hemistry - challengeon 11-25-2021 ALP [Catalytic activity/Vol] 60 U/L 45-[address] [facility] Work Phone: ALT [Catalytic activity/Vol] 23 U/L 13-[address] [facility] Work Phone: Globulin (S) [Mass/Vol] 2.8 g/dL 2.2-4.[address] [facility] Work Phone: Serum or plasma albumin omid urement (mass/volume)on 11-25-2021 Albumin [Mass/Vol] 3.7 g/dL 3.2-5.0 [facility] Work Phone: Serum or plasma cholesterol in HDL measurement (mass/volume)on 11-25-2021 Cholesterol in HDL [Mass/Vol] 78 mg/dL [facility] Work Phone: Comment on above: The drugs N-Acetylcy steine and Metamizole may falsely depress this assay. Reference Range HDL <40 mg/dL Low HDL Cholesterol HDL >or= 60 mg/dL High HDL Cholesterol Serum or plasma cholesterol in VLDL measurement (mass/volume)on 11-25-2021 Cholesterol in VLDL [Mass/Vol] 35 mg/dL 5-[address] [facility] Work Phone: Serum or plasma low density lipoprotein (LDL) cholesterol measurement (mass/volume)on 11-25-2021 Cholesterol in LDL [Mass/Vol] 76 mg/dL 0-[address] [facility] Work Phone: Thin prep Papanicolaou smear with manual screeningon 11-25-2021 Thin prep Papanicolaou smear with manual screening 16 U/L 15-[address] [facility] Work Phone: No Panel Informationon 11-17 Stool Calprotectin 190 ug/g [facility] Work Phone: Comment on above: Concentration Interp retation Follow-Up<16 - 50 ug/g Normal None>50 -120 ug/g Borderline Re-evaluate in 4-6 weeks >120 ug/g Abnormal Repeat as clinically indicatedPerformed at: [facility] [address] [id number] Director: Rodrigo Mota MD, Phone: [phone] No Panel Informationon 11-09 Miscellaneous Test See comment [facility] Work Phone: Comment on above: Scanned image report available in EMR LABORATORYOrdered By: Marcos Desir on 10-04-2021 TSH Qn 1.75 m[IU]/L Invalid Interpretation Code 0.36 - 3.74 mcIU/mL AO ADM SS No Panel Informationon 09-07 Stool Calprotectin 102 ug/g [facility] Work Phone: Comment on above: Concentration Interp retation Follow-Up<16 - 50 ug/g Normal None>50 -120 ug/g Borderline Re-evaluate in 4-6 weeks >120 ug/g Abnormal Repeat as clinically indicatedPerformed at: [facility] [id number] Director: Rodrigo Mota MD, Phone: [phone] Basophil percentageon 2021 WBC (Bld) [#/Vol] 6.4 10*3/uL 4.4-11.0 [facility] Work Phone: Blood erythrocytes count (nu mber/volume)on 09-06-2021 RBC (Bld) [#/Vol] 3.80 10*6/uL 4.2-5.4 [facility] Work Phone: Blood hemoglobin measurement (mass/volume)on 09-06-2021 Hemoglobin (Bld) [Mass/Vol] 12.4 g/dL 12.0-15.[address] [facility] Work Phone: Blood platelet mean volumeon 09-06-2021 Platelet mean volume (Bld) [Entitic vol] 10.6 fL 6.2-12.[address] [facility] Work Phone: Determination of erythrocyte mean corpuscular volume (MCV)on 09-06-2021 MCV (RBC) [Entitic vol] 93.9 fL 81-[address] [facility] Work Phone: Erythrocyte sedimentation ra sharla 09-06-2021 ESR (Bld) [Velocity] 5 mm/h 0-30 [facility] Work Phone: Hematocrit Auto (Bld) [Volum e fraction]on 09-06-2021 Hematocrit (Bld) [Volume fraction] 35.7 % 37-[address] [facility] Work Phone: Laboratory - Hematology and Cell countson 09-06-2021 Erythrocyte distribution width (RBC) [Entitic vol] 42.5 fL 35.1-43.[address] [facility] Work Phone: Erythrocyte distribution width (RBC) [Ratio] 12.3 % 11.6-14.[address] [facility] Work Phone: MCH (RBC) [Entitic mass] 32.6 pg 27.0-32.[address] [facility] Work Phone: MCHC Auto (RBC) [Mass/Vol]on 09-06-2021 MCHC (RBC) [Mass/Vol] 34.7 g/dL 32-[address] [facility] Work Phone: Platelets bldon 09-06-2021 Platelets (Bld) [#/Vol] 205 10*3/uL 150-[address] [facility] Work Phone: Serum or plasma C reactive p rotein measurement (mass/volume)on 09-06-2021 CRP [Mass/Vol] mg/L 0.0-3.[address] [facility] Work Phone: Comment on above: C-Reactive Protein ( CRP) provides useful information for thediagnosis, therapy and monitoring of inflammatory processesand associated diseases. For the evaluation of Relative Riskfor Cardiovascular Disease, a High Sensitivity CRP (HSCRP)should be ordered. LABORATORYOrdered By: Tonny Sanders on 08-10-2021 TSH Qn 4.77 m[IU]/L Invalid Interpretation Code 0.36 - 3.74 mcIU/mL AO ADM SS Vital Signs Date Time Vital Sign Value Performing Clinician Facility 01-07-2025 08:36-0400 Body mass index (BMI) [Ratio] 20.6 kg/m2 Dr. Ruth Au MD Work Phone: [facility] 01-07-2025 08:36-0400 Body weight 56.[address] Ruth Au MD Work Phone: [facility] 01-07-2025 08:36-0400 Diastolic blood pressure 68 mm[Hg] Dr. Ruth Au MD Work Phone: [facility] 01-07-2025 08:36-0400 Heart rate 60 /min Dr. Ruth Au MD Work Phone: [facility] 01-07-2025 08:36-0400 Respiratory rate 18 /min Dr. Ruth Au MD Work Phone: [facility] 01-07-2025 08:36-0400 Systolic blood pressure 125 mm[Hg] Dr. Ruth Au MD Work Phone: [facility] 05-13-2023 20:30-0400 Body temperature 97.16 [degF] CARMEN CANDELARIO DO [facility] 05-13-2023 20:30-0400 Diastolic Blood Pressure Non-Invasive 79 1 CARMEN CANDELARIO DO [facility] 05-13-2023 20:30-0400 Heart rate 67 /min CARMEN CANDELARIO DO [facility] 05-13-2023 20:30-0400 Respiratory rate 21 /min CARMEN CANDELARIO DO [facility] 05-13-2023 20:30-0400 Systolic Blood Pressure Non-Invasive 158 1 CARMEN CANDELARIO DO [facility] 04-11-2023 13:51-0400 Body height 165.[address] Ruth Au Work Phone: [facility] 04-11-2023 13:43-0400 Body mass index (BMI) [Ratio] 20.3 kg/m2 Dr. Ruth Au Work Phone: [facility] 04-11-2023 13:43-0400 Body weight 55.[address] Ruth Au Work Phone: [facility] 04-11-2023 13:43-0400 Diastolic blood pressure 82 mm[Hg] Dr. Ruth Au Work Phone: [facility] 04-11-2023 13:43-0400 Systolic blood pressure 144 mm[Hg] Dr. Ruth Au Work Phone: [facility] 12-05-2022 14:04-0400 Body height 165.[address] Ruth Au Work Phone: [facility] 12-05-2022 14:04-0400 Body mass index (BMI) [Ratio] 21.2 kg/m2 Dr. Ruth Au Work Phone: [facility] 12-05-2022 14:04-0400 Body weight 57.[address] Ruth Au Work Phone: [facility] 12-05-2022 14:04-0400 Diastolic blood pressure 74 mm[Hg] Dr. Ruth Au Work Phone: [facility] 12-05-2022 14:04-0400 Heart rate 64 /min Dr. Ruth Au Work Phone: [facility] 12-05-2022 14:04-0400 Respiratory rate 16 /min Dr. Ruth Au Work Phone: [facility] 12-05-2022 14:04-0400 Systolic blood pressure 127 mm[Hg] Dr. Ruth Au Work Phone: [facility] 06-13-2022 14:48-0400 Body height 165.[address] Ruth Au Work Phone: [facility] 06-13-2022 14:48-0400 Body mass index (BMI) [Ratio] 20.7 kg/m2 Dr. Ruth uA Work Phone: [facility] 06-13-2022 14:48-0400 Body weight 56.[address] Ruth Au Work Phone: [facility] 06-13-2022 14:48-0400 Diastolic blood pressure 62 mm[Hg] Dr. Ruth Au Work Phone: [facility] 06-13-2022 14:48-0400 Heart rate 68 /min Dr. Ruth Au Work Phone: [facility] 06-13-2022 14:48-0400 Respiratory rate 16 /min Dr. Ruth Au Work Phone: [facility] 06-13-2022 14:48-0400 Systolic blood pressure 108 mm[Hg] Dr. Ruth Au Work Phone: [facility] 12-02-2021 15:03-0400 Body height 165.[address] Ruth Au Work Phone: [facility] Work Phone: 12-02-2021 15:03-0400 Body mass index (BMI) [Ratio] 20.3 kg/m2 Dr. uRth Au Work Phone: [facility] Work Phone: 12-02-2021 15:03-0400 Body weight 55.[address] Ruth Au Work Phone: [facility] Work Phone: 12-02-2021 15:03-0400 Diastolic blood pressure 68 mm[Hg] Dr. Ruth Au Work Phone: [facility] Work Phone: 12-02-2021 15:03-0400 Heart rate 64 /min Dr. Ruth Au Work Phone: [facility] Work Phone: 12-02-2021 15:03-0400 Respiratory rate 16 /min Dr. Ruth Au Work Phone: [facility] Work Phone: 12-02-2021 15:03-0400 Systolic blood pressure 114 mm[Hg] Dr. Ruth Au Work Phone: [facility] Work Phone: Encounters Encounter Date Encounter Type Care Provider Facility Start: 01-21-2025 End: 01-21-[address] Ruth Au MD Work Phone: [facility] Work Phone: Start: 01-21-2025 End: 01-21-[address] Pam Whipple MD -Laboratory Work Phone: Start: 01-21-2025 End: 01-21-2025 ambulatory [facility] Facility:[facility] Start: 01-07-2025 End: 01-07-[address] Pam Whipple MD -[facility] Work Phone: Start: 01-07-2025 End: 01-07-[address] Ruth Au MD Work Phone: [facility] Work Phone: Start: 01-04-2025 End: 01-04-[address] Ruth Au MD Work Phone: [facility] Work Phone: Start: 01-04-2025 End: 01-04-[address] Pam Whipple MD -Laboratory Work Phone: Start: 01-04-2025 End: 01-04-2025 ambulatory Pam Sarabjit Facility:[facility] Start: 01-01-2025 End: 01-05-2025 ambulatory RUTH AU MD [facility] Start: 01-01-2025 End: 01-05-2025 Outreach Lab RUTH AU MD [facility] Start: 12-05-2024 End: 12-09-2024 ambulatory RUTH AU MD [facility] Start: 12-05-2024 End: 12-09-2024 Outreach Lab RUTH AU MD [facility] Start: 11-27-2024 End: 11-27-2024 ambulatory RUTH AU MD Facility[facility] Start: 10-21-2024 End: 10-25-2024 ambulatory RUTH AU MD [facility] Start: 08-30-2024 End: 08-30-2024 ambulatory Cindy LORA Facility:[facility] Start: 08-13-2024 ambulatory Ruth Au Facility: [facility] Start: 08-12-2024 End: 08-16-[address]ER EMAIL MARKETING SPECIALIST-PUBLIC RELATIONS ANALYST Facility:[facility] Start: 08-12-2024 End: 08-16-2024 Outreach Lab E[address]ER EMAIL MARKETING SPECIALIST-PUBLIC RELATIONS ANALYST [facility] Start: 07-31-2024 End: 08-04-2024 ambulatory [facility] EMAIL MARKETING SPECIALIST-PUBLIC RELATIONS ANALYST Facility:[facility] Start: 07-31-2024 End: 08-04-2024 Outreach Lab [facility] EMAIL MARKETING SPECIALIST-PUBLIC RELATIONS ANALYST [facility] Start: 07-12-2024 End: 07-16-2024 ambulatory RUTH AU MD Facility[facility] Start: 07-12-2024 End: 07-16-2024 Outreach Lab RUTH AU MD [facility] Start: 07-04-2024 End: 07-04-2024 ambulatory Angela Gold Facility:[facility] Start: 07-02-2024 End: 07-02-2024 ambulatory Ruth Au Facility:[facility] Start: 06-28-2024 End: 06-28-2024 ambulatory RUTH AU MD Facility[facility] [place] Start: 06-28-2024 End: 06-28-2024 Patient encounter procedure RUTH AU MD [facility] Start: 05-24-2024 End: 05-24-2024 ambulatory AIDA SEFFENS EMAIL MARKETING SPECIALIST-PUBLIC RELATIONS ANALYST Facility:[facility] Start: 05-24-2024 End: 05-24-2024 Patient encounter procedure AIDA SEFFENS EMAIL MARKETING SPECIALIST-PUBLIC RELATIONS ANALYST [facility] Start: 05-15-2024 End: 05-19-2024 ambulatory AIDA SEFFENS EMAIL MARKETING SPECIALIST-PUBLIC RELATIONS ANALYST Facility:[facility] Start: 05-15-2024 End: 05-19-2024 Outreach Lab AIDA SEFFENS EMAIL MARKETING SPECIALIST-PUBLIC RELATIONS ANALYST [facility] Start: 04-11-2024 End: 04-15-2024 ambulatory RUTH AU MD Facility:[facility] Start: 04-11-2024 End: 04-15-2024 Outreach Lab RUTH AU MD [facility] Start: 02-06-2024 End: 02-10-2024 ambulatory SAYEDA ARON EMAIL MARKETING SPECIALIST-PUBLIC RELATIONS ANALYST Facility:[facility] Start: 02-06-2024 End: 02-10-2024 Outreach Lab SAYEDA ARON EMAIL MARKETING SPECIALIST-PUBLIC RELATIONS ANALYST [facility] Start: 01-12-2024 End: 01-12-2024 ambulatory RUTH AU MD Facility:[facility] Start: 01-12-2024 End: 01-12-2024 Patient encounter procedure RUTH AU MD [facility] Start: 01-05-2024 End: 01-05-2024 ambulatory RUTH AU MD Facility:[facility] Start: 01-05-2024 End: 01-05-2024 Patient encounter procedure RUTH AU MD [facility] Start: 11-23-2023 End: 11-27-2023 ambulatory RUTH AU MD Facility:[facility] Start: 11-23-2023 End: 11-27-2023 Outreach Lab RUTH AU MD [facility] Start: 10-25-2023 End: 10-29-2023 ambulatory BANDAR LOMELI MD Facility:[facility] Start: 10-25-2023 End: 10-29-2023 Outreach Lab BANDAR LOMELI MD [facility] Start: 10-21-2023 End: 10-25-[address] MEHRDAD SANTILLAN DO Facility:[facility] Start: 06-23-2023 End: 06-27-2023 ambulatory RUTH AU MD Facility:[facility] Start: 06-15-2023 End: 06-15-2023 ambulatory RUTH AU MD Facility:[facility] Start: 06-14-2023 End: 08-30-2023 ambulatory MOLLY CALVO DO Facility:[facility] Start: 06-14-2023 End: 08-30-2023 Physical therapy management MOLLY CALVO DO [facility] Start: 05-13-2023 End: 05-13-2023 Emergency department patient visit CARMEN CANDELARIO DO [facility] Start: 04-11-2023 End: 04-11-[address] Ruth Au Work Phone: [facility] Work Phone: Start: 04-11-2023 End: 04-11-[address] Ruth Au Work Phone: [facility], Specimen Work Phone: Start: 04-11-2023 End: 04-11-[address] Ruth Au Work Phone: [facility] Work Phone: Start: 03-16-2023 End: 03-16-[address] Ruth Au Work Phone: [facility] Work Phone: Start: 03-16-2023 End: 03-16-[address] Ruth Au Work Phone: [facility] Work Phone: Start: 02-22-2023 End: 02-22-[address] Ruth Au Work Phone: [facility] Work Phone: Start: 02-22-2023 End: 02-22-[address] [facility] [place] Work Phone: Start: 12-21-2022 End: 12-25-2022 Outreach Lab RUTH AU MD [facility] Start: 12-14-2022 End: 12-14-2022 Patient encounter procedure RUTH AU MD [facility] Start: 12-05-2022 End: 12-05-[address] Ruth Au Work Phone: [facility] Work Phone: Start: 11-28-2022 End: 12-02-2022 Outreach Lab NELI SPIVEY APRN-PUBLIC RELATIONS ANALYST [facility] Start: 11-23-2022 Non-patient / Non-visit Dr. Ruth Au Work Phone: [facility] Work Phone: Start: 10-12-2022 End: 10-16-2022 Outreach Lab RUTH AU MD [facility] Start: 09-12-2022 End: 09-12-[address] Ruth Au Work Phone: [facility] Work Phone: Start: 09-12-2022 End: 09-12-[address] Ruth Au Work Phone: [facility] Start: 07-29-2022 End: 07-29-[address] Ruth Au Work Phone: [facility] Work Phone: Start: 07-29-2022 End: 07-29-[address] Ruth Au Work Phone: [facility] Start: 07-11-2022 End: 07-11-[address] Ruth Au Work Phone: [facility] Spec[facility] Start: 07-06-2022 ambulatory [facility] Start: 06-13-2022 End: 06-13-[address] Ruth Au Work Phone: [facility] Start: 06-07-2022 End: 06-07-2022 Patient encounter procedure RUTH AU MD [facility] Start: 05-30-2022 End: 06-03-2022 Outreach Lab KERA LUIS MD [facility] Start: 05-28-2022 End: 05-28-2022 Patient encounter procedure RUTH AU MD [facility] Start: 05-11-2022 End: 05-15-2022 Outreach Lab UDAY PANTOJA DO [facility] Start: 04-25-2022 ambulatory RUTH AU Facility: [facility] Start: 04-25-2022 ambulatory RUTH AU Facility: [facility] Start: 01-05-2022 End: 01-05-2022 Subsequent hospital visit by physician Georgina Ndiaye MD Work Phone: [facility] Comment on above: Canceled (Cancel [place] son Not Listed - Please provide detailed information) Start: 01-05-2022 ambulatory RUTH AU Facility: [facility] Start: 12-20-2021 End: 12-24-2021 Outreach Lab AIDA GOLD EMAIL MARKETING SPECIALIST-PUBLIC RELATIONS ANALYST [facility] Start: 12-15-2021 End: 12-15-2021 Patient encounter procedure ELLA STRE[employer]ER EMAIL MARKETING SPECIALIST-PUBLIC RELATIONS ANALYST [facility] Start: 12-14-2021 End: 12-14-[address] JOSE TABOR MD [facility] Start: 12-02-2021 End: 12-02-[address] Ruth Au Work Phone: [facility] Start: 11-25-2021 End: 11-25-2021 Patient encounter procedure [facility] Start: 11-17-2021 End: 11-17-2021 Patient encounter procedure [facility] Start: 11-09-2021 End: 11-09-2021 Patient encounter procedure [facility] Start: 10-04-2021 End: 10-04-2021 Patient encounter procedure JOSE OCAMPO MD [facility] Start: 09-07-2021 End: 09-07-2021 Patient encounter procedure [facility] Start: 09-06-2021 End: 09-06-2021 Patient encounter procedure [facility] Start: 08-10-2021 End: 08-10-2021 Patient encounter procedure JOSE OCAMPO MD [facility] Procedures Date Procedure Procedure Detail Performing Clinician Start: 03-16-[address] 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 [facility] Start: 08-14-2013 Benign neoplasm of m eninges (disorder) JOSE OCAMPO MD Start: 08-14-2008 Cardiac catheterization JOSE OCAMPO MD Start: 08-14-1990 Excision of breast tissue JOSE OCAMPO MD Dilation and curettage JOSE OCAMPO MD Mastoidectomy JOSE OCAMPO MD Comment on above: R EAR Tonsillectomy and adenoidectomy JOSE OCAMPO MD Tubal occlusion JOSE OCAMPO MD Plan of Treatment Date Care Activity Detail Author Start: 02-25-2025 ambulatory Ambulatory Facility:[facility] Start: 02-22-[address] [facility] Start: 09-12-[address] [facility] Start: 04-25-2022 End: 04-25-2022 Patient encounter procedure 04/25/2022 Office Visit Neurosurgery Neuro Oncology Georgina Ndiaye MD [address] [place] [address] Division of Neuro Oncology at [facility] Start: 03-23-2021 COVID-19 VACCINE (3 - Booster for Moderna series) COVID-19 VACCINE (3 - Booster for Moderna series) [facility] Start: 12-06-2014 Colonoscopy COLORECTAL CANCER SCREENING DISCUSSION [facility] Start: 2008 Pneumococcal vaccination PNEUMOCOCCAL VACCINE SERIES (1 - PCV) [facility] Start: 1993 Zoster vaccine hzv live for subcutaneous use ZOSTER (SHINGLES) VACCINE (1 of 2) [facility] Start: 1964 Screening for malignant neoplasm of cervix CERVICAL CANCER SCREENING DISCUSSION [facility] Start: 1962 Third diphtheria, tetanus and acellular pertussis (DTaP) vaccination TDAP (ADULT) [facility] Start: 1961 Tetanus vaccination TETANUS [facility] Start: 1943 Hepatitis C antibody, confirmatory test HEPATITIS C VIRUS SCREENING [facility] Start: 1943 Screening for osteoporosis DEXA SCAN DISCUSSION [facility] Basic metabolic 2008 panel with ionized calcium - Serum or Plasma [facility] NM Heart Views W str ess and W radionuclide IV [facility] NM Heart Views W str ess and W radionuclide IV [facility] Immunizations Immunization Date Immunization Notes Care Provider Fa [facility] 11-27-2023 tetanus toxoid, redu jenna diphtheria toxoid, and acellular pertussis vaccine, adsorbed RUTH AU MD [facility] 06-23-2023 influenza, high dose seasonal, preservative-free; Translations: [Fluad Quadrivalent PF ] MOLLY CALVO DO [facility] 04-29-2022 influenza virus vacc ine, unspecified formulation KERA LUIS MD [facility] 06-25-2021 SARS-CoV-2 (COVID-19 ) mRNA-1273 vaccine KERA LUIS MD [facility] 05-13-2021 influenza virus vacc ine, unspecified formulation JOSE OCAMPO MD [facility] 05-08-2021 Influenza virus vaccine [facility] 10-21-2020 SARS-CoV-2 (COVID-19 ) mRNA-1273 vaccine JOSE OCAMPO MD [facility] Comment on above: Result Comment: 2020: [id number] 10-20-2020 Covid (Moderna) [facility] 09-24-2020 SARS-CoV-2 (COVID-19 ) mRNA-1273 vaccine JOSE OCAMPO MD [facility] 09-22-2020 Covid (Moderna) [facility] 04-16-2020 influenza virus vacc ine, unspecified formulation JOSE OCAMPO MD [facility] 05-07-2019 influenza virus vacc ine, unspecified formulation JOSE OCAMPO MD [facility] 05-16-2018 influenza virus vacc ine, unspecified formulation JOSE OCAMPO MD [facility] 01-07-2018 tetanus toxoid, redu jenna diphtheria toxoid, and acellular pertussis vaccine, adsorbed JOSE OCAMPO MD [facility] 05-10-2017 influenza virus vacc ine, unspecified formulation JOSE OCAMPO MD [facility] 05-03-2016 influenza virus vacc ine, unspecified formulation JOSE OCAMPO MD [facility] 05-14-2015 influenza virus vacc ine, unspecified formulation JOSE OCAMPO MD [facility] 05-22-2014 influenza virus vacc ine, unspecified formulation JOSE OCAMPO MD [facility] 05-07-2013 influenza virus vacc ine, unspecified formulation JOSE OCAMPO MD [facility] 05-19-2012 influenza virus vacc ine, unspecified formulation JOSE OCAMPO MD [facility] 12-30-2009 zoster vaccine, live JOSE POLANCO MD [facility] 07-11-2005 pneumococcal polysaccharide vaccine, 23 valent JOSE OCAMPO MD [facility] Payers Date Payer Category Payer Self-pay [id number] 2024 Medicare [id number] 2023 Medicare [id number] 2021 Private Health Insurance [id number] 2020 Unknown [id number] 2020 Unknown [id number] [id number] 2011 Unknown [id number] 2008 Medicare [id number] 2008 Medicare [id number] 2008 Medicare [id number] [id number] 1943 Unknown [id number] 2.16.8 40.1.463330.3.579.2.627 1943 Unknown [id number] 2.16.8 40.1.931302.3.579.2.627 1943 Unknown [id number] 2.16.8 40.1.551816.3.579.2. 1943 Unknown [id number] 2.16.8 40.1.275666.3.579.2. 1943 Unknown [id number] 2.16.8 40.1.936720.3.579.2. 1943 Unknown [id number] 2.16.8 40.1.886123.3.579.2. 1943 Unknown [id number] 2.16.8 40.1.499225.3.579.2. 1943 Unknown [id number] 2.16.8 40.1.886315.3.579.2. 1943 Unknown [id number] 2.16.8 40.1.593763.3.579.2. 1943 Unknown [id number] 2.16.8 40.1.895921.3.579.2. 1943 Unknown [id number] 2.16.8 40.1.809458.3.579.2. 1943 Unknown [id number] 2.16.8 40.1.978217.3.579.2. 1943 Unknown [id number] 2.16.8 40.1.677972.3.579.2. 1943 Unknown [id number] 2.16.8 40.1.581459.3.579.2. 1943 Unknown [id number] 2.16.8 40.1.891211.3.579.2. 1943 Unknown [id number] 2.16.8 40.1.635157.3.579.2. 1943 Unknown [id number] 2.16.8 40.1.530410.3.579.2.627 1943 Unknown [id number] 2.16.8 40.1.043508.3.579.2.627 1943 Unknown [id number] 2.16.8 40.1.639227.3.579.2.627 1943 Unknown [id number] 2.16.8 40.1.140254.3.579.2.627 1943 Unknown [id number] 2.16.8 40.1.924620.3.579.2.627 1943 Unknown [id number] 2.16. 840.1.755669.3.579.2.594 1943 Unknown [id number] 2.16. 840.1.590200.3.579.2.594 1943 Unknown [id number] 2.. 840.1.614015.3.579.2.594 Unknown [id number] Unknown [id number] 2.16.8 40.1.928542.3.579.2.462 Unknown [id number] 2.16.8 40.1.697029.3.579.2.462 Unknown [id number] 2.16.8 40.1.953700.3.579.2.462 Unknown [id number] 2.16.8 40.1.696284.3.579.2.462 Unknown [id number] 2.16.8 40.1.119841.3.579.2.462 Unknown [id number] 2.16.8 40.1.162492.3.579.2.462 Unknown [id number] 2.16.8 40.1.855230.3.579.2.462 Unknown [id number] 2.16.8 40.1.646762.3.579.2.462 Unknown [id number] 2.16.8 40.1.473746.3.579.2.462 Social History Date Type Detail Facility Start: 06-10-2019 End: 07-12-2023 Never smoked tobacco (finding) [facility] Start: 1945 Sex Assigned At Female A [facility] Start: 06-04-2021 End: 04-11-2023 Tobacco smoking status CTIS Unknown if ever smoked 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 (finding) [facility] Start: 11-06-2013 History SDOH Alcohol Comment rarely [facility] Start: 1945 Sex Assigned At Not on file [facility] Start: 02-06-2019 Sex Female (finding) [facility] Medical Equipment Procedure Code Equipment Code Equipment Origin al Text Equipment Identifier Dates Thyroidectomy SUTURE,LIGA CLIP SM LT-100 FDA Start: 06-11-2021 Thyroidectomy SUTURE,LIGA CLIP SM LT-100 FDA Start: 06-11-2021 Thyroidectomy SUTURE,LIGA CLIP SM LT-100 FDA Start: 06-11-2021 Thyroidectomy SUTURE,LIGA CLIP SM LT-100 FDA Start: 06-11-2021 Thyroidectomy SUTURE,LIGA CLIP SM LT-100 FDA Start: 06-11-2021 Thyroidectomy SUTURE,LIGA CLIP SM LT-100 FDA Start: 06-11-2021 Thyroidectomy SUTURE,LIGA CLIP SM LT-100 FDA Start: 06-11-2021 Thyroidectomy SUTURE,LIGA CLIP SM LT-100 FDA Start: 06-11-2021 Thyroidectomy SUTURE,LIGA CLIP SM LT-100 FDA Start: 06-11-2021 Thyroidectomy SUTURE,LIGA CLIP SM LT-100 FDA Start: 06-11-2021 Thyroidectomy SUTURE,LIGA CLIP SM LT-100 FDA Start: 06-11-2021 Thyroidectomy SUTURE,LIGA CLIP SM LT-100 FDA Start: 06-11-2021 Thyroidectomy SUTURE,LIGA CLIP SM LT-100 FDA Start: 06-11-2021 Thyroidectomy SUTURE,LIGA CLIP SM LT-100 FDA Start: 06-11-2021 Thyroidectomy SUTURE,LIGA CLIP SM LT-100 FDA Start: 06-11-2021 Thyroidectomy SUTURE,LIGA CLIP SM LT-100 FDA Start: 06-11-2021 Thyroidectomy SUTURE,LIGA CLIP SM LT-100 FDA Start: 06-11-2021 Thyroidectomy SUTURE,LIGA CLIP SM LT-100 FDA Start: 06-11-2021 Thyroidectomy SUTURE,LIGA CLIP SM LT-100 FDA Start: 06-11-2021 Thyroidectomy SUTURE,LIGA CLIP SM LT-100 FDA Start: 06-11-2021 Thyroidectomy SUTURE,LIGA CLIP SM LT-100 FDA Start: 06-11-2021 Thyroidectomy SUTURE,LIGA CLIP SM LT-100 FDA Start: 06-11-2021 FDA Start: 12-12-2017 FDA Start: 12-12-2017 FDA Start: 12-12-2017 FDA Start: 12-12-2017 FDA Start: 12-12-2017 FDA Start: 12-12-2017 FDA Start: 12-12-2017 FDA Start: 12-12-2017 FDA Start: 12-12-2017 FDA Start: 12-12-2017 FDA Start: 12-12-2017 FDA Start: 12-12-2017 FDA Start: 12-12-2017 FDA Start: 12-12-2017 FDA Start: 12-12-2017 FDA Start: 12-12-2017 FDA Start: 12-12-2017 FDA Start: 12-12-2017 Screw 1.5x4.0mm [id number] - [id number] Start: 11-22-2013 Unknown Unknown 5 Unknown Unknown FDA Start: 12-12-2017 FDA Start: 12-12-2017 FDA Start: 12-12-2017 Unknown Unknown 5//18 Unknown Unknown FDA Start: 12-12-2017 FDA Start: 12-12-2017 FDA Start: 12-12-2017 Unknown Unknown 5 Unknown Unknown FDA Start: 12-12-2017 FDA Start: 12-12-2017 FDA Start: 12-12-2017 Unknown Unknown 5/18 Unknown Unknown FDA Start: 12-12-2017 FDA Start: 12-12-2017 FDA Start: 12-12-2017 Unknown Unknown 5/1/18 Unknown Unknown FDA Start: 12-12-2017 FDA Start: 12-12-2017 FDA Start: 12-12-2017 Unknown Unknown 5/1/18 Unknown Unknown FDA Start: 12-12-2017 FDA Start: 12-12-2017 FDA Start: 12-12-2017 Unknown Unknown 5/1/18 Unknown Unknown FDA Start: 12-12-2017 FDA Start: 12-12-2017 FDA Start: 12-12-2017 Unknown Unknown 5/1/18 Unknown Unknown FDA Start: 12-12-2017 FDA Start: 12-12-2017 FDA Start: 12-12-2017 Unknown Unknown 5/1/18 Unknown Unknown FDA Start: 12-12-2017 FDA Start: 12-12-2017 FDA Start: 12-12-2017 Unknown Unknown 5/1/18 Unknown Unknown FDA Start: 12-12-2017 FDA Start: 12-12-2017 FDA Start: 12-12-2017 Unknown Unknown 5/1/18 Unknown Unknown FDA Start: 12-12-2017 FDA Start: 12-12-2017 FDA Start: 12-12-2017 Unknown Unknown 5/1/18 Unknown Unknown FDA Start: 12-12-2017 FDA Start: 12-12-2017 FDA Start: 12-12-2017 Unknown Unknown 5/1/18 Unknown Unknown FDA Start: 12-12-2017 FDA Start: 12-12-2017 FDA Start: 12-12-2017 Unknown Unknown 5/1/18 Unknown Unknown FDA Start: 12-12-2017 FDA Start: 12-12-2017 FDA Start: 12-12-2017 Unknown Unknown 5/1/18 Unknown Unknown FDA Start: 12-12-2017 FDA Start: 12-12-2017 FDA Start: 12-12-2017 Unknown Unknown 5/1/18 Unknown Unknown FDA Start: 12-12-2017 FDA Start: 12-12-2017 FDA Start: 12-12-2017 Unknown Unknown 5/1/18 Unknown Unknown FDA Start: 12-12-2017 FDA Start: 12-12-2017 FDA Start: 12-12-2017 Unknown Unknown 5/1/18 Unknown Unknown FDA Start: 12-12-2017 FDA Start: 12-12-2017 FDA Start: 12-12-2017 Unknown Unknown 5/1/18 Unknown Unknown FDA Start: 12-12-2017 FDA Start: 12-12-2017 FDA Start: 12-12-2017 Unknown Unknown 5/1/18 Unknown Unknown FDA Start: 12-12-2017 FDA Start: 12-12-2017 FDA Start: 12-12-2017 Unknown Unknown 12/12/17 Unknown Unknown FDA Start: 12-12-2017 FDA Start: 12-12-2017 FDA Start: 12-12-2017 Unknown Unknown 12/12/17 Unknown Unknown FDA Start: 12-12-2017 FDA Start: 12-12-2017 FDA Start: 12-12-2017 Unknown Unknown 12/12/17 Unknown Unknown FDA Start: 12-12-2017 FDA Start: 12-12-2017 FDA Start: 12-12-2017 Unknown Unknown 12/12/17 Unknown Unknown FDA Start: 12-12-2017 FDA Start: 12-12-2017 FDA Start: 12-12-2017 Functional Status Date Assessment Result Facility 06-14-2023 Functional Status Objective: ROM/ Strength: See chart for shoulder Cardiovascular screen: BP: 126/78 HR: 79 O2 sat: 98% Observation: no excess bruising. Some in R elbow. No bruising in the shoulder. Hand dexterity. min restriction R as compared to LE. Mild restriction with thumb/finger opposition. [facility] 05-13-2023 Functional Status Independent [facility] 05-13-2023 Functional Status Standard Safet y ID band on, Allergy Band on, Call device within reach, Bed in low position, Wheels locked, Upper/Half-Length side-rails up, Phone within reach, personal items within reach, Bedside Cart Locked, Visitor at bedside [facility] Mental Status Date Assessment Result Facility 05-13-2023 Mental Status Orientation Oriented x 4 [facility] 05-13-2023 Mental Status [facility] Clinical Notes 02-23-2021 to 01-07-2025 Note Date & Type Note Facility 01-07-2025 Evaluation note Diagnosis Onset Date Resolution Colitis chronic January 07, 2025 12:56pm Dyslipidemia chronic January 07 12:56pm Hypertension chronic January 07 12:56pm Left bundle branch block chronic January 07, 2025 12:56pm Mitral valve regurgitation chronic January 07, 2025 12:56pm Non-ischemic cardiomyopathy chronic January 07, 2025 12:56pm [facility] Work Phone: [phone]) 127-733805-27-2025 [facility] [address] [place], [place] [address] OFFICE VISIT Date of Service: 01/07/25 MR#: [id number] Acct: [id number] Name: GRICELDA KRUGER Rep #: [id number] : 1945 Provider: Dr. Chaz Whipple MD Age/Sex: 79/F Location: [facility] Status: Signed HPI HPI History of Present Illness Details: This lady with past history significant for nonischemic cardiomyopathy was notedto have her EF 45 to 50% on her recent echocardiogram. Moderate to severe mitral valve regurgitation was noted. Clinically she is doing good. Denies any chest pains or shortness of breath. Denies orthopnea or PND. No ankle edema. No palpitations. Intake Vital Signs 07/02/24 08:40 01/07/25 08:36 Height 5 ft 5 in 5 ft 5 in Weight: 124 lb BMI 20.6 BP 125/68 H Blood Pressure Location Lt brachial Position Sitting Respiration 18 Pulse 60 Pulse Source NIBP Intake Visit Reasons: 6 M FU Paver Layer Required: No Accompanied by: Is patient in pain?: No Allergies nitrofurantoin (From Macrobid) Allergy (Unknown, Verified 01/07/25 13:00) unknown sulfamethoxazole (From Bactrim) Allergy (Unknown, Verified 01/07/25 13:00) unknown trimethoprim (From Bactrim) Allergy (Unknown, Verified 01/07/25 13:00) unknown codeine Adverse Reaction (Severe, Verified 01/07/25 13:00) Rash prochlorperazine (From Compazine) Adverse Reaction (Severe, Verified 01/07/25 13:00) Hyper simvastatin (From Zocor) Adverse Reaction (Severe, Verified 01/07/25 13:00) Intolerance, Myalgias Medications ?Medication ?Instructions ?Recorded ?Confirmed ?Type levetiracetam 500 mg tablet 500 mg PO BID 11/02/17 History rosuvastatin 5 mg tablet 5 mg PO QDAY 11/02/17 History clobetasol 0.05 % topical cream 1 applic topical QWEEK 11/05/18 01/07/25 History multivitamin 1 tab PO DAILY 11/05/1812/13 History esomeprazole magnesium 20 mg 20 mg PO BID 02/28/20 History capsule,delayed release estradiol 0.01% (0.1 mg/gram) 0.1 g vaginal MOWEFR 04/0301/07/25 History vaginal cream acetaminophen 500 mg tablet 1,000 mg PO DAILY 04/29/21 01/07/25 History (Tylenol Extra Strength) glucosamine-chondroitin 250 mg-200 2 tab PO DAILY 04/1401/07/25 History mg tablet (Osteo Bi-Flex) levothyroxine 50 mcg tablet 50 mcg PO DAILY 12/02/21 0 01/07/25 History loperamide 2 mg capsule 2 mg PO Q6H PRN 04/11/23 History (Anti-Diarrheal (loperamide)) cholestyramine-aspartame 4 gram 1 ea PO DAILY 07/12/23 01/07/25 History oral powder (Prevalite) clonazepam 0.5 mg tablet 1 mg PO QHS 07/12/23 5 History cranberry fruit concentrate 250 mg 250 mg PO BID 01/2801/07/25 History chewable tablet (Azo Cranberry) budesonide 3 mg 9 mg PO QDAY 07/02/24 History capsule,delayed,extended release calcium carbonate (Tums Ultra) 400 mg PO TID 07/02/24 01/07/25 History spironolactone 25 mg tablet 25 mg PO DAILY #90 tabs 01/07/25 Rx carvedilol 12.5 mg tablet 12.5 mg PO BID #180 tabs 01/07/25 Rx cholecalciferol (vitamin D3) 50 50 mcg PO QDAY 5 01/07/25 History mcg (2,000 unit) tablet Ejection fraction %: 45 Have you fallen in the past year?: Yes (October, , no major injuries) [facility] History Acquired adolescent scoliosis Arthritis Back pain Bladder disease Breast cancer Cancer Cardiology follow-up encounter Cold sore Colitis COVID Depression Dilated cardiomyopathy Dyslipidemia Fatigue Fracture of right upper limb Gastric reflux High cholesterol History of echocardiogram History of hiatal hernia History of irregular heartbeat History of stress test Hx of fracture of wrist Hyperlipidemia Hypertension Intraparenchymal hematoma of brain Left bundle branch block Low TSH level Meningioma Multinodular goiter Non-ischemic cardiomyopathy Non-smoker Other halfway (current) drug therapy Postmenopausal bleeding Pure hypercholesterolemia Restless legs Seizure Thyroid disease Wears glasses Surgical History Benign meningioma of brain History of cardiac catheterization History of esophagogastroduodenoscopy (EGD) History of tonsillectomy and adenoidectomy Hx of breast implants, bilateral Hx of colonoscopy Hx of left cataract extraction Hx of mastectomy Hx of repair of ear bone Hx of right cataract extraction Status post partial thyroidectomy (~06/11/21) Family History Father CAD (coronary artery disease) COPD (chronic obstructive pulmonary disease) Cancer lung cancer Mother Cancer brain cancer, uterine cancer Sister , age 46 Myocardial infarction Diabetes Other Heart disease Social History household members: spouse housing: house current occupational status: retired Smoking Status: Never smoker alcohol intake: current alcohol intake frequency: holidays/special occasions only Alcohol type: wine substance use type: does not use caffeine: No what type of physical activity do you participate in: none seatbelt use: always do you feel safe at home: Yes 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 history: - 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 ELI Const Const: Positive for fatigue and daytime sleepiness; Negative for weakness, headache(s) or weight gain ENT ENT: Positive for balance problems; Negative for headache(s), dizziness or Nosebleed/epistaxis Cardio Chest Pain: No Palpitations: No Edema: None Muscle aches with walking: None Resp Respiratory: Positive for SOB with activity and SOB at rest; Negative for SOB orthopneaundefinedSOB lying down GI GI: Negative nausea, vomiting or heartburn Musc Musc: Positive for balance problems; Negative for muscle aches/ myalgia, muscle weakness or joint pain Neuro Neuro: Negative for dizziness, lightheadedness, near syncope, syncope, headache(s) or weakness Endo Endo: Positive for fatigue Cardiology Exam Const Appearance: comfortable and no acute distress Nutritional Appearance: well nourished Neck Neck: no JVD Chest Auscultation: Bilateral: Clear to Auscultation Cardio Rate: regular rate Rhythm: regular rhythm Heart sounds: S1 normal and S2 normal Neuro General: patient alert, patient awake and patient oriented x3 Extremities Lower Extremity Edema: None: Bilateral Supplemental Info Supplemental Information Echocardiogram 08/16/2024: Normal LV size. Mild left ventricular concentric hypertrophy. Estimated LVEF 45 to 50%. Inferior and anterior septal hypokinesis. Stage I diastolic dysfunction. The global longitudinal strain = -12.7% (abnormal). Mild mitral annular calcification. Moderate to severe mitral valve regurgitation. Mild tricuspid valve insufficiency. Transthoracic echocardiogram: 05/07/2021 Interpretation Summary Segmental dysfunction with preserved ejection fraction (see wall motion). The estimated ejection fraction is 60 %. The global longitudinal strain = -16% (borderline). Septal motion consistent with IVCD. The left atrium is mildly enlarged. There is mild to moderate mitral annular calcification. Extension of the mitral annular calcification onto the base of the posterior mitral valve leaflet. Mild (1+) mitral valve insufficiency. Mild tricuspid valve insufficiency. Mild diffuse aortic valve thickening. Trivial pulmonic valve insufficiency. Right ventricular systolic pressure estimated to be 22 mmHg. Diastolic function is indeterminate. Transthoracic echocardiogram: 06-17-2015: [facility]: [place], [place] Summary: 1. Normal LV size and systolic function. EF 60% 2. Normal RV size and function 3. Abnormal diastolic function (e 9.1, EIe 10.8, IRENE 21) 4. Mild TR. RVSP 40 mmHg 5. No masses, vegetation, or thrombus seen 6. No shunt with agitated saline Stress test: 04-25-2013 IMPRESSION: 1. Pharmacologic (regadenoson) evaluation. 2. Peak pharmacologic ECG considered indeterminate secondary to underlying left bundle branch block pattern. 3. Nuclear images pending. INTERPRETATION: Rest and stress SPECT Cardiolite nuclear imaging demonstrate extracardiac/hepatic and gastrointestinal tracer uptake ben.r the inferior segments. There is notation of a small area of diminished tracer uptake in portions of the distal anteroseptal/septal apical segments without significant change. There is end systolic thickening and brightening. The gated Cardiolite study demonstrates myocardial thickening and inward wall motion. The reported LVEF is 66%. The aforementioned findings appear compatible with the effects of soft tissue attenuation/artifact and/or potentially the effects of an unde rlyingleft bundle branch block pattern with no myocardial perfusion changes considereddiagnostic for stress induced myocardial I schemia or previous myocardial injury/infarction. IMPRESSION: 1. Rest and stress SPECT Cardiolite nuclear imaging demonstrate myocardial perfusion changes appearing compatible with the effects of soft tissue attenuation/artifact and/or potentially an underlyingleft bundle branch block pattern with no myocardial perfusion changes considered diagnostic for stress induced myocardial ischemia or previous myocardial injury/infarction. 2. The gated Cardiolite study reports an LVEF of 66%. Cardiac catheterization: 09-24-2008: [facility] IMPRESSION: 1. Relatively normal left ventricular end diastolic pressure. 2. Left Ventricle: a) Mild hypokinesis of the anterior apex and inferior apex. b) Estimated LVEF of 50%. 3. Left Main: Angiographically normal. 4. Left Anterior Descending: Angiographically normal. 5. Left Circumflex: Angiographically normal. 6. Right Coronary Artery: Angiographically normal. Assessment and Plan Assessment and Plan (1) Non-ischemic cardiomyopathy: Status: Chronic Plan: LVEF 45 to 50% with moderate to severe mitral valve regurgitation. Continue beta-victor manuel. Spironolactone. Add ARB. SGLT2 inhibitor. Check Lexiscan stress Myoview. (2) Mitral valve regurgitation: Status: Chronic Plan: Moderate to severe mitral valve regurgitation noted on echocardiogram last July. Clinically asymptomatic. Periodic echo and clinical surveillance. Start on ARB for afterload reduction. (3) Left bundle branch block: Status: Chronic Plan: Monitor. (4) Hypertension: Status: Chronic Plan: Carvedilol. Spironolactone. Losartan. (5) Dyslipidemia: Status: Chronic Plan: Rosuvastatin. Continue to manage as per PCP. (6) Colitis: Status: Chronic Plan: Being managed by GI. Plan Details Follow Up: 3 Months Coding Level of Care Code Off vis,est,level 4 Diagnoses Non-ischemic cardiomyopathy I42.8 Mitral valve regurgitation I34.0 Left bundle branch block I44.7 Hypertension I10 Dyslipidemia E78.5 Colitis K52.9 Coding Level of Care Code Off vis,est,level 4 Diagnoses Non-ischemic cardiomyopathy I42.8 Mitral valve regurgitation I34.0 Left bundle branch block I44.7 Hypertension I10 Dyslipidemia E78.5 Colitis K52.9 Clinical Quality Measures Falls Risk Screening/Assistive Devices Have you fallen in the past year?: Yes (October, , no major injuries) Cardiac Ejection fraction %: 45 01/07/25 1338 MD> Date _ Pam Whipple MD Cosigner Signature: Date (if applicable) CC: Dr. Ruth Au MD ~ [facility]05-27-2025 Progress note Author Pam Whipple [facility] Note Date/Time January 07, 2025 1:38p m [facility] [address] [place] [address]. [address] [place] [address] OFFICE VISIT Date of Service: 01/07/25 MR#: [id number] Acct: [id number] Name: GRICELDA KRUGER Rep #: [id number] : 1945 Provider: Dr. Chaz Whipple MD Age/Sex: 79/F Location: [facility] Status: Signed HPI HPI History of Present Illness Details: This lady with past history significant for nonischemic cardiomyopathy was notedto have her EF 45 to 50% on her recent echocardiogram. Moderate to severe mitral valve regurgitation was noted. Clinically she is doing good. Denies any chest pains or shortness of breath. Denies orthopnea or PND. No ankle edema. No palpitations. Intake Vital Signs 07/02/24 08:40 01/07/25 08:36 Height 5 ft 5 in 5 ft 5 in Weight: 124 lb BMI 20.6 BP 125/68 H Blood Pressure Location Lt brachial Position Sitting Respiration 18 Pulse 60 Pulse Source NIBP Intake Visit Reasons: 6 M FU Paver Layer Required: No Accompanied by: Is patient in pain?: No Allergies nitrofurantoin (From Macrobid) Allergy (Unknown, Verified 01/07/25 13:00) unknown sulfamethoxazole (From Bactrim) Allergy (Unknown, Verified 01/07/25 13:00) unknown trimethoprim (From Bactrim) Allergy (Unknown, Verified 01/07/25 13:00) unknown codeine Adverse Reaction (Severe, Verified 01/07/25 13:00) Rash prochlorperazine (From Compazine) Adverse Reaction (Severe, Verified 01/07/25 13:00) Hyper simvastatin (From Zocor) Adverse Reaction (Severe, Verified 01/07/25 13:00) Intolerance, Myalgias Medications ?Medication ?Instructions ?Recorded ?Confirmed ?Type levetiracetam 500 mg tablet 500 mg PO BID 11/02/17 History rosuvastatin 5 mg tablet 5 mg PO QDAY 11/02/17 History clobetasol 0.05 % topical cream 1 applic topical QWEEK 11/05/18 01/07/25 History multivitamin 1 tab PO DAILY 11/05/1812/13 History esomeprazole magnesium 20 mg 20 mg PO BID 02/28/20 History capsule,delayed release estradiol 0.01% (0.1 mg/gram) 0.1 g vaginal MOWEFR 04/0301/07/25 History vaginal cream acetaminophen 500 mg tablet 1,000 mg PO DAILY 04/29/21 01/07/25 History (Tylenol Extra Strength) glucosamine-chondroitin 250 mg-200 2 tab PO DAILY 04/1401/07/25 History mg tablet (Osteo Bi-Flex) levothyroxine 50 mcg tablet 50 mcg PO DAILY 12/02/21 0 01/07/25 History loperamide 2 mg capsule 2 mg PO Q6H PRN 04/11/23 History (Anti-Diarrheal (loperamide)) cholestyramine-aspartame 4 gram 1 ea PO DAILY 07/12/23 01/07/25 History oral powder (Prevalite) clonazepam 0.5 mg tablet 1 mg PO QHS 07/12/23 5 History cranberry fruit concentrate 250 mg 250 mg PO BID 01/2801/07/25 History chewable tablet (Azo Cranberry) budesonide 3 mg 9 mg PO QDAY 07/02/24 History capsule,delayed,extended release calcium carbonate (Tums Ultra) 400 mg PO TID 07/02/24 01/07/25 History spironolactone 25 mg tablet 25 mg PO DAILY #90 tabs 01/07/25 Rx carvedilol 12.5 mg tablet 12.5 mg PO BID #180 tabs 01/07/25 Rx cholecalciferol (vitamin D3) 50 50 mcg PO QDAY 5 01/07/25 History mcg (2,000 unit) tablet Ejection fraction %: 45 Have you fallen in the past year?: Yes (October,, no major injuries) PFSH Medical History Acquired adolescent scoliosis Arthritis Back pain Bladder disease Breast cancer Cancer Cardiology follow-up encounter Cold sore Colitis COVID Depression Dilated cardiomyopathy Dyslipidemia Fatigue Fracture of right upper limb Gastric reflux High cholesterol History of echocardiogram History of hiatal hernia History of irregular heartbeat History of stress test Hx of fracture of wrist Hyperlipidemia Hypertension Intraparenchymal hematoma of brain Left bundle branch block Low TSH level Meningioma Multinodular goiter Non-ischemic cardiomyopathy Non-smoker Other halfway (current) drug therapy Postmenopausal bleeding Pure hypercholesterolemia Restless legs Seizure Thyroid disease Wears glasses Surgical History Benign meningioma of brain History of cardiac catheterization History of esophagogastroduodenoscopy (EGD) History of tonsillectomy and adenoidectomy Hx of breast implants, bilateral Hx of colonoscopy Hx of left cataract extraction Hx of mastectomy Hx of repair of ear bone Hx of right cataract extraction Status post partial thyroidectomy (~06/11/21) Family History Father CAD (coronary artery disease) COPD (chronic obstructive pulmonary disease) Cancer lung cancer Mother Cancer brain cancer, uterine cancer Sister , age 46 Myocardial infarction Diabetes Other Heart disease Social History household members: spouse housing: house current occupational status: retired Smoking Status: Never smoker alcohol intake: current alcohol intake frequency: holidays/special occasions only Alcohol type: wine substance use type: does not use caffeine: No what type of physical activity do you participate in: none seatbelt use: always do you feel safe at home: Yes 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 history: - 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 ELI Const Const: Positive for fatigue and daytime sleepiness; Negative for weakness, headache(s) or weight gain ENT ENT: Positive for balance problems; Negative for headache(s), dizziness or Nosebleed/epistaxis Cardio Chest Pain: No Palpitations: No Edema: None Muscle aches with walking: None Resp Respiratory: Positive for SOB with activity and SOB at rest; Negative for SOB orthopneaundefinedSOB lying down GI GI: Negative nausea, vomiting or heartburn Musc Musc: Positive for balance problems; Negative for muscle aches/ myalgia, muscle weakness or joint pain Neuro Neuro: Negative for dizziness, lightheadedness, near syncope, syncope, headache(s) or weakness Endo Endo: Positive for fatigue Cardiology Exam Const Appearance: comfortable and no acute distress Nutritional Appearance: well nourished Neck Neck: no JVD Chest Auscultation: Bilateral: Clear to Auscultation Cardio Rate: regular rate Rhythm: regular rhythm Heart sounds: S1 normal and S2 normal Neuro General: patient alert, patient awake and patient oriented x3 Extremities Lower Extremity Edema: None: Bilateral Supplemental Info Supplemental Information Echocardiogram 08/16/2024: Normal LV size. Mild left ventricular concentric hypertrophy. Estimated LVEF 45 to 50%. Inferior and anterior septal hypokinesis. Stage I diastolic dysfunction. The global longitudinal strain = -12.7% (abnormal). Mild mitral annular calcification. Moderate to severe mitral valve regurgitation. Mild tricuspid valve insufficiency. Transthoracic echocardiogram: 05/07/2021 Interpretation Summary Segmental dysfunction with preserved ejection fraction (see wall motion). The estimated ejection fraction is 60 %. The global longitudinal strain = -16% (borderline). Septal motion consistent with IVCD. The left atrium is mildly enlarged. There is mild to moderate mitral annular calcification. Extension of the mitral annular calcification onto the base of the posterior mitral valve leaflet. Mild (1+) mitral valve insufficiency. Mild tricuspid valve insufficiency. Mild diffuse aortic valve thickening. Trivial pulmonic valve insufficiency. Right ventricular systolic pressure estimated to be 22 mmHg. Diastolic function is indeterminate. Transthoracic echocardiogram: 06-17-2015: [facility]: [place], [place] Summary: 1. Normal LV size and systolic function. EF 60% 2. Normal RV size and function 3. Abnormal diastolic function (e 9.1, EIe 10.8, IRENE 21) 4. Mild TR. RVSP 40 mmHg 5. No masses, vegetation, or thrombus seen 6. No shunt with agitated saline Stress test: 04-25-2013 IMPRESSION: 1. Pharmacologic (regadenoson) evaluation. 2. Peak pharmacologic ECG considered indeterminate secondary to underlying left bundle branch block pattern. 3. Nuclear images pending. INTERPRETATION: Rest and stress SPECT Cardiolite nuclear imaging demonstrate extracardiac/hepatic and gastrointestinal tracer uptake ben.r the inferior segments. There is notation of a small area of diminished tracer uptake in portions of the distal anteroseptal/septal apical segments without significant change. There is end systolic thickening and brightening. The gated Cardiolite study demonstrates myocardial thickening and inward wall motion. The reported LVEF is 66%. The aforementioned findings appear compatible with the effects of soft tissue attenuation/artifact and/or potentially the effects of an underlyingleft bundle branch block pattern with no myocardial perfusion changes considereddiagnostic for stress induced myocardial I schemia or previous myocardial injury/infarction. IMPRESSION: 1. Rest and stress SPECT Cardiolite nuclear imaging demonstrate myocardial perfusion changes appearing compatible with the effects of soft tissue attenuation/artifact and/or potentially an underlying left bundle branch block pattern with no myocardial perfusion changes considered diagnostic for stress induced myocardial ischemia or previous myocardial injury/infarction. 2. The gated Cardiolite study reports an LVEF of 66%. Cardiac catheterization: 09-24-2008: [facility] IMPRESSION: 1. Relatively normal left ventricular end diastolic pressure. 2. Left Ventricle: a) Mild hypokinesis of the anterior apex and inferior apex. b) Estimated LVEF of 50%. 3. Left Main: Angiographically normal. 4. Left Anterior Descending: Angiographically normal. 5. Left Circumflex: Angiographically normal. 6. Right Coronary Artery: Angiographically normal. Assessment and Plan Assessment and Plan (1) Non-ischemic cardiomyopathy: Status: Chronic Plan: LVEF 45 to 50% with moderate to severe mitral valve regurgitation. Continue beta-victor manuel. Spironolactone. Add ARB. SGLT2 inhibitor. Check Lexiscan stress Myoview. (2) Mitral valve regurgitation: Status: Chronic Plan: Moderate to severe mitral valve regurgitation noted on echocardiogram last July. Clinically asymptomatic. Periodic echo and clinical surveillance. Start on ARB for afterload reduction. (3) Left bundle branch block: Status: Chronic Plan: Monitor. (4) Hypertension: Status: Chronic Plan: Carvedilol. Spironolactone. Losartan. (5) Dyslipidemia: Status: Chronic Plan: Rosuvastatin. Continue to manage as per PCP. (6) Colitis: Status: Chronic Plan: Being managed by GI. Plan Details Follow Up: 3 Months Coding Level of Care Code Off vis,est,level 4 Diagnoses Non-ischemic cardiomyopathy I42.8 Mitral valve regurgitation I34.0 Left bundle branch block I44.7 Hypertension I10 Dyslipidemia E78.5 Colitis K52.9 Coding Level of Care Code Off vis,est,level 4 Diagnoses Non-ischemic cardiomyopathy I42.8 Mitral valve regurgitation I34.0 Left bundle branch block I44.7 Hypertension I10 Dyslipidemia E78.5 Colitis K52.9 Clinical Quality Measures Falls Risk Screening/Assistive Devices Have you fallen in the past year?: Yes (October,, no major injuries) Cardiac Ejection fraction %: 45 01/07/25 1338 <Electronically signed by Pam Whipple MD> Date _ Pam Whipple MD Cosigner Signature: Date (if applicable) CC: Dr. Ruth Au MD ~ [facility] [employer] Work Phone: [phone]) 438-110405-23-2025 Note. MICRO - Microbiology PROCEDURE: Urine Culture [*1] SOURCE: Urine, Clean Catch BODY SITE: COLLECTED DATE/TIME: 01/01/2025 16:21 EDT RECEIVED DATE/TIME: 01/01/2025 18:41 EDT START DATE/TIME: 01/01/2025 18:42 EDT FREE TEXT SOURCE: FINAL REPORTS Final Report [] Verified Date/Time/Personnel: 01/03/2025 07:35 EDT >100,000 cfu/ml Klebsiella pneumoniae PRELIMINARY REPORTS Preliminary Report [] Verified Date/Time/Personnel: 01/02/2025 11:00 EDT >100,000 cfu/ml Klebsiella pneumoniae RANDOLPH to follow Preliminary Report [] Verified Date/Time/Personnel: 01/01/2025 19:59 EDT Specimen received in lab. SUSCEPTIBILITY RESULTS Klebsiella pneumoniae Antibiotic RANDOLPH Dilut RANDOLPH Inter Ampicillin 16 Resistant Ampicillin/ <=4/2 Susceptible Sulbactam Aztreonam <=4 Susceptible Cefazolin <=2 Susceptible Cefepime <=2 Susceptible Ceftolozane/ <=2 Susceptible Tazobactam Ciprofloxacin <=0.25 Susceptible Ertapenem <=0.5 Susceptible Gentamicin <=2 Susceptible ID Panel Not Not Applicable Applicable Imipenem <=1 Susceptible Levofloxacin <=0.5 Susceptible Meropenem <=1 Susceptible Minocycline <=4 Susceptible Nitrofurantoin <=32 Susceptible Piperacillin/ <=8 Susceptible Tazobactam Trimethoprim/ <=0.5/9.5 Susceptible Sulfa Performing Locations *1: This test was performed at: [address], [address] [place], [place] [id number] Note. MICRO - Microbiology PROCEDURE: Urine Culture [*1] SOURCE: Urine, Clean Catch BODY SITE: COLLECTED DATE/TIME: 12/04/2024 16:17 EDT RECEIVED DATE/TIME: 12/05/2024 19:21 EDT START DATE/TIME: 12/05/2024 19:22 EDT FREE TEXT SOURCE: FINAL REPORTS Final Report [] Verified Date/Time/Personnel: 12/07/2024 08:00 EDT >100,000 cfu/ml Mixed growth consistent with normal urogenital artur. PRELIMINARY REPORTS Preliminary Report [] Verified Date/Time/Personnel: 12/06/2024 07:55 EDT No growth to date Preliminary Report [] Verified Date/Time/Personnel: 12/05/2024 19:59 EDT Specimen received in lab. Performing Locations *1: This test was performed at: [address], [address] [place], [place] [address]-12-2025 Note. MICRO - Microbiology PROCEDURE: Urine Culture [*1] SOURCE: Urine, Clean Catch BODY SITE: COLLECTED DATE/TIME: 10/21/2024 13:18 EDT RECEIVED DATE/TIME: 10/21/2024 19:08 EDT START DATE/TIME: 10/21/2024 19:08 EDT FREE TEXT SOURCE: FINAL REPORTS Final Report [] Verified Date/Time/Personnel: 10/23/2024 07:42 EDT 50,000 - 100,000 cfu/ml Klebsiella variicola PRELIMINARY REPORTS Preliminary Report [] Verified Date/Time/Personnel: 10/22/2024 08:40 EDT 50,000 - 100,000 cfu/ml Klebsiella variicola RANDOLPH to follow Preliminary Report [] Verified Date/Time/Personnel: 10/21/2024 19:59 EDT Specimen received in lab. SUSCEPTIBILITY RESULTS Klebsiella variicola Antibiotic RANDOLPH Dilut RANDOLPH Inter Ampicillin 16 Resistant Ampicillin/ <=4/2 Susceptible Sulbactam Aztreonam <=4 Susceptible Cefazolin <=2 Susceptible Ciprofloxacin <=0.25 Susceptible Ertapenem <=0.5 Susceptible Gentamicin <=2 Susceptible ID Panel Not Not Applicable Applicable Imipenem <=1 Susceptible Levofloxacin <=0.5 Susceptible Meropenem <=1 Susceptible Minocycline <=4 Susceptible Nitrofurantoin <=32 Susceptible Piperacillin/ <=8 Susceptible Tazobactam Trimethoprim/ <=0.5/9.5 Susceptible Sulfa Performing Locations *1: This test was performed at: [address], [facility] , [facility]01-03-2025 Note. MICRO - Microbiology PROCEDURE: Culture Wound Aerobic with Gram Stain [*1] SOURCE: Wound (surface) BODY SITE: Vulva COLLECTED DATE/TIME: 08/12/2024 13:59 EST RECEIVED DATE/TIME: 08/13/2024 18:57 EST START DATE/TIME: 08/13/2024 18:57 EST FREE TEXT SOURCE: FINAL REPORTS Final Report [] Verified Date/Time/Personnel: 08/16/2024 07:53 EST Normal Vaginal Artur: Present Neisseria gonorrhoeae: Negative PRELIMINARY REPORTS Preliminary Report [] Verified Date/Time/Personnel: 08/15/2024 08:32 EST Normal Vaginal Artur: Present Neisseria gonorrhoeae: Pending Preliminary Report [] Verified Date/Time/Personnel: 08/14/2024 12:28 EST Culture results pending. STAINS GS [] Verified Date/Time/Personnel: 08/13/2024 21:47 EST 1+ Epithelial cells Rare Yeast Performing Locations *1: This test was performed at: [address], [address] [place], [place] [id number] Note. MICRO - Microbiology PROCEDURE: Affirm Pathogens DNA Direct Probe [*1] SOURCE: Vaginal Fluid BODY SITE: Vaginal Cuff COLLECTED DATE/TIME: 08/12/2024 13:59 EST RECEIVED DATE/TIME: 08/13/2024 19:00 EST START DATE/TIME: 08/13/2024 19:00 EST FREE TEXT SOURCE: FINAL REPORTS Final Report [] Verified Date/Time/Personnel: 08/15/2024 12:43 EST Gardnerella vaginalis DNA Probe Negative Trichomonas vaginalis DNA Probe Negative Marisa species DNA Probe Negative Performing Locations *1: This test was performed at: [address], [address] , [facility]01-02-2025 Note. MICRO - Microbiology PROCEDURE: Urine Culture [*1] SOURCE: Urine, Clean Catch BODY SITE: COLLECTED DATE/TIME: 08/12/2024 13:59 EST RECEIVED DATE/TIME: 08/13/2024 18:56 EST START DATE/TIME: 08/13/2024 18:56 EST FREE TEXT SOURCE: FINAL REPORTS Final Report [] Verified Date/Time/Personnel: 08/15/2024 07:42 EST <10,000 cfu/ml. No Significant growth. Sensitivity not indicated. PRELIMINARY REPORTS Preliminary Report [] Verified Date/Time/Personnel: 08/14/2024 12:20 EST No growth to date Performing Locations *1: This test was performed at: [address], [id number] [place], [place] [id number] Note. MICRO - Microbiology PROCEDURE: Urine Culture [*1] SOURCE: Urine, Clean Catch BODY SITE: COLLECTED DATE/TIME: 07/31/2024 12:19 EST RECEIVED DATE/TIME: 08/01/2024 17:24 EST START DATE/TIME: 08/01/2024 17:24 EST FREE TEXT SOURCE: FINAL REPORTS Final Report [] Verified Date/Time/Personnel: 08/03/2024 07:44 EST >100,000 cfu/ml Multiple bacterial morphotypes present. Probable Contamination. Suggest recollection if clinically indicated. PRELIMINARY REPORTS Preliminary Report [] Verified Date/Time/Personnel: 08/02/2024 09:42 EST Culture results pending. Performing Locations *1: This test was performed at: [address], [facility] , [facility]12-03-2024 Note. MICRO - Microbiology PROCEDURE: Urine Culture [*1] SOURCE: Urine, Clean Catch BODY SITE: COLLECTED DATE/TIME: 07/12/2024 15:05 EST RECEIVED DATE/TIME: 07/13/2024 12:08 EST START DATE/TIME: 07/13/2024 12:08 EST FREE TEXT SOURCE: FINAL REPORTS Final Report [] Verified Date/Time/Personnel: 07/16/2024 07:19 EST >100,000 cfu/ml Klebsiella variicola PRELIMINARY REPORTS Preliminary Report [] Verified Date/Time/Personnel: 07/15/2024 10:06 EST >100,000 cfu/ml Klebsiella variicola RANDOLPH to follow Preliminary Report [] Verified Date/Time/Personnel: 07/14/2024 10:57 EST Culture results pending. SUSCEPTIBILITY RESULTS Klebsiella variicola Antibiotic RANDOLPH Dilut RANDOLPH Inter Ampicillin 16 Resistant Ampicillin/ <=4/2 Susceptible Sulbactam Aztreonam <=4 Susceptible Cefazolin <=2 Susceptible Ciprofloxacin <=0.25 Susceptible Ertapenem <=0.5 Susceptible Gentamicin <=2 Susceptible ID Panel Not Not Applicable Applicable Imipenem <=1 Susceptible Levofloxacin <=0.5 Susceptible Meropenem <=1 Susceptible Minocycline <=4 Susceptible Nitrofurantoin <=32 Susceptible Piperacillin/ <=8 Susceptible Tazobactam Trimethoprim/ <=0.5/9.5 Susceptible Sulfa Performing Locations *1: This test was performed at: [address], [facility] , [facility]10-04-2024 Note. MICRO - Microbiology PROCEDURE: Urine Culture [*1] SOURCE: Urine, Clean Catch BODY SITE: COLLECTED DATE/TIME: 05/15/2024 09:55 EDT RECEIVED DATE/TIME: 05/15/2024 19:06 EDT START DATE/TIME: 05/15/2024 19:06 EDT FREE TEXT SOURCE: FINAL REPORTS Final Report [] Verified Date/Time/Personnel: 05/17/2024 07:44 EDT <10,000 cfu/ml. No Significant growth. Sensitivity not indicated. PRELIMINARY REPORTS Preliminary Report [] Verified Date/Time/Personnel: 05/16/2024 10:19 EDT No growth to date Performing Locations *1: This test was performed at: [address], [facility] , [facility]08-31-2024 Note. MICRO - Microbiology PROCEDURE: Culture Wound Aerobic with Gram Stain [*1] SOURCE: Laceration BODY SITE: Leg COLLECTED DATE/TIME: 04/11/2024 16:16 EDT RECEIVED DATE/TIME: 04/11/2024 19:17 EDT START DATE/TIME: 04/11/2024 19:17 EDT FREE TEXT SOURCE: FINAL REPORTS Final Report [] Verified Date/Time/Personnel: 04/13/2024 07:54 EDT No growth at 48 hours. PRELIMINARY REPORTS Preliminary Report [] Verified Date/Time/Personnel: 04/12/2024 11:16 EDT No growth to date STAINS GS [] Verified Date/Time/Personnel: 04/11/2024 19:42 EDT No organisms seen. Performing Locations *1: This test was performed at: [address], [facility] , [facility] ([facility]02-08-2024 Note. MICRO - Microbiology PROCEDURE: Urine Culture [*1] SOURCE: Urine, Clean Catch BODY SITE: COLLECTED DATE/TIME: 02/06/2024 11:47 EDT RECEIVED DATE/TIME: 02/06/2024 14:51 EDT START DATE/TIME: 02/06/2024 14:51 EDT FREE TEXT SOURCE: FINAL REPORTS Final Report [] Verified Date/Time/Personnel: 02/08/2024 07:55 EDT 50,000 - 100,000 cfu/ml Enterococcus faecalis PRELIMINARY REPORTS Preliminary Report [] Verified Date/Time/Personnel: 02/07/2024 11:02 EDT 50,000 - 100,000 cfu/ml Enterococcus faecalis RANDOLPH to follow SUSCEPTIBILITY RESULTS Enterococcus faecalis Antibiotic RANDOLPH Dilut RANDOLPH Inter Ampicillin <=2 Susceptible Ciprofloxacin <=1 Susceptible Gentamicin <=500 Susceptible synergy ID Panel Not Not Applicable Applicable Levofloxacin 2 Susceptible Nitrofurantoin <=32 Susceptible Vancomycin 2 Susceptible Performing Locations *1: This test was performed at: [address], [address] [place], [place] [id number] Note. MICRO - Microbiology PROCEDURE: Urine Culture [*1] SOURCE: Urine, Clean Catch BODY SITE: COLLECTED DATE/TIME: 11/23/2023 17:52 EDT RECEIVED DATE/TIME: 11/24/2023 15:33 EDT START DATE/TIME: 11/24/2023 15:34 EDT FREE TEXT SOURCE: FINAL REPORTS Final Report [] Verified Date/Time/Personnel: 11/26/2023 07:47 EDT <10,000 cfu/ml. No Significant growth. Sensitivity not indicated. PRELIMINARY REPORTS Preliminary Report [] Verified Date/Time/Personnel: 11/25/2023 09:59 EDT No growth to date Performing Locations *1: This test was performed at: [address], [address] [place], [place] [id number] Note. MICRO - Microbiology PROCEDURE: Urine Culture [*1] SOURCE: Urine, Clean Catch BODY SITE: COLLECTED DATE/TIME: 10/21/2023 12:36 EST RECEIVED DATE/TIME: 10/21/2023 15:26 EST START DATE/TIME: 10/21/2023 15:26 EST FREE TEXT SOURCE: FINAL REPORTS Final Report [] Verified Date/Time/Personnel: 10/22/2023 14:03 EDT 10,000 - 50,000 cfu/ml Multiple bacterial morphotypes present. Probable Contamination. Suggest recollection if clinically indicated. Performing Locations *1: This test was performed at: [facility], [address] [place] [address], [facility] , [facility] ([place])07-14-2023 Note. MICRO - Microbiology PROCEDURE: Urine Culture [*1] SOURCE: Urine, Clean Catch BODY SITE: COLLECTED DATE/TIME: 06/23/2023 16:22 EST RECEIVED DATE/TIME: 06/23/2023 19:11 EST START DATE/TIME: 06/23/2023 19:11 EST FREE TEXT SOURCE: FINAL REPORTS Final Report [] Verified Date/Time/Personnel: 07/14/2023 07:21 EST >100,000 cfu/ml Carbapenem Resistant Enterobacteriaceae Klebsiella pneumoniae Infection control has been notified. Carbapenemase Producing Genes: Not Detected TEST PERFORMED BY: [facility] [place] [facility] [address] [place] [address] >100,000 cfu/ml Klebsiella variicola PRELIMINARY REPORTS Preliminary Report [] Verified Date/Time/Personnel: 06/27/2023 06:58 EST >100,000 cfu/ml Carbapenem Resistant Enterobacteriaceae Klebsiella pneumoniae Infection control has been notified. PCR of Carbapenemase producing genes (CR-CRE) confirmation to follow. >100,000 cfu/ml Klebsiella variicola Preliminary Report [] Verified Date/Time/Personnel: 06/27/2023 06:55 EST >100,000 cfu/ml Carbapenem Resistant Enterobacteriaceae Klebsiella pneumoniae Infection control has been notified. PCR of Carbapenemase producing genes (CR-CRE) confirmation to follow. >100,000 cfu/ml Klebsiella variicola RANDOLPH to follow Preliminary Report [] Verified Date/Time/Personnel: 06/25/2023 09:41 EST >100,000 cfu/ml Klebsiella pneumoniae RANDOLPH to follow >100,000 cfu/ml Klebsiella variicola RANDOLPH to follow Preliminary Report [] Verified Date/Time/Personnel: 06/24/2023 11:19 EST Culture results pending. SUSCEPTIBILITY RESULTS Carbapenem Resistant Enterobacteriaceae Antibiotic RANDOLPH Dilut RANDOLPH Inter Ampicillin >16 Resistant Ampicillin/ 8/4 Susceptible Sulbactam Aztreonam <=4 Susceptible Cefazolin <=2 Susceptible Ciprofloxacin <=0.25 Susceptible Ertapenem <=0.5 Susceptible Gentamicin <=2 Susceptible Imipenem 2 Intermediate Levofloxacin <=0.5 Susceptible Meropenem <=1 Susceptible Minocycline <=4 Susceptible Nitrofurantoin >64 Resistant Piperacillin/ <=8 Susceptible Tazobactam MICRO - Microbiology SUSCEPTIBILITY RESULTS Carbapenem Resistant Enterobacteriaceae Antibiotic RANDOLPH Dilut RANDOLPH Inter Trimethoprim/ <=0.5/9.5 Susceptible Sulfa Klebsiella variicola Antibiotic RANDOLPH Dilut RANDOLPH Inter Ampicillin >16 Resistant Ampicillin/ <=4/2 Susceptible Sulbactam Aztreonam <=4 Susceptible Cefazolin <=2 Susceptible Ciprofloxacin <=0.25 Susceptible Ertapenem <=0.5 Susceptible Gentamicin <=2 Susceptible Imipenem <=1 Susceptible Levofloxacin <=0.5 Susceptible Meropenem <=1 Susceptible Minocycline <=4 Susceptible Nitrofurantoin 64 Intermediate Piperacillin/ <=8 Susceptible Tazobactam Trimethoprim/ <=0.5/9.5 Susceptible Sulfa Performing Locations *1: This test was performed at: [address], [address] , [facility] ([place])05-14-2023 Hospital Discharge instructions Patient Education 05/13/2023 22:37:35 Sling and Swathe Sling and Swathe Sling and swathe is used to support your arm and hold it closely against your body after an injury.It is used for injuries where moving the shoulder joint could cause harm. For example, it would be used after a shoulder dislocation or shoulder fracture. A joint that is kept still for too long can become stiff and lose range of motion. Follow up with your healthcare provider as advised. Don t use the sling longer than directed. Home care Leave the sling and swathe in place as long as directed by your healthcare provider. Unless told otherwise, you should sleep with it in place. If you are being treated for a shoulder dislocation, you may take the sling and swathe off to batheor dress. Don't try to raise your arm away from your body. Put it back on as soon as possible. Your healthcare provider may recommend gentle pendulum exercises. Stand or sit with your arm vertical and close to your side. Relax your shoulder muscles and gently swing the arm forward and back, side to side, and in small circles for about 5 minutes. Do this once or twice a day. There should be only slight pain with this exercise. If you are being treated for a shoulder fracture, leave the sling and swathe in place until your next exam. The sling and swathe is adjustable. If it becomes loose, adjust the sling so that your forearm is level with the ground. Your hand should be level with the elbow. Adjust the part that wraps around your body, called swathe, so that your arm is held snugly against your body. When to seek medical advice Call your healthcare provider right away if any of these occur: New or worsening symptoms You have questions about adjusting the sling and swathe [id number] [employer] ?. [address] [place] [address]. All rights reserved. This information is not intended as a substitute for professional medical care. Always follow yourhealthcare professional's instructions. 05/13/2023 22:37:28 Fracture, Upper Extremity Upper Extremity Fracture You have a break (fracture) of the arm, wrist, or hand. This may be a small crack in the bone. Or it may be a major break, with the broken parts pushed out of position. Most fractures will heal without surgery. But you may need surgery if the bones are far out of place or if the break is near the elbow. Treatment is with a special sling called a shoulder immobilizer, or a splint or cast, depending on the type of fracture and where the fracture is located. This fracture takes 4 to 6 weeks or longer to heal. The cast may need to be changed in 2 to 3 weeks as swelling goes down. Home care Follow these guidelines when caring for yourself: If you were given a shoulder immobilizer, leave it in place. This will support the injured arm at your side. This is the best position for bone healing. The shoulder immobilizer can be adjusted. If it becomes loose, adjust it so that your forearm is level with the ground (horizontal). Your hand should be level with your elbow. Put an ice pack on the injured area. Do this for 20 minutes every 1 to 2 hours the first day for pain relief. You can make an ice pack by wrapping a plastic bag of ice cubes in a thin towel. As the ice melts, be careful that the cast/splint/sling doesn t get wet. You can put the ice pack inside thesling and directly over the splint or cast. Continue using the ice pack 3 to 4 times a day for the next 2 days. Then use the ice pack as needed to ease pain and swelling. Keep the cast, splint, or sling completely dry at all times. Bathe with your cast, splint, or slingout of the water. Protect it with a large plastic bag, rubber-banded or taped at the top end. If a fiberglass cast, splint, or sling gets wet, you can dry it with a interior design program chair. You may use acetaminophen or ibuprofen to control pain, unless another pain medicine was prescribed. If you have chronic liver or kidney disease, talk with your healthcare provider before using thesemedicines. Also talk with your provider if you ve had a stomach ulcer or gastrointestinal bleeding. Don t put creams or objects under the cast if you have itching. Follow-up care Follow up with your healthcare provider as advised. This is to make sure the bone is healing the way it should. X-rays may be taken. You will be told of any new findings that may affect your care. When to seek medical advice Call your health care provider right away if any of these occur: The cast or splint cracks The plaster cast or splint becomes wet or soft The fiberglass cast or splint stays wet for more than 24 hours Bad odor from the cast or wound fluid stains the cast Tightness or pain under the cast or splint gets worse Fingers become swollen, cold, blue, numb, or tingly You can t move your fingers Skin around cast or splint becomes red or irritated Fever of 100.4 F (38 C) or higher, or chills as directed by your healthcare provider [id number] [employer] ?. [address] [place] [address], [place] [address]. All rights reserved. This information is not intended as a substitute for professional medical care. Always follow yourhealthcare professional's instructions. Follow Up Care 05/13/2023 20:22:07 With:RUTH AAMNDA MD Address: [address] [place] [address] [phone] When:2-4 days With:RUTH AU MD Address: [address] [place] [address]- When:2-4 days [facility] 09-30-2023 Note Discharge Instructions Thank you for allowing [facility] to assist you with your healthcare needs. The following is importantdischarge information regarding your hospital visit. Diagnosis from Today's Visit Arm pain-swelling Fall Proximal humeral fracture What to Do Next Instructions from Your Care Team Discharge Home Equipment - Ordered -- Sling and Swathe Right, 99 month(s), 05/13/23 21:42:00 EDT Post Acute Orders No qualifying data available. You Need to Schedule the Following Appointments Follow Up with RUTH AMANDA MD When Within 2-4 days Where: [address] [place] [address] [phone] Follow Up with RUTH AU MD When Within 2-4 days Where: [address] [place], [place] [address]- Allergies Bactrim DS Compazine Macrobid (unknown) Tape codeine (Compazine) sulfamethoxazole-trimethoprim (unknown) Medications Please ask your primary doctor or pharmacist before taking any other medication not listed, including over the counter drugs, herbal medications, vitamins and or supplements as they may interact withyour home medications. What How Much When Why Instructions Last Dose New acetaminophen-hydrocodone ([place] 325- 5 mg oral tablet) 1 tab(s) by mouth Every 6 hours as needed for as needed for pain Proximal humeral fracture Duration: 2 Days Printed Prescription New ondansetron (Zofran 4 mg oral tablet) 1 tab(s) by mouth Every 6 hours Duration: 5 Days Printed Prescription Unchanged acetaminophen (Tylenol Extra Strength 500 mg oral tablet) 1 tab(s) by mouth Every 4 hours as needed for as needed for fever Unchanged acetaminophen/ butalbital/ caffeine (acetaminophen/ butalbital/ caffeine 300 mg-50 mg-40 mg oral capsule) 1 cap by mouth Every 4 hours as needed for for headache Unchanged amLODIPine (amLODIPine 5 mg oral tablet) 0.5 tab by mouth Once a day Duration: 30 Days Unchanged amoxicillin-clavulanate (amoxicillin-clavulanate 875 mg-125 mg oral tablet) 1 tab(s) by mouth Every 12 hours Left-sided face pain Duration: 7 Days Unchanged calcium carbonate (Tums Ultra 1000 mg oral tablet, chewable) 1 tab(s) Chewed Three (3) times a day as needed for as needed for dyspepsia Unchanged carvedilol (carvedilol 12.5 mg oral tablet) 1 tab(s) by mouth Two (2) times a day Unchanged cholestyramine (Prevalite 4 g/ 5.5 g oral powder for reconstitution) 4 gram(s) take 4 grams orally as directed daily --DO NOT TAKE WITH OTHER MEDICATIONS Unchanged chondroitin/ glucosamine/ methylsulfonylmethane (Osteo Bi-Flex Advanced oral tablet) Unchanged clobetasol topical (clobetasol 0.05% topical cream) 1 application Topical Every other week Unchanged clonazePAM (clonazePAM 0.5 mg oral tablet) 2 tab(s) by mouth Daily at bedtime Restless leg Anxiety Duration: 90 Days Unchanged conjugated estrogens (Premarin) See instructions vaginal cream twice weekly Unchanged esomeprazole (NexIUM) by mouth Once a day Unchanged estradiol topical (estradiol 0.1 mg/ g vaginal cream) Unchanged herbal/ nutritional product (cranberry oral capsule) Unchanged inFLIXimab (Remicade) 5 Milligrams/Kilogram Intravenous Every 8 weeks as an infusion Unchanged levETIRAcetam (Keppra 500 mg oral tablet) 1 tab(s) by mouth Two (2) times a day Unchanged levothyroxine (levothyroxine 50 mcg (0.05 mg) oral tablet) 1 tab(s) by mouth Once a day Unchanged loperamide (loperamide 2 mg oral tablet) by mouth Every 4 hours Unchanged multivitamin (Multivitamin) 1 tab(s) by mouth Every day Unchanged pantoprazole (pantoprazole 40 mg oral enteric coated tablet) take 1 tablet by mouth daily as directed Unchanged potassium chloride (potassium chloride 99 mg oral tablet) 2 tab(s) by mouth Once a day Take with food Unchanged rosuvastatin (Crestor 5 mg oral tablet) 1 tab(s) by mouth Daily at bedtime Please take this list to your next doctor s visit. Bring all medications you take, including over the counter medications, herbals and other supplements with you to your doctor s visit. Patients and families are reminded to discard old lists and to update any records with all medication providers or retail pharmacies. Education Materials Sling and Swathe Sling and swathe is used to support your arm and hold it closely against your body after an injury.It is used for injuries where moving the shoulder joint could cause harm. For example, it would be used after a shoulder dislocation or shoulder fracture. A joint that is kept still for too long can become stiff and lose range of motion. Follow up with your healthcare provider as advised. Don t use the sling longer than directed. Home care Leave the sling and swathe in place as long as directed by your healthcare provider. Unless told otherwise, you should sleep with it in place. If you are being treated for a shoulder dislocation, you may take the sling and swathe off to batheor dress. Don't try to raise your arm away from your body. Put it back on as soon as possible. Your healthcare provider may recommend gentle pendulum exercises. Stand or sit with your arm vertical and close to your side. Relax your shoulder muscles and gently swing the arm forward and back, side to side, and in small circles for about 5 minutes. Do this once or twice a day. There should be only slight pain with this exercise. If you are being treated for a shoulder fracture, leave the sling and swathe in place until your next exam. The sling and swathe is adjustable. If it becomes loose, adjust the sling so that your forearm is level with the ground. Your hand should be level with the elbow. Adjust the part that wraps around your body, called swathe, so that your arm is held snugly against your body. When to seek medical advice Call your healthcare provider right away if any of these occur: New or worsening symptoms You have questions about adjusting the sling and swathe [phone] [employer] ?. [address] [place] [address], [place] [address]. All rights reserved. This information is not intended as a substitute for professional medical care. Always follow yourhealthcare professional's instructions. Upper Extremity Fracture You have a break (fracture) of the arm, wrist, or hand. This may be a small crack in the bone. Or it may be a major break, with the broken parts pushed out of position. Most fractures will heal without surgery. But you may need surgery if the bones are far out of place or if the break is near the elbow. Treatment is with a special sling called a shoulder immobilizer, or a splint or cast, depending on the type of fracture and where the fracture is located. This fracture takes 4 to 6 weeks or longer to heal. The cast may need to be changed in 2 to 3 weeks as swelling goes down. Home care Follow these guidelines when caring for yourself: If you were given a shoulder immobilizer, leave it in place. This will support the injured arm at your side. This is the best position for bone healing. The shoulder immobilizer can be adjusted. If it becomes loose, adjust it so that your forearm is level with the ground (horizontal). Your hand should be level with your elbow. Put an ice pack on the injured area. Do this for 20 minutes every 1 to 2 hours the first day for pain relief. You can make an ice pack by wrapping a plastic bag of ice cubes in a thin towel. As the ice melts, be careful that the cast/splint/sling doesn t get wet. You can put the ice pack inside thesling and directly over the splint or cast. Continue using the ice pack 3 to 4 times a day for the next 2 days. Then use the ice pack as needed to ease pain and swelling. Keep the cast, splint, or sling completely dry at all times. Bathe with your cast, splint, or slingout of the water. Protect it with a large plastic bag, rubber-banded or taped at the top end. If a fiberglass cast, splint, or sling gets wet, you can dry it with a interior design program chair. You may use acetaminophen or ibuprofen to control pain, unless another pain medicine was prescribed. If you have chronic liver or kidney disease, talk with your healthcare provider before using thesemedicines. Also talk with your provider if you ve had a stomach ulcer or gastrointestinal bleeding. Don t put creams or objects under the cast if you have itching. Follow-up care Follow up with your healthcare provider as advised. This is to make sure the bone is healing the way it should. X-rays may be taken. You will be told of any new findings that may affect your care. When to seek medical advice Call your health care provider right away if any of these occur: The cast or splint cracks The plaster cast or splint becomes wet or soft The fiberglass cast or splint stays wet for more than 24 hours Bad odor from the cast or wound fluid stains the cast Tightness or pain under the cast or splint gets worse Fingers become swollen, cold, blue, numb, or tingly You can t move your fingers Skin around cast or splint becomes red or irritated Fever of 100.4 F (38 C) or higher, or chills as directed by your healthcare provider [phone] [employer] ?. [address] [place] [address]. All rights reserved. This information is not intended as a substitute for professional medical care. Always follow yourhealthcare professional's instructions. Additional Information VACCINATE! IT SAVES LIVES! Members of the community who have not yet received the COVID-19 vaccine and would like to receive it can visit one of [facility] vaccine clinics. There are many vaccine clinic locations within the [facility]. For locations and available times, please visit www.gettheshot.coronavirus.[place].gov/. It is important to note that some COVID mobile vaccine clinics are held outdoors and may be canceled in rainy or stormy conditions. To learn more about pediatric vaccinations (ages 5-11), we invite you to visit the [facility] webpage. [email or web address]/pages/[email or web address]-Sfnzk-Pgonuzvguen-[email or web address]-Zek stions.htmlTo learn more about the COVID-19 vaccine, we invite you to visit the CDC website for a list of frequently asked questions. https://www.cdc.gov/coronavirus/2019-ncov/vaccines/faq.html [facility] Patient Portal Access Instructions: Stay connected with your healthcare team and access your personal medical information anytime with the [facility] Patient Portal. If you would like a full copy of your medical records please contact the [facility] Medical Records Department Monday through Monday between 8a.m. and 4:30p.m. Please follow the directions below to access the portal: 1.Access the email account you provided upon registration to the hospital.2.Look for an invitation email from [facility].3.Open the email and access the invitation link: Accept Invitation to [employer]4.Fill in the required chan to create your account. Sign into [email or web address].[email or web address] with your username and password that you created in the above steps to stay up to date. You can then view a summary of results, a summary of your visits, and the ability to download your summaries to your computer or send the information securely to a physician. Remember that your healthcare information is confidential, so carefully consider who you will allow to register on the [facility] Patient Portal for access to your information. You can also access the [employer] Patient Portal on the [employer] kory. Simply click on Health Records under Other [employer] and then click on the [employer] logo. HOW TO SAFELY DISPOSE OF PRESCRIPTION MEDICATIONS Please use one of the following methods to safely dispose of your unused medications. 1.Use a drug disposal kit: the drug disposal pouch allows you to safely discard your old and unuseddrugs. Ask your nurse to give you one when you are discharged.2.Visit a local take-back location: Many local pharmacies and police departments have programs that collect old and unwanted prescriptiondrugs. Call your local pharmacy or go to http://bit.ly/1Y2Wi1q to find one close to you.3.Make use of household items: Use cat litter or old coffee grounds to dispose medications if other options arenot available. Mix your drugs with these household products, seal them in an airtight container andthrow it into the garbage. Call [facility]: [phone] to be sure your drugs can be disposed of in this way. Some medicines may require a different approach.4.Never flush your medications down the toilet. IF YOU HAVE BEEN PRESCRIBED AN OPIOIDS FOR PAIN If you have been prescribed an opioid (such as hydrocodone, oxycodone or morphine), it is critical to understand the possible side effects and risks of opioid pain medications. Even when taken as directed, opioids can have several side effects including: Tolerance, meaning you might need to take more of a medication for the same pain relief. Nausea, vomiting and/or constipation. Sleepiness, dizziness, dry mouth, confusion, depression or itching. Physical dependence, meaning you have withdrawal symptoms when a medication is stopped ? this can develop within a few days. KNOW YOUR RESPONSIBILITIES It is important to know exactly how much and how often to take the opioid pain medications you are prescribed. Never take opioids in higher amounts or more often than prescribed. Do not combine opioids with alcohol or other drugs that cause drowsiness, such as benzodiazepines, also known as benzos,including diazepam and alprazolam, muscle relaxants or sleep aids. Never sell or share prescriptionopioids. This is illegal. Store opioids in a secure place and out of reach of others (including children, family, friends and visitors). The last page(s) of this document has been signed and retained as a CHART COPY Signatures Patient Education Materials Lizetteing and Veronicae Fracture, Upper Extremity Medication Leaflets My discharge plan and instructions have been reviewed and explained to me and ISASKIA SHEILA R understand my current condition and have read and understand these discharge instructions. I have received a written copy of the plan/instructions. If I have questions, I am aware that I should contact my doctor. Patient/Finish Off Operator Signature: Date/Time: Relationship to Patient: Witness Name/Signature: Date/Time: [facility]09-30-2023 Note ORIGINAL EXAMINATION: ONE XRAY VIEW OF THE PELVIS AND TWO XRAY VIEWS RIGHT HIP 05/13/2023 9:08 pm COMPARISON: None. HISTORY: ORDERING SYSTEM PROVIDED HISTORY: Reason for Exam: fall FINDINGS: No fracture or dislocation. Degenerative changes of the lumbosacral spine and bilateral hips. IMPRESSION: No fracture or dislocation. Interpreted by: Irving Butler Preliminary Report By: Irving Butler Electronically signed By Irving Butler Dictated Date: 05/13/2023 9:15:45 PM Prelim Date: 05/13/2023 9:17:28 PM Sign Date: 05/13/2023 9:17:28 PM Ordering Provider: [address]30-2023 Note ORIGINAL EXAMINATION: TWO XRAY VIEWS OF THE RIGHT HUMERUS 05/13/2023 9:08 pm COMPARISON: X-ray shoulder same date HISTORY: ORDERING SYSTEM PROVIDED HISTORY: Reason for Exam: fall FINDINGS: There is a mildly displaced impacted comminuted of the humeral surgical neck. There is about 7 mm of medial displacement the distal fracture fragment. No dislocation. There are surgical clips which project over the right axilla. The visualized right lung is clear. IMPRESSION: Acute traumatic fracture of the right humeral neck. I have personally reviewed the images of this examination and agree with the resident's findings and interpretation. Interpreted by: Irving Butler Preliminary Report By: Evelyn Kim Electronically signed By Irving Butler Dictated Date: 05/13/2023 9:09:36 PM Prelim Date: 05/13/2023 9:12:17 PM Sign Date: 05/13/2023 9:14:05 PM Ordering Provider: [address]30-2023 Note ORIGINAL EXAMINATION: 3 XRAY VIEWS OF THE RIGHT SHOULDER 05/13/2023 9:07 pm COMPARISON: X-ray right humerus same date HISTORY: ORDERING SYSTEM PROVIDED HISTORY: Reason for Exam: fall FINDINGS: Acute traumatic mildly displaced angulated impacted fracture of the right humeral neck. No dislocation. The visualized lungs are clear. The patient is status post vertebral augmentation. Large hiatal hernia. IMPRESSION: Acute traumatic fracture of the right humeral neck. I have personally reviewed the images of this examination and agree with the resident's findings and interpretation. Interpreted by: Irving Butler Preliminary Report By: Evelyn Kim Electronically signed By Irving Butler Dictated Date: 05/13/2023 9:12:25 PM Prelim Date: 05/13/2023 9:13:42 PM Sign Date: 05/13/2023 9:15:26 PM [facility]ing [facility] + Plan note Future Scheduled Tests Laboratory* Magnesium Level 06/02/22 * Thyroid Stimulating Hormone 06/02/22 * Thyroid Stimulating Hormone 12/31/21 * Free T4 06/02/22 * Free T4 12/31/21 * Complete Blood Count 12/31/21 * Free T3 06/02/22 * Complete Metabolic Panel 06/02/22 [facility] 05-20-2022 Evaluation + Plan note Future Scheduled Tests Laboratory* Thyroid Stimulating Hormone 12/31/21 * Free T4 12/31/21 * Complete Blood Count 12/31/21 [facility] 07-13-2021 Evaluation + Plan note Future Scheduled Tests Laboratory* Basic Metabolic Panel 02/23/21 Radiology* CT Abdomen w/ Contrast 02/23/21 * CT Abdomen and Pelvis w/ contrast 02/23/21 * XR Ribs 2 Views Left/PA Chest (AO) 01/15/21 [facility] Evaluation + Plan note Future Appointments Appointment Date:10/08/2021 02:00:00 PM Scheduled Provider:RUTH AU MD Location:[facility] Appointment Type:PC OV Future Scheduled Tests Laboratory* Basic Metabolic Panel 02/23/21 Radiology* CT Abdomen w/ Contrast 02/23/21 * CT Abdomen and Pelvis w/ contrast 02/23/21 * XR Ribs 2 Views Left/PA Chest (AO) 01/15/21 [facility] Evaluation + Plan note Future Appointments Appointment Date:12/31/2021 03:30:00 PM Scheduled Provider:RUTH AU MD Location:[facility] Appointment Type:PC OV Diagnostic Tests Pending * TB Quantiferon, Incubated 12/14/21 Future Scheduled Tests Laboratory* Potassium Level 12/14/21 * Basic Metabolic Panel 02/23/21 * Magnesium Level 12/14/21 Radiology* XR Ribs 2 Views Left/PA Chest (AO) 01/15/21 * CT Abdomen w/ Contrast 02/23/21 * CT Abdomen and Pelvis w/ contrast 02/23/21 [facility] Evaluation + Plan note Future Appointments Appointment Date:12/31/2021 03:30:00 PM Scheduled Provider:RUTH AU MD Location:[facility] Appointment Type:PC OV Future Scheduled Tests Laboratory* Potassium Level 12/14/21 * Basic Metabolic Panel 02/23/21 * Magnesium Level 12/14/21 Radiology* XR Ribs 2 Views Left/PA Chest (AO) 01/15/21 * CT Abdomen w/ Contrast 02/23/21 * CT Abdomen and Pelvis w/ contrast 02/23/21 [facility] Evaluation + Plan note Future Appointments Appointment Date:12/31/2021 03:30:00 PM Scheduled Provider:RUTH UA MD Location:[facility] Appointment Type: OV Future Scheduled Tests Laboratory* Basic Metabolic Panel 02/23/21 * Basic Metabolic Panel 12/15/21 * Magnesium Level 12/15/21 Radiology* XR Ribs 2 Views Left/PA Chest (AO) 01/15/21 * CT Abdomen w/ Contrast 02/23/21 * CT Abdomen and Pelvis w/ contrast 02/23/21 [facility] Evaluation + Plan note Future Appointments Appointment Date:12/31/2021 03:30:00 PM Scheduled Provider:RUTH AU MD Location:[facility] Appointment Type: OV Future Scheduled Tests Laboratory* Basic Metabolic Panel 02/23/21 Radiology* XR Ribs 2 Views Left/PA Chest (AO) 01/15/21 * CT Abdomen w/ Contrast 02/23/21 * CT Abdomen and Pelvis w/ contrast 02/23/21 [facility] Evaluation + Plan note Future Appointments Appointment Date:06/02/2022 01:30:00 PM Scheduled Provider:RUTH AU MD Location:[facility] Appointment Type:PC OV Future Scheduled Tests Laboratory* Thyroid Stimulating Hormone 12/31/21 * Free T4 12/31/21 * Complete Blood Count 12/31/21 * Lipid Profile 07/03/22 * Complete Metabolic Panel 07/03/22 [facility] Evaluation + Plan note Future Appointments Appointment Date:06/02/2022 01:30:00 PM Scheduled Provider:RUTH AU MD Location:[facility] Appointment Type:PC OV Future Scheduled Tests Laboratory* Thyroid Stimulating Hormone 12/31/21 * Free T4 12/31/21 * Complete Blood Count 12/31/21 [facility] Evaluation + Plan note Future Appointments Appointment Date:12/20/2022 01:30:00 PM Scheduled Provider:RUTH AU MD Location:[facility] Appointment Type:PC OV Future Scheduled Tests Laboratory* Magnesium Level 09/20/22 * Thyroid Stimulating Hormone 12/31/21 * Free T4 12/31/21 * Free T4 09/20/22 * Complete Blood Count 12/31/21 * Complete Blood Count 09/20/22 * Lipid Profile 09/20/22 * Complete Metabolic Panel 09/20/22 [facility] Evaluation + Plan note Future Appointments Appointment Date:12/21/2022 02:00:00 PM Scheduled Provider:RUTH AU MD Location:[facility] Appointment Type:PC OV Future Scheduled Tests Laboratory* Magnesium Level 09/20/22 * Thyroid Stimulating Hormone 12/31/21 * Free T4 12/31/21 * Free T4 09/20/22 * Complete Blood Count 12/31/21 * Complete Blood Count 09/20/22 * Lipid Profile 09/20/22 * Complete Metabolic Panel 09/20/22 [facility] Evaluation + Plan note Future Appointments Appointment Date:12/21/2022 02:00:00 PM Scheduled Provider:RUTH AU MD Location:[facility] Appointment Type:PC OV Future Scheduled Tests Laboratory* Thyroid Stimulating Hormone 12/31/21 * Free T4 12/31/21 * Complete Blood Count 12/31/21 [facility] Evaluation + Plan note Future Appointments Appointment Date:06/23/2023 01:30:00 PM Scheduled Provider:RUTH AU MD Location:[facility] Appointment Type:PC OV Future Scheduled Tests Laboratory* Magnesium Level 12/21/22 * Thyroid Stimulating Hormone 12/21/22 * Thyroid Stimulating Hormone 12/31/21 * Free T4 12/21/22 * Free T4 12/31/21 * Complete Blood Count 12/31/21 * Lipid Profile 06/23/23 * Complete Metabolic Panel 06/23/23 [facility] Evaluation + Plan note Future Appointments Appointment Date:06/23/2023 01:30:00 PM Scheduled Provider:RUTH AU MD Location:[facility] Appointment Type: OV Future Scheduled Tests Laboratory* Magnesium Level 12/21/22 * Thyroid Stimulating Hormone 12/21/22 * Free T4 12/21/22 * Lipid Profile 06/23/23 * Complete Metabolic Panel 06/23/23 [facility] Evaluation + Plan note Future Appointments Appointment Date:12/22/2023 01:30:00 PM Scheduled Provider:RUTH AU MD Location:[facility] Appointment Type: OV Follow Up Future Scheduled Tests Laboratory* Thyroid Stimulating Hormone 06/23/23 * Free T4 06/23/23 * A1C Hemoglobin 12/22/23 * Lipid Profile 12/22/23 * Complete Metabolic Panel 12/22/23 [facility] Evaluation + Plan note Future Appointments Appointment Date:11/08/2023 01:15:00 PM Scheduled Provider:BANDAR LOMELI MD Location:[facility] Appointment Type: OV Appointment Date:01/12/2024 11:00:00 AM Scheduled Provider:RUTH AU MD Location:[facility] Appointment Type: OV Follow Up Future Scheduled Tests Laboratory* Ferritin 09/14/23 * Thyroid Stimulating Hormone 09/14/23 * Thyroid Stimulating Hormone 06/23/23 * Free T4 09/14/23 * Free T4 06/23/23 * Urine Culture 10/25/23 * A1C Hemoglobin 12/22/23 * Complete Blood Count 09/14/23 * Free T3 09/14/23 * Lipid Profile 09/14/23 * Lipid Profile 12/22/23 * Vitamin D Level 09/14/23 * Complete Metabolic Panel 09/14/23 * Complete Metabolic Panel 12/22/23 [facility] evaluation + Plan note Future Appointments Appointment Date:01/12/2024 11:00:00 AM Scheduled Provider:RUTH AU MD Location:[facility] Appointment Type:PC OV Follow Up Future Scheduled Tests Laboratory* Ferritin 09/14/23 * Thyroid Stimulating Hormone 09/14/23 * Thyroid Stimulating Hormone 06/23/23 * Free T4 09/14/23 * Free T4 06/23/23 * Urine Culture 10/25/23 * A1C Hemoglobin 12/22/23 * Complete Blood Count 09/14/23 * Complete Blood Count 11/08/23 * Free T3 09/14/23 * Lipid Profile 09/14/23 * Lipid Profile 12/22/23 * Vitamin D Level 09/14/23 * Complete Metabolic Panel 09/14/23 * Complete Metabolic Panel 12/22/23 [facility] Evaluation + Plan note Future Appointments Appointment Date:01/12/2024 11:00:00 AM Scheduled Provider:RUTH AU MD Location:[facility] Appointment Type: OV Follow Up Future Scheduled Tests Laboratory* Ferritin 09/14/23 * Thyroid Stimulating Hormone 09/14/23 * Thyroid Stimulating Hormone 06/23/23 * Free T4 09/14/23 * Free T4 06/23/23 * Urine Culture 10/25/23 * Complete Blood Count 09/14/23 * Complete Blood Count 11/08/23 * Free T3 09/14/23 * Lipid Profile 09/14/23 * Vitamin D Level 09/14/23 * Complete Metabolic Panel 09/14/23 [facility] evaluation + Plan note Future Appointments Appointment Date:07/12/2024 01:30:00 PM Scheduled Provider:RUTH AU MD Location:[facility] Appointment Type:PC OV Future Scheduled Tests Laboratory* Ferritin 09/14/23 * Thyroid Stimulating Hormone 09/14/23 * Thyroid Stimulating Hormone 06/23/23 * Free T4 09/14/23 * Free T4 06/23/23 * Urine Culture 10/25/23 * Complete Blood Count 09/14/23 * Complete Blood Count 11/08/23 * Free T3 09/14/23 * Lipid Profile 09/14/23 * Vitamin D Level 09/14/23 * Complete Metabolic Panel 09/14/23 [facility] Up [employer] + Plan note Future Appointments Appointment Date:07/12/2024 01:30:00 PM Scheduled Provider:RUTH AU MD Location:[facility] Appointment Type:PC OV Future Scheduled Tests Laboratory* Ferritin 09/14/23 * Thyroid Stimulating Hormone 09/14/23 * Thyroid Stimulating Hormone 06/23/23 * Free T4 09/14/23 * Free T4 06/23/23 * Urine Microscopic 05/24/24 * Urine Culture 10/25/23 * Complete Blood Count 09/14/23 * Complete Blood Count 11/08/23 * Free T3 09/14/23 * Lipid Profile 09/14/23 * Vitamin D Level 09/14/23 * Complete Metabolic Panel 09/14/23 [facility] Evaluation + Plan note Future Appointments Appointment Date:07/12/2024 01:30:00 PM Scheduled Provider:RUTH AU MD Location:[facility] Appointment Type:PC OV Future Scheduled Tests Laboratory* Urine Culture 10/25/23 [facility] Evaluation + Plan note Future Appointments Appointment Date:01/09/2025 01:30:00 PM Scheduled Provider:RUTH AU MD Location:[facility] Appointment Type:PC OV Future Scheduled Tests Laboratory* Thyroid Stimulating Hormone 07/12/24 * Free T4 07/12/24 * Urine Culture 10/25/23 * Lipid Profile 01/09/25 * Complete Metabolic Panel 01/09/25 [facility] Evaluation + Plan note Future Appointments Appointment Date:06/05/2025 01:00:00 PM Scheduled Provider:RUTH AU MD Location:[facility] Appointment Type:PC OV Future Scheduled Tests Laboratory* Thyroid Stimulating Hormone 12/05/24 * Free T4 12/05/24 * Complete Blood Count 12/05/24 * Lipid Profile 06/06/25 * Complete Metabolic Panel 06/06/25 [facility] Evaluation noteNo assessment information available [facility] Work Phone: Evaluation note* Diagnosis Onset Date Resolution Status Left bundle branch block chr onic Pure hypercholesterolemia ch ronic Non-ischemic cardiomyopathy resolved [facility] Work Phone: Evaluation note* Diagnosis Onset Date Resolution Status Colitis chronic Dyslipidemia chronic Hypertension chronic Left bundle branch block chr onic Non-ischemic cardiomyopathy resolved [facility] Work Phone: Evaluation note* Diagnosis Onset Date Resolution Status Breast cancer acute Postmenopausal bleeding acut e [facility] Work Phone: Evaluation note* Diagnosis Onset Date Resolution Status Admit Date Colitis chronic January 07, 2025 12:56pm Dyslipidemia chronic January 07 12:56pm Hypertension chronic January 07 12:56pm Left bundle branch block chronic January 07, 2025 12:56pm Mitral valve regurgitation chronic January 07, 2025 12:56pm Non-ischemic cardiomyopathy chronic January 07, 2025 12:56pm [facility] Work Phone: Hospital course Narrative No data available for this section [facility] Discharge instructions No data available for this section [facility] Progress note No data available for this section [facility] Reason for referral (narrative)No reason for [facility]: Chief Complaint and Reason for Visit Chief Complaint DIARRHEA,CBC,CRP STOOL SAMPLE ONLY PROMETHEUS STOOL Chief Complaint DIARRHEA,CBC,CRP STOOL SAMPLE ONLY PROMETHEUS STOOL 6 M FU Reason for Visit Left bundle branch b lock Pure hypercholesterolemia Non-ischemic cardiomyopathy Chief Complaint 6 M FU STOOL SEE ORDER Reason for Visit Left bundle branch b lock Pure hypercholesterolemia Non-ischemic cardiomyopathy Chief Complaint 6 M FU STOOL SEE ORDER K519 Reason for Visit Left bundle branch b lock Pure hypercholesterolemia Non-ischemic cardiomyopathy Chief Complaint Amb Documentation 6 M FU (PFM PT) Reason for Visit Colitis Dyslipidemia Hypertension Left bundle branch block Non-ischemic cardiomyopathy Chief Complaint Amb Documentation 6 M FU (PFM PT) ABN UTERINE/VAGINAL BLEEDING Reason for Visit Colitis Dyslipidemia Hypertension Left bundle branch block Non-ischemic cardiomyopathy Chief Complaint ABN UTERINE/VAGINAL BLEEDING thickened endometrium, ref from Dr Gold [facility] Reason for Visit Breast cancer Postmenopausal bleeding Chief Complaint Admit Date INT LAB ORDERS January 04, 2025 9:47a m 6 M FU January 07, 2025 12:56 pm Reason for Visit Admit Date Colitis January 07, 2025 12:56 pm Dyslipidemia January 07, 2025 12:56 pm Hypertension January 07, 2025 12:56 pm Left bundle branch block January 07, 2025 12:56pm Mitral valve regurgitation January 07 12:56pm Non-ischemic cardiomyopathy January 07 12:56pm Chief Complaint Admit Date INT LAB ORDERS January 04, 2025 9:47a m 6 M FU January 07, 2025 12:56 pm INT LAB ORDER January 21, 2025 11:4 7am Family History No Family History Records Found Relationship Condition Age at Onset Recorded Date/T tanja Not Specified Cardiac disease Unknown father Coronary artery disease Unknown Chronic obstructive pulmonary disease Unk nown Malignant neoplasm Unknown mother Malignant neoplasm Unknown sister Myocardial infarction Unknown Diabetes mellitus Unknown Advance Directives No Advanced Directives Records Found Advance Directive Response Recorded Date/ Time Living Will Yes June 11 11:51am Power of Senior Loan Officer Yes June 11, 2021 11:51am Latest Code Status on File Code Status Date Activated Date Inactivated Comments Full Code 12/05/2013 1:29 PM 12/26/2013 2:25 PM Full Code 11/22/2013 11:13 AM 12/05/2013 1:29 PM Advance Directive Response Recorded Date/ Time Living Will Yes June 11 10:51am Power of Senior Loan Officer Yes June 11, 2021 10:51am Summary Purpose Additional Source Comments Goals (unrecognized section and content) Goals may be documented in a n alternate section Care Team (unrecognized sect ion and content) Street Supervisor Relationship Specialty Start Date End Date Ruth Au MD [address] [place] [address] PCP - General Family Medicine 04/25/13 Kwame Nava MD PCP - Referring 1 Cardiovascular Medicine 11/06/13 Jazmyn Maddox RN Registered Nurse 11/30/13 Ubaldo Bhardwaj MD [address] [place] [address] Neurosurgeon Neurological Surgery 11/06/13 Team Status: Active Member Role Status Dates Dr. Ruth Au MD Family Provider Active Dr. Ruth Au MD Primary Care Provider Active Team Status: Inactive Member Role Status Dates Dr. Ruth Au MD Primary Care Provider, Referrin g Provider Active Dr. Kwame Nava MD Attending Provider Active Team Status: Inactive Member Role Status Dates Dr. Ruth Au MD Primary Care Provider Active Dr. Jose Tabor MD Attending Provider, Referring Provider Active Team Status: Inactive Member Role Status Dates Dr. Ruth Au MD Primary Care Provider, Referrin g Provider Active Dr. Pam Whipple MD Attending Provider Active Team Status: Active Member Role Status Dates Dr. Ruth Au MD Primary Care Provider Active Cindy Barney Attending Provider Active Team Status: Inactive Member Role Status Dates Dr. Ruth Au MD Primary Care Provider Active Dr. Angela Gold MD Attending Provider, Referring P courtney Active Team Status: Inactive Member Role Status Dates Dr. Ruth Au MD Primary Care Provider, Referrin g Provider Active Marzena Salazar ASSISTANCE SPECIALIST, ASSISTANCE SPECIALIST-C Attending Provider Active Team Status: Inactive Member Role Status Dates Dr. Ruth Au MD Primary Care Provider Active Marzena Salazar ASSISTANCE SPECIALIST, ASSISTANCE SPECIALIST-C Attending Provider, Referring Provider Active Team Status: Active Member Role Status Dates Dr. Ruth Au MD Primary Care Provider Active Start: January 04, 2025 Dr. Pam Whipple MD Attending Provider Active Start: January 04, 2025 Dr. Pam Whipple MD Referring Provider Active Start: January 04, 2025 Team Status: Inactive Member Role Status Dates Dr. Ruth Au MD Primary Care Provider Active Start: January 07, 2025 End: January 07, 2025 Dr. Ruth Au MD Referring Provider Active Start: January 07, 2025 End: January 07, 2025 Dr. Pam Whipple MD Attending Provider Active Start: January 07, 2025 End: January 07, 2025 Team Status: Active Member Role Status Dates Dr. Ruth Au MD Primary Care Provider Active Team Status: Inactive Member Role Status Dates Dr. Ruth Au MD Primary Care Provider Active Start: January 04, 2025 End: January 04, 2025 Dr. Pam Whipple MD Attending Provider Active Start: January 04, 2025 End: January 04, 2025 Dr. Pam Whipple MD Referring Provider Active Start: January 04, 2025 End: January 04, 2025 Team Status: Inactive Member Role Status Dates Dr. Ruth Au MD Primary Care Provider Active Start: January 21, 2025 End: January 21, 2025 Dr. Pam Whipple MD Attending Provider Active Start: January 21, 2025 End: January 21, 2025 Dr. Pam Whipple MD Referring Provider Active Start: January 21, 2025 End: January 21, 2025 Reason for Visit (unrecogniz ed section and content) Specialty Diagnoses / Procedures Referred By Contac t Referred To Contact Diagnoses Meningioma Procedures MRI BRAIN WITH AND WITHOUT CONTRAST CA MRI BRAIN XOCHILTO Georgina Ndiaye MD [address] [place] [id number] Referral ID Status Reason Start Date Expiration Date V isits Requested Visits Authorized [id number] New Request 01/13/2021 02/07/2022 1 1 INFORMATION SOURCE (unrecogn ized section and content) DATE CREATED AUTHOR 05/14/2022 [facility] DATE CREATED AUTHOR AUTHOR'S ORGANIZ ATION 07/07/2022 [facility] DATE CREATED AUTHOR AUTHOR'S ORGANIZ ATION 04/16/2024 [facility] DATE CREATED AUTHOR AUTHOR'S ORGANIZ ATION 01/08/2025 [facility] DATE CREATED AUTHOR AUTHOR'S ORGANIZ ATION 01/29/2025 [facility] Care Team (unrecognized sect ion and content) Care Team Personnel Name: Savita Sales Account Specialist Alesia PT Position: P3 Scheduling - Procurement Professional Logistics Advanced Member Role: Other Name: RUTH AU MD Position: P4 Physician - Primary Care Med Service: Active Provider Member Role: Primary Care Physician Address: Address: [address] [place] [id number] Care Team Related Persons Name: MARY KRUGER Address: [address] [place], [place] [id number] [place] Address: Temporary [address] [place], [place] [id number] Name: LEIGHTON KRUGER Care Team Personnel Name: Savita Sales Account Specialist Alesia PT Position: P3 Scheduling - Procurement Professional Logistics Advanced Member Role: Other Name: RUTH AU MD Position: P4 Physician - Primary Care Med Service: Active Provider Member Role: Primary Care Physician Address: Address: [address] [place] [id number] Care Team Related Persons Name: MARY KRUGER Address: [address] [place], [place] [id number] [place] Address: [address]porary [address] [place], [place] [id number] Name: LEIGHTON KRUGER Care Team Personnel Name: Savita Sales Account Specialist Alesia PT Position: P3 Scheduling - Procurement Professional Logistics Advanced Member Role: Other Name: RUTH AU MD Position: P4 Physician - Primary Care Med Service: Active Provider Member Role: Primary Care Physician Address: Address: [address] [place] [id number] Care Team Related Persons Name: MARY KRUGER Address: [address] [place], [place] [id number] [place] Address: [address] [place], [place] [id number] Name: LEIGHTON KRUGER Care Team Personnel Name: Savita Sales Account Specialist Alesia PT Position: P3 Scheduling - Procurement Professional Logistics Advanced Member Role: Other Name: RUTH AU MD Position: P4 Physician - Primary Care Member Role: Primary Care Physician Address: Address: [address] [place] [id number] Care Team Related Persons Name: MARY KRUGER Address: [address] [place], [place] [id number] [place] Address: [address]porary [address] [place], [place] [phone] Name: LEIGHTON KRUGER Care Team Personnel Name: Asia Barney Clertamika Dumas PT Position: P3 Scheduling - Procurement Professional Logistics Advanced Member Role: Other Name: RUTH AU MD Position: P4 Physician - Primary Care Member Role: Primary Care Physician Address: Address: [address] [place] [id number] Care Team Related Persons Name: MARY KRUGER Address: [address] [place], [place] [id number] Address: [address] [place], [place] [phone] Name: SASKIALEIGHTON FOR RECORDS PERTAINING TO PATIENTS WHO ARE OR HAVE BEEN ENROLLED IN A CHEMICAL DEPENDENCY/SUBSTANCEABUSE PROGRAM, SOME INFORMATION MAY BE OMITTED. This clinical summary was aggregated from multiple sources. Caution should be exercised in using it in the provision of clinical care. This summary normalizes information from multiple sources, and as a consequence, information in this document may materially change the coding, format and clinical context of patient data. In addition, data may be omitted in some cases. CLINICAL DECISIONS SHOULD BE BASED ON THE PRIMARY CLINICAL RECORDS. [facility] [employer] [facility]. provides no warranty or guarantee of the accuracy or completeness of information in this document.
--- OUTSIDE RECORDS SUMMARY | 2025-02-25 06:39 | XMS RPT_ITS | CCD ---
Author Organization [facility] Care Team Providers Care Real Estate Professor Name Role Phone RUTH AU MD Primary Care Physician Savita PT, Alesia Unavailable Unavailable Dr. Ruth Au Primary Care Provider Dr. Ruth Au Referring Provider [phone] Dr. Kwame Nava Attending Provider Ruth Au MD Primary Care Provider [phone] Kwame Nava MD Unavailable Tan HARVEY, [place] Unavailable Unavailab chelsea Bhardwaj MD, Ubaldo Decker Unavailable RUTH AU Referring Unavailable RUTH AU Primary Care Unavailable PILLAINAYAEARL, CLEMENT P Attending Unavail able RUTH AU Primary Care Unavailable DESIRE JIMENEZ Referring Unavailable DESIRE JIMENEZ Attending Unavailable RUTH AU Primary Care Unavailable PILLAINAYAGAM, CLEMENT P Referring Unavail able PILLAINQUINTIN, CLEMENT P Attending Unavail able JOSE OCAMPO Attending Unavailable Dr. Ruth Au Primary Care Provider [phone] Dr. Ruth Au Referring Provider Dr. Kwame Nava Attending Provider [phone] Dr. Ruth Au Primary Care Provider Cindy Barney Attending Provider Unavailable Dr. Ruth Au Referring Provider Dr. Pam Whipple Attending Provider Dr. Ruth Au Primary Care Provider Dr. Ruth Au Referring Provider [phone] Marie PASTOR, DIDIER Ivan Attending Provider RUTH AU MD Attending Unavailable RUTH AU [...] Roe SOLORIO, Dr. Newsome Primary Care Provider Dr. Pam Whipple MD Attending Provider [phone] Dr. Pam Whipple MD Referring Provider [phone] Dr. Ruth Au MD Referring Provider NELI [...] Unavail able Ruth Au Primary Care Unavailable Ua Ruth Primary Care Unavailable Au, Ruth Referring [...] (20 sources) Adhesive Tape Allergy to substance [facility] Work Phone: (20 sources) Codeine; Translations: [codeine] Drug Allergy 021 Prochlorperazine (product) [facility] Work Phone: (20 sources) NITROFURANTOIN, MACROCRYSTALS / Nitrofurantoin, Monohydrate; Translations: [nitrofurantoin] Drug Allergy unknown [facility] Work Phone: (20 sources) Prochlorperazine; Translations: [prochlorperazine] Drug Allergy 021 Hyper [facility] Work Phone: (20 sources) Sulfamethoxazole / Trimethoprim; Translations: [sulfamethoxazole-t rimethoprim] Drug Allergy 013 Dyspepsia [facility] Work Phone: (11 sources) Nitrofurantoin Drug Allergy unknown [facility] (11 sources) Simvastatin Drug Allergy Intolerance, Myalgias [facility] (11 sources) Sulfamethoxazole Drug Allergy unknown [facility] (11 sources) Trimethoprim Drug Allergy unknown [facility] (1 source) metroNIDAZOLE Drug Allergy [facility] (1 source) Codeine And Related Propensity to adverse reactions to drug Rash [facility] (1 source) Prochlorperazine Edisylate Propensity to adverse reactions to drug Anxiety [facility] (1 source) *Adhesive Tape Propensity to adverse reactions Rash [facility] (1 source) Codeine Drug Allergy [facility] Repository (1 source) Nitrofurantoin Drug Allergy [facility] Repository (1 source) Prochlorperazine Drug Allergy [facility] Repository (1 source) Simvastatin Drug Allergy [facility] Repository (1 source) Sulfamethoxazole Drug Allergy [facility] Repository (1 source) Trimethoprim Drug Allergy [facility] Repository Medications Current Medications Medication Drug Class(es) [...] 12/07/20 Status: Ordered Start: 11-05-2018 End: 07-12-2023 Fydflepwcv-Pnzmadzoicvjn-Ghc f 50-325-40 mg tablet Discontinued 1 {tbl} PO EVERY 6 HOURS as needed for MIGRAINES November 05, 2018 12:00am July 12, 2023 3:31pm Start: 11-05-2018 take 1 tablet by eugene th every six hours Iagcpwvcgo-Whlixwsolcoyy-Mrto Active 1 TABLET PO EVERY 6 HOURS [...] every six hours as needed for pain [place] 325- 5 mg oral tablet Dose = [...] 0 Refill(s), 07/22/24 2:07:00 PM EST, Pharmacy: [facility] #[id number], UTI (urinary tract infection) Urinary frequency, 160.8, cm, 07/12/24 13:28:00 EST, Height, 57.4, kg, 07/12/24 13:28:00 EST, Dosing Weight Start Date: 07/12/24 Stop Date: 07/22/24 Status: Ordered Start: 04-11-2024 End: 04-21-2024 take 1 tablet by mouth every twelve hours amoxicillin-clavulanate 875 mg-125 mg or al tablet 1 tab(s), Oral, q12h, X 10 day(s), # 20 tab(s), 0 Refill(s), 04/21/24 10:35:00 AM EDT, Pharmacy: [facility] #[id number], Wound, open, leg Cellulitis of leg, 160.8, [...] 02/15/24 8:46:00 AM EDT, [facility]: [facility][id number], 160.8, cm, 02/05/24 16:40:00 EDT, Height, 53, kg, 02/05/24 16:40:00 EDT, Dosing Weight Start Date: 02/08/24 Stop Date: 02/15/24 Status: Ordered Start: 05-09-2023 End: 05-16-2023 take 1 tablet by mouth every twelve hours amoxicillin-clavulanate 875 mg-125 mg or al tablet 1 tab(s), Oral, q12h, X 7 day(s), # 14 tab(s), 0 Refill(s), 05/16/23 2:50:00 PM EDT, [facility]: [facility] #[id number], Left-sided face pain, 162.5, cm, 05/09/23 14:24:00 EDT, Height, 56.5, kg, 05/09/23 14:24:00 EDT, Dosing Weight Start Date: 05/09/23 Stop Date: 05/16/23 Status: Ordered Start: 10-14-2022 End: 10-21-2022 take 1 tablet by mouth every twelve hours amoxicillin-clavulanate 875 mg-125 mg or al tablet 1 tab(s), Oral, q12h, X 7 day(s), # 14 tab(s), 0 Refill(s), 10/21/22 11:26:00 EST, [facility]: [facility] #[id number], 162.5, cm, 10/12/22 15:41:00 EST, Height, 58 [...] daily Budesonide Discontinued 9 MG PO DAILY [facility] 2018 12:00am October 19, 2020 4:20pm [...] Dosing Weight Start Date: 03/31/21 Status: Ordered Corbnggfsv-MSMX-Uifeu ine (FIORICET PO) (1 source) Butalbital-APAP- Caffeine [...] Refill(s), 05/18/22 16:24:00 EDT, [facility]: [facility] #[id number], 161, cm, 05/11/22 15:50:00 EDT, Height, 56.1 [...] 0 Refill(s), 01/14/25 4:37:00 PM EDT, Pharmacy: [facility] #[id number], Back pain Dysuria, 162.5, cm, 12/31/24 15:58:00 [...] 0 Refill(s), 05/22/24 10:03:00 AM EDT, Pharmacy: [facility] #[id number], Hematuria, 160.8, cm, 05/15/24 9:32:00 EDT, Height, 57.2, kg, 05/15/24 9:32:00 EDT, Dosing Weight Start Date: 05/15/24 Stop Date: 05/22/24 Status: Ordered Start: 10-26-2023 End: 11-05-2023 Cipro 500 mg oral tablet Dos e : 500 mg = 1 tab(s), Oral, q12h, X 10 day(s), # 20 tab(s), 0 Refill(s), 11/05/23 8:12:00 AM EDT, Pharmacy: [facility] #[id number], UTI (urinary tract infection) UTI symptoms, 161, cm, 10/26/23 7:33:00 EDT, Height, 54.2, kg, 10/26/23 7:33:00 EDT, Dosing Weight Start Date: 10/26/23 Stop Date: 11/05/23 Status: Ordered Start: 10-12-2022 End: 10-19-2022 Cipro 500 mg oral tablet Dos e : 500 mg = 1 tab(s), Oral, q12h, X 7 day(s), # 14 tab(s), 0 Refill(s), 10/19/22 16:18:00 EST, Pharmacy: [facility] #[id number], UTI (urinary tract infection) Edema, 162.5, cm, 10/12/22 15:41:00 EST, Height, 58, kg, 10/12/22 15:41:00 EST, Dosing Weight Start Date: 10/12/22 Stop Date: 10/19/22 Status: Ordered Start: 05-30-2022 End: 06-06-2022 Cipro 250 mg oral tablet Dos e : 250 mg = 1 tab(s), Oral, q12h, X 7 day(s), # 14 tab(s), 0 Refill(s), 06/06/22 10:06:00 EDT, Pharmacy: [facility] #[id number], 173, cm, 05/30/22 9:38:00 EDT, Height, 57.6 [...] qHS, # 180 tab(s), 0 Refill(s), Pharmacy: [facility] Restless leg Anxiety, 163, cm, 10/08/21 13:54:00 EST, Height, 54.2, kg, 10/08/21 13:54:00 EST, Dosing Weight Start Date: 10/08/21 Stop Date: 01/06/22 Status: Ordered Start: 06-18-2021 End: 09-16-2021 clonazePAM 0.5 mg oral table t Dose : 1 mg = 2 tab(s), Oral, qHS, # 180 tab(s), 0 Refill(s), [facility] Restless leg Anxiety, 161.9, cm, [...] meals, # 180 tab(s), 0 Refill(s), [facility] 160.3, cm, 12/20/21 15:35:00 [...] BID, # 180 tab(s), 3 Refill(s), Pharmacy: [facility] #[id number], 162.5, cm, 12/05/24 13:01:00 EDT, Height, kg, 12/05/24 13:01:00 EDT, Dosing Weight Start Date: 12/05/24 Stop Date: 11/30/25 Status: Ordered Quantity: 180.0 Unit: tab(s) Repeat number: 4 Start: 06-14-2024 Keppra 500 mg oral tablet Dose : 500 mg = 1 tab(s), Oral, BID, # 180 tab(s), 0 Refill(s), Pharmacy: [facility] #[id number], 160.8, cm, 05/15/24 9:32:00 EDT, Height, kg, 05/15/24 9:32:00 EDT, Dosing Weight Start Date: 06/14/24 Status: Ordered Start: 03-14-2024 Keppra 500 mg oral tablet Dose : 500 mg = 1 tab(s), Oral, BID, # 180 tab(s), 0 Refill(s), Pharmacy: [facility] #[id number], 160.8, cm, 02/05/24 16:40:00 EDT, Height, kg, 02/05/24 16:40:00 EDT, Dosing Weight Start Date: 03/14/24 Status: Ordered Start: 08-30-2017 Keppra 500 mg oral tablet Dose : 500 mg = 1 tab(s), Oral, BID, # 180 tab(s), 0 Refill(s), [facility]acy: [facility] #[id number], 161, cm, 11/22/23 14:56:00 EDT, Height, kg, 11/22/23 14:56:00 EDT, Dosing Weight Start Date: 12/13/23 Status: Ordered levothyroxine sodium 0.05 mg oral tablet (20 sources) l-Thyroxine Start: 12-05-2024 levothyroxine 50 mcg (0.05 mg) oral tablet Dose : 50 mcg = 1 tab(s), Oral, qDay, # 90 tab(s), 3 Refill(s), [id number], 162.5, cm, 12/05/24 13:01:00 EDT, Height, kg, 12/05/24 13:01:00 EDT, Dosing Weight Start Date: 12/05/24 Status: Ordered Quantity: 90.0 Unit: tab(s) Repeat number: 4 Start: 07-12-2024 levothyroxine 75 mcg (0.075 mg) oral tablet Dose : 75 mcg = 1 tab(s), Oral, qDay, # 90 tab(s), 3 Refill(s), Pharmacy: [facility] #[id number], 160.8, cm, 07/12/24 13:28:00 EST, Height, kg, 07/12/24 13:28:00 EST, Dosing Weight Start Date: 07/12/24 Status: Ordered Start: 06-14-2024 levothyroxine 50 mcg (0.05 mg) oral tablet Dose : 50 mcg = 1 tab(s), Oral, qDay, # 90 tab(s), 0 Refill(s), Pharmacy: [facility] #[id number], 160.8, cm, 05/15/24 9:32:00 EDT, Height, kg, 05/15/24 9:32:00 EDT, Dosing Weight Start Date: 06/14/24 Status: Ordered Start: 12-19-2023 levothyroxine 50 mcg (0.05 mg) oral tablet Dose : 50 mcg = 1 tab(s), Oral, qDay, # 90 tab(s), 1 Refill(s), [facility]: [facility] #[id number], 161, cm, 11/22/23 14:56:00 EDT, Height, kg, 11/22/23 14:56:00 EDT, Dosing Weight Start Date: 12/19/23 Status: Ordered Start: 06-13-2023 levothyroxine 50 mcg (0.05 mg) oral tablet Dose : 50 mcg = 1 tab(s), Oral, qDay, # 90 tab(s), 1 Refill(s), [facility]: [facility] #[id number], 162.5, cm, 05/09/23 14:24:00 EDT, Height, kg, 05/09/23 14:24:00 EDT, Dosing Weight Start Date: 06/13/23 Status: Ordered Start: 12-21-2022 levothyroxine 50 mcg (0.05 mg) oral tablet Dose : 50 mcg = 1 tab(s), Oral, qDay, # 90 tab(s), 1 Refill(s), [facility]: [facility] #[id number], 162.5, cm, 12/21/22 13:56:00 EDT, Height, kg, 12/21/22 13:56:00 EDT, Dosing Weight Start Date: 12/21/22 Status: Ordered Start: 09-20-2022 levothyroxine 50 mcg (0.05 mg) oral tablet Dose : 50 mcg = 1 tab(s), Oral, qDay, # 90 tab(s), 1 Refill(s), [facility]: [facility] #[id number], 162.5, cm, 09/20/22 13:29:00 EST, Height, kg, 09/20/22 13:29:00 EST, Dosing Weight Start Date: 09/20/22 Status: Ordered Start: 03-29-2022 levothyroxine 50 mcg (0.05 mg) oral tablet Dose : 50 mcg = 1 tab(s), Oral, qDay, # 90 tab(s), 1 Refill(s), [facility]: [facility] #[id number], 163.5, cm, 12/31/21 14:46:00 EDT, Height, kg, [...] number: 1 Start: 05-11-2022 Potassium Chlo ride (Kwq-Jfjy-Ost M20) 20 mEq oral tablet, extended release 0 Refill(s) Start Date: 05/11/22 Status: Ordered Start: 12-14-2021 End: 12-24-2021 Potassium Chloride (Eqv-Klor -Con M20) 20 mEq oral tablet, extended release Dose : 40 mEq = 2 tab(s), Oral, BID, # 40 tab(s), 0 Refill(s), [facility], 163, cm, 10/08/21 13:54:00 EST, Height [...] qDay, # 30 tab(s), 11 Refill(s), Pharmacy: [address] 162, cm, 09/24/21 9:06:00 [...] Start: 07-29-2015 take 2 tablets by mo [facility] every twelve hours carveDILOL 12.5 MG Tab Indications: S/P resection of meningioma , Nontraumatic brain injury, without loss of consciousness, subsequent encounter , Meningioma take 2 tablets by mouth every 12 hours. 60 tablet 0 07/29/2015 Active estrogens, conjugated (retirement) 0.625 mg/ml vaginal cream (20 sources) Estrogen [...] 0 Refill(s) Start Date: 09/24/21 Status: Ordered [place]-3 Fatty Acids (Fish Oil Concentrate) 1,000 mg capsule (11 sources) Start: 11-05-2018 End: 11-13-2019 take 1 capsule by mouth twice daily [place]-3 Fatty Acids (Fish Oil Concentrate) 1,000 mg capsule Discontinued 1000 MG PO TWICE A DAY November 05, 2018 11:28am November 13, 2019 1:09pm Start: 11-05-2018 End: 11-13-2019 take 1 capsule by mouth twice daily [place]-3 Fatty Acids (Fish Oil Concentrate) 1,000 mg capsule Discontinued 1000 mg PO TWICE A DAY November 05, 2018 12:00am November 13, 2019 1:09pm Start: 11-05-2018 End: 11-13-2019 take 1 capsule by mouth twice daily [place]-3 Fatty Acids (Fish Oil Concentrate) 1,000 mg capsule Discontinued 1000 MG PO TWICE A DAY November 05, 2018 12:00am November 13, 2019 1:09pm Start: 11-05-2018 End: 11-13-2019 take 1 capsule by mouth twice daily [place]-3 Fatty Acids (Fish Oil Concentrate) 1,000 mg [...] 90 tab(s), 3 Refill(s), [facility] [place], 162.4, cm, 08/03/21 9:09:00 EST, Height, kg, [...] current use of drug therapy; 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, [address] Calcium [Mass/Vol] 9.3 mg/dL Normal 7.6-11.0 [facility] Comment on above: Performed By: #### L 500.2500 #### [facility] [address] [place], [address] Chloride [Moles/Vol] 107 mmol/L Normal 98-108 [facility] Comment on above: Performed By: #### L 500.2500 #### [facility] [address] [place], [address] CO2 [Moles/Vol] 24.0 mmol/L Normal 21.0-32.0 [facility] Comment on above: Performed By: #### L 500.2500 #### [facility] [address] [place], [address] Creatinine [Mass/Vol] 0.97 mg/dL Normal 0.70-1.20 [facility] Comment on above: Performed By: #### L 500.2500 #### [facility] [address] [place], [address] GAP 10 Normal 12-26 [facility] Comment on above: Performed By: #### L 500.2500 #### [facility] [address] [place], [address] GFR/1.73 sq M.predicted among non-blacks MDRD (S/P/Bld) [Vol rate/Area] 59 mL/min/{1.73_m2} Low >60 [facility] Comment on above: Result Comment: mL/m in/1.73m2 CKD-EPI Creatinine Equation (2020) Performed By: #### L 500.2500 #### [facility] [address] [place], [address] Glucose [Mass/Vol] 86 mg/dL Normal 70-99 [facility] Comment on above: Performed By: #### L 500.2500 #### [facility] [address] [place], [address] Potassium [Moles/Vol] 3.8 mmol/L Normal 3.3-5.1 [facility] Comment on above: Performed By: #### L 500.2500 #### [facility] [address] [place], [address] Sodium [Moles/Vol] 141 mmol/L Normal 133-145 [facility] Comment on above: Performed By: #### L 500.2500 #### [facility] [address] [place], [address] Urea nitrogen [Mass/Vol] 16 mg/dL Normal 4-19 [facility] Comment on above: Performed By: #### L 500.2500 #### [facility] [address] [place], [address] Carbon dioxide, total [Moles /volume] in Central venous bloodOrdered By: Pam Whipple on 01-21-2025 CO2 [Moles/Vol] 24.0 mmol/L 21.0-32.0 [facility] Chloride assayOrdered By: Markie Whipple on 01-21-2025 Chloride [Moles/Vol] 107 mmol/L 98-108 [facility] Glomerular filtration rate ( GFR) estimation/1.73 sq m using serum, plasma, or whole bOrdered By: Pam Whipple on 01-21-2025 GFR/1.73 sq M.predicted among non-blacks MDRD (S/P/Bld) [Vol rate/Area] 59 mL/min/{1.73_m2} Low >60 [facility] Comment on above: mL/min/1.73m2 CKD-EP I Creatinine Equation (2020) Potassium measurement (mass/ volume)Ordered By: Pam Whipple on 01-21-2025 Potassium (Unsp spec) [Mass/Vol] 3.8 mmol/L 3.3-5.1 [facility] Serum creatinine measurement (mass/volume)Ordered By: Pam Whipple on 01-21-2025 Creatinine [Mass/Vol] 0.97 mg/dL 0.70-1.20 [facility] Serum glucose measurement (m ass/volume)Ordered By: Pam Whipple on 01-21-2025 Glucose [Mass/Vol] 86 mg/dL 70-99 [facility] Serum or plasma calcium omid urement (mass/volume)Ordered By: Pam Whipple on 01-21-2025 Calcium [Mass/Vol] 9.3 mg/dL 7.6-11.0 [facility] Serum or plasma urea nitroge n measurement (mass/volume)Ordered By: Pam Whipple on 01-21-2025 Urea nitrogen [Mass/Vol] 16 mg/dL 4-19 [facility] Sodium levelOrdered By: Chaz Whipple on 01-21-2025 Sodium [Moles/Vol] 141 mmol/L 133-145 [facility] Cardiology Visit Reporton Cardiology Visit Report [facility] [place] [address] OFFICE VISIT Date of Service: 01/07/25 MR#: [id number] Acct: [id number] Name: GRICELDA KRUGER Rep #: [id number] : 1945 Provider: Dr. 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 Normal [facility] Anion gap in Serum or Plasma Ordered By: Pam Whipple on 01-04-2025 Anion gap [Moles/Vol] 10 mmol/L 5- [facility] BUN/creatinine ratioOrdered By: Pam Whipple on 01-04-2025 Urea nitrogen/Creatinine [Mass ratio] 17.9 mg/mg 10- [facility] Bilirubin, totalOrdered By: Pam Whipple on 01-04-2025 Bilirubin [Mass/Vol] 0.96 mg/dL Normal 0.00-1.30 [facility] Comment on above: Performed By: #### L 500.4050, L500.4100 #### [facility] [address] [place], [place], [id number] Calculated very low density lipoprotein (VLDL) cholesterol measurementOrdered By: Pam Whipple on 01-04-2025 Calculated very low density lipoprotein (VLDL) cholesterol measurement 34 mg/dL - [facility] Carbon dioxide, total [Moles /volume] in Central venous bloodOrdered By: Pam Whipple on 01-04-2025 CO2 [Moles/Vol] 25.9 mmol/L Normal 21.0-32.0 [facility] Comment on above: Performed By: #### L 500.4050, L500.4100 #### [facility] [address] [place], [place], [id number] Chloride assayOrdered By: Markie Whipple on 01-04-2025 Chloride [Moles/Vol] 107 mmol/L Normal 98-108 [facility] Comment on above: Performed By: #### L 500.4050, L500.4100 #### [facility] [address] [place], [address] Comprehensive Metabolic Prof ilon 01-04-2025 ALK PHOS 47 U/L Normal 35-104 [facility] Comment on above: Performed By: #### L 500.4050, L500.4100 #### [facility] [address] [place], [address] BUN/CRE 17.9 RATIO Normal 10-20 [facility] Comment on above: Performed By: #### L 500.4050, L500.4100 #### [facility] [address] [place], [address] GAP 10 Normal 5-15 [facility] Comment on above: Performed By: #### L 500.4050, L500.4100 #### [facility] [address] [place], [address] Potassium [Moles/Vol] 3.8 mmol/L Normal 3.3-5.1 [facility] Comment on above: Result Comment: Hemo lysis present, Results??could be affected. ?? Performed By: #### L 500.4050, L500.4100 #### [facility] [address] [place], [address] T PROT 6.1 g/dL Normal 5.9-8.4 [facility] Comment on above: Performed By: #### L 500.4050, L500.4100 #### [facility] [address] [place], [address] Comprehensive Metabolic Prof ilOrdered By: Pam Whipple on 01-04-2025 AST [Catalytic activity/Vol] 21 U/L Normal <=31 [facility] Comment on above: Hemolysis present, R esults could be affected. Result Comment: Hemo lysis present, Results??could be affected. ?? Performed By: #### L 500.4050, L500.4100 #### [facility] [address] [place], [address] Glomerular filtration rate ( GFR) estimation/1.73 sq m using serum, plasma, or whole bOrdered By: Pam Whipple on 01-04-2025 GFR/1.73 sq M.predicted among non-blacks MDRD (S/P/Bld) [Vol rate/Area] 70 mL/min/{1.73_m2} Normal >60 [facility] Comment on above: mL/min/1.73m2 CKD-EP I Creatinine Equation (2020) Result Comment: mL/m in/1.73m2 CKD-EPI Creatinine Equation (2020) Performed By: #### L 500.4050, L500.4100 #### [facility] [address] [place], [address] LDL calc ser/plasOrdered By: Pam Whipple on 01-04-2025 Cholesterol in LDL [Mass/Vol] 90 mg/dL Normal [facility] Comment on above: Gfogageoeq=329-516 m g/dL & Higher Lqsw=203 mg/dL or greater Result Comment: Bord hxxhmh=151-676 mg/dL Higher Icfw=890 mg/dL or greater Performed By: #### L 500.4050, L500.4100 #### [facility] [address] [place], [address] Lipid Profileon 01-04-2025 CHOL:HDL 2.54 Normal [facility] Comment on above: Performed By: #### L 500.4050, L500.4100 #### [facility] [address] [place], [address] Cholesterol in VLDL [Mass/Vol] 34 mg/dL Normal 5-40 [facility] Comment on above: Performed By: #### L 500.4050, L500.4100 #### [facility] [address] [place], [address] Potassium measurement (mass/ volume)Ordered By: Pam Whipple on 01-04-2025 Potassium (Unsp spec) [Mass/Vol] 3.8 mmol/L 3.3-5.1 [facility] Comment on above: Hemolysis present, R esults could be affected. Screening total cholesterol/ high density lipoprotein (HDL) cholesterol ratioOrdered By: Pam Whipple on 01-04-2025 Cholesterol.total/Ch olesterol in HDL [Mass ratio] 2.54 {ratio} [facility] Serum creatinine measurement (mass/volume)Ordered By: Pam Whipple on 01-04-2025 Creatinine [Mass/Vol] 0.84 mg/dL Normal 0.70-1.20 [facility] Comment on above: Performed By: #### L 500.4050, L500.4100 #### [facility] [address] [place], [address] Serum globulin measurementOr dered By: Pam Whipple on 01-04-2025 Globulin (S) [Mass/Vol] 2.0 g/dL Low 2.2-4.2 [facility] Comment on above: Performed By: #### L 500.4050, L500.4100 #### [facility] [address] [place], [address] Serum glucose measurement (m ass/volume)Ordered By: Pam Whipple on 01-04-2025 Glucose [Mass/Vol] 89 mg/dL Normal 70-99 [facility] Comment on above: Performed By: #### L 500.4050, L500.4100 #### [facility] [address] [place], [address] Serum or plasma alanine garnica otransferase (ALT) measurementOrdered By: Pam Whipple on 01-04-2025 ALT [Catalytic activity/Vol] 14 U/L Normal <=34 [facility] Comment on above: Performed By: #### L 500.4050, L500.4100 #### [facility] [address] [place], [address] Serum or plasma albumin omid urement (mass/volume)Ordered By: Pam Whipple on 01-04-2025 Albumin [Mass/Vol] 4.1 g/dL Normal 3.4-4.8 [facility] Comment on above: Performed By: #### L 500.4050, L500.4100 #### [facility] [address] [place], [place], [id number] Serum or plasma albumin/glob ulin mass ratioOrdered By: Pam Whipple on 01-04-2025 Albumin/Globulin [Mass ratio] 2.0 {ratio} Normal 0.9-2.4 [facility] Comment on above: Performed By: #### L 500.4050, L500.4100 #### [facility] [address] [place], [address] Serum or plasma alkaline amalia sphatase measurementOrdered By: Pam Whipple on 01-04-2025 ALP [Catalytic activity/Vol] 47 U/L 35-104 [facility] Serum or plasma calcium omid urement (mass/volume)Ordered By: Pam Whipple on 01-04-2025 Calcium [Mass/Vol] 9.6 mg/dL Normal 7.6-11.0 [facility] Comment on above: Performed By: #### L 500.4050, L500.4100 #### [facility] [address] [facility] [id number] Serum or plasma cholesterol in HDL measurement (mass/volume)Ordered By: Pam Whipple on 01-04-2025 Cholesterol in HDL [Mass/Vol] 80 mg/dL Normal [facility] Comment on above: National Cholesterol Education Program [...] Performed By: #### L 500.4050, L500.4100 #### [facility] [address] [place], [address] Serum or plasma cholesterol measurement (mass/volume)Ordered By: Pam Whipple on 01-04-2025 Cholesterol [Mass/Vol] 204 mg/dL High <=200 [facility] Comment on above: Cholesterol level, D esirable <200 mg/dLBorderline high cholesterol 200-239 mg/dLHigh cholesterol >=240 mg/dLRecommendations of the NCEP Adult Treatment Panel for the following risk-cutoff thresholds for the [place] population. Result Comment: Chol esterol level, Desirable <200 mg/dL Borderline high cholesterol 200-239 mg/dL High cholesterol >=240 mg/dL Recommendations of the NCEP Adult Treatment Panel for the following risk-cutoff thresholds for the [place] population. Performed By: #### L 500.4050, L500.4100 #### [facility] [address] [place], [address] Serum or plasma urea nitroge n measurement (mass/volume)Ordered By: Pam Whipple on 01-04-2025 Urea nitrogen [Mass/Vol] 15 mg/dL Normal 4-19 [facility] Comment on above: Performed By: #### L 500.4050, L500.4100 #### [facility] [address] [place], [address] Sodium levelOrdered By: Chaz Whipple on 01-04-2025 Sodium [Moles/Vol] 142 mmol/L Normal 133-145 [facility] Comment on above: Performed By: #### L 500.4050, L500.4100 #### [facility] [address] [place], [address] Total proteinOrdered By: Jv Whipple on 01-04-2025 Protein [Mass/Vol] 6.1 g/dL 5.9-8.4 [facility] Triglycerides measurementOrd ered By: Pam Sarabjit on 01-04-2025 Triglyceride [Mass/Vol] 169 mg/dL Normal [facility] Comment on above: The drugs N-Acetylcy steine and Metamizole may falsely depress this assay. Normal range: <150 mg/dLBorderline High: 150-199 mg/dLHigh: 200-499 mg/dLVery High: >500 mg/dL Result Comment: The drugs N-Acetylcysteine and Metamizole may falsely depress this assay. Normal range: <150 mg/dL Borderline High: 150-199 mg/dL High: 200-499 mg/dL Very High: >500 mg/dL Performed By: #### L 500.4050, L500.4100 #### [facility] [address] [place], [place], [id number] CEFAZOLIN:SUSC:PT:ISOLATE:OR DQN:MICon 01-01-2025 ceFAZolin RANDOLPH [Susc] >100,000 cfu/ml Kle bsiella pneumoniae [facility] Work Phone: ceFAZolin RANDOLPH [Susc]on 01-01 Klebsiella pneumoniae Klebsiella pneumoniae [facility] Work Phone: No Panel Informationon 12-04 Culture Urine >100,000 cfu/ml Mixe d growth consistent with normal urogenital artur. [facility] Work Phone: .Auto Diffon 11-27-2024 Basophil, Absolute 0.0 10 3/mcL Normal 0.0-0.3 [facility] Comment on above: Performed By: #### G FR, FT4, LIPID, VIDH, CMP, FT3, FERR, TSH #### [facility] [address] [place], [place] [address] Basophils/100 WBC (Bld) 0.5 % Normal 0.0-2.5 [facility] Comment on above: Performed By: #### G FR, FT4, LIPID, VIDH, CMP, FT3, FERR, TSH #### [address] [address] Eosinophil, Absolute 0.0 10 3/mcL Normal 0.0-0.7 [facility] Comment on above: Performed By: #### G FR, FT4, LIPID, VIDH, CMP, FT3, FERR, TSH #### [address] [address] Eosinophils/100 WBC (Bld) 0.4 % Normal 0.0-6.0 [facility] Comment on above: Performed By: #### G FR, FT4, LIPID, VIDH, CMP, FT3, FERR, TSH #### [address] [address] Lymphocyte, Absolute 2.1 10 3/mcL Normal 0.9-4.3 [facility] Comment on above: Performed By: #### G FR, FT4, LIPID, VIDH, CMP, FT3, FERR, TSH #### [address] [address] Lymphocytes/100 WBC (Bld) 27.3 % Normal 20.0-40.0 [facility] Comment on above: Performed By: #### G FR, FT4, LIPID, VIDH, CMP, FT3, FERR, TSH #### [address] [address] Monocyte, Absolute 0.7 10 3/mcL Normal 0.1-1.4 [facility] Comment on above: Performed By: #### G FR, FT4, LIPID, VIDH, CMP, FT3, FERR, TSH #### [address] [address] Monocytes/100 WBC (Bld) 9.1 % Normal 2.0-13.0 [facility] Comment on above: Performed By: #### G FR, FT4, LIPID, VIDH, CMP, FT3, FERR, TSH #### [address] [address] Neutrophils/100 WBC (Bld) 62.7 % Normal 50.0-75.0 [facility] Comment on above: Performed By: #### G FR, FT4, LIPID, VIDH, CMP, FT3, FERR, TSH #### [id number] [place], [place] [address] .GFRon 11-27-2024 Estimated Glomerular Filtration Rate 87 ml/min/1.73sqm Normal [facility] Comment on above: Result Comment: Stages of [...] LIPID, VIDH, CMP, FT3, FERR, TSH #### [id number] [place], [place] [address] .NEUABSon 11-27-2024 Neutrophil, Absolute 4.8 10 3/mcL Normal 2.3-8.1 [facility] Comment on above: Performed By: #### G FR, FT4, LIPID, VIDH, CMP, FT3, FERR, TSH #### [id number] [place], [place] [address] A1Con 11-27-2024 Glucose [Mass/Vol] 111 mg/dL Normal [facility] Comment on above: Result Comment: Linnette mated Average Glucose calculated by equation ((28.7xA1C)-46.7) Estimated average glucose (eAG) is a calculated value from Hemoglobin A1C and is title insurance sales representative of the average blood glucose level in the last 2-3 month period. Normal range: less than 114 mg/dL Performed By: #### G FR, FT4, LIPID, VIDH, CMP, FT3, FERR, TSH #### [place] [id number] HbA1c (Bld) [Mass fraction] 5.5 % Normal 4.3-6.4 [facility] Comment on above: Performed By: #### G FR, FT4, LIPID, VIDH, CMP, FT3, FERR, TSH #### [place] [address] CBCon 11-27-2024 Erythrocyte distribution width (RBC) [Ratio] 14.2 % Normal 11.5-15.5 [facility] Comment on above: Performed By: #### G FR, FT4, LIPID, VIDH, CMP, FT3, FERR, TSH #### [place] [address] Hematocrit (Bld) [Volume fraction] 38.5 % Normal 34.0-46.0 [facility] Comment on above: Performed By: #### G FR, FT4, LIPID, VIDH, CMP, FT3, FERR, TSH #### [place] [address] Hgb 13.1 G/dL Normal 12.0-16.0 [facility] Comment on above: Performed By: #### G FR, FT4, LIPID, VIDH, CMP, FT3, FERR, TSH #### [place] [address] MCH (RBC) [Entitic mass] 32.6 pg Normal 27.0-33.0 [facility] Comment on above: Performed By: #### G FR, FT4, LIPID, VIDH, CMP, FT3, FERR, TSH #### [place] [address] MCHC 34.1 G/dL Normal 32.0-36.0 [facility] Comment on above: Performed By: #### G FR, FT4, LIPID, VIDH, CMP, FT3, FERR, TSH #### [place] [address] MCV (RBC) [Entitic vol] 95.7 fL Normal 80.0-99.0 [facility] Comment on above: Performed By: #### G FR, FT4, LIPID, VIDH, CMP, FT3, FERR, TSH #### [address] [address] Platelet 186 10 3/mcL Normal 150-450 [facility] Comment on above: Performed By: #### G FR, FT4, LIPID, VIDH, CMP, FT3, FERR, TSH #### [address] [address] Platelet mean volume (Bld) [Entitic vol] 8.8 fL Normal 6.6-10.5 [facility] Comment on above: Performed By: #### G FR, FT4, LIPID, VIDH, CMP, FT3, FERR, TSH #### [address] [address] RBC 4.02 10 6/mcL Low 4.10-5.30 [facility] Comment on above: Performed By: #### G FR, FT4, LIPID, VIDH, CMP, FT3, FERR, TSH #### [address] [address] WBC 7.7 10 3/mcL Normal 4.5-10.8 [facility] Comment on above: Performed By: #### G FR, FT4, LIPID, VIDH, CMP, FT3, FERR, TSH #### [address] [address] CMPon 11-27-2024 Albumin Level 3.5 G/dL Normal 3.4-4.8 [facility] Comment on above: Performed By: #### G FR, FT4, LIPID, VIDH, CMP, FT3, FERR, TSH #### [address] [address] Albumin/Globulin [Mass ratio] 1.2 {ratio} Normal 1.1-2.5 [facility] Comment on above: Performed By: #### G FR, FT4, LIPID, VIDH, CMP, FT3, FERR, TSH #### [address] [address] ALP [Catalytic activity/Vol] 68 U/L Normal 40-135 [facility] Comment on above: Performed By: #### G FR, FT4, LIPID, VIDH, CMP, FT3, FERR, TSH #### [address] [address] ALT [Catalytic activity/Vol] 20 U/L Normal 14-59 [facility] Comment on above: Performed By: #### G FR, FT4, LIPID, VIDH, CMP, FT3, FERR, TSH #### [address] [address] AST [Catalytic activity/Vol] 18 U/L Normal 10-40 [facility] Comment on above: Performed By: #### G FR, FT4, LIPID, VIDH, CMP, FT3, FERR, TSH #### [address] [address] Bili Total 1.8 mg/dL High 0.2-1.0 [facility] Comment on above: Result Comment: Use of this assay is not recommended for patients undergoing treatment with eltrombopag due to the potential for falsely elevated results. Performed By: #### G FR, FT4, LIPID, VIDH, CMP, FT3, FERR, TSH #### [address] [address] BUN/Creatinine Ratio 20 ratio Normal 7-27 [facility] Comment on above: Performed By: #### G FR, FT4, LIPID, VIDH, CMP, FT3, FERR, TSH #### [address] [address] Calcium [Mass/Vol] 9.2 mg/dL Normal 8.4-10.2 [facility] Comment on above: Performed By: #### G FR, FT4, LIPID, VIDH, CMP, FT3, FERR, TSH #### [address] [address] Chloride [Moles/Vol] 106 mmol/L Normal 98-107 [facility] Comment on above: Performed By: #### G FR, FT4, LIPID, VIDH, CMP, FT3, FERR, TSH #### [place] [address] CO2 [Moles/Vol] 33 mmol/L High 23-31 [facility] Comment on above: Performed By: #### G FR, FT4, LIPID, VIDH, CMP, FT3, FERR, TSH #### [place] [address] Creatinine [Mass/Vol] 0.69 mg/dL Normal 0.55-1.02 [facility] Comment on above: Result Comment: Test ing performed on Siemens Dimension EXL analyzer using a modified kinetic Kailey technique. Performed By: #### G FR, FT4, LIPID, VIDH, CMP, FT3, FERR, TSH #### [place] [address] Electrolyte Balance 5.0 mEq/L Normal 4.0-15.0 [facility] Comment on above: Performed By: #### G FR, FT4, LIPID, VIDH, CMP, FT3, FERR, TSH #### [place] [address] Globulin 2.8 G/dL Normal 1.5-3.8 [facility] Comment on above: Performed By: #### G FR, FT4, LIPID, VIDH, CMP, FT3, FERR, TSH #### [place] [address] Glucose [Mass/Vol] 92 mg/dL Normal 83-110 [facility] Comment on above: Performed By: #### G FR, FT4, LIPID, VIDH, CMP, FT3, FERR, TSH #### [place] [address] Potassium [Moles/Vol] 3.6 mmol/L Normal 3.5-5.1 [facility] Comment on above: Performed By: #### G FR, FT4, LIPID, VIDH, CMP, FT3, FERR, TSH #### [address] [address] Sodium [Moles/Vol] 144 mmol/L Normal 136-145 [facility] Comment on above: Performed By: #### G FR, FT4, LIPID, VIDH, CMP, FT3, FERR, TSH #### [address] [address] Total Protein 6.3 G/dL Low 6.4-8.2 [facility] Comment on above: Performed By: #### G FR, FT4, LIPID, VIDH, CMP, FT3, FERR, TSH #### [address] [address] Urea nitrogen [Mass/Vol] 14 mg/dL Normal 7-18 [facility] Comment on above: Performed By: #### G FR, FT4, LIPID, VIDH, CMP, FT3, FERR, TSH #### [address] [address] FT4on 11-27-2024 Free T4 [Mass/Vol] 1.23 ng/dL Normal 0.76-1.46 [facility] Comment on above: Performed By: #### G FR, FT4, LIPID, VIDH, CMP, FT3, FERR, TSH #### [address] [address] LIPIDon 11-27-2024 Cholesterol [Mass/Vol] 156 mg/dL Normal 0-200 [facility] Comment on above: Result Comment: Chol esterol Reference Interval: Less than 200 Desirable 200-239 Borderline high risk 240 and above High risk Performed By: #### G FR, FT4, LIPID, VIDH, CMP, FT3, FERR, TSH #### [address] [address] Cholesterol in HDL [Mass/Vol] 81 mg/dL High 40-60 [facility] Comment on above: Performed By: #### G FR, FT4, LIPID, VIDH, CMP, FT3, FERR, TSH #### [address] [address] Cholesterol in LDL [Mass/Vol] 49 mg/dL Normal 0-130 [facility] Comment on above: Performed By: #### G FR, FT4, LIPID, VIDH, CMP, FT3, FERR, TSH #### [id number] [place], [place] [address] Triglyceride [Mass/Vol] 131 mg/dL Normal 0-150 [facility] Comment on above: Result Comment: Trig lyceride Reference Interval: Less than 150 Normal 150-199 Borderline high risk 200-499 High risk 500 or higher Very high risk Performed By: #### G FR, FT4, LIPID, VIDH, CMP, FT3, FERR, TSH #### [address] [place], [place] [address] TSHon 11-27-2024 TSH Qn 0.18 m[IU]/L Low 0.36-3.74 [facility] Comment on above: Performed By: #### G FR, FT4, LIPID, VIDH, CMP, FT3, FERR, TSH #### [id number] [place], [place] [address] Basic Metabolic Profile (BMP )on 08-30-2024 BUN/CRE 17.3 RATIO Normal 10-20 [facility] Comment on above: Performed By: #### L 500.2500 #### [facility] [address] [facility] [place], [address] CA,Total 9.2 mg/dL Normal 8.5-10.1 [facility] Comment on above: Performed By: #### L 500.2500 #### [facility] [address] [place], [address] Chloride [Moles/Vol] 110 mmol/L High 98-107 [facility] Comment on above: Performed By: #### L 500.2500 #### [facility] [address] [place], [address] CO2 [Moles/Vol] 25.0 mmol/L Normal 21.0-32.0 [facility] Comment on above: Performed By: #### L 500.2500 #### [facility] [address] [place], [address] Creatinine [Mass/Vol] 0.64 mg/dL Normal 0.55-1.02 [facility] Comment on above: Result Comment: The validity of the calculated GFR GFRAA in patients over 70 years has not been determined. Clinical correlation is essential. Performed By: #### L 500.2500 #### [facility] [address] [place], [address] EST GFR - AA 116 mL/min Normal >60 [facility] Comment on above: Result Comment: Afri can [place] GFR Calc Performed By: #### L 500.2500 #### [facility] [address] [place], [address] GAP 6 Normal 5-15 [facility] Comment on above: Performed By: #### L 500.2500 #### [facility] [address] [place], [address] GFR/1.73 sq M.predicted among non-blacks MDRD (S/P/Bld) [Vol rate/Area] 96 mL/min/{1.73_m2} Normal >60 [facility] Comment on above: Result Comment: Non- GFR Calc Performed By: #### L 500.2500 #### [facility] [address] [place], [address] Glucose [Mass/Vol] 96 mg/dL Normal 74-106 [facility] Comment on above: Performed By: #### L 500.2500 #### [facility] [address] [place], [address] Potassium [Moles/Vol] 3.7 mmol/L Normal 3.5-5.1 [facility] Comment on above: Performed By: #### L 500.2500 #### [facility] [address] [place], [address] Sodium [Moles/Vol] 142 mmol/L Normal 136-145 [facility] Comment on above: Performed By: #### L 500.2500 #### [facility] [address] [place], [address] Urea nitrogen [Mass/Vol] 11 mg/dL Normal 7-18 [facility] Comment on above: Performed By: #### L 500.2500 #### [facility] [address] [place], [address] Echo Completeon 08-13-2024 Echo Complete [facility] [address] [place] [address] Echo Complete 08/13/24 1303 MR#: [id number] Acct: [id number] Name: GRICELDA KRUGER Rep #: [id number] : 1945 79 From: Pam Whipple MD Attending Dr: Dr. Pam Whipple MD [facility]: Pam Whipple MD Date: 08/13/24 Location: [facility] Sex: F C Admitted: Reason For Study: [...] Dictated: 08/13/24 1303 Date Transcribed: 08/16/24 1258 Online Program Coordinator: Signed Normal [facility] No Panel InformationOrdered By: Mary Dorsey on 08-12-2024 Affirm Pathogens DNA Direct Probe Gardnerella vaginalis DNA Probe Negative Trichomonas vaginalis DNA Probe Negative Marisa species DNA Probe Negative [facility] No Panel Informationon 08-12 Culture Urine <10,000 cfu/ml. No Significant growth. Sensitivity not indicated. [facility] Work Phone: Culture Wound Aerobe Normal Vaginal Ami a: Present Neisseria gonorrhoeae: Negative [facility] Work Phone: GS 1+ Epithelial cells Rare Yeast [facility] Work Phone: No Panel Informationon 07-31 Culture Urine >100,000 cfu/ml Mult iple bacterial morphotypes present. Probable Contamination. Suggest recollection if clinically indicated. [facility] Work Phone: AMOXICILLIN+CLAVULANATE:SUSC :PT:ISOLATE:ORDQN:MICon 07-12-2024 Amoxicillin+Clavulan ate RANDOLPH [Susc] >100,000 cfu/ml Klebsiella variicola [facility] Work Phone: Amoxicillin+Clavulanate RANDOLPH [Susc]on 07-12-2024 Klebsiella variicola Klebsiella variicola [facility] Work Phone: Kidney and Bladderon 024 Kidney and Bladder [facility] [address] [place] [address] Kidney and Bladder MR#: [id number] Acct: [id number] Name: GRICELDA KRUGER Rep #: [id number] : 1945 F 79 From: Doroteo meyer MD PCP: Dr. Ruth Au MD Status: [facility] Study: Kidney and Bladder Date of Exam: 07/04/24 Exam# [id number] Ordering Dr: Angela Gold MD :[id number] STUDY: RENAL ULTRASOUND - COMPLETE REASON FOR [...] 14:26 EST Reading Location ID and State: [facility] / [place] , Service support , CC: Dr. Angela Gold MD; Dr. Ruth Au MD Online Program Coordinator: Signed Normal [facility] Cardiology Visit Reporton Cardiology Visit Report [facility] [place] [facility] [address] [place] [address] OFFICE VISIT Date of Service: 07/02/24 MR#: [id number] Acct: [id number] Name: GRICELDA KRUGER Rep #: [id number] : 1945 Provider: Dr. 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 Normal [facility] .Auto Diffon 06-28-2024 Basophil, Absolute 0.0 10 3/mcL Normal 0.0-0.2 [facility] Comment on above: Performed By: #### A DIFF, ANEU, CBC #### [address] [address] Basophils/100 WBC (Bld) 0.7 % Normal 0.0-2.5 [facility] Comment on above: Performed By: #### A DIFF, ANEU, CBC #### [address] [address] Eosinophil, Absolute 0.0 10 3/mcL Normal 0.0-0.7 [facility] Comment on above: Performed By: #### A DIFF, ANEU, CBC #### [address] [address] Eosinophils/100 WBC (Bld) 0.4 % Normal 0.0-7.0 [facility] Comment on above: Performed By: #### A DIFF, ANEU, CBC #### [phone] [place], [place] [address] Lymphocyte, Absolute 1.3 10 3/mcL Normal 0.9-4.3 [facility] Comment on above: Performed By: #### A DIFF, ANEU, CBC #### [address] [address] Lymphocytes/100 WBC (Bld) 18.6 % Low 20.0-40.0 [facility] Comment on above: Performed By: #### A DIFF, ANEU, CBC #### [address] [address] Monocyte, Absolute 0.5 10 3/mcL Normal 0.1-1.4 [facility] Comment on above: Performed By: #### A DIFF, ANEU, CBC #### [address] [address] Monocytes/100 WBC (Bld) 7.0 % Normal 2.0-13.0 [facility] Comment on above: Performed By: #### A DIFF, ANEU, CBC #### [address] [address] Neutrophils/100 WBC (Bld) 73.3 % Normal 50.0-75.0 [facility] Comment on above: Performed By: #### A DIFF, ANEU, CBC #### [address] [address] .GFRon 06-28-2024 GFR Non- 81 ml/min/1.73sqm Normal [facility] Comment on above: Result Comment: GFR Population [...] LIPID, VIDH, CMP, FT3, FERR, TSH #### [id number] [place], [place] [address] GFR 98 ml/min/1.73sqm Normal [facility] Comment on above: Result Comment: GFR Population [...] LIPID, VIDH, CMP, FT3, FERR, TSH #### [address] [address] .NEUABSon 06-28-2024 Neutrophil, Absolute 5.2 10 3/mcL Normal 2.3-8.1 [facility] Comment on above: Performed By: #### G FR, FT4, LIPID, VIDH, CMP, FT3, FERR, TSH #### [address] [address] .Urinalysis Microscopic (AO) on 06-28-2024 UA Bacteria 4+ /hpf Abnormal [facility] Comment on above: Performed By: #### G FR, FT4, LIPID, VIDH, CMP, FT3, FERR, TSH #### [address] [address] UA RBC None Seen Normal None Seen [facility] Comment on above: Performed By: #### G FR, FT4, LIPID, VIDH, CMP, FT3, FERR, TSH #### [address] [address] UA Squam Epithelial LOADED Abnormal None Seen [facility] Comment on above: Performed By: #### G FR, FT4, LIPID, VIDH, CMP, FT3, FERR, TSH #### [place] [address] UA WBC 0-5 Abnormal None Seen [facility] Comment on above: Performed By: #### G FR, FT4, LIPID, VIDH, CMP, FT3, FERR, TSH #### [place] [address] CBCon 06-28-2024 Erythrocyte distribution width (RBC) [Ratio] 13.1 % Normal 11.5-15.5 [facility] Comment on above: Performed By: #### A DIFF, ANEU, CBC #### [place] [address] Hematocrit (Bld) [Volume fraction] 39.9 % Normal 34.0-46.0 [facility] Comment on above: Performed By: #### A DIFF, ANEU, CBC #### [place] [address] Hgb 13.3 G/dL Normal 12.0-16.0 [facility] Comment on above: Performed By: #### A DIFF, ANEU, CBC #### [address] [address] MCH (RBC) [Entitic mass] 32.7 pg Normal 27.0-33.0 [facility] Comment on above: Performed By: #### A DIFF, ANEU, CBC #### [place] [address] MCHC 33.4 G/dL Normal 32.0-36.0 [facility] Comment on above: Performed By: #### A DIFF, ANEU, CBC #### [address] [address] MCV (RBC) [Entitic vol] 97.8 fL Normal 80.0-99.0 [facility] Comment on above: Performed By: #### A DIFF, ANEU, CBC #### [address] [address] Platelet 190 10 3/mcL Normal 150-450 [facility] Comment on above: Performed By: #### A DIFF ANEU, CBC #### [address] [address] Platelet mean volume (Bld) [Entitic vol] 8.3 fL Normal 6.6-10.5 [facility] Comment on above: Performed By: #### A DIFF ANEU, CBC #### [address] [address] RBC 4.08 10 6/mcL Low 4.10-5.30 [facility] Comment on above: Performed By: #### A DIFF ANEU, CBC #### [address] [address] WBC 7.1 10 3/mcL Normal 4.5-10.8 [facility] Comment on above: Performed By: #### A DIFF, ANEU, CBC #### [address] [address] CMPon 06-28-2024 Albumin Level 3.7 G/dL Normal 3.4-4.8 [facility] Comment on above: Performed By: #### G FR, FT4, LIPID, VIDH, CMP, FT3, FERR, TSH #### [address] [address] Albumin/Globulin [Mass ratio] 1.5 {ratio} Normal 1.1-2.5 [facility] Comment on above: Performed By: #### G FR, FT4, LIPID, VIDH, CMP, FT3, FERR, TSH #### [address] [address] ALP [Catalytic activity/Vol] 72 U/L Normal 40-135 [facility] Comment on above: Performed By: #### G FR, FT4, LIPID, VIDH, CMP, FT3, FERR, TSH #### [address] [address] ALT [Catalytic activity/Vol] 25 U/L Normal 14-59 [facility] Comment on above: Performed By: #### G FR, FT4, LIPID, VIDH, CMP, FT3, FERR, TSH #### [address] [address] AST [Catalytic activity/Vol] 14 U/L Normal 10-40 [facility] Comment on above: Performed By: #### G FR, FT4, LIPID, VIDH, CMP, FT3, FERR, TSH #### [address] [address] Bili Total 1.1 mg/dL High 0.2-1.0 [facility] Comment on above: Result Comment: Use of this assay is not recommended for patients undergoing treatment with eltrombopag due to the potential for falsely elevated results. Performed By: #### G FR, FT4, LIPID, VIDH, CMP, FT3, FERR, TSH #### [address] [address] BUN/Creatinine Ratio 17 ratio Normal 7-27 [facility] Comment on above: Performed By: #### G FR, FT4, LIPID, VIDH, CMP, FT3, FERR, TSH #### [address] [address] Calcium [Mass/Vol] 9.1 mg/dL Normal 8.4-10.2 [facility] Comment on above: Performed By: #### G FR, FT4, LIPID, VIDH, CMP, FT3, FERR, TSH #### [address] [address] Chloride [Moles/Vol] 104 mmol/L Normal 98-107 [facility] Comment on above: Performed By: #### G FR, FT4, LIPID, VIDH, CMP, FT3, FERR, TSH #### [address] [address] CO2 [Moles/Vol] 32 mmol/L High 23-31 [facility] Comment on above: Performed By: #### G FR, FT4, LIPID, VIDH, CMP, FT3, FERR, TSH #### [address] [address] Creatinine [Mass/Vol] 0.70 mg/dL Normal 0.55-1.02 [facility] Comment on above: Result Comment: Test ing performed on Siemens Dimension EXL analyzer using a modified kinetic Kailey technique. Performed By: #### G FR, FT4, LIPID, VIDH, CMP, FT3, FERR, TSH #### [address] [address] Electrolyte Balance 9.0 mEq/L Normal 4.0-15.0 [facility] Comment on above: Performed By: #### G FR, FT4, LIPID, VIDH, CMP, FT3, FERR, TSH #### [address] [address] Globulin 2.5 G/dL Normal [facility] Comment on above: Performed By: #### G FR, FT4, LIPID, VIDH, CMP, FT3, FERR, TSH #### [address] [address] Glucose [Mass/Vol] 88 mg/dL Normal 83-110 [facility] Comment on above: Performed By: #### G FR, FT4, LIPID, VIDH, CMP, FT3, FERR, TSH #### [address] [address] Potassium [Moles/Vol] 3.4 mmol/L Low 3.5-5.1 [facility] Comment on above: Performed By: #### G FR, FT4, LIPID, VIDH, CMP, FT3, FERR, TSH #### [address] [address] Sodium [Moles/Vol] 145 mmol/L Normal 136-145 [facility] Comment on above: Performed By: #### G FR, FT4, LIPID, VIDH, CMP, FT3, FERR, TSH #### [place] [address] Total Protein 6.2 G/dL Low 6.4-8.2 [facility] Comment on above: Performed By: #### G FR, FT4, LIPID, VIDH, CMP, FT3, FERR, TSH #### [place] [address] Urea nitrogen [Mass/Vol] 12 mg/dL Normal 7-18 [facility] Comment on above: Performed By: #### G FR, FT4, LIPID, VIDH, CMP, FT3, FERR, TSH #### [place] [address] Ester 06-28-2024 Ferritin [Mass/Vol] 64.0 ng/mL Normal 8.0-252.0 [facility] Comment on above: Performed By: #### G FR, FT4, LIPID, VIDH, CMP, FT3, FERR, TSH #### [place] [address] FT3on 06-28-2024 Free T3 [Mass/Vol] 1.89 pg/mL Low 2.30-4.00 [facility] Comment on above: Performed By: #### G FR, FT4, LIPID, VIDH, CMP, FT3, FERR, TSH #### [place] [address] FT4on 06-28-2024 Free T4 [Mass/Vol] 1.13 ng/dL Normal 0.76-1.46 [facility] Comment on above: Performed By: #### G FR, FT4, LIPID, VIDH, CMP, FT3, FERR, TSH #### [place] [address] LABORATORYOrdered By: Liana Lo on 06-28-2024 Appearance [...] 06-28-2024 Cholesterol [Mass/Vol] 188 mg/dL Normal 0-200 [facility] Comment on above: Result Comment: Chol esterol Reference Interval: Less than 200 Desirable 200-239 Borderline high risk 240 and above High risk Performed By: #### G FR, FT4, LIPID, VIDH, CMP, FT3, FERR, TSH #### [address] [address] Cholesterol in HDL [Mass/Vol] 89 mg/dL High 40-60 [facility] Comment on above: Performed By: #### G FR, FT4, LIPID, VIDH, CMP, FT3, FERR, TSH #### [address] [address] Cholesterol in LDL [Mass/Vol] 65 mg/dL Normal 0-130 [facility] Comment on above: Performed By: #### G FR, FT4, LIPID, VIDH, CMP, FT3, FERR, TSH #### [address] [address] Triglyceride [Mass/Vol] 169 mg/dL High 0-150 [facility] Comment on above: Result Comment: Trig lyceride Reference Interval: Less than 150 Normal 150-199 Borderline high risk 200-499 High risk 500 or higher Very high risk Performed By: #### G FR, FT4, LIPID, VIDH, CMP, FT3, FERR, TSH #### [address] [address] TSHon 06-28-2024 TSH Qn 1.97 m[IU]/L Normal 0.36-3.74 [facility] Comment on above: Performed By: #### G FR, FT4, LIPID, VIDH, CMP, FT3, FERR, TSH #### [place] [address] UAon 06-28-2024 Color (U) Yellow Normal [facility] Comment on above: Performed By: #### G FR, FT4, LIPID, VIDH, CMP, FT3, FERR, TSH #### [place] [address] Glucose (U) [Mass/Vol] Negative Normal Negative [facility] Comment on above: Performed By: #### G FR, FT4, LIPID, VIDH, CMP, FT3, FERR, TSH #### [place] [address] Ketones Ql (U) Negative Normal Negative [facility] Comment on above: Performed By: #### G FR, FT4, LIPID, VIDH, CMP, FT3, FERR, TSH #### [place] [address] UA Appear Slightly Cloudy Abnormal Clear [facility] Comment on above: Performed By: #### G FR, FT4, LIPID, VIDH, CMP, FT3, FERR, TSH #### [place] [address] UA Blood Negative Normal Negative [facility] Comment on above: Performed By: #### G FR, FT4, LIPID, VIDH, CMP, FT3, FERR, TSH #### [address] [address] UA Leuk Est Negative Normal Negative [facility] Comment on above: Performed By: #### G FR, FT4, LIPID, VIDH, CMP, FT3, FERR, TSH #### [place] [address] UA Nitrite Positive Abnormal Negative [facility] Comment on above: Performed By: #### G FR, FT4, LIPID, VIDH, CMP, FT3, FERR, TSH #### [place] [address] UA pH 6.5 Normal 5.0 - 8.0 [facility] Comment on above: Performed By: #### G FR, FT4, LIPID, VIDH, CMP, FT3, FERR, TSH #### [place] [address] UA Protein Negative Normal Negative [facility] Comment on above: Performed By: #### G FR, FT4, LIPID, VIDH, CMP, FT3, FERR, TSH #### [place] [address] UA Spec Grav 1.020 Normal 1.015-1.02 5 [facility] Comment on above: Performed By: #### G FR, FT4, LIPID, VIDH, CMP, FT3, FERR, TSH #### [place] [address] UA Specimen Type Not Given Normal [facility] Comment on above: Performed By: #### G FR, FT4, LIPID, VIDH, CMP, FT3, FERR, TSH #### [place] [address] UA Urobilinogen 0.2 E.U./dL Normal 0.2-1.0 [facility] Comment on above: Performed By: #### G FR, FT4, LIPID, VIDH, CMP, FT3, FERR, TSH #### [place] [address] Urobilinogen (U) [Mass/Vol] Negative Normal Negative [facility] Comment on above: Performed By: #### G FR, FT4, LIPID, VIDH, CMP, FT3, FERR, TSH #### [place] [address] VIDHon 06-28-2024 Vit. D 25-Hydroxy 24.5 ng/mL Normal [facility] Comment on above: Result Comment: Inte rpretive Values Based on Total 25(OH) Vitamin D: Deficient <20 ng/mL Insufficient 20 - <30 ng/mL Sufficient 30-100 ng/mL Performed By: #### G FR, FT4, LIPID, VIDH, CMP, FT3, FERR, TSH #### [id number] [place], [place] [address] .Urinalysis Microscopic (AO) on 05-24-2024 UA RBC 0-5 Abnormal None Seen [facility] Comment on above: Performed By: #### G FR, FT4, LIPID, VIDH, CMP, FT3, FERR, TSH #### [id number] [place] [address] UA Squam Epithelial 0-5 Abnormal None Seen [facility] Comment on above: Performed By: #### G FR, FT4, LIPID, VIDH, CMP, FT3, FERR, TSH #### [id number] [place] [address] UA WBC 0-5 Abnormal None Seen [facility] Comment on above: Performed By: #### G FR, FT4, LIPID, VIDH, CMP, FT3, FERR, TSH #### [address] [address] LABORATORYOrdered By: Crista Vasquez on 05-24-2024 Appearance [...] SS UAon 05-24-2024 Color (U) Yellow Normal [facility] Comment on above: Performed By: #### G FR, FT4, LIPID, VIDH, CMP, FT3, FERR, TSH #### [address] [address] Glucose (U) [Mass/Vol] Negative Normal Negative [facility] Comment on above: Performed By: #### G FR, FT4, LIPID, VIDH, CMP, FT3, FERR, TSH #### [address] [address] Ketones Ql (U) Negative Normal Negative [facility] Comment on above: Performed By: #### G FR, FT4, LIPID, VIDH, CMP, FT3, FERR, TSH #### [address] [address] UA Appear Clear Normal Clear [facility] Comment on above: Performed By: #### G FR, FT4, LIPID, VIDH, CMP, FT3, FERR, TSH #### [address] [address] UA Blood Trace Abnormal Negative [facility] Comment on above: Performed By: #### G FR, FT4, LIPID, VIDH, CMP, FT3, FERR, TSH #### [address] [address] UA Leuk Est Negative Normal Negative [facility] Comment on above: Performed By: #### G FR, FT4, LIPID, VIDH, CMP, FT3, FERR, TSH #### [place] [address] UA Nitrite Negative Normal Negative [facility] Comment on above: Performed By: #### G FR, FT4, LIPID, VIDH, CMP, FT3, FERR, TSH #### [place] [address] UA pH 6.5 Normal 5.0 - 8.0 [facility] Comment on above: Performed By: #### G FR, FT4, LIPID, VIDH, CMP, FT3, FERR, TSH #### [place] [address] UA Protein Negative Normal Negative [facility] Comment on above: Performed By: #### G FR, FT4, LIPID, VIDH, CMP, FT3, FERR, TSH #### [place] [address] UA Spec Grav 1.020 Normal 1.015-1.[address] [place] [address] Comment on above: Performed By: #### G FR, FT4, LIPID, VIDH, CMP, FT3, FERR, TSH #### [place] [address] UA Specimen Type Clean Catch Normal [facility] Comment on above: Performed By: #### G FR, FT4, LIPID, VIDH, CMP, FT3, FERR, TSH #### [place] [address] UA Urobilinogen 0.2 E.U./dL Normal 0.2-1.0 [facility] Comment on above: Performed By: #### G FR, FT4, LIPID, VIDH, CMP, FT3, FERR, TSH #### [place] [address] Urobilinogen (U) [Mass/Vol] Negative Normal Negative [facility] Comment on above: Performed By: #### G FR, FT4, LIPID, VIDH, CMP, FT3, FERR, TSH #### [place] [phone] No Panel Informationon 05-15 Culture Urine <10,000 cfu/ml. No Significant growth. Sensitivity not indicated. [facility] Work Phone: No Panel Informationon 04-11 Culture Wound Aerobe No growth at 48 hours. [facility] Work Phone: GS No organisms seen. [facility] Work Phone: RIFAMPIN:SUSC:PT:ISOLATE:ORD QN:MICon 02-06-2024 rifAMPin RANDOLPH [Susc] 50,000 - 100,000 cfu /ml Enterococcus faecalis [facility] Work Phone: rifAMPin RANDOLPH [Susc]on 2023 Enterococcus faecalis Enterococcus faecalis [facility] Work Phone: .Auto Diffon 01-12-2024 Basophil, Absolute 0.0 10 3/mcL Normal 0.0-0.2 [facility] ([place]) Comment on above: Performed By: #### T SH, ANEU, ADIFF, CBC, MG, VIDH, FT3, FT4 #### [address] [address] Basophils/100 WBC (Bld) 0.7 % Normal 0.0-2.5 [facility] ([place]) Comment on above: Performed By: #### T SH, ANEU, ADIFF, CBC, MG, VIDH, FT3, FT4 #### [address] [address] Eosinophil, Absolute 0.0 10 3/mcL Normal 0.0-0.4 [facility] ([place]) Comment on above: Performed By: #### T SH, ANEU, ADIFF, CBC, MG, VIDH, FT3, FT4 #### [address] [address] Eosinophils/100 WBC (Bld) 0.1 % Normal 0.0-7.0 [facility] ([place]) Comment on above: Performed By: #### T SH, ANEU, ADIFF, CBC, MG, VIDH, FT3, FT4 #### [address] [address] Lymphocyte, Absolute 2.0 10 3/mcL Normal 0.8-3.9 [facility] ([place]) Comment on above: Performed By: #### T SH, ANEU, ADIFF, CBC, MG, VIDH, FT3, FT4 #### [address] [address] Lymphocytes/100 WBC (Bld) 34.7 % Normal 10.0-50.0 [facility] ([place]) Comment on above: Performed By: #### T SH, ANEU, ADIFF, CBC, MG, VIDH, FT3, FT4 #### [address] [address] Monocyte, Absolute 0.4 10 3/mcL Normal 0.2-1.0 [facility] ([place]) Comment on above: Performed By: #### T SH, ANEU, ADIFF, CBC, MG, VIDH, FT3, FT4 #### [address] [address] Monocytes/100 WBC (Bld) 7.1 % Normal 1.7-13.0 [facility] ([place] Comment on above: Performed By: #### T SH, ANEU, ADIFF, CBC, MG, VIDH, FT3, FT4 #### [address] [address] Neutrophils/100 WBC (Bld) 57.4 % Normal 37.0-80.0 [facility] ([place]) Comment on above: Performed By: #### T SH, ANEU, ADIFF, CBC, MG, VIDH, FT3, FT4 #### [address] [address] .NEUABSon 01-12-2024 Neutrophil, Absolute 3.3 10 3/mcL Normal 2.9-6.2 [facility] ([place]) Comment on above: Performed By: #### T SH, ANEU, ADIFF, CBC, MG, VIDH, FT3, FT4 #### [address] [address] CBCon 01-12-2024 Erythrocyte distribution width (RBC) [Ratio] 12.8 % Normal 11.5-14.5 [facility] ([place] Comment on above: Performed By: #### T SH, ANEU, ADIFF, CBC, MG, VIDH, FT3, FT4 #### [address] [address] Hematocrit (Bld) [Volume fraction] 36.7 % Low 37.0-47.0 [facility] ([place] Comment on above: Performed By: #### T SH, ANEU, ADIFF, CBC, MG, VIDH, FT3, FT4 #### [address] [address] Hgb 12.6 G/dL Normal 12.0-16.0 [facility] ([place] Comment on above: Performed By: #### T SH, ANEU, ADIFF, CBC, MG, VIDH, FT3, FT4 #### [address] [address] MCH (RBC) [Entitic mass] 32.9 pg High 27.0-31.2 [facility] ([place] Comment on above: Performed By: #### T SH, ANEU, ADIFF, CBC, MG, VIDH, FT3, FT4 #### [address] [address] MCHC 34.3 G/dL Normal 33.0-37.0 [facility] ([place] Comment on above: Performed By: #### T SH, ANEU, ADIFF, CBC, MG, VIDH, FT3, FT4 #### [address] [address] MCV (RBC) [Entitic vol] 96.1 fL High 80.0-94.0 [facility] ([place] Comment on above: Performed By: #### T SH, ANEU, ADIFF, CBC, MG, VIDH, FT3, FT4 #### [address] [address] Platelet 194 10 3/mcL Normal 130-400 [facility] ([place] Comment on above: Performed By: #### T SH, ANEU, ADIFF, CBC, MG, VIDH, FT3, FT4 #### [address] [address] Platelet mean volume (Bld) [Entitic vol] 8.9 fL Normal 7.4-10.4 [facility] ([place] Comment on above: Performed By: #### T SH, ANEU, ADIFF, CBC, MG, VIDH, FT3, FT4 #### [place] [address] RBC 3.82 10 6/mcL Low 4.20-5.40 [facility] ([place] Comment on above: Performed By: #### T SH, ANEU, ADIFF, CBC, MG, VIDH, FT3, FT4 #### [place] [address] WBC 5.7 10 3/mcL Normal 4.6-10.8 [facility] ([place] Comment on above: Performed By: #### T SH, ANEU, ADIFF, CBC, MG, VIDH, FT3, FT4 #### [place] [address] FT3on 01-12-2024 Free T3 [Mass/Vol] 2.72 pg/mL Normal 2.30-4.00 [facility] ([place]) Comment on above: Performed By: #### T SH, ANEU, ADIFF, CBC, MG, VIDH, FT3, FT4 #### [place] [address] FT4on 01-12-2024 Free T4 [Mass/Vol] 1.03 ng/dL Normal 0.76-1.46 [facility] ([place]) Comment on above: Performed By: #### T SH, ANEU, ADIFF, CBC, MG, VIDH, FT3, FT4 #### [place] [address] LABORATORYOrdered By: SYSTEM SYSTEM on 01-12-2024 25-hydroxyvitamin [...] 01-12-2024 Magnesium [Mass/Vol] 1.6 mg/dL Low 1.8-2.4 [facility] ([place]) Comment on above: Performed By: #### T SH, ANEU, ADIFF, CBC, MG, VIDH, FT3, FT4 #### [place] [address] TSHon 01-12-2024 TSH Qn 1.89 m[IU]/L Normal 0.36-3.74 [facility] ([place]) Comment on above: Performed By: #### T SH, ANEU, ADIFF, CBC, MG, VIDH, FT3, FT4 #### [place] [address] VIDHon 01-12-2024 Vit. D 25-Hydroxy 37.9 ng/mL Normal [facility] ([place] Comment on above: Result Comment: Inte rpretive Values Based on Total 25(OH) Vitamin D: Deficient <20 ng/mL Insufficient 20 - <30 ng/mL Sufficient 30-100 ng/mL Performed By: #### T SH, ANEU, ADIFF, CBC, MG, VIDH, FT3, FT4 #### [place] [address] .GFRon 01-05-2024 GFR Non- 78 ml/min/1.73sqm Normal [facility] ([place] Comment on above: Result Comment: GFR Population [...] ADIFF, CBC, MG, VIDH, FT3, FT4 #### [address] [address] GFR 94 ml/min/1.73sqm Normal [facility] ([place] Comment on above: Result Comment: GFR Population [...] ADIFF, CBC, MG, VIDH, FT3, FT4 #### [address] [address] A1Con 01-05-2024 HbA1c (Bld) [Mass fraction] 5.4 % Normal 4.3-6.4 [facility] ([place] Comment on above: Performed By: #### T SH, ANEU, ADIFF, CBC, MG, VIDH, FT3, FT4 #### [address] [address] CMPon 01-05-2024 Albumin Level 3.3 G/dL Low 3.4-4.8 [facility] ([place] Comment on above: Performed By: #### T SH, ANEU, ADIFF, CBC, MG, VIDH, FT3, FT4 #### [address] [address] Albumin/Globulin [Mass ratio] 1.3 {ratio} Normal 1.1-2.5 [facility] ([place] Comment on above: Performed By: #### T SH, ANEU, ADIFF, CBC, MG, VIDH, FT3, FT4 #### [address] [address] ALP [Catalytic activity/Vol] 73 U/L Normal 40-135 [facility] ([place] Comment on above: Performed By: #### T SH, ANEU, ADIFF, CBC, MG, VIDH, FT3, FT4 #### [address] [address] ALT [Catalytic activity/Vol] 17 U/L Normal 14-59 [facility] ([place] Comment on above: Performed By: #### T SH, ANEU, ADIFF, CBC, MG, VIDH, FT3, FT4 #### [address] [address] AST [Catalytic activity/Vol] 19 U/L Normal 10-40 [facility] ([place] Comment on above: Performed By: #### T SH, ANEU, ADIFF, CBC, MG, VIDH, FT3, FT4 #### [address] [address] Bili Total 0.9 mg/dL Normal 0.2-1.0 [facility] ([place]) Comment on above: Result Comment: Use of this assay is not recommended for patients undergoing treatment with eltrombopag due to the potential for falsely elevated results. Performed By: #### T SH, ANEU, ADIFF, CBC, MG, VIDH, FT3, FT4 #### [address] [address] BUN/Creatinine Ratio 18 ratio Normal 7-27 [facility] ([place]) Comment on above: Performed By: #### T SH, ANEU, ADIFF, CBC, MG, VIDH, FT3, FT4 #### [address] [address] Calcium [Mass/Vol] 8.6 mg/dL Normal 8.4-10.2 [facility] ([place]) Comment on above: Performed By: #### T SH, ANEU, ADIFF, CBC, MG, VIDH, FT3, FT4 #### [address] [address] Chloride [Moles/Vol] 107 mmol/L Normal 98-107 [facility] ([place] Comment on above: Performed By: #### T SH, ANEU, ADIFF, CBC, MG, VIDH, FT3, FT4 #### [address] [address] CO2 [Moles/Vol] 29 mmol/L Normal 23-31 [facility] [place] Comment on above: Performed By: #### T SH, ANEU, ADIFF, CBC, MG, VIDH, FT3, FT4 #### [address] [address] Creatinine [Mass/Vol] 0.72 mg/dL Normal 0.55-1.02 [facility] [place] Comment on above: Performed By: #### T SH, ANEU, ADIFF, CBC, MG, VIDH, FT3, FT4 #### [address] [address] Electrolyte Balance 8.0 mEq/L Normal 4.0-15.0 [facility] [place] Comment on above: Performed By: #### T SH, ANEU, ADIFF, CBC, MG, VIDH, FT3, FT4 #### [address] [address] Globulin 2.6 G/dL Normal [facility] [place] Comment on above: Performed By: #### T SH, ANEU, ADIFF, CBC, MG, VIDH, FT3, FT4 #### [address] [address] Glucose [Mass/Vol] 83 mg/dL Normal 83-110 [facility] ([place] Comment on above: Performed By: #### T SH, ANEU, ADIFF, CBC, MG, VIDH, FT3, FT4 #### [address] [address] Potassium [Moles/Vol] 4.3 mmol/L Normal 3.5-5.1 [facility] ([place] Comment on above: Performed By: #### T SH, ANEU, ADIFF, CBC, MG, VIDH, FT3, FT4 #### [address] [address] Sodium [Moles/Vol] 144 mmol/L Normal 136-145 [facility] ([place] Comment on above: Performed By: #### T SH, ANEU, ADIFF, CBC, MG, VIDH, FT3, FT4 #### [address] [address] Total Protein 5.9 G/dL Low 6.4-8.2 [facility] [place] Comment on above: Performed By: #### T SH, ANEU, ADIFF, CBC, MG, VIDH, FT3, FT4 #### [address] [address] Urea nitrogen [Mass/Vol] 13 mg/dL Normal 7-18 [facility] [place] Comment on above: Performed By: #### T SH, ANEU, ADIFF, CBC, MG, VIDH, FT3, FT4 #### [address] [address] LABORATORYOrdered By: SYSTEM SYSTEM on 01-05-2024 Albumin [...] 01-05-2024 Cholesterol [Mass/Vol] 157 mg/dL Normal 0-200 [facility] [place] Comment on above: Result Comment: Chol esterol Reference Interval: Less than 200 Desirable 200-239 Borderline high risk 240 and above High risk Performed By: #### T SH, ANEU, ADIFF, CBC, MG, VIDH, FT3, FT4 #### [address] [address] Cholesterol in HDL [Mass/Vol] 64 mg/dL High 40-60 [facility] [place] Comment on above: Performed By: #### T SH, ANEU, ADIFF, CBC, MG, VIDH, FT3, FT4 #### [id number] [place], [place] [address] Cholesterol in LDL [Mass/Vol] 72 mg/dL Normal 0-130 [facility] ([place] Comment on above: Performed By: #### T SH, ANEU, ADIFF, CBC, MG, VIDH, FT3, FT4 #### [id number] [place], [place] [address] Triglyceride [Mass/Vol] 104 mg/dL Normal 0-150 [facility] [place] Comment on above: Result Comment: Trig lyceride Reference Interval: Less than 150 Normal 150-199 Borderline high risk 200-499 High risk 500 or higher Very high risk Performed By: #### T SH, ANEU, ADIFF, CBC, MG, VIDH, FT3, FT4 #### [address] [address] No Panel Informationon 11-22 Culture Urine <10,000 cfu/ml. No Significant growth. Sensitivity not indicated. [facility] Work Phone: Final Surgical Pathology Rep hieu 10-30-2023 Final Surgical Pathology Report . Pathology Reports Accession: Collected Date/Time: Received Date/Time: Pathologist: [id number] 10/25/2023 15:45 EDT 10/27/2023 09:00 EDT JAMES COY MD Final Surgical Pathology Report DIAGNOSIS: ENDOMETRIAL BIOPSY: - SUPERFICIAL FRAGMENTS OF ATROPHIC ENDOMETRIUM - NEGATIVE FOR HYPERPLASIA OR MALIGNANCY CLINICAL INFORMATION: ABNORMAL BLEEDING Procedure: ENDOMETRIAL BX Preoperative diagnosis: ABNORMAL BLEEDING Postoperative diagnosis: ABNORMAL BLEEDING SPECIMEN: A ENDOMETRIUM GROSS DESCRIPTION: All parts labelled with patient name and [id number] Received in formalin labeled undesignated are multiple crenshaw-pink hemorrhagic and mucinous tissue fragments aggregating 0.3 x 0.1 cm. TS-1 Ysabel Norris, Grossing Gristmiller/ Dr. Marco Zaldivar, Pathologist Dictated by Ysabel Norris MICROSCOPIC DESCRIPTION: The microscopic examination is performed, except in the case of Gross Only. Electronically Signed by Pathology Report verified by [facility] JAMES COY Sign out Date: 10/30/2023 10:58 Performing Lab: [facility], [address] [place] [address] Pathology Dept Disclaimer If ancillary studies were utilized, the following Laboratory Developed Test (LDT) disclaimer will apply: Under CLIA requirements, [facility] Pathology Laboratory is qualified to perform high complexity testing. For all ancillary stains, positive and negative controls stain appropriately. Performance characteristics of immunohistochemical and chromogenic in-situ hybridization tests have been determined by [facility] Pathology Laboratory. These tests are used for clinical purposes, They should not be regarded as investigational or for research. Normal [facility] ([place] .GFRon 06-15-2023 GFR 88 ml/min/1.73sqm Normal [facility] [place] Comment on above: Result Comment: GFR Population [...] ADIFF, CBC, MG, VIDH, FT3, FT4 #### [address] [address] GFR Non- 72 ml/min/1.73sqm Normal [facility] [place] Comment on above: Result Comment: GFR Population [...] ADIFF, CBC, MG, VIDH, FT3, FT4 #### [address] [address] CMPon 06-15-2023 Albumin Level 3.6 G/dL Normal 3.4-4.8 [facility] ([place] Comment on above: Performed By: #### T SH, ANEU, ADIFF, CBC, MG, VIDH, FT3, FT4 #### [address] [address] Albumin/Globulin [Mass ratio] 1.3 {ratio} Normal 1.1-2.5 [facility] ([place] Comment on above: Performed By: #### T SH, ANEU, ADIFF, CBC, MG, VIDH, FT3, FT4 #### [address] [address] ALP [Catalytic activity/Vol] 79 U/L Normal 40-135 [facility] [place] Comment on above: Performed By: #### T SH, ANEU, ADIFF, CBC, MG, VIDH, FT3, FT4 #### [address] [address] ALT [Catalytic activity/Vol] 12 U/L Low 14-59 [facility] [place] Comment on above: Performed By: #### T SH, ANEU, ADIFF, CBC, MG, VIDH, FT3, FT4 #### [address] [address] AST [Catalytic activity/Vol] 9 U/L Low 10-40 [facility] [place] Comment on above: Performed By: #### T SH, ANEU, ADIFF, CBC, MG, VIDH, FT3, FT4 #### [address] [address] Bili Total 0.9 mg/dL Normal 0.2-1.0 [facility] [place] Comment on above: Result Comment: Use of this assay is not recommended for patients undergoing treatment with eltrombopag due to the potential for falsely elevated results. Performed By: #### T SH, ANEU, ADIFF, CBC, MG, VIDH, FT3, FT4 #### [address] [address] BUN/Creatinine Ratio 17 ratio Normal 7-27 [facility] ([place]) Comment on above: Performed By: #### T SH, ANEU, ADIFF, CBC, MG, VIDH, FT3, FT4 #### [address] [address] Calcium [Mass/Vol] 9.2 mg/dL Normal 8.4-10.2 [facility] ([place]) Comment on above: Performed By: #### T SH, ANEU, ADIFF, CBC, MG, VIDH, FT3, FT4 #### [address] [address] Chloride [Moles/Vol] 105 mmol/L Normal 98-107 [facility] ([place]) Comment on above: Performed By: #### T SH, ANEU, ADIFF, CBC, MG, VIDH, FT3, FT4 #### [address] [address] CO2 [Moles/Vol] 26 mmol/L Normal 23-31 [facility] [place] Comment on above: Performed By: #### T SH, ANEU, ADIFF, CBC, MG, VIDH, FT3, FT4 #### [address] [address] Creatinine [Mass/Vol] 0.77 mg/dL Normal 0.55-1.02 [facility] [place] Comment on above: Performed By: #### T SH, ANEU, ADIFF, CBC, MG, VIDH, FT3, FT4 #### [address] [address] Electrolyte Balance 13.0 mEq/L Normal 4.0-15.0 [facility] [place] Comment on above: Performed By: #### T SH, ANEU, ADIFF, CBC, MG, VIDH, FT3, FT4 #### [address] [address] Globulin 2.8 G/dL Normal [facility] [place] Comment on above: Performed By: #### T SH, ANEU, ADIFF, CBC, MG, VIDH, FT3, FT4 #### [address] [address] Glucose [Mass/Vol] 93 mg/dL Normal 83-110 [facility] ([place]) Comment on above: Performed By: #### T SH, ANEU, ADIFF, CBC, MG, VIDH, FT3, FT4 #### [address] [address] Potassium [Moles/Vol] 4.0 mmol/L Normal 3.5-5.1 [facility]) Comment on above: Performed By: #### T SH, ANEU, ADIFF, CBC, MG, VIDH, FT3, FT4 #### [address] [address] Sodium [Moles/Vol] 144 mmol/L Normal 136-145 [facility] ([place]) Comment on above: Performed By: #### T SH, ANEU, ADIFF, CBC, MG, VIDH, FT3, FT4 #### [address] [address] Total Protein 6.4 G/dL Normal 6.4-8.2 [facility] ([place] Comment on above: Performed By: #### T SH, ANEU, ADIFF, CBC, MG, VIDH, FT3, FT4 #### [address] [address] Urea nitrogen [Mass/Vol] 13 mg/dL Normal 7-18 [facility] ([place] Comment on above: Performed By: #### T SH, ANEU, ADIFF, CBC, MG, VIDH, FT3, FT4 #### [address] [address] FT4on 06-15-2023 Free T4 [Mass/Vol] 0.94 ng/dL Normal 0.76-1.46 [facility] ([place]) Comment on above: Performed By: #### T SH, ANEU, ADIFF, CBC, MG, VIDH, FT3, FT4 #### [address] [address] LIPIDon 06-15-2023 Cholesterol [Mass/Vol] 156 mg/dL Normal 0-200 [facility] [place] Comment on above: Result Comment: Chol esterol Reference Interval: Less than 200 Desirable 200-239 Borderline high risk 240 and above High risk Performed By: #### T SH, ANEU, ADIFF, CBC, MG, VIDH, FT3, FT4 #### [address] [address] Cholesterol in HDL [Mass/Vol] 64 mg/dL High 40-60 [facility] [place] Comment on above: Performed By: #### T SH, ANEU, ADIFF, CBC, MG, VIDH, FT3, FT4 #### [address] [address] Cholesterol in LDL [Mass/Vol] 55 mg/dL Normal 0-130 [facility] [place] Comment on above: Performed By: #### T SH, ANEU, ADIFF, CBC, MG, VIDH, FT3, FT4 #### [address] [address] Triglyceride [Mass/Vol] 187 mg/dL High 0-150 [facility] [place] Comment on above: Result Comment: Trig lyceride Reference Interval: Less than 150 Normal 150-199 Borderline high risk 200-499 High risk 500 or higher Very high risk Performed By: #### T SH, ANEU, ADIFF, CBC, MG, VIDH, FT3, FT4 #### [address] [address] MGon 06-15-2023 Magnesium [Mass/Vol] 1.5 mg/dL Low 1.8-2.4 [facility] ([place] Comment on above: Performed By: #### T SH, ANEU, ADIFF, CBC, MG, VIDH, FT3, FT4 #### [address] [address] TSHon 06-15-2023 TSH Qn 4.83 m[IU]/L High 0.36-3.74 [facility] ([place] Comment on above: Performed By: #### T SH, ANEU, ADIFF, CBC, MG, VIDH, FT3, FT4 #### [address] [address] XR HIP RIGHT W/PELVIS 4 VIEW Son [...] 05/13/2023 9:17:28 PM Ordering Provider: CARMEN Alvarez [facility] ([place]) XR HUMERUS MINIMUM [facility] XR HUMERUS MINIMUM 2 VIEWS RIGHT [...] 05/13/2023 9:14:05 PM Ordering Provider: CARMEN CANDELARIO [facility] ([place]) XR SHOULDER MINIMUM 2 VIEWS RIGHTon 05-13-2023 [...] 05/13/2023 9:15:26 PM Ordering Provider: CARMEN CANDELARIO [facility] ([place]) Absolute lymphocyte countOrd ered By: Jose Tabor on 02-22-2023 Lymphocytes Auto (Unsp spec) [#/Vol] 1.67 10*3/uL 0.83-4.51 [facility] Basophil percentageOrdered B y: Jose Tabor on 02-22-2023 Basophils/100 WBC (Bld) 0.6 % 0-1 [facility] Bilirubin [Mass/Vol] 0.70 mg/dL 0.20-1.00 [facility] Comment on above: For patients on eltr ombopag therapy, use of Dimension [place] TBIL is not recommended. Chloride [Moles/Vol] 110 mmol/L 98-107 [facility] Eosinophils/100 WBC (Bld) 0.4 % 0-5 [facility] Glucose [Mass/Vol] 117 mg/dL 74-106 [facility] Comment on above: Fasting Glucose resu lt from 100 to 125 mg/dL suggests IMPAIRED HOMEOSTASIS per A.D.A. criteria. Neutrophils (Bld) [#/Vol] 2.9 10*3/uL 2.0-7.7 [facility] Neutrophils/100 WBC (Bld) 56.8 % 47-70 [facility] Potassium [Moles/Vol] 3.1 mmol/L 3.5-5.1 [facility] Comment on above: Slight Hemolysis, Re sult may be falsely increased. Protein [Mass/Vol] 6.8 g/dL 6.4-8.2 [facility] Sodium [Moles/Vol] 141 mmol/L 136-145 [facility] WBC (Bld) [#/Vol] 5.1 10*3/uL 4.4-11.0 [facility] Blood erythrocytes count (nu mber/volume)Ordered By: Jose Tabor on 02-22-2023 RBC (Bld) [#/Vol] 3.70 10*6/uL 4.2-5.4 [facility] Blood hemoglobin measurement (mass/volume)Ordered By: Jose Tabor on 02-22-2023 Hemoglobin (Bld) [Mass/Vol] 11.9 g/dL 12.0-15.0 [facility] Blood lymphocytes/100 leukoc ytesOrdered By: Jose Tabor on 02-22-2023 Lymphocytes/100 WBC (Bld) 32.9 % 19-41 [facility] Blood monocytes/100 leukocyt esOrdered By: Jose Tabor on 02-22-2023 Monocytes/100 WBC (Bld) 8.3 % 0-10 [facility] Blood platelet mean volumeOr dered By: Jose Tabor on 02-22-2023 Platelet mean volume (Bld) [Entitic vol] 10.8 fL 6.2-12.0 [facility] Determination of erythrocyte mean corpuscular volume (MCV)Ordered By: Jose Tabor on 02-22-2023 MCV (RBC) [Entitic vol] 95.4 fL 81-99 [facility] Hematocrit Auto (Bld) [Volum e fraction]Ordered By: Jose Tabor on 02-22-2023 Hematocrit (Bld) [Volume fraction] 35.3 % 37-47 [facility] Laboratory - Chemistry and C hemistry - challengeOrdered By: Jose Tabor on 02-22-2023 ALP [Catalytic activity/Vol] 68 U/L 45-117 [facility] ALT [Catalytic activity/Vol] 13 U/L 13-56 [facility] CO2 [Moles/Vol] 24.0 mmol/L 21.0-32.0 [facility] Globulin (S) [Mass/Vol] 3.6 g/dL 2.2-4.2 [facility] Urea nitrogen/Creatinine [Mass ratio] 16.1 mg/mg 10-20 [facility] Laboratory - Hematology and Cell countsOrdered By: Jose Tabor on 02-22-2023 Erythrocyte distribution width (RBC) [Entitic vol] 41.4 fL 35.1-43.9 [facility] Erythrocyte distribution width (RBC) [Ratio] 11.9 % 11.6-14.6 [facility] Immature granulocytes/100 WBC (Bld) 1.000 % 0.0-0.9 [facility] Comment on above: IG% - Immature Granu locytes (promyelocytes, myelocytes and metamyelocytes) > 1% indicates that a LEFT SHIFT is Present. MCH (RBC) [Entitic mass] 32.2 pg 27.0-32.0 [facility] Nucleated RBC/100 WBC (Bld) [Ratio] 0 % 0-5 [facility] MCHC Auto (RBC) [Mass/Vol]Or dered By: Jose Tabor on 02-22-2023 MCHC (RBC) [Mass/Vol] 33.7 g/dL 32-36 [facility] No Panel InformationOrdered By: Jose Tabor on 02-22-2023 Miscellaneous Test See comment [facility] Comment on above: Scanned image report available in EMR Estimated GFR (MDRD) Amer 88 mL/min >60 [facility] Comment on above: GFR Calc Estimated GFR (MDRD) Non-Af Amer 73 mL/min >60 [facility] Comment on above: Non- GFR Calc Platelets bldOrdered By: David Tabor on 02-22-2023 Platelets (Bld) [#/Vol] 184 10*3/uL 150-450 [facility] Serum or plasma C reactive p rotein measurement (mass/volume)Ordered By: Jose Tabor on 02-22-2023 CRP [Mass/Vol] 3.60 mg/L 0.0-3.0 [facility] Comment on above: C-Reactive Protein ( CRP) provides useful information for thediagnosis, therapy and monitoring of inflammatory processesand associated diseases. For the evaluation of Relative Riskfor Cardiovascular Disease, a High Sensitivity CRP (HSCRP)should be ordered. Serum or plasma albumin omid urement (mass/volume)Ordered By: Jose Tabor on 02-22-2023 Albumin [Mass/Vol] 3.2 g/dL 3.2-5.0 [facility] Serum or plasma albumin/glob ulin mass ratioOrdered By: Jose Tabor on 02-22-2023 Albumin/Globulin [Mass ratio] 0.9 {ratio} 0.9-2.4 [facility] Serum or plasma calcium omid urement (mass/volume)Ordered By: Jose Tabor on 02-22-2023 Calcium [Mass/Vol] 8.6 mg/dL 8.5-10.1 [facility] Serum or plasma creatinine m easurement (mass/volume)Ordered By: Jose Tabor on 02-22-2023 Creatinine [Mass/Vol] 0.81 mg/dL 0.55-1.02 [facility] Comment on above: The validity of the calculated GFR & GFRAA in patients over 70 years has not been determined. Clinical correlation is essential. Serum or plasma urea nitroge n measurement (mass/volume)Ordered By: Jose Tabor on 02-22-2023 Urea nitrogen [Mass/Vol] 13 mg/dL 7-18 [facility] Thin prep Papanicolaou smear with manual screeningOrdered By: Jose Tabor on 02-22-2023 Thin prep Papanicolaou smear with manual screening 21 U/L 15-37 [facility] Comment on above: Slight Hemolysis, Re sult may be falsely increased. Thin prep Papanicolaou smear with manual screening 7 - [facility] LABORATORYOrdered By: Marcos Arambula on 12-21-2022 Albumin [...] Mixed growth consistent with normal urogenital artur. [facility] Work Phone: LABORATORYOrdered By: [employer] on 12-14-2022 Albumin BCP dye [Mass/Vol] [...] or 2. Interpretative criteria are not available. [facility] Work Phone: DAPTOMYCIN:SUSC:PT:ISOLATE:O RDQN:MICon 10-12-2022 DAPTOmycin RANDOLPH [Susc] >100,000 cfu/ml Enterococcus faecium [facility] Work Phone: DAPTOmycin RANDOLPH [Susc]on Enterococcus faecium Enterococcus faecium [facility] Work Phone: Basophil percentageOrdered B y: Dr. Tabor on 07-29-2022 Bilirubin [Mass/Vol] 0.80 mg/dL 0.20-1.00 [facility] Comment on above: For patients on eltr ombopag therapy, use of Dimension [place] TBIL is not recommended. Chloride [Moles/Vol] 108 mmol/L 98-107 [facility] Glucose [Mass/Vol] 81 mg/dL 74-106 [facility] Potassium [Moles/Vol] 3.1 mmol/L 3.5-5.1 [facility] Protein [Mass/Vol] 6.8 g/dL 6.4-8.2 [facility] Sodium [Moles/Vol] 142 mmol/L 136-145 [facility] WBC (Bld) [#/Vol] 6.1 10*3/uL 4.4-11.0 [facility] Blood erythrocytes count (nu mber/volume)Ordered By: Dr. Tabor on 07-29-2022 RBC (Bld) [#/Vol] 3.82 10*6/uL 4.2-5.4 [facility] Blood hemoglobin measurement (mass/volume)Ordered By: Dr. Tabor on 07-29-2022 Hemoglobin (Bld) [Mass/Vol] 12.5 g/dL 12.0-15.0 [facility] Blood platelet mean volumeOr dered By: Dr. Tabor on 07-29-2022 Platelet mean volume (Bld) [Entitic vol] 10.0 fL 6.2-12.0 [facility] Determination of erythrocyte mean corpuscular volume (MCV)Ordered By: Dr. Tabor on 07-29-2022 MCV (RBC) [Entitic vol] 96.6 fL 81-99 [facility] Hematocrit Auto (Bld) [Volum e fraction]Ordered By: Dr. Tabor on 07-29-2022 Hematocrit (Bld) [Volume fraction] 36.9 % 37-47 [facility] Laboratory - Chemistry and C hemistry - challengeOrdered By: Dr. Tabor on 07-29-2022 ALP [Catalytic activity/Vol] 63 U/L 45-117 [facility] ALT [Catalytic activity/Vol] 24 U/L 13-56 [facility] CO2 [Moles/Vol] 28.0 mmol/L 21.0-32.0 [facility] Globulin (S) [Mass/Vol] 3.2 g/dL 2.2-4.2 [facility] Urea nitrogen/Creatinine [Mass ratio] 17.5 mg/mg 10-20 [facility] Laboratory - Hematology and Cell countsOrdered By: Dr. Tabor on 07-29-2022 Erythrocyte distribution width (RBC) [Entitic vol] 45.9 fL 35.1-43.9 [facility] Erythrocyte distribution width (RBC) [Ratio] 12.9 % 11.6-14.6 [facility] MCH (RBC) [Entitic mass] 32.7 pg 27.0-32.0 [facility] MCHC Auto (RBC) [Mass/Vol]Or dered By: Dr. Tabor on 07-29-2022 MCHC (RBC) [Mass/Vol] 33.9 g/dL 32-36 [facility] No Panel InformationOrdered By: Dr. Tabor on 07-29-2022 Estimated GFR (MDRD) Amer 106 mL/min >60 [facility] Comment on above: GFR Calc Estimated GFR (MDRD) Non-Af Amer 88 mL/min >60 [facility] Comment on above: Non- GFR Calc Platelets bldOrdered By: Dr. Tabor on 07-29-2022 Platelets (Bld) [#/Vol] 251 10*3/uL 150-450 [facility] Serum or plasma albumin omid urement (mass/volume)Ordered By: Dr. Tabor on 07-29-2022 Albumin [Mass/Vol] 3.6 g/dL 3.2-5.0 [facility] Serum or plasma albumin/glob ulin mass ratioOrdered By: Dr. Tabor on 07-29-2022 Albumin/Globulin [Mass ratio] 1.1 {ratio} 0.9-2.4 [facility] Serum or plasma calcium omid urement (mass/volume)Ordered By: Dr. Tabor on 07-29-2022 Calcium [Mass/Vol] 8.7 mg/dL 8.5-10.1 [facility] Serum or plasma creatinine m easurement (mass/volume)Ordered By: Dr. Tabor on 07-29-2022 Creatinine [Mass/Vol] 0.69 mg/dL 0.55-1.02 [facility] Comment on above: The validity of the calculated GFR & GFRAA in patients over 70 years has not been determined. Clinical correlation is essential. Serum or plasma urea nitroge n measurement (mass/volume)Ordered By: Dr. Tabor on 07-29-2022 Urea nitrogen [Mass/Vol] 12 mg/dL 7-18 [facility] Thin prep Papanicolaou smear with manual screeningOrdered By: Dr. Tabor on 07-29-2022 Thin prep Papanicolaou smear with manual screening 19 U/L 15-37 [facility] Thin prep Papanicolaou smear with manual screening 6 5-15 [facility] No Panel InformationOrdered By: Dr. Tabor on 07-11-2022 Stool Calprotectin 235 ug/g 0-120 [facility] Comment on above: Concentration Interp retation Follow-Up<16 - 50 ug/g Normal None>50 -120 ug/g Borderline Re-evaluate in 4-6 weeks >120 ug/g Abnormal Repeat as clinically indicatedPerformed at: - [facility] [address] [id number] Director: Rodrigo Mota MD, Phone: [phone] LABORATORYOrdered By: Priyanka Dyson on 06-07-2022 Albumin [...] cfu/ml. No Significant growth. Sensitivity not indicated. [facility] Work Phone: LABORATORYOrdered By: Griselda Mckinney on [...] RANDOLPH [Susc] >100,000 cfu/ml Kleb siella pneumoniae [facility] Work Phone: Cefepime RANDOLPH [Susc]on 2021 Klebsiella pneumoniae Klebsiella pneumoniae [facility] Work Phone: MRI BRAIN WITH AND WITHOUT C [facility] 04-30-2022 MRI BRAIN WITH AND WITHOUT CONTRAST [...] have reviewed and approved this report. Normal [facility] No Panel Informationon 12-20 Culture Urine >100,000 cfu/ml Esch erichia coli [facility] Work Phone: Escherichia coli Escherichia coli [facility] Work Phone: LABORATORYOrdered By: Jenelle Henley on [...] percentageon 2021 Bilirubin [Mass/Vol] 0.70 mg/dL 0.20-1.00 [facility] Work Phone: Comment on above: For patients on eltr ombopag therapy, use of Dimension [place] TBIL is not recommended. Cholesterol [Mass/Vol] 189 mg/dL <200 [facility] Work Phone: Comment on above: <200 mg/dL Desirable 200-240 mg/dL Borderline >240 mg/dL High Risk Protein [Mass/Vol] 6.5 g/dL 6.4-8.2 [facility] Work Phone: Triglyceride [Mass/Vol] 176 mg/dL [facility] Work Phone: Comment on above: The drugs N-Acetylcy steine and Metamizole may falsely depress this assay.Serum Triglycerides Reference Interval Normal <150 mg/dL Borderline high 150 - 199 mg/dL High 200 - 499 mg/dL Very High > or = 500 mg/dL Direct bilirubinon Bilirubin.direct [Mass/Vol] 0.17 mg/dL 0.00-0.30 [facility] Work Phone: Laboratory - Chemistry and C hemistry - challengeon 11-25-2021 ALP [Catalytic activity/Vol] 60 U/L 45-117 [facility] Work Phone: ALT [Catalytic activity/Vol] 23 U/L 13-56 [facility] Work Phone: Globulin (S) [Mass/Vol] 2.8 g/dL 2.2-4.2 [facility] Work Phone: Serum or plasma albumin omid urement (mass/volume)on 11-25-2021 Albumin [Mass/Vol] 3.7 g/dL 3.2-5.0 [facility] Work Phone: Serum or plasma cholesterol in HDL measurement (mass/volume)on 11-25-2021 Cholesterol in HDL [Mass/Vol] 78 mg/dL [facility] Work Phone: Comment on above: The drugs N-Acetylcy steine and Metamizole may falsely depress this assay. Reference Range HDL <40 mg/dL Low HDL Cholesterol HDL >or= 60 mg/dL High HDL Cholesterol Serum or plasma cholesterol in VLDL measurement (mass/volume)on 11-25-2021 Cholesterol in VLDL [Mass/Vol] 35 mg/dL 5-40 [facility] Work Phone: Serum or plasma low density lipoprotein (LDL) cholesterol measurement (mass/volume)on 11-25-2021 Cholesterol in LDL [Mass/Vol] 76 mg/dL 0-130 [facility] Work Phone: Thin prep Papanicolaou smear with manual screeningon 11-25-2021 Thin prep Papanicolaou smear with manual screening 16 U/L 15-37 [facility] Work Phone: No Panel Informationon 11-17 Stool Calprotectin 190 ug/g [facility] Work Phone: Comment on above: Concentration Interp retation Follow-Up<16 - 50 ug/g Normal None>50 -120 ug/g Borderline Re-evaluate in 4-6 weeks >120 ug/g Abnormal Repeat as clinically indicatedPerformed at: [facility] [address] [id number] Director: Rodrigo Mota MD, Phone: [phone] No Panel Informationon 11-09 Miscellaneous Test See comment [facility] Work Phone: Comment on above: Scanned image report available in EMR LABORATORYOrdered By: Marcos Desir on 10-04-2021 TSH Qn 1.75 m[IU]/L Invalid Interpretation Code 0.36 - 3.74 mcIU/mL AO ADM SS No Panel Informationon 09-07 Stool Calprotectin 102 ug/g [facility] Work Phone: Comment on above: Concentration Interp retation Follow-Up<16 - 50 ug/g Normal None>50 -120 ug/g Borderline Re-evaluate in 4-6 weeks >120 ug/g Abnormal Repeat as clinically indicatedPerformed at: [employer] [id number] Director: Rodrigo Mota MD, Phone: [phone] Basophil percentageon 2021 WBC (Bld) [#/Vol] 6.4 10*3/uL 4.4-11.0 [facility] Work Phone: Blood erythrocytes count (nu mber/volume)on 09-06-2021 RBC (Bld) [#/Vol] 3.80 10*6/uL 4.2-5.4 [facility] Work Phone: Blood hemoglobin measurement (mass/volume)on 09-06-2021 Hemoglobin (Bld) [Mass/Vol] 12.4 g/dL 12.0-15.0 [facility] Work Phone: Blood platelet mean volumeon 09-06-2021 Platelet mean volume (Bld) [Entitic vol] 10.6 fL 6.2-12.0 [facility] Work Phone: Determination of erythrocyte mean corpuscular volume (MCV)on 09-06-2021 MCV (RBC) [Entitic vol] 93.9 fL 81-99 [facility] Work Phone: Erythrocyte sedimentation ra sharla 09-06-2021 ESR (Bld) [Velocity] 5 mm/h 0-30 [facility] Work Phone: Hematocrit Auto (Bld) [Volum e fraction]on 09-06-2021 Hematocrit (Bld) [Volume fraction] 35.7 % 37-47 [facility] Work Phone: Laboratory - Hematology and Cell countson 09-06-2021 Erythrocyte distribution width (RBC) [Entitic vol] 42.5 fL 35.1-43.9 [facility] Work Phone: Erythrocyte distribution width (RBC) [Ratio] 12.3 % 11.6-14.6 [facility] Work Phone: MCH (RBC) [Entitic mass] 32.6 pg 27.0-32.0 [facility] Work Phone: MCHC Auto (RBC) [Mass/Vol]on 09-06-2021 MCHC (RBC) [Mass/Vol] 34.7 g/dL 32-36 [facility] Work Phone: Platelets bldon 09-06-2021 Platelets (Bld) [#/Vol] 205 10*3/uL 150-450 [facility] Work Phone: Serum or plasma C reactive p rotein measurement (mass/volume)on 09-06-2021 CRP [Mass/Vol] mg/L 0.0-3.0 [facility] Work Phone: Comment on above: C-Reactive Protein [...] kg/m2 Dr. Ruth Au MD Work Phone: [facility] 01-07-2025 08:36-0400 Body weight 56.[address] Ruth Au MD Work Phone: [facility] 01-07-2025 08:36-0400 Diastolic blood pressure 68 mm[Hg] Dr. Ruth Au MD Work Phone: [facility] 01-07-2025 08:36-0400 Heart rate 60 /min Dr. Ruth Au MD Work Phone: [facility] 01-07-2025 08:36-0400 Respiratory rate 18 /min Dr. Ruth Au MD Work Phone: [facility] 01-07-2025 08:36-0400 Systolic blood pressure 125 mm[Hg] Dr. Ruth Au MD Work Phone: [facility] 05-13-2023 20:30-0400 Body temperature 97.16 [degF] CARMEN CANDELARIO DO [facility] 05-13-2023 20:30-0400 Diastolic Blood Pressure Non-Invasive 79 1 CARMEN CANDELARIO DO [facility] 05-13-2023 20:30-0400 Heart rate 67 /min CARMEN CANDELARIO DO [facility] 05-13-2023 20:30-0400 Respiratory rate 21 /min CARMEN CANDELARIO DO [facility] 05-13-2023 20:30-0400 Systolic Blood Pressure Non-Invasive 158 1 CARMEN CANDELARIO DO [facility] 04-11-2023 13:51-0400 Body height 165.[address] Ruth Au Work Phone: [facility] 04-11-2023 13:43-0400 Body mass index (BMI) [Ratio] 20.3 kg/m2 Dr. Ruth Au Work Phone: [facility] 04-11-2023 13:43-0400 Body weight 55.[address] Ruth Au Work Phone: [facility] 04-11-2023 13:43-0400 Diastolic blood pressure 82 mm[Hg] Dr. Ruth Au Work Phone: [facility] 04-11-2023 13:43-0400 Systolic blood pressure 144 mm[Hg] Dr. Ruth Au Work Phone: [facility] 12-05-2022 14:04-0400 Body height 165.[address] Ruth Au Work Phone: [facility] 12-05-2022 14:04-0400 Body mass index (BMI) [Ratio] 21.2 kg/m2 Dr. Ruth Au Work Phone: [facility] 12-05-2022 14:04-0400 Body weight 57.[address] Ruth Au Work Phone: [facility] 12-05-2022 14:04-0400 Diastolic blood pressure 74 mm[Hg] Dr. Ruth Au Work Phone: [facility] 12-05-2022 14:04-0400 Heart rate 64 /min Dr. Ruth Au Work Phone: [facility] 12-05-2022 14:04-0400 Respiratory rate 16 /min Dr. Ruth Au Work Phone: [facility] 12-05-2022 14:04-0400 Systolic blood pressure 127 mm[Hg] Dr. Ruth Au Work Phone: [facility] 06-13-2022 14:48-0400 Body height 165.[address] Ruth Au Work Phone: [facility] 06-13-2022 14:48-0400 Body mass index (BMI) [Ratio] 20.7 kg/m2 Dr. Ruth Au Work Phone: [facility] 06-13-2022 14:48-0400 Body weight 56.[address] Ruth Au Work Phone: [facility] 06-13-2022 14:48-0400 Diastolic blood pressure 62 mm[Hg] Dr. Ruth Au Work Phone: [facility] 06-13-2022 14:48-0400 Heart rate 68 /min Dr. Ruth Au Work Phone: [facility] 06-13-2022 14:48-0400 Respiratory rate 16 /min Dr. Ruth Au Work Phone: [facility] 06-13-2022 14:48-0400 Systolic blood pressure 108 mm[Hg] Dr. Ruth Au Work Phone: [facility] 12-02-2021 15:03-0400 Body height 165.[address] Ruth Au Work Phone: [facility] Work Phone: 12-02-2021 15:03-0400 Body mass index (BMI) [Ratio] 20.3 kg/m2 Dr. Ruth Au Work Phone: [facility] Work Phone: 12-02-2021 15:03-0400 Body weight 55.[address] Ruth Au Work Phone: [facility] Work Phone: 12-02-2021 15:03-0400 Diastolic blood pressure 68 mm[Hg] Dr. Ruth Au Work Phone: [facility] Work Phone: 12-02-2021 15:03-0400 Heart rate 64 /min Dr. Ruth Au Work Phone: [facility] Work Phone: 12-02-2021 15:03-0400 Respiratory rate 16 /min Dr. Ruth Au Work Phone: [facility] Work Phone: 12-02-2021 15:03-0400 Systolic blood pressure 114 mm[Hg] Dr. Ruth Au Work Phone: [facility] Work Phone: Encounters Encounter Date Encounter Type Care Provider Facility Start: 01-21-2025 End: 01-21-[address] Ruth Au MD Work Phone: [facility] Work Phone: Start: 01-21-2025 End: 01-21-[address] Pam Whipple MD -Laboratory Work Phone: Start: 01-21-2025 End: 01-21-2025 ambulatory [facility] Facility:[facility] Start: 01-07-2025 End: 01-07-[address] Pam Whipple MD -[facility] Work Phone: Start: 01-07-2025 End: 01-07-[address] Ruth Au MD Work Phone: [facility] Work Phone: Start: 01-04-2025 End: 01-04-[address] Ruth Au MD Work Phone: [facility] Work Phone: Start: 01-04-2025 End: 01-04-[address] Pam Whipple MD -Laboratory Work Phone: Start: 01-04-2025 End: 01-04-2025 ambulatory Pam Sarabjit Facility:[facility] Start: 01-01-2025 End: 01-05-2025 ambulatory RUTH AU MD [facility] [place] Start: 01-01-2025 End: 01-05-2025 Outreach Lab RUTH AU MD [facility] Start: 12-05-2024 End: 12-09-2024 ambulatory RUTH AU MD [facility] [place] Start: 12-05-2024 End: 12-09-2024 Outreach Lab RUTH AU MD [facility] Start: 11-27-2024 End: 11-27-2024 ambulatory RUTH AU MD [facility] [place] Start: 10-21-2024 End: 10-25-2024 ambulatory RUTH AU MD [facility] [place] Start: 08-30-2024 End: 08-30-2024 ambulatory Cindy LORA Facility:[facility] Start: 08-13-2024 ambulatory Ruth Au Facility: [facility] Start: 08-12-2024 End: 08-16-[address]RE[address]ER URGENT CARE PHYSICIAN ASSISTANT-MARBLE RUBBER Facility:[facility] Start: 08-12-2024 End: 08-16-2024 Outreach Lab E[facility]A [facility]RE[facility]ER URGENT CARE PHYSICIAN ASSISTANT-[employer]BLE RUBBER [facility] Start: 07-31-2024 End: 08-04-2024 ambulatory [facility] URGENT CARE PHYSICIAN ASSISTANT-MARBLE RUBBER Facility:[facility] Start: 07-31-2024 End: 08-04-2024 Outreach Lab [facility] URGENT CARE PHYSICIAN ASSISTANT-[employer]BLE RUBBER [facility] Start: 07-12-2024 End: 07-16-2024 ambulatory RUTH AU MD [facility] [place] Start: 07-12-2024 End: 07-16-2024 Outreach Lab RUTH AU MD [facility] Start: 07-04-2024 End: 07-04-2024 ambulatory Angela Gold Facility:[facility] Start: 07-02-2024 End: 07-02-2024 ambulatory Ruth Au Facility[facility] Start: 06-28-2024 End: 06-28-2024 ambulatory RUTH AU MD Facility[place] [place] Start: 06-28-2024 End: 06-28-2024 Patient encounter procedure RUTH AU MD [facility] Start: 05-24-2024 End: 05-24-2024 ambulatory AIDA SEFFENS URGENT CARE PHYSICIAN ASSISTANT-MARBLE RUBBER Facility:[facility] Start: 05-24-2024 End: 05-24-2024 Patient encounter procedure AIDA SEFFENS URGENT CARE PHYSICIAN ASSISTANT-MARBLE RUBBER [facility] Start: 05-15-2024 End: 05-19-2024 ambulatory AIDA SEFFENS URGENT CARE PHYSICIAN ASSISTANT-MARBLE RUBBER Facility:[facility] Start: 05-15-2024 End: 05-19-2024 Outreach Lab AIDA SEFFENS URGENT CARE PHYSICIAN ASSISTANT-MARBLE RUBBER [facility] Start: 04-11-2024 End: 04-15-2024 ambulatory RUTH AU MD Facility:[facility] Start: 04-11-2024 End: 04-15-2024 Outreach Lab RUTH AU MD [facility] Start: 02-06-2024 End: 02-10-2024 ambulatory SAYEDA ARON URGENT CARE PHYSICIAN ASSISTANT-MARBLE RUBBER Facility:[facility] Start: 02-06-2024 End: 02-10-2024 Outreach Lab SAYEDA ARON URGENT CARE PHYSICIAN ASSISTANT-MARBLE RUBBER [facility] Start: 01-12-2024 End: 01-12-2024 ambulatory RUTH AU MD Facility:[facility] Start: 01-12-2024 End: 01-12-2024 Patient encounter procedure RUTH AU MD [facility] Start: 01-05-2024 End: 01-05-2024 ambulatory RUTH AU MD Facility:[facility] Start: 01-05-2024 End: 01-05-2024 Patient encounter procedure RUTH AU MD [facility] Start: 11-23-2023 End: 11-27-2023 ambulatory RUTH AU MD Facility:[facility] Start: 11-23-2023 End: 11-27-2023 Outreach Lab RUTH AU MD [facility] Start: 10-25-2023 End: 10-29-2023 ambulatory BANDAR LOMELI MD Facility:[facility] Start: 10-25-2023 End: 10-29-2023 Outreach Lab BANDAR LOMELI MD [facility] Start: 10-21-2023 End: 10-25-[address] MEHRDAD SANTILLAN DO Facility:[facility] Start: 06-23-2023 End: 06-27-2023 ambulatory RUTH AU MD Facility:[facility] Start: 06-15-2023 End: 06-15-2023 ambulatory RUTH AU MD Facility:[facility] Start: 06-14-2023 End: 08-30-2023 ambulatory MOLLY CALVO DO Facility:[facility] Start: 06-14-2023 End: 08-30-2023 Physical therapy management MOLLY CALVO DO [facility] Start: 05-13-2023 End: 05-13-2023 Emergency department patient visit CARMEN CANDELARIO DO [facility] Start: 04-11-2023 End: 04-11-[address] Ruth Au Work Phone: [facility] Work Phone: Start: 04-11-2023 End: 04-11-[address] Ruth Au Work Phone: [facility]-Laboratory, Specimen Work Phone: Start: 04-11-2023 End: 04-11-[address] Ruth Au Work Phone: [facility] Work Phone: Start: 03-16-2023 End: 03-16-[address] Ruth Au Work Phone: [facility] Work Phone: Start: 03-16-2023 End: 03-16-[address] Ruth Au Work Phone: [facility], [facility] Work Phone: Start: 02-22-2023 End: 02-22-[address] Ruth Au Work Phone: [facility] Work Phone: Start: 02-22-2023 End: 02-22-[address] [facility] Work Phone: Start: 12-21-2022 End: 12-25-2022 Outreach Lab RUTH AU MD [facility] Start: 12-14-2022 End: 12-14-2022 Patient encounter procedure RUTH AU MD [facility] Start: 12-05-2022 End: 12-05-[address] Ruth Au Work Phone: [facility] Work Phone: Start: 11-28-2022 End: 12-02-2022 Outreach Lab NELI SPIVEY APRN-MARBLE RUBBER [facility] Start: 11-23-2022 Non-patient / Non-visit Dr. Ruth Au Work Phone: [facility] Work Phone: Start: 10-12-2022 End: 10-16-2022 Outreach Lab RUTH AU MD [facility] Start: 09-12-2022 End: 09-12-[address] Ruth Au Work Phone: [facility] Work Phone: Start: 09-12-2022 End: 09-12-[address] Ruth Au Work Phone: [facility] Start: 07-29-2022 End: 07-29-[address] Ruth Au Work Phone: [facility] Work Phone: Start: 07-29-2022 End: 07-29-[address] Ruth Au Work Phone: [facility] Start: 07-11-2022 End: 07-11-[address] Ruth Au Work Phone: [facility] Start: 07-06-2022 ambulatory [facility] Start: 06-13-2022 End: 06-13-[address] Ruth Au Work Phone: [facility] Start: 06-07-2022 End: 06-07-2022 Patient encounter procedure RUTH AU MD [facility] Start: 05-30-2022 End: 06-03-2022 Outreach Lab KERA LUIS MD [facility] Start: 05-28-2022 End: 05-28-2022 Patient encounter procedure RUTH AU MD [facility] Start: 05-11-2022 End: 05-15-2022 Outreach Lab UDAY PANTOJA DO [facility] Start: 04-25-2022 ambulatory RUTH AU Facility: [facility] Start: 04-25-2022 ambulatory RUTH AU Facility: [facility] Start: 01-05-2022 End: 01-05-2022 Subsequent hospital visit by physician Georgina Ndiaye MD Work Phone: [facility] Comment on above: Canceled (Cancel [place] son Not Listed - Please provide detailed information) Start: 01-05-2022 ambulatory RUTH AU Facility: [facility] Start: 12-20-2021 End: 12-24-2021 Outreach Lab AIDA GOLD URGENT CARE PHYSICIAN ASSISTANT-MARBLE RUBBER [facility] Start: 12-15-2021 End: 12-15-2021 Patient encounter procedure ELLA STREETER URGENT CARE PHYSICIAN ASSISTANT-MARBLE RUBBER [facility] Start: 12-14-2021 End: 12-14-[address] JOSE TABOR MD [facility] Start: 12-02-2021 End: 12-02-[address] Ruth Au Work Phone: [facility] Start: 11-25-2021 End: 11-25-2021 Patient encounter procedure [facility] Start: 11-17-2021 End: 11-17-2021 Patient encounter procedure [facility] Start: 11-09-2021 End: 11-09-2021 Patient encounter procedure [facility] Start: 10-04-2021 End: 10-04-2021 Patient encounter procedure JOSE OCAMPO MD [facility] Start: 09-07-2021 End: 09-07-2021 Patient encounter procedure [facility] Start: 09-06-2021 End: 09-06-2021 Patient encounter procedure [facility] Start: 08-10-2021 End: 08-10-2021 Patient encounter procedure JOSE OCAMPO MD [facility] Procedures Date Procedure Procedure Detail [...] WRIST Start: 03-20-2015 H/O Spinal surgery JOSE OCAPMO MD Comment on above: T-12 kyphoplasty- Dr Sara Shetty Start: 11-27-2013 H/O: surgery S/P resection of meningioma Georgina Ndiaye MD Work Phone: Start: 11-25-2013 Craniotomy JOSE Kaur MD Comment on above: emergent redo-biocra nal craniotomy 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 [facility] Start: 08-14-2013 Benign neoplasm of m eninges [...] Activity Detail Author Start: 02-25-2025 ambulatory Ambulatory Facility:[facility] Start: 02-22-2023 Procedure [facility] Start: 09-12-2022 Procedure [facility] Start: 04-25-2022 End: 04-25-2022 Patient encounter procedure 04/25/2022 Office Visit Neurosurgery Neuro Oncology Georgina Ndiaye MD [address] [place] [address] Division of Neuro Oncology at [facility] Start: 03-23-2021 COVID-19 VACCINE (3 - Booster for Moderna series) COVID-19 VACCINE (3 - Booster for Moderna series) [facility] Start: 12-06-2014 Colonoscopy COLORECTAL CANCER SCREENING DISCUSSION [facility] Start: 2008 Pneumococcal vaccination PNEUMOCOCCAL VACCINE SERIES (1 - PCV) [facility] Start: 1993 Zoster vaccine hzv live for subcutaneous use ZOSTER (SHINGLES) VACCINE (1 of 2) [facility] Start: 1964 Screening for malignant neoplasm of cervix CERVICAL CANCER SCREENING DISCUSSION [facility] Start: 1962 Third diphtheria, tetanus and acellular pertussis (DTaP) vaccination TDAP (ADULT) [facility] Start: 1961 Tetanus vaccination TETANUS [facility] Start: 1943 Hepatitis C antibody, confirmatory test HEPATITIS C VIRUS SCREENING [facility] Start: 1943 Screening for osteoporosis DEXA SCAN DISCUSSION [facility] Basic metabolic 2008 panel with ionized calcium - Serum or Plasma [facility] NM Heart Views W str ess and W radionuclide IV [facility] NM Heart Views W str ess and W radionuclide IV [facility] Immunizations Immunization Date Immunization Notes Care Provider Fa [facility] 11-27-2023 tetanus toxoid, redu jenna diphtheria toxoid, and acellular pertussis vaccine, adsorbed RUTH AU MD [facility] 06-23-2023 influenza, high dose seasonal, preservative-free; Translations: [Fluad Quadrivalent PF ] MOLLY CALVO DO [facility] 04-29-2022 influenza virus vacc ine, unspecified formulation KERA LUIS MD [facility] 06-25-2021 SARS-CoV-2 (COVID-19 ) mRNA-[id number] vaccine KERA LUIS MD [facility] 05-13-2021 influenza virus vacc ine, unspecified formulation JOSE OCAMPO MD [facility] 05-08-2021 Influenza virus vaccine [facility] [facility] [place] 10-21-2020 SARS-CoV-2 (COVID-19 ) mRNA-1273 vaccine JOSE OCAMPO MD [facility] Comment on above: Result Comment: 2020: [id number] 10-20-2020 Covid (Moderna) [facility] 09-24-2020 SARS-CoV-2 (COVID-19 ) mRNA-1273 vaccine JOSE OCAMPO MD [facility] 09-22-2020 Covid (Moderna) [facility] 04-16-2020 influenza virus vacc ine, unspecified formulation JOSE OCAMPO MD [facility] 05-07-2019 influenza virus vacc ine, unspecified formulation JOSE OCAMPO MD [facility] 05-16-2018 influenza virus vacc ine, unspecified formulation JOSE OCAMPO MD [facility] 01-07-2018 tetanus toxoid, redu jenna diphtheria toxoid, and acellular pertussis vaccine, adsorbed JOSE OCAMPO MD [facility] 05-10-2017 influenza virus vacc ine, unspecified formulation JOSE OCAMPO MD [facility] 05-03-2016 influenza virus vacc ine, unspecified formulation JOSE OCAMPO MD [facility] 05-14-2015 influenza virus vacc ine, unspecified formulation JOSE OCAMPO MD [facility] 05-22-2014 influenza virus vacc ine, unspecified formulation JOSE OCAMPO MD [facility] 05-07-2013 influenza virus vacc ine, unspecified formulation JOSE OCAMPO MD [facility] 05-19-2012 influenza virus vacc ine, unspecified formulation JOSE OCAMPO MD [facility] 12-30-2009 zoster vaccine, live JOSE POLANCO MD [facility] 07-11-2005 pneumococcal polysaccharide vaccine, 23 valent JOSE OCAMPO MD [facility] Payers Date Payer Category Payer Self-pay [id number] 2024 Medicare [id number] 2023 Medicare [id number] 2021 Private Health Insurance [id number] 2020 Unknown [id number] 2020 Unknown [id number] [id number] 2011 Unknown [id number] 2008 Medicare [id number] 2008 Medicare [id number] 2008 Medicare [id number] [id number] 1943 Unknown [id number] 2.16.8 40.1.875440.3.579.2.627 1943 Unknown [id number] 2.16.8 40.1.748075.3.579.2.627 1943 Unknown [id number] 2.16.8 40.1.775499.3.579.2. 1943 Unknown [id number] 2.16.8 40.1.648907.3.579.2. 1943 Unknown [id number] 2.16.8 40.1.728367.3.579.2. 1943 Unknown [id number] 2.16.8 40.1.813179.3.579.2. 1943 Unknown [id number] 2.16.8 40.1.730301.3.579.2. 1943 Unknown [id number] 2.16.8 40.1.893597.3.579.2. 1943 Unknown [id number] 2.16.8 40.1.519630.3.579.2. 1943 Unknown [id number] 2.16.8 40.1.811226.3.579.2. 1943 Unknown [id number] 2.16.8 40.1.461062.3.579.2. 1943 Unknown [id number] 2.16.8 40.1.867710.3.579.2. 1943 Unknown [id number] 2.16.8 40.1.971828.3.579.2. 1943 Unknown [id number] 2.16.8 40.1.004451.3.579.2. 1943 Unknown [id number] 2.16.8 40.1.051181.3.579.2. 1943 Unknown [id number] 2.16.8 40.1.463715.3.579.2. 1943 Unknown [id number] 2.16.8 40.1.800763.3.579.2.627 1943 Unknown [id number] 2.16.8 40.1.633680.3.579.2.627 1943 Unknown [id number] 2.16.8 40.1.509139.3.579.2.627 1943 Unknown [id number] 2.16.8 40.1.644260.3.579.2.627 1943 Unknown [id number] 2.16.8 40.1.964627.3.579.2.627 1943 Unknown [id number] 2.16. 840.1.191200.3.579.2.594 1943 Unknown [id number] 2.16. 840.1.785985.3.579.2.594 1943 Unknown [id number] 2.. 840.1.254017.3.579.2.594 Unknown [id number] Unknown [id number] 2.16.8 40.1.366557.3.579.2.462 Unknown [id number] 2.16.8 40.1.893805.3.579.2.462 Unknown [id number] 2.16.8 40.1.567163.3.579.2.462 Unknown [id number] 2.16.8 40.1.760887.3.579.2.462 Unknown [id number] 2.16.8 40.1.928503.3.579.2.462 Unknown [id number] 2.16.8 40.1.322707.3.579.2.462 Unknown [id number] 2.16.8 40.1.909079.3.579.2.462 Unknown [id number] 2.16.8 40.1.802740.3.579.2.462 Unknown [id number] 2.16.8 40.1.906887.3.579.2.462 Social History Date Type Detail Facility Start: 06-10-2019 End: 07-12-2023 Never smoked tobacco (finding) [facility] Start: 1945 Sex Assigned At Female A [facility] Start: 06-04-2021 End: 04-11-2023 Tobacco smoking status DCIS Unknown if ever smoked [facility] Start: 09-17-2013 Tobacco use and exposure Smoke less tobacco non-user [facility] Start: 01-13-2021 Alcohol intake Current non-dr shrinker of alcohol (finding) [facility] Start: 11-06-2013 History SDOH Alcohol Comment rarely [facility] Start: 1945 Sex Assigned At Not on file [facility] Sexual Orientation [facility] Start: 02-06-2019 Sex Female (finding) [facility] Medical Equipment Procedure Code Equipment Code Equipment [...] FDA Start: 12-12-2017 Screw 1.5x4.0mm [id number] - [id number] Start: 11-22-2013 Unknown Unknown 5 Unknown [...] to LE. Mild restriction with thumb/finger opposition. [facility] 05-13-2023 Functional Status Independent [facility] 05-13-2023 Functional Status Standard Safet y ID band on, Allergy Band on, Call device within reach, Bed in low position, Wheels locked, Upper/Half-Length side-rails up, Phone within reach, personal items within reach, Bedside Cart Locked, Visitor at bedside [facility] Mental Status Date Assessment Result Facility 05-13-2023 Mental Status Orientation Oriented x 4 [facility] 05-13-2023 Mental Status [facility] Clinical Notes 02-23-2021 to 01-07-2025 Note Date & Type Note Facility 01-07-2025 Evaluation note Diagnosis Onset Date Resolution Colitis chronic January 07, 2025 12:56pm Dyslipidemia chronic January 07 12:56pm Hypertension chronic January 07 12:56pm Left bundle branch block chronic January 07, 2025 12:56pm Mitral valve regurgitation chronic January 07, 2025 12:56pm Non-ischemic cardiomyopathy chronic January 07, 2025 12:56pm [facility] Work Phone: 1(223) 514-311705-27-2025 [facility] [address] [place], [place] [address] OFFICE VISIT Date of Service: 01/07/25 MR#: [id number] Acct: [id number] Name: GRICELDA KRUGER Rep #: [id number] : 1945 Provider: Dr. 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 Transthoracic echocardiogram: 06-17-2015: [facility]: [place], [place] Summary: 1. Normal LV size and [...] an LVEF of 66%. Cardiac catheterization: 09-24-2008: [facility] IMPRESSION: 1. Relatively normal left ventricular end [...] applicable) CC: Dr. Ruth Au MD ~ [facility]05-27-2025 Progress note Author Pam Whipple [facility] Note Date/Time January 07, 2025 1:38p m [facility] [address] [place] [address]. [address] [place] [address] OFFICE VISIT Date of Service: 01/07/25 MR#: [id number] Acct: [id number] Name: GRICELDA KRUGER Rep #: [id number] : 1945 Provider: Dr. 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 Transthoracic echocardiogram: 06-17-2015: [facility]: [place], [place] Summary: 1. Normal LV size and [...] an LVEF of 66%. Cardiac catheterization: 09-24-2008: [facility] IMPRESSION: 1. Relatively normal left ventricular end [...] applicable) CC: Dr. Ruth Au MD ~ [facility] Work Phone: 1(197) 527-289905-23-2025 Note. MICRO - Microbiology PROCEDURE: Urine Culture [...] Locations *1: This test was performed at: [address], [address] [place], [place] [address]-26-2025 Note. MICRO - Microbiology PROCEDURE: Urine Culture [*1] SOURCE: Urine, Clean Catch BODY SITE: COLLECTED DATE/TIME: 12/04/2024 16:17 EDT RECEIVED DATE/TIME: 12/05/2024 19:21 EDT START DATE/TIME: 12/05/2024 19:22 EDT FREE TEXT SOURCE: FINAL REPORTS Final Report [] Verified Date/Time/Personnel: 12/07/2024 08:00 EDT >100,000 cfu/ml Mixed growth consistent with normal urogenital artru. PRELIMINARY REPORTS Preliminary Report [] Verified Date/Time/Personnel: 12/06/2024 07:55 EDT No growth to date Preliminary Report [] Verified Date/Time/Personnel: 12/05/2024 19:59 EDT Specimen received in lab. Performing Locations *1: This test was performed at: [address], [address] [place], [place] [address]-12-2025 Note. MICRO - Microbiology PROCEDURE: Urine Culture [...] Locations *1: This test was performed at: [address], [facility] , [facility]01-03-2025 Note. MICRO - Microbiology PROCEDURE: Culture Wound [...] Locations *1: This test was performed at: [address], [address] [place], [place] [address]-02-2025 Note. MICRO - Microbiology PROCEDURE: Affirm Pathogens [...] Locations *1: This test was performed at: [address], [address] , [facility]01-02-2025 Note. MICRO - Microbiology PROCEDURE: Urine Culture [...] Locations *1: This test was performed at: [address], [id number] [place], [place] [address]-21-2024 Note. MICRO - Microbiology PROCEDURE: Urine Culture [...] Locations *1: This test was performed at: [address], [facility] , [facility]12-03-2024 Note. MICRO - Microbiology PROCEDURE: Urine Culture [...] Locations *1: This test was performed at: [address], [facility] , [facility]10-04-2024 Note. MICRO - Microbiology PROCEDURE: Urine Culture [...] Locations *1: This test was performed at: [address], [facility] , [facility]08-31-2024 Note. MICRO - Microbiology PROCEDURE: Culture Wound [...] Locations *1: This test was performed at: [address], [facility] , [facility] ([facility]02-08-2024 Note. MICRO - Microbiology PROCEDURE: Urine Culture [...] Locations *1: This test was performed at: [address], [address] [place], [place] [address]-26-2023 Note. MICRO - Microbiology PROCEDURE: Urine Culture [...] Locations *1: This test was performed at: [address], [address] [place], [place] [address]-22-2023 Note. MICRO - Microbiology PROCEDURE: Urine Culture [...] Locations *1: This test was performed at: [facility], [address] [place] [address], [facility] , [facility] ([place])07-14-2023 Note. MICRO - Microbiology PROCEDURE: Urine Culture [*1] SOURCE: Urine, Clean Catch BODY SITE: COLLECTED DATE/TIME: 06/23/2023 16:22 EST RECEIVED DATE/TIME: 06/23/2023 19:11 EST START DATE/TIME: 06/23/2023 19:11 EST FREE TEXT SOURCE: FINAL REPORTS Final Report [] Verified Date/Time/Personnel: 07/14/2023 07:21 EST >100,000 cfu/ml Carbapenem Resistant Enterobacteriaceae Klebsiella pneumoniae Infection control has been notified. Carbapenemase Producing Genes: Not Detected TEST PERFORMED BY: [facility] [address] [place] [address] >100,000 cfu/ml Klebsiella variicola PRELIMINARY REPORTS Preliminary [...] Locations *1: This test was performed at: [address], [address] , [facility] ([place])05-14-2023 Hospital Discharge instructions Patient Education 05/13/2023 22:37:35 [...] questions about adjusting the sling and swathe [phone] [employer]. [address] [place] [address]. All rights reserved. This information is not [...] wet, you can dry it with a chair finisher. You may use acetaminophen or ibuprofen to [...] chills as directed by your healthcare provider [phone] [employer]. [address] [place] [address], [place] [address]. All rights reserved. This information is not intended as a substitute for professional medical care. Always follow yourhealthcare professional's instructions. Follow Up Care 05/13/2023 20:22:07 With:RUTH AMANDA MD Address: [address] [place] [place] [address] [phone] When:2-4 days With:RUTH UA MD Address: [address] [place] [address]- When:2-4 days [facility] 09-30-2023 Note Discharge Instructions Thank you for allowing [facility] to assist you with your healthcare needs. [...] days Where: [address] [place] [address] [phone] Follow Up with RUTH AU MD When Within 2-4 days Where: [address] [place], [place] [address]- Allergies Bactrim DS Compazine Macrobid (unknown) Tape codeine (Compazine) sulfamethoxazole-trimethoprim (unknown) Medications Please ask your primary doctor or pharmacist before taking any other medication not listed, including over the counter drugs, herbal medications, vitamins and or supplements as they may interact withyour home medications. What How Much When Why Instructions Last Dose New acetaminophen-hydrocodone ([place] 325- 5 mg oral tablet) 1 tab(s) [...] questions about adjusting the sling and swathe [phone] [employer]. [address] [place] [address], [place] [address]. All rights reserved. This information is not [...] wet, you can dry it with a chair finisher. You may use acetaminophen or ibuprofen to [...] chills as directed by your healthcare provider [phone] [employer]. [address] [place] [address]. All rights reserved. This information is not intended as a substitute for professional medical care. Always follow yourhealthcare professional's instructions. Additional Information VACCINATE! IT SAVES LIVES! Members of the community who have not yet received the COVID-19 vaccine and would like to receive it can visit one of [facility] vaccine clinics. There are many vaccine clinic locations within the [facility]. For locations and available times, please visit [email or web address] It is important to note that some COVID mobile vaccine clinics are held outdoors and may be canceled in rainy or stormy conditions. To learn more about pediatric vaccinations (ages 5-11), we invite you to visit the [facility] webpage. https://[email or web address]/[email or web address]-[email or web address]-[email or web address] [email or web address].htmlTo learn more about the COVID-19 vaccine, we invite you to visit the CDC website for a list of frequently asked questions. https://www.cdc.gov/coronavirus/2019-ncov/vaccines/faq.html [facility] Patient Portal Access Instructions: Stay connected with your healthcare team and access your personal medical information anytime with the [facility] Patient Portal. If you would like a full copy of your medical records please contact the [facility] Medical Records Department Monday through Monday between 8a.m. and 4:30p.m. Please follow the directions below to access the portal: 1.Access the email account you provided upon registration to the hospital.2.Look for an invitation email from [facility].3.Open the email and access the invitation link: Accept Invitation to [facility]4.Fill in the required chan to create your account. Sign into [email or web address] with your username and password that you [...] you will allow to register on the [facility] Patient Portal for access to your information. You can also access the [facility] Patient Portal on the [facility] [employer] kory. Simply click on Health Records under [facility] and then click on the [facility] logo. [...] Call your local pharmacy or go to http://bit.ly/2Y5Kj0f to find one close to you.3.Make use of household items: Use cat litter or old coffee grounds to dispose medications if other options arenot available. Mix your drugs with these household products, seal them in an airtight container andthrow it into the garbage. Call [facility]: [phone] to be sure your drugs can be [...] aware that I should contact my doctor. Patient/Negative Cleaner Signature: Date/Time: Relationship to Patient: Witness Name/Signature: Date/Time: [facility]09-30-2023 Note ORIGINAL EXAMINATION: ONE XRAY VIEW OF [...] Sign Date: 05/13/2023 9:17:28 PM Ordering Provider: [address]30-2023 Note ORIGINAL EXAMINATION: TWO XRAY VIEWS [...] Sign Date: 05/13/2023 9:14:05 PM Ordering Provider: [address]30-2023 Note ORIGINAL EXAMINATION: 3 XRAY VIEWS [...] Date: 05/13/2023 9:15:26 PM [facility]ing [facility] Plan note Future Scheduled Tests Laboratory* Magnesium Level 06/02/22 * Thyroid Stimulating Hormone 06/02/22 * Thyroid Stimulating Hormone 12/31/21 * Free T4 06/02/22 * Free T4 12/31/21 * Complete Blood Count 12/31/21 * Free T3 06/02/22 * Complete Metabolic Panel 06/02/22 [facility] 05-20-2022 Evaluation + Plan note Future Scheduled Tests Laboratory* Thyroid Stimulating Hormone 12/31/21 * Free T4 12/31/21 * Complete Blood Count 12/31/21 [facility] 07-13-2021 Evaluation + Plan note Future Scheduled Tests Laboratory* Basic Metabolic Panel 02/23/21 Radiology* CT Abdomen w/ Contrast 02/23/21 * CT Abdomen and Pelvis w/ contrast 02/23/21 * XR Ribs 2 Views Left/PA Chest (AO) 01/15/21 [facility] Evaluation + Plan note Future Appointments Appointment Date:10/08/2021 02:00:00 PM Scheduled Provider:RUTH AU MD Location:[facility] Appointment Type:PC OV Future Scheduled Tests Laboratory* Basic Metabolic Panel 02/23/21 Radiology* CT Abdomen w/ Contrast 02/23/21 * CT Abdomen and Pelvis w/ contrast 02/23/21 * XR Ribs 2 Views Left/PA Chest (AO) 01/15/21 [facility] Evaluation + Plan note Future Appointments Appointment [...] CT Abdomen and Pelvis w/ contrast 02/23/21 [facility] Evaluation + Plan note Future Appointments Appointment Date:12/31/2021 03:30:00 PM Scheduled Provider:RUTH AU MD Location:[facility] Appointment Type:PC OV Future Scheduled Tests Laboratory* Potassium Level 12/14/21 * Basic Metabolic Panel 02/23/21 * Magnesium Level 12/14/21 Radiology* XR Ribs 2 Views Left/PA Chest (AO) 01/15/21 * CT Abdomen w/ Contrast 02/23/21 * CT Abdomen and Pelvis w/ contrast 02/23/21 [facility] Evaluation + Plan note Future Appointments Appointment Date:12/31/2021 03:30:00 PM Scheduled Provider:RUTH AU MD Location:[facility] Appointment Type: OV Future Scheduled Tests Laboratory* Basic Metabolic Panel 02/23/21 * Basic Metabolic Panel 12/15/21 * Magnesium Level 12/15/21 Radiology* XR Ribs 2 Views Left/PA Chest (AO) 01/15/21 * CT Abdomen w/ Contrast 02/23/21 * CT Abdomen and Pelvis w/ contrast 02/23/21 [facility] Evaluation + Plan note Future Appointments Appointment Date:12/31/2021 03:30:00 PM Scheduled Provider:RUTH AU MD Location:[facility] Appointment Type: OV Future Scheduled Tests Laboratory* Basic Metabolic Panel 02/23/21 Radiology* XR Ribs 2 Views Left/PA Chest (AO) 01/15/21 * CT Abdomen w/ Contrast 02/23/21 * CT Abdomen and Pelvis w/ contrast 02/23/21 [facility] Evaluation + Plan note Future Appointments Appointment Date:06/02/2022 01:30:00 PM Scheduled Provider:RUTH AU MD Location:[facility] Appointment Type:PC OV Future Scheduled Tests Laboratory* Thyroid Stimulating Hormone 12/31/21 * Free T4 12/31/21 * Complete Blood Count 12/31/21 * Lipid Profile 07/03/22 * Complete Metabolic Panel 07/03/22 [facility] Evaluation + Plan note Future Appointments Appointment Date:06/02/2022 01:30:00 PM Scheduled Provider:RUTH AU MD Location:[facility] Appointment Type:PC OV Future Scheduled Tests Laboratory* Thyroid Stimulating Hormone 12/31/21 * Free T4 12/31/21 * Complete Blood Count 12/31/21 [facility] Evaluation + Plan note Future Appointments Appointment Date:12/20/2022 01:30:00 PM Scheduled Provider:RUTH AU MD Location:[facility] Appointment Type:PC OV Future Scheduled Tests Laboratory* Magnesium Level 09/20/22 * Thyroid Stimulating Hormone 12/31/21 * Free T4 12/31/21 * Free T4 09/20/22 * Complete Blood Count 12/31/21 * Complete Blood Count 09/20/22 * Lipid Profile 09/20/22 * Complete Metabolic Panel 09/20/22 [facility] Evaluation + Plan note Future Appointments Appointment Date:12/21/2022 02:00:00 PM Scheduled Provider:RUTH AU MD Location:[facility] Appointment Type:PC OV Future Scheduled Tests Laboratory* Magnesium Level 09/20/22 * Thyroid Stimulating Hormone 12/31/21 * Free T4 12/31/21 * Free T4 09/20/22 * Complete Blood Count 12/31/21 * Complete Blood Count 09/20/22 * Lipid Profile 09/20/22 * Complete Metabolic Panel 09/20/22 [facility] Evaluation + Plan note Future Appointments Appointment Date:12/21/2022 02:00:00 PM Scheduled Provider:RUTH AU MD Location:[facility] Appointment Type:PC OV Future Scheduled Tests Laboratory* Thyroid Stimulating Hormone 12/31/21 * Free T4 12/31/21 * Complete Blood Count 12/31/21 [facility] Evaluation + Plan note Future Appointments Appointment Date:06/23/2023 01:30:00 PM Scheduled Provider:RUTH AU MD Location:[facility] Appointment Type:PC OV Future Scheduled Tests Laboratory* Magnesium Level 12/21/22 * Thyroid Stimulating Hormone 12/21/22 * Thyroid Stimulating Hormone 12/31/21 * Free T4 12/21/22 * Free T4 12/31/21 * Complete Blood Count 12/31/21 * Lipid Profile 06/23/23 * Complete Metabolic Panel 06/23/23 [facility] Evaluation + Plan note Future Appointments Appointment Date:06/23/2023 01:30:00 PM Scheduled Provider:RUTH AU MD Location:[facility] Appointment Type: OV Future Scheduled Tests Laboratory* Magnesium Level 12/21/22 * Thyroid Stimulating Hormone 12/21/22 * Free T4 12/21/22 * Lipid Profile 06/23/23 * Complete Metabolic Panel 06/23/23 [facility] Evaluation + Plan note Future Appointments Appointment Date:12/22/2023 01:30:00 PM Scheduled Provider:RUTH AU MD Location:[facility] Appointment Type: OV Follow Up Future Scheduled Tests Laboratory* Thyroid Stimulating Hormone 06/23/23 * Free T4 06/23/23 * A1C Hemoglobin 12/22/23 * Lipid Profile 12/22/23 * Complete Metabolic Panel 12/22/23 [facility] Evaluation + Plan note Future Appointments Appointment Date:11/08/2023 01:15:00 PM Scheduled Provider:BANDAR LOMELI MD Location:[facility] Appointment Type: OV Appointment Date:01/12/2024 11:00:00 AM Scheduled Provider:RUTH AU MD Location:[facility] Appointment Type: OV Follow Up Future Scheduled [...] Panel 09/14/23 * Complete Metabolic Panel 12/22/23 [facility] evaluation + Plan note Future Appointments Appointment Date:01/12/2024 11:00:00 AM Scheduled Provider:RUTH AU MD Location:[facility] Appointment Type:PC OV Follow Up Future Scheduled [...] Panel 09/14/23 * Complete Metabolic Panel 12/22/23 [facility] Evaluation + Plan note Future Appointments Appointment Date:01/12/2024 11:00:00 AM Scheduled Provider:RUTH AU MD Location:[facility] Appointment Type: OV Follow Up Future Scheduled Tests Laboratory* Ferritin 09/14/23 * Thyroid Stimulating Hormone 09/14/23 * Thyroid Stimulating Hormone 06/23/23 * Free T4 09/14/23 * Free T4 06/23/23 * Urine Culture 10/25/23 * Complete Blood Count 09/14/23 * Complete Blood Count 11/08/23 * Free T3 09/14/23 * Lipid Profile 09/14/23 * Vitamin D Level 09/14/23 * Complete Metabolic Panel 09/14/23 [facility] evaluation + Plan note Future Appointments Appointment Date:07/12/2024 01:30:00 PM Scheduled Provider:RUTH AU MD Location:[facility] Appointment Type:PC OV Future Scheduled Tests Laboratory* Ferritin 09/14/23 * Thyroid Stimulating Hormone 09/14/23 * Thyroid Stimulating Hormone 06/23/23 * Free T4 09/14/23 * Free T4 06/23/23 * Urine Culture 10/25/23 * Complete Blood Count 09/14/23 * Complete Blood Count 11/08/23 * Free T3 09/14/23 * Lipid Profile 09/14/23 * Vitamin D Level 09/14/23 * Complete Metabolic Panel 09/14/23 [facility] [employer] + Plan note Future Appointments Appointment Date:07/12/2024 01:30:00 PM Scheduled Provider:RUTH AU MD Location:[facility] Appointment Type:PC OV Future Scheduled Tests Laboratory* Ferritin 09/14/23 * Thyroid Stimulating Hormone 09/14/23 * Thyroid Stimulating Hormone 06/23/23 * Free T4 09/14/23 * Free T4 06/23/23 * Urine Microscopic 05/24/24 * Urine Culture 10/25/23 * Complete Blood Count 09/14/23 * Complete Blood Count 11/08/23 * Free T3 09/14/23 * Lipid Profile 09/14/23 * Vitamin D Level 09/14/23 * Complete Metabolic Panel 09/14/23 [facility] Evaluation + Plan note Future Appointments Appointment Date:07/12/2024 01:30:00 PM Scheduled Provider:RUTH AU MD Location:[facility] Appointment Type:PC OV Future Scheduled Tests Laboratory* Urine Culture 10/25/23 [facility] Evaluation + Plan note Future Appointments Appointment Date:01/09/2025 01:30:00 PM Scheduled Provider:RUTH AU MD Location:[facility] Appointment Type:PC OV Future Scheduled Tests Laboratory* Thyroid Stimulating Hormone 07/12/24 * Free T4 07/12/24 * Urine Culture 10/25/23 * Lipid Profile 01/09/25 * Complete Metabolic Panel 01/09/25 [facility] Evaluation + Plan note Future Appointments Appointment Date:06/05/2025 01:00:00 PM Scheduled Provider:RUTH AU MD Location:[facility] Appointment Type:PC OV Future Scheduled Tests Laboratory* Thyroid Stimulating Hormone 12/05/24 * Free T4 12/05/24 * Complete Blood Count 12/05/24 * Lipid Profile 06/06/25 * Complete Metabolic Panel 06/06/25 [facility] Evaluation noteNo assessment information available [facility] Work Phone: Evaluation note* Diagnosis Onset Date Resolution Status Left bundle branch block chr onic Pure hypercholesterolemia ch ronic Non-ischemic cardiomyopathy resolved [facility] Work Phone: Evaluation note* Diagnosis Onset Date Resolution Status Colitis chronic Dyslipidemia chronic Hypertension chronic Left bundle branch block chr onic Non-ischemic cardiomyopathy resolved [facility] Work Phone: Evaluation note* Diagnosis Onset Date Resolution Status Breast cancer acute Postmenopausal bleeding acut e [facility] Work Phone: Evaluation note* Diagnosis Onset Date Resolution Status Admit Date Colitis chronic January 07, 2025 12:56pm Dyslipidemia chronic January 07 12:56pm Hypertension chronic January 07 12:56pm Left bundle branch block chronic January 07, 2025 12:56pm Mitral valve regurgitation chronic January 07, 2025 12:56pm Non-ischemic cardiomyopathy chronic January 07, 2025 12:56pm [facility] Work Phone: Hospital course Narrative No data available for this section [facility] Hospital Discharge instructions No data available for this section [facility] Progress note No data available for this section [facility] Reason for referral (narrative)No reason for [facility] Chief Complaint and Reason for [...] Will Yes June 11 11:51am Power of Flight Test Data Acquisition Technician Yes June 11, 2021 11:51am Latest Code Status on File Code Status Date Activated Date Inactivated Comments Full Code 12/05/2013 1:29 PM 12/26/2013 2:25 PM Full Code 11/22/2013 11:13 AM 12/05/2013 1:29 PM Advance Directive Response Recorded Date/ Time Living Will Yes June 11 10:51am Power of Flight Test Data Acquisition Technician Yes June 11, 2021 10:51am Summary Purpose Additional Source Comments Goals (unrecognized section and content) Goals may be documented in a n alternate section Care Team (unrecognized sect ion and content) Real Estate Professor Relationship Specialty Start Date End Date Ruth Au MD [address] [place] [address] PCP - General Family Medicine 04/25/13 Kwame Nava MD PCP - Referring 1 Cardiovascular Medicine 11/06/13 Jazmyn Maddox RN Registered Nurse 11/30/13 Ubaldo Bhardwaj MD [address] [place] [address] Neurosurgeon Neurological Surgery 11/06/13 Team Status: Active [...] Provider, Referrin g Provider Active Marzena Salazar BAG MACHINE ADJUSTER, BAG MACHINE ADJUSTER-C Attending Provider Active Team Status: Inactive Member Role Status Dates Dr. Ruth Au MD Primary Care Provider Active Marzena Salazar BAG MACHINE ADJUSTER, BAG MACHINE ADJUSTER-C Attending Provider, Referring Provider Active Team Status: [...] Procedures MRI BRAIN WITH AND WITHOUT CONTRAST WI MRI BRAIN [facility]IL[place] Georgina Ndiaye MD [address] [place] [id number] Referral ID Status Reason Start Date Expiration Date V isits Requested Visits Authorized [id number] New Request 01/13/2021 02/07/2022 1 1 INFORMATION SOURCE (unrecogn ized section and content) DATE CREATED AUTHOR 05/14/2022 [facility] DATE CREATED AUTHOR AUTHOR'S ORGANIZ ATION 07/07/2022 [facility] DATE CREATED AUTHOR AUTHOR'S ORGANIZ ATION 04/16/2024 [facility] [place] [facility] DATE CREATED AUTHOR AUTHOR'S ORGANIZ ATION 01/08/2025 [facility] DATE CREATED AUTHOR AUTHOR'S ORGANIZ ATION 01/29/2025 [facility] Care Team (unrecognized sect ion and content) Care Team Personnel Name: Savita Offset Label Rewinder Alesia PT Position: P3 Scheduling - [employer]erry Terminal Supervisor Advanced Member Role: Other Name: RUTH AU MD Position: P4 Physician - Primary Care Med Service: Active Provider Member Role: Primary Care Physician Address: Address: [address] [place] [id number] Care Team Related Persons Name: MARY KRUGER Address: [address] [place], [place] [id number] [place] Address: Temporary [address] [place], [place] [id number] Name: LEIGHTON KRUGER Care Team Personnel Name: Savita Offset Label Rewinder Alesia PT Position: P3 Scheduling - [employer]erry Terminal Supervisor Advanced Member Role: Other Name: RUTH AU MD Position: P4 Physician - Primary Care Med Service: Active Provider Member Role: Primary Care Physician Address: Address: [address] [place] [id number] Care Team Related Persons Name: MARY KRUGER Address: Home [address] [place], [place] [id number] [place] Address: Temporary [address] [place], [place] [id number] Name: LEIGHTON KRUGER Care Team Personnel Name: Savita Offset Label Rewinder Alesia PT Position: P3 Scheduling - [employer]erry Terminal Supervisor Advanced Member Role: Other Name: RUTH AU MD Position: P4 Physician - Primary Care Med Service: Active Provider Member Role: Primary Care Physician Address: Address: [address] [place] [id number] Care Team Related Persons Name: MARY KRUGER Address: Home [address] [place], [place] [id number] [place] Address: Temporary [address] [place], [place] [id number] Name: LEIGHTON KRUGER Care Team Personnel Name: Savita Offset Label Rewinder Alesia PT Position: P3 Scheduling - [employer]erry Terminal Supervisor Advanced Member Role: Other Name: RUTH AU MD Position: P4 Physician - Primary Care Member Role: Primary Care Physician Address: Address: [address] [place] [id number] Care Team Related Persons Name: MARY KRUGER Address: Home [address] [place], [place] [id number] [place] Address: Temporary [address] [place], [place] [id number] Name: LEIGHTON KRUGER Care Team Personnel Name: Asia Barney Clertamika Dumas PT Position: P3 Scheduling - [employer]erry Terminal Supervisor Advanced Member Role: Other Name: RUTH AU MD Position: P4 Physician - Primary Care Member Role: Primary Care Physician Address: Address: [address] [place] [id number] Care Team Related Persons Name: MARY KRUGER Address: Home [address] [place], [place] [id number] Address: Temporary [address] [place], [place] [phone] Name: SASKIALEIGHTON FOR RECORDS PERTAINING TO PATIENTS [...] BE BASED ON THE PRIMARY CLINICAL RECORDS. [facility] [employer] [facility]. provides no warranty or guarantee of the accuracy or completeness of information in this document.
--- NOTE | 2025-02-25 10:13 | STRESSREP ---
Stress Test Report Date: 02/25/2025 Procedure: Pharmacologic stress nuclear imaging study Indications: Dyspnea on exertion Consent: Per the patient Procedure: The patient underwent pharmacologic (Regadenoson 0.4mg ) evaluation with a peak heart rate of 109 beats per minute (78%predicted maximal heart rate) and a peak blood pressure of 140/86 mmHg. The baseline ECG demonstrated sinus rhythm with left bundle branch block. The peak pharmacologic ECG was nondiagnostic. There were no cardiac dysrhythmias pretest, during pharmacologic infusion, or recovery. There was no complaint of chest discomfort during pharmacologic infusion or recovery. The patient was injected with 11.7 millicuries of technetium 99m Cardiolite and subsequently rest SPECT Cardiolite nuclear imaging was obtained in the horizontal long, vertical long, and short axis views. The patient underwent pharmacologic (Regadenoson) evaluation. The patient was injected with 33.1 millicuries of technetium 99m Cardiolite and subsequently stress SPECT Cardiolite nuclear imaging was obtained in the horizontal long, vertical long, and short axis views. A gated Cardiolite study at peak stress was obtained. The examination was stopped secondary to completion of protocol. Rest and stress SPECT Cardiolite nuclear imaging status post realignment, normalization, and attenuation correction demonstrate mildly reduced perfusion of the inferior wall that is mildly exaggerated post pharmacological stress. This could be suggestive of ischemia. There appears to be fixed hypoperfusion of the septum which could be secondary to underlying left bundle branch block. There is end systolic thickening and brightening. The gated Cardiolite study demonstrates myocardial thickening and inward wall motion. The reported LVEF is 64%. Impression: 1. Pharmacologic (Regadenoson) evaluation 2. Peak pharmacologic ECG with no diagnostic ischemic changes secondary to baseline abnormalities. 3. There were no cardiac dysrhythmias pretest, during pharmacologic infusion, or recovery. 5. Mild ischemia of the inferior wall. Fixed perfusion defect of the septum likely secondary to underlying left bundle branch block. 6. The gated Cardiolite study reports an LVEF of 64%. This note was generated with [employer] software. It may contain incorrect words, spelling, and punctuation that were not noted in checking the note before signing.
== END | disposition home or self-care (01) ==
LOC: CVS 06:29
PROVIDERS: PCP Family Medicine; Referring Provider Internal Medicine Cardiovascular Disease; Visit Provider Internal Medicine Cardiovascular Disease
DX: I34.0 Nonrheumatic mitral (valve) insufficiency (principal); I42.0 Dilated cardiomyopathy; R06.09 Other forms of dyspnea; R93.89 Abnormal findings on diagnostic imaging of other specified body structures; I10 Essential (primary) hypertension; E78.5 Hyperlipidemia, unspecified; I44.7 Left bundle-branch block, unspecified
CPT/HCPCS: 78452; 93017; A9500; A4216; J2785

== ENCOUNTER → 2025-05-01 | Outpatient (CLI) | payer MEDICARE, OTHER, SELFPAY ==
[2025-05-01 12:06] LABS: Anion Gap 11 (5-15); BUN 24 mg/dL (4-19); BUN/Creat Ratio 23.6 RATIO (10-20); Calcium,Total 9.8 mg/dL (7.6-11.0); Carbon Dioxide 25.1 mmol/L (21.0-32.0); Chloride 106 mmol/L (98-108); Glucose 72 mg/dL (70-99); Potassium 3.9 mmol/L (3.3-5.1)
== END | disposition home or self-care (01) ==
LOC: LAB 11:27
PROVIDERS: PCP Family Medicine; Referring Provider Internal Medicine Cardiovascular Disease; Visit Provider Internal Medicine Cardiovascular Disease
DX: I10 Essential (primary) hypertension (principal)
CPT/HCPCS: 36415; 80048

== ENCOUNTER → 2025-05-19 | Outpatient (CLI) | payer MEDICARE, OTHER, SELFPAY ==
--- NOTE | 2025-05-19 13:45 | ECHOD_ITS ---
Reason For Study Reason For Study: CARDIOMYOPATHY Procedure This was a 2D Doppler, Color Flow transthoracic echocardiogram. Exam performed in department. Left Ventricle Normal LV size. Mild concentric left ventricular hypertrophy. Anterior septal and apical hypokinesis. Estimated LVEF 45??? 50 %. Stage I diastolic dysfunction. Global longitudinal strain 14.7% which is abnormal. Right Ventricle Normal right ventricle. Atria The left atrium is mildly enlarged. Normal right atrium. Mitral Valve Mild mitral valve annular calcification. Mild mitral valve regurgitation. Tricuspid Valve Mild (1+) tricuspid valve insufficiency. Normal pulmonary artery pressure. Aortic Valve Trisinus/trileaflet aortic valve. Pulmonic Valve Trivial pulmonic valve insufficiency. Great Vessels Normal sized aortic root. Pericardium/Pleural No pericardial effusion. Epicardial fat. MMode/2D Measurements & Calculations LVIDd: 4.3 cm IVSd: 1.2 cm LVOT diam: 1.9 cm LVIDs: 3.1 cm LVPWd: 0.96 cm LVOT area: 2.7 cm2 RVDd: 3.8 cm FS: 27.1 % asc Aorta Diam: 3.1 cm LAV(MOD-bp): 31.8 ml LVAd ap4: 17.8 cm2 LAV(MOD-bp) Indexed: 19.9 ml/m2 LVLd ap4: 6.2 cm LAV(MOD-sp2): 28.3 ml EDV(MOD-sp4): 41.6 ml LAV(MOD-sp4): 33.8 ml EDV(sp4-el): 43.4 ml LVAs ap4: 11.2 cm2 LVLs ap4: 5.2 cm ESV(MOD-sp4): 19.7 ml ESV(sp4-el): 20.6 ml EF(MOD-sp4): 52.7 % EF(sp4-el): 52.5 % LVAd ap2: 18.4 cm2 SV(MOD-sp4): 21.9 ml SV(MOD-sp2): 26.9 ml LVLd ap2: 6.5 cm SI(MOD-sp4): 13.7 ml/m2 SI(MOD-sp2): 16.9 ml/m2 EDV(MOD-sp2): 43.6 ml EDV(sp2-el): 44.6 ml LVAs ap2: 10.4 cm2 LVLs ap2: 5.4 cm ESV(MOD-sp2): 16.7 ml ESV(sp2-el): 17.2 ml EF(MOD-sp2): 61.7 % SV(sp4-el): 22.8 ml Ao sinus diam: 3.[address] Junction: 2.3 cm LA dimension(2D): 2.8 cm TAPSE: 1.6 cm RA A4 area: 14.1 cm2 Time Measurements MV dec time: 0.18 sec Doppler Measurements & Calculations MV E max damien: 97.0 cm/sec Lat Peak E' Damien: 7.4 cm/sec Med Peak E' Damien: 5.0 cm/sec MV A max damien: 126.1 cm/sec E/E' lat: 13.2 E/E' med: 19.4 MV E/A: 0.77 MV dec slope: 537.8 cm/sec2 Ao V2 max: 116.3 cm/sec LV V1 max: 97.5 cm/sec Ao max P.4 mmHg LV V1 max P.8 mmHg Ao V2 mean: 93.3 cm/sec LV V1 mean P.4 mmHg Ao mean P.7 mmHg LV V1 mean: 72.1 cm/sec Ao V2 VTI: 26.9 cm LV V1 VTI: 23.0 cm AV (velocity ratio): 0.86 ABBY(I,D): 2.3 cm2 ABBY(V,D): 2.3 cm2 SV(LVOT): 62.1 ml PA V2 max: 72.8 cm/sec TR max damien: 196.6 cm/sec TR max P.5 mmHg ECHO/Echo Complete Interpretation Summary Mild concentric left ventricular hypertrophy. Anterior septal and apical hypokinesis. Estimated LVEF 45???50 %. Stage I diast olic dysfunction. Global longitudinal strain 14.7% which is abnormal. The left atrium is mildly enlarged. Mild (1+) tricuspid valve insufficiency. Ordering Physician: Pam Whipple Referring Physician: Pam Whipple MD Performed By: Kenna Stuart RDCS
== END | disposition home or self-care (01) ==
PROVIDERS: PCP Family Medicine; Referring Provider Internal Medicine Cardiovascular Disease; Visit Provider Internal Medicine Cardiovascular Disease
DX: I42.8 Other cardiomyopathies (principal)
CPT/HCPCS: 93306